=== PATIENT | male | born 1980 | race Caucasian/White ===

== ENCOUNTER 2017-06-22 19:17 | Emergency (ER) | payer MEDICAID, OTHER ==
[~2017-06-22] VITALS: Ht 172.7 cm; Wt 83.0 kg
[~2017-06-22 19:17] MED LIST: DILANTIN PO; DIVA250T25 PO; OLAN15TA2 PO
[2017-06-22] MEDS ORDERED: PHENY100 PO (19:42)
[2017-06-22] MEDS ORDERED: DIVA500T35 PO (19:42)
[2017-06-22] MEDS ORDERED: ACETAMINOPHEN 500 MG TABLET PO ONE (20:00)
[2017-06-22 22:30] VITALS: BP 119/83
== END 2017-06-22 22:35 | disposition home or self-care (01) ==
LOC: EMS 19:18
DX: S00.83XA Contusion of other part of head, initial encounter (principal); F20.9 Schizophrenia, unspecified; F17.210 Nicotine dependence, cigarettes, uncomplicated; Z88.0 Allergy status to penicillin; Z88.8 Allergy status to other drugs, medicaments and biological substances; Z91.012 Allergy to eggs; X58.XXXA Exposure to other specified factors, initial encounter; Y93.89 Activity, other specified; Y92.89 Other specified places as the place of occurrence of the external cause; Y99.8 Other external cause status
CPT/HCPCS: 70450; 99284

== ENCOUNTER 2017-06-25 15:07 | Inpatient (IN) | payer OTHER ==
[~2017-06-25] VITALS: Ht 172.7 cm; Wt 80.4 kg
[~2017-06-25 15:07] MED LIST changes: -DILANTIN PO; -DIVA250T25 PO; +DIVA500T35 PO; +PHENY100 PO
[2017-06-25] MEDS ORDERED: METO5TAB95 PO (16:02)
[2017-06-25] MEDS ORDERED: CHLO50I IM (16:02)
[2017-06-25] MEDS ORDERED: LEVO50 PO (16:02)
[2017-06-25] MEDS ORDERED: DIVA500T35 PO ×2 (16:02)
[2017-06-25] MEDS ORDERED: VIST50 PO (16:02)
[2017-06-25] MEDS ORDERED: PRAZ2 PO (16:02)
[2017-06-25] MEDS ORDERED: OMEP20 PO (16:02)
[2017-06-25] MEDS ORDERED: QUET200T PO ×2 (16:02)
[2017-06-25] MEDS ORDERED: CHLO50 PO (16:02)
[2017-06-25] MEDS ORDERED: RANI150T7 PO (16:02)
[2017-06-25] MEDS ORDERED: PALI156D IM (16:02)
[2017-06-25] MEDS ORDERED: PHENY100 PO ×2 (16:02)
[2017-06-25] MEDS ORDERED: BACI120O TP (16:02)
[2017-06-25] MEDS ORDERED: ONDANSETRON HCL 4 MG/2 ML VIAL IVP ONE ×2 (16:30→19:45)
[2017-06-25] MEDS ORDERED: SODIUM CHLORIDE 0.9% 1,000 ML IV ONE ×2 (16:30→17:15)
[2017-06-25 16:36] LABS: BASOPHILS % (AUTO) 0.1 % (0.0-2.0); EOSINOPHILS # (AUTO) 0.01 K/uL (0.00-0.70); EOSINOPHILS % (AUTO) 0.11 % (1.0-6.0); HEMATOCRIT 48.7 % (41-53); HEMOGLOBIN 16.6 g/dL (13.5-17.5); LYMPHOCYTES # (AUTO) 0.7 K/uL (1.0-4.8); LYMPHOCYTES % (AUTO) 8.1 % (22.0-44.0); MEAN CORPUSCULAR HEMOGLOBIN 31.5 pg (26.0-34.0); MEAN CORPUSCULAR HGB CONC 34.1 G/dL (31.0-37.0); MEAN CORPUSCULAR VOLUME 92 fL (80-100); MONOCYTES # (AUTO) 0.5 K/uL (0.1-1.0); MONOCYTES % (AUTO) 5.3 % (2.0-9.0); NEUTROPHILS # (AUTO) 7.7 K/uL (1.8-7.7); PLATELET COUNT (AUTO) 217 K/uL (150-450); RED BLOOD CELL COUNT(AUTO) 5.27 MIL/uL (4.50-5.90); RED CELL DISTRIBUTION WIDTH 12.7 % (11.5-14.5)
[2017-06-25 16:40] LABS: NEUTROPHILS % (AUTO) 86.5 % (40.0-70.0)
[2017-06-25 16:46] LABS: INR 1.1 (0.9-1.1); PROTHROMBIN TIME 11.4 SEC (9.4-11.6)
[2017-06-25 16:51] LABS: ANION GAP 10 mmol/L (8-16); CARBON DIOXIDE 27 mmol/L (22-29); CHLORIDE 99 mmol/L (98-107); GLOMERULAR FILTR. RATE CALC > 60 mL/min (>60); GLUCOSE,RANDOM 134 mg/dL (70-110); POTASSIUM 4.5 mmol/L (3.5-5.1); SODIUM SERUM 136 mmol/L (136-145); UREA NITROGEN, BLOOD 13 mg/dL (7-18)
[2017-06-25 16:59] LABS: ALANINE AMINOTRANSFERASE 63 U/L (12-78); ALBUMIN 3.9 g/dL (3.4-5.0); ALKALINE PHOSPHATASE 148 U/L (46-116); ASPARTATE AMINOTRANSFERASE 43 U/L (15-37); BILIRUBIN,TOTAL 0.3 mg/dL (0.1-1.0); LIPASE 1488 U/L (73-393); TOTAL PROTEIN, SERUM 7.9 g/dL (6.4-8.2)
[2017-06-25] MEDS ORDERED: KETOROLAC TROMETHAMINE 30 MG/ML VIAL IVP ONE (17:00)
[2017-06-25] MEDS ORDERED: PERTUSS(ACELL),DIPH,TET VAC/PF 0.5 ML VIAL IM ONE (17:00)
[2017-06-25] MEDS ORDERED: ACETAMINOPHEN 325 MG TABLET PO PRN (19:45)
[2017-06-25] MEDS ORDERED: 0.9% SODIUM CHLORIDE 10 ML SYRINGE IVP PRN (19:45)
[2017-06-25] MEDS ORDERED: HYDROmorphone 2 MG/ML SYRINGE IVP ONE (19:45)
[2017-06-25] MEDS ORDERED: ONDANSETRON HCL 4 MG/2 ML VIAL IVP PRN (19:45)
[2017-06-25 20:31] LABS: VALPROIC ACID 48 mcg/mL (50-100)
[2017-06-26] MEDS ORDERED: HYDROmorphone 2 MG/ML SYRINGE IVP ONE
[2017-06-26 08:16] LABS: ALANINE AMINOTRANSFERASE 49 U/L (12-78); ALBUMIN 3.4 g/dL (3.4-5.0); ALKALINE PHOSPHATASE 149 U/L (46-116); ANION GAP 9 mmol/L (8-16); ASPARTATE AMINOTRANSFERASE 29 U/L (15-37); BILIRUBIN,TOTAL 0.4 mg/dL (0.1-1.0); C-REACTIVE PROTEIN QUANT 1.94 mg/dL (0.00-0.30); CALCIUM, TOTAL 8.5 mg/dL (8.8-10.5); CARBON DIOXIDE 25 mmol/L (22-29); CHLORIDE 102 mmol/L (98-107); CREATININE 0.86 mg/dL (0.60-1.30); GLOMERULAR FILTR. RATE CALC > 60 mL/min (>60); GLUCOSE,RANDOM 115 mg/dL (70-110); LIPASE 2075 U/L (73-393); POTASSIUM 3.7 mmol/L (3.5-5.1); SODIUM SERUM 136 mmol/L (136-145); UREA NITROGEN, BLOOD 10 mg/dL (7-18)
[2017-06-26 08:27] VITALS: BP 130/82
[2017-06-26 11:00] VITALS: BP 135/71
[2017-06-26] MEDS ORDERED: ChlorproMAZINE HCL 50 MG TABLET PO PRN (11:30)
[2017-06-26] MEDS ORDERED: HydrOXYzine PAMOATE 50 MG CAPSULE PO PRN (11:30)
[2017-06-26] MEDS ORDERED: PHENYTOIN SODIUM 100 MG ER CAPSULE PO SCH (11:30)
[2017-06-26] MEDS ORDERED: MORPHINE SULFATE 2 MG/ML SYRINGE IVP PRN (11:30)
[2017-06-26] MEDS ORDERED: DIVALPROEX SODIUM 500 MG DR TABLET PO SCH ×2 (11:30→21:00)
[2017-06-26] MEDS ORDERED: METOCLOPRAMIDE HCL 5 MG TABLET PO SCH (11:30)
[2017-06-26] MEDS: SODIUM CHLORIDE 0.9% 1,000 ML IV SCH (12:18)
[2017-06-26 15:24] VITALS: BP 141/75
[2017-06-26] MEDS ORDERED: SODIUM CL IRRIG SOLN BAG 3,000 ML IRRIG ONE (15:45)
[2017-06-26] MEDS ORDERED: RINGERS SOLUTION,LACTATED 1,000 ML IV ONE ×2 (15:45→17:41)
[2017-06-26] MEDS ORDERED: IOHEXOL 240 MG/ML 20 ML VIAL ONE (15:47)
[2017-06-26] MEDS ORDERED: LIDOCAINE HCL 1%/EPI 1:200,000/PF 10 ML VIAL ONE (15:47)
[2017-06-26] MEDS ORDERED: QUEtiapine FUMARATE 200 MG TABLET PO SCH (16:00)
[2017-06-26] MEDS ORDERED: CLINDAMYCIN PHOS 150 MG/ML 4 ML VIAL ONE (16:44)
[2017-06-26] MEDS ORDERED: FentaNYL CITRATE-PF 100 MCG/2 ML VIAL IVP PRN (17:15)
[2017-06-26] MEDS ORDERED: HYDROmorphone 2 MG/ML SYRINGE IVP PRN (17:15)
[2017-06-26] MEDS ORDERED: MEPERIDINE-PF 25 MG/ML SYRINGE IVP PRN (17:15)
[2017-06-26] MEDS ORDERED: HYDROmorphone 2 MG/ML SYRINGE ONE (18:39)
[2017-06-26 19:14] VITALS: BP 137/88
[2017-06-27] VITALS (7 sets, daily range): BP systolic 110–126; BP diastolic 57–82
[2017-06-27] MEDS: SODIUM CHLORIDE 0.9% 1,000 ML IV SCH ×2 (01:00→08:42)
[2017-06-27] MEDS ORDERED: MIDAZOLAM HCL 2 MG/2 ML VIAL IVP ONE (01:29)
[2017-06-27] MEDS ORDERED: LIDOCAINE HCL/PF 2% 5 ML VIAL IM ONE (01:29)
[2017-06-27] MEDS ORDERED: KETOROLAC TROMETHAMINE 60 MG/2 ML VIAL IM ONE (01:29)
[2017-06-27] MEDS ORDERED: ROCURONIUM BROMIDE 10 MG/ML 5 ML VIAL IVP ONE (01:29)
[2017-06-27] MEDS ORDERED: FentaNYL CITRATE-PF 100 MCG/2 ML VIAL IVP ONE (01:29)
[2017-06-27] MEDS ORDERED: ONDANSETRON HCL 4 MG/2 ML VIAL IVP ONE (01:29)
[2017-06-27] MEDS ORDERED: DEXAMETHASONE SOD PHOS 4 MG/ML VIAL IVP ONE (01:29)
[2017-06-27] MEDS ORDERED: NEOSTIGMINE METHYLSULFATE 1 MG/ML 10 ML VIAL IVP ONE (01:29)
[2017-06-27] MEDS ORDERED: ALBUTEROL SULFATE HFA 90 MCG/PUFF 8 GM INHALER IH ONE (01:29)
[2017-06-27] MEDS ORDERED: GLYCOPYRROLATE 0.2 MG/ML VIAL IM ONE (01:29)
[2017-06-27] MEDS ORDERED: PROPOFOL 1% 20 ML VIAL IVP ONE (01:29)
[2017-06-27] MEDS ORDERED: LEVOTHYROXINE SODIUM 50 MCG TABLET PO SCH (06:30)
[2017-06-27 07:59] LABS: BASOPHILS % (AUTO) 0.1 % (0.0-2.0); EOSINOPHILS % (AUTO) 0.8 % (1.0-6.0); HEMATOCRIT 37.7 % (41-53); HEMOGLOBIN 13.6 g/dL (13.5-17.5); LYMPHOCYTES # (AUTO) 1.5 K/uL (1.0-4.8); LYMPHOCYTES % (AUTO) 17.3 % (22.0-44.0); MEAN CORPUSCULAR HEMOGLOBIN 32.2 pg (26.0-34.0); MEAN CORPUSCULAR HGB CONC 35.9 G/dL (31.0-37.0); MEAN CORPUSCULAR VOLUME 90 fL (80-100); MONOCYTES # (AUTO) 1.4 K/uL (0.1-1.0); MONOCYTES % (AUTO) 15.8 % (2.0-9.0); NEUTROPHILS # (AUTO) 5.9 K/uL (1.8-7.7); PLATELET COUNT (AUTO) 181 K/uL (150-450); RED BLOOD CELL COUNT(AUTO) 4.21 MIL/uL (4.50-5.90); RED CELL DISTRIBUTION WIDTH 12.6 % (11.5-14.5)
[2017-06-27] MEDS: OXYGEN THERAPY IH SCH (08:00)
[2017-06-27 08:03] LABS: ANION GAP 8 mmol/L (8-16); CALCIUM, TOTAL 8.1 mg/dL (8.8-10.5); CARBON DIOXIDE 27 mmol/L (22-29); CHLORIDE 102 mmol/L (98-107); CREATININE 0.74 mg/dL (0.60-1.30); GLOMERULAR FILTR. RATE CALC > 60 mL/min (>60); GLUCOSE,RANDOM 136 mg/dL (70-110); POTASSIUM 3.7 mmol/L (3.5-5.1); SODIUM SERUM 137 mmol/L (136-145); UREA NITROGEN, BLOOD 7 mg/dL (7-18)
[2017-06-27] MEDS: LEVOTHYROXINE SODIUM 50 MCG TABLET PO SCH (08:41)
[2017-06-27] MEDS: MORPHINE SULFATE 2 MG/ML SYRINGE IVP PRN ×4 (08:45→23:59)
[2017-06-27] MEDS: QUEtiapine FUMARATE 200 MG TABLET PO SCH ×3 (09:26→20:07)
[2017-06-27] MEDS: DIVALPROEX SODIUM 500 MG DR TABLET PO SCH (09:26)
[2017-06-27] MEDS: ACETAMINOPHEN 325 MG TABLET PO PRN (09:26)
[2017-06-27] MEDS: PHENYTOIN SODIUM 100 MG ER CAPSULE PO SCH (09:30)
[2017-06-27] MEDS ORDERED: MAGNESIUM OXIDE 400 MG TABLET PO PRN (10:15)
[2017-06-27] MEDS ORDERED: MAGNESIUM SULFATE 2 GM in DEXTROSE 5%-WATER 50 ML IV PRN (10:15)
[2017-06-27 10:37] LABS: ALBUMIN 3.1 g/dL (3.4-5.0)
[2017-06-27] MEDS: METOCLOPRAMIDE HCL 5 MG TABLET PO SCH ×2 (11:47→19:00)
[2017-06-27] MEDS ORDERED: INFLUENZA VIRUS VACCINE QVS 2017-18 (3YR+)/PF 60 MCG/0.5 ML SYRINGE IM ONE (12:30)
[2017-06-27] MEDS ORDERED: DIVALPROEX SODIUM 500 MG DR TABLET PO SCH (21:00)
[2017-06-28 05:00] VITALS: BP 110/73
[2017-06-28] MEDS: LEVOTHYROXINE SODIUM 50 MCG TABLET PO SCH (06:44)
[2017-06-28] MEDS: METOCLOPRAMIDE HCL 5 MG TABLET PO SCH ×2 (06:44→13:08)
[2017-06-28] MEDS ORDERED: HYDROmorphone 2 MG/ML SYRINGE IVP PRN (07:15)
[2017-06-28 07:19] LABS: BASOPHILS # (AUTO) 0.03 K/uL (0.00-0.20); BASOPHILS % (AUTO) 0.4 % (0.0-2.0); EOSINOPHILS # (AUTO) 0.22 K/uL (0.00-0.70); EOSINOPHILS % (AUTO) 2.54 % (1.0-6.0); HEMATOCRIT 38.4 % (41-53); HEMOGLOBIN 12.9 g/dL (13.5-17.5); LYMPHOCYTES # (AUTO) 2.1 K/uL (1.0-4.8); LYMPHOCYTES % (AUTO) 24.6 % (22.0-44.0); MEAN CORPUSCULAR HEMOGLOBIN 31.6 pg (26.0-34.0); MEAN CORPUSCULAR HGB CONC 33.6 G/dL (31.0-37.0); MEAN CORPUSCULAR VOLUME 94 fL (80-100); MONOCYTES # (AUTO) 1.4 K/uL (0.1-1.0); MONOCYTES % (AUTO) 16.3 % (2.0-9.0); NEUTROPHILS # (AUTO) 4.8 K/uL (1.8-7.7); NEUTROPHILS % (AUTO) 56.2 % (40.0-70.0); PLATELET COUNT (AUTO) 165 K/uL (150-450); RED BLOOD CELL COUNT(AUTO) 4.09 MIL/uL (4.50-5.90); RED CELL DISTRIBUTION WIDTH 12.5 % (11.5-14.5)
[2017-06-28 07:41] LABS: ANION GAP 8 mmol/L (8-16); CALCIUM, TOTAL 8.5 mg/dL (8.8-10.5); CARBON DIOXIDE 27 mmol/L (22-29); CHLORIDE 104 mmol/L (98-107); GLOMERULAR FILTR. RATE CALC > 60 mL/min (>60); GLUCOSE,RANDOM 93 mg/dL (70-110); POTASSIUM 3.7 mmol/L (3.5-5.1); SODIUM SERUM 139 mmol/L (136-145); UREA NITROGEN, BLOOD 6 mg/dL (7-18)
[2017-06-28 08:07] VITALS: BP 118/76
[2017-06-28] MEDS: DIVALPROEX SODIUM 500 MG DR TABLET PO SCH (08:23)
[2017-06-28] MEDS: PHENYTOIN SODIUM 100 MG ER CAPSULE PO SCH (08:24)
[2017-06-28] MEDS: QUEtiapine FUMARATE 200 MG TABLET PO SCH (08:24)
[2017-06-28] MEDS: ACETAMINOPHEN 325 MG TABLET PO PRN ×2 (08:29)
[2017-06-28] MEDS: OXYGEN THERAPY IH SCH (08:31)
[2017-06-28 12:09] VITALS: BP 93/61
== END 2017-06-28 14:13 | DRG 263 ==
LOC: EMS 15:09 → 6N 06-26 08:32
PROVIDERS: ADMIT Internal Medicine; ATTEND Internal Medicine
PROC: BF101ZZ Fluoroscopy of Bile Ducts using Low Osmolar Contrast (ICD-10-PCS; 2017-06-26)
PROC: 0FT44ZZ Resection of Gallbladder, Percutaneous Endoscopic Approach (ICD-10-PCS; principal; 2017-06-26 16:30)
DX: K85.10 Biliary acute pancreatitis without necrosis or infection (principal); F20.9 Schizophrenia, unspecified; I10 Essential (primary) hypertension; F10.239 Alcohol dependence with withdrawal, unspecified; E03.9 Hypothyroidism, unspecified; E86.0 Dehydration; F17.200 Nicotine dependence, unspecified, uncomplicated; F31.9 Bipolar disorder, unspecified; G40.909 Epilepsy, unspecified, not intractable, without status epilepticus; H53.2 Diplopia; J45.909 Unspecified asthma, uncomplicated; K21.9 Gastro-esophageal reflux disease without esophagitis; Z90.49 Acquired absence of other specified parts of digestive tract; Z88.2 Allergy status to sulfonamides; Z88.8 Allergy status to other drugs, medicaments and biological substances; Z88.0 Allergy status to penicillin; Z91.013 Allergy to seafood
CPT/HCPCS: 74022; 76705; 82308; 83735; 85651; 86140; 87040; 87081; 88304; 90471; 90715; 96361; 96374; 96375; 96376; 99285; J1100; J1170; J1885; J2250; J2270; J2405; J2704; J3010; J3475; J3490; J3535; J7030; J7060; J7120; Q9966; S0077

== ENCOUNTER 2017-07-04 13:12 | Inpatient (IN) | payer MEDICAID, OTHER ==
[~2017-07-04] VITALS: Ht 172.7 cm; Wt 80.7 kg
[~2017-07-04 13:12] MED LIST changes: +BACI120O TP; +CHLO50 PO; +CHLO50I IM; +LEVO50 PO; +METO5TAB95 PO; -OLAN15TA2 PO; +OMEP20 PO; +PALI156D IM; +PRAZ2 PO; +QUET200T PO; +RANI150T7 PO; +VIST50 PO
[2017-07-04 13:55] LABS: BASOPHILS % (AUTO) 0.9 % (0.0-2.0); EOSINOPHILS % (AUTO) 4.1 % (1.0-6.0); HEMATOCRIT 40.4 % (41-53); HEMOGLOBIN 14.2 g/dL (13.5-17.5); LYMPHOCYTES # (AUTO) 1.3 K/uL (1.0-4.8); LYMPHOCYTES % (AUTO) 18.5 % (22.0-44.0); MEAN CORPUSCULAR HEMOGLOBIN 31.9 pg (26.0-34.0); MEAN CORPUSCULAR HGB CONC 35.1 G/dL (31.0-37.0); MEAN CORPUSCULAR VOLUME 91 fL (80-100); MONOCYTES # (AUTO) 0.8 K/uL (0.1-1.0); MONOCYTES % (AUTO) 11.6 % (2.0-9.0); NEUTROPHILS # (AUTO) 4.4 K/uL (1.8-7.7); NEUTROPHILS % (AUTO) 64.9 % (40.0-70.0); PLATELET COUNT (AUTO) 279 K/uL (150-450); RED BLOOD CELL COUNT(AUTO) 4.45 MIL/uL (4.50-5.90); RED CELL DISTRIBUTION WIDTH 12.3 % (11.5-14.5)
[2017-07-04 14:02] LABS: ANION GAP 7 mmol/L (8-16); CARBON DIOXIDE 26 mmol/L (22-29); CHLORIDE 103 mmol/L (98-107); GLOMERULAR FILTR. RATE CALC > 60 mL/min (>60); GLUCOSE,RANDOM 140 mg/dL (70-110); POTASSIUM 3.9 mmol/L (3.5-5.1); SODIUM SERUM 136 mmol/L (136-145); UREA NITROGEN, BLOOD 13 mg/dL (7-18)
[2017-07-04 14:07] LABS: ALANINE AMINOTRANSFERASE 79 U/L (12-78); ALBUMIN 3.3 g/dL (3.4-5.0); ALKALINE PHOSPHATASE 180 U/L (46-116); ASPARTATE AMINOTRANSFERASE 51 U/L (15-37); BILIRUBIN,TOTAL 0.2 mg/dL (0.1-1.0); PHENYTOIN (DILANTIN) 8.4 mcg/mL (10.0-20.0); TOTAL PROTEIN, SERUM 7.5 g/dL (6.4-8.2); VALPROIC ACID 48 mcg/mL (50-100)
[2017-07-04 14:12] LABS: AMPHET/METH SCREEN,URINE NEGATIVE (NEGATIVE); BARBITURATE SCREEN, URINE NEGATIVE (NEGATIVE); BENZODIAZEPINES SCREEN,URINE NEGATIVE (NEGATIVE); CANNABINOID SCREEN,URINE NEGATIVE (NEGATIVE); COCAINE SCREEN,URINE NEGATIVE (NEGATIVE); METHADONE SCREEN, URINE NEGATIVE (NEGATIVE); OPIATE SCREEN,URINE NEGATIVE (NEGATIVE)
[2017-07-04 14:13] LABS: PHENCYCLIDINE SCREEN,URINE NEGATIVE (NEGATIVE)
[2017-07-04] MEDS ORDERED: PERTUSS(ACELL),DIPH,TET VAC/PF 0.5 ML VIAL IM ONE (14:15)
[2017-07-04] MEDS ORDERED: BACITRACIN 0.9 GM PACKET OINTMENT TP ONE (14:30)
[2017-07-04] MEDS ORDERED: POVIDONE-IODINE 10% 15 ML SOLUTION UD TP ONE (14:30)
[2017-07-04] MEDS ORDERED: LIDOCAINE HCL 2%/EPI 1:200,000/PF 20 ML VIAL INJ ONE (14:30)
[2017-07-04] MEDS ORDERED: DIVALPROEX SODIUM 250 MG DR TABLET PO ONE (15:00)
[2017-07-04] MEDS ORDERED: PHENYTOIN SODIUM 100 MG ER CAPSULE PO ONE (15:00)
[2017-07-05 05:59] LABS: CHOL/HDL RATIO 3.1 (4.2-7.3)
[2017-07-05] MEDS: HALOPERIDOL 5 MG TABLET PO PRN ×2 (08:42→14:33)
[2017-07-05] MEDS: LORazepam 2 MG TABLET PO PRN ×2 (08:42→14:33)
[2017-07-05] MEDS ORDERED: PHENY100 PO (16:03)
[2017-07-05] MEDS ORDERED: QUEtiapine FUMARATE 100 MG TABLET PO ONE (16:45)
[2017-07-05] MEDS: ZOLPIDEM TARTRATE 10 MG TABLET PO PRN (20:48)
[2017-07-05] MEDS: PHENYTOIN SODIUM 100 MG ER CAPSULE PO SCH (20:48)
[2017-07-05 21:00] VITALS: BP 117/72
[2017-07-06] MEDS: LEVOTHYROXINE SODIUM 50 MCG TABLET PO SCH (06:14)
[2017-07-06 06:33] VITALS: BP 137/72
[2017-07-06 08:00] VITALS: BP 122/77
[2017-07-06] MEDS: OMEPRAZOLE 20 MG CAPSULE PO SCH (09:05)
[2017-07-06] MEDS: PHENYTOIN SODIUM 100 MG ER CAPSULE PO SCH ×2 (09:05→16:48)
[2017-07-06 10:18] VITALS: BP 122/77
[2017-07-06] MEDS: LORazepam 2 MG TABLET PO PRN ×2 (10:18→16:48)
[2017-07-06] MEDS: QUEtiapine FUMARATE 200 MG TABLET PO SCH ×2 (12:27→16:48)
[2017-07-06 16:30] VITALS: BP 101/61
[2017-07-06] MEDS: HALOPERIDOL 5 MG TABLET PO PRN (16:48)
[2017-07-06] MEDS: PALIPERIDONE 6 MG ER TABLET PO SCH (16:48)
[2017-07-06] MEDS: DIVALPROEX SODIUM 500 MG DR TABLET PO SCH (20:34)
[2017-07-07] MEDS: LEVOTHYROXINE SODIUM 50 MCG TABLET PO SCH (06:19)
[2017-07-07 06:25] VITALS: BP 105/62
[2017-07-07 08:13] VITALS: BP 118/74
[2017-07-07] MEDS: PHENYTOIN SODIUM 100 MG ER CAPSULE PO SCH ×2 (08:32→17:18)
[2017-07-07] MEDS: OMEPRAZOLE 20 MG CAPSULE PO SCH (08:32)
[2017-07-07] MEDS: LORazepam 2 MG TABLET PO PRN ×2 (08:32→17:18)
[2017-07-07] MEDS: QUEtiapine FUMARATE 200 MG TABLET PO SCH ×3 (08:32→17:18)
[2017-07-07] MEDS: PALIPERIDONE 6 MG ER TABLET PO SCH ×2 (08:33→17:18)
[2017-07-07 08:44] LABS: APPEARANCE,URINE CLEAR (CLEAR); BILIRUBIN,URINE NEGATIVE (NEGATIVE); GLUCOSE, URINE (UA) NEGATIVE (NEGATIVE); KETONES,URINE NEGATIVE (NEGATIVE); LEUKOCYTE ESTERASE ,URINE NEGATIVE (NEGATIVE); NITRATE,URINE NEGATIVE (NEGATIVE); OCCULT BLOOD,URINE NEGATIVE (NEGATIVE); PH,URINE 6.5 (5.0-8.0); PROTEIN,URINE NEGATIVE (NEGATIVE); UROBILINOGEN,URINE 0.2 mg/dL (<=1.0)
[2017-07-07 16:30] VITALS: BP 112/73
[2017-07-07] MEDS: HALOPERIDOL 5 MG TABLET PO PRN (17:18)
[2017-07-07] MEDS: DIVALPROEX SODIUM 500 MG DR TABLET PO SCH (20:41)
[2017-07-08 03:11] VITALS: BP 117/64
[2017-07-08] MEDS: LEVOTHYROXINE SODIUM 50 MCG TABLET PO SCH (06:11)
[2017-07-08 08:19] VITALS: BP 114/68
[2017-07-08] MEDS: PALIPERIDONE 6 MG ER TABLET PO SCH ×2 (08:28→16:37)
[2017-07-08] MEDS: OMEPRAZOLE 20 MG CAPSULE PO SCH (08:28)
[2017-07-08] MEDS: PHENYTOIN SODIUM 100 MG ER CAPSULE PO SCH ×2 (08:28→16:37)
[2017-07-08] MEDS: QUEtiapine FUMARATE 200 MG TABLET PO SCH ×3 (08:28→16:37)
[2017-07-08] MEDS: LORazepam 2 MG TABLET PO PRN ×3 (08:28→20:38)
[2017-07-08] MEDS: HALOPERIDOL 5 MG TABLET PO PRN (16:37)
[2017-07-08 18:06] VITALS: BP 103/61
[2017-07-08] MEDS: ZOLPIDEM TARTRATE 10 MG TABLET PO PRN (20:38)
[2017-07-08] MEDS: DIVALPROEX SODIUM 500 MG DR TABLET PO SCH (20:38)
[2017-07-09] MEDS: LEVOTHYROXINE SODIUM 50 MCG TABLET PO SCH (06:28)
[2017-07-09 06:37] VITALS: BP 100/63
[2017-07-09 08:17] VITALS: BP 112/66
[2017-07-09] MEDS: PHENYTOIN SODIUM 100 MG ER CAPSULE PO SCH ×2 (08:48→16:56)
[2017-07-09] MEDS: QUEtiapine FUMARATE 200 MG TABLET PO SCH ×3 (08:48→16:56)
[2017-07-09] MEDS: PALIPERIDONE 6 MG ER TABLET PO SCH ×2 (08:49→16:56)
[2017-07-09] MEDS: OMEPRAZOLE 20 MG CAPSULE PO SCH (08:49)
[2017-07-09] MEDS: LORazepam 2 MG TABLET PO PRN ×3 (10:49→20:57)
[2017-07-09 16:00] VITALS: BP 116/68
[2017-07-09] MEDS: DIVALPROEX SODIUM 500 MG DR TABLET PO SCH (20:57)
[2017-07-09] MEDS: ZOLPIDEM TARTRATE 10 MG TABLET PO PRN (20:57)
[2017-07-10] MEDS: LEVOTHYROXINE SODIUM 50 MCG TABLET PO SCH (06:47)
[2017-07-10 06:56] VITALS: BP 110/65
[2017-07-10 08:00] VITALS: BP 121/73
[2017-07-10] MEDS: PHENYTOIN SODIUM 100 MG ER CAPSULE PO SCH ×2 (10:19→16:50)
[2017-07-10] MEDS: HALOPERIDOL 5 MG TABLET PO PRN (10:19)
[2017-07-10] MEDS: PALIPERIDONE 6 MG ER TABLET PO SCH ×2 (10:19→16:50)
[2017-07-10] MEDS: OMEPRAZOLE 20 MG CAPSULE PO SCH (10:19)
[2017-07-10] MEDS: LORazepam 2 MG TABLET PO PRN ×2 (10:19→16:50)
[2017-07-10] MEDS: QUEtiapine FUMARATE 200 MG TABLET PO SCH ×3 (10:19→16:51)
[2017-07-10 16:22] VITALS: BP 111/67
[2017-07-10] MEDS: ZOLPIDEM TARTRATE 10 MG TABLET PO PRN (20:44)
[2017-07-10] MEDS: DIVALPROEX SODIUM 500 MG DR TABLET PO SCH (20:44)
[2017-07-11 04:20] VITALS: BP 135/79
[2017-07-11] MEDS: LORazepam 2 MG TABLET PO PRN (04:37)
[2017-07-11] MEDS: HALOPERIDOL 5 MG TABLET PO PRN (04:37)
[2017-07-11 05:20] VITALS: BP 137/71
[2017-07-11] MEDS: LEVOTHYROXINE SODIUM 50 MCG TABLET PO SCH (06:23)
[2017-07-11 08:00] VITALS: BP 116/65
[2017-07-11] MEDS: PHENYTOIN SODIUM 100 MG ER CAPSULE PO SCH ×2 (08:52→16:53)
[2017-07-11] MEDS: PALIPERIDONE 6 MG ER TABLET PO SCH ×2 (08:52→16:53)
[2017-07-11] MEDS: QUEtiapine FUMARATE 200 MG TABLET PO SCH ×3 (08:52→16:53)
[2017-07-11] MEDS: OMEPRAZOLE 20 MG CAPSULE PO SCH (08:52)
[2017-07-11 16:48] VITALS: BP 112/68
[2017-07-11] MEDS: DIVALPROEX SODIUM 500 MG DR TABLET PO SCH (19:59)
[2017-07-12 06:08] VITALS: BP 121/73
[2017-07-12] MEDS: LEVOTHYROXINE SODIUM 50 MCG TABLET PO SCH (06:22)
[2017-07-12 08:20] VITALS: BP 123/82
[2017-07-12] MEDS: OMEPRAZOLE 20 MG CAPSULE PO SCH (08:36)
[2017-07-12] MEDS: PALIPERIDONE 6 MG ER TABLET PO SCH ×2 (08:36→17:07)
[2017-07-12] MEDS: QUEtiapine FUMARATE 200 MG TABLET PO SCH ×3 (08:36→17:07)
[2017-07-12] MEDS: PHENYTOIN SODIUM 100 MG ER CAPSULE PO SCH ×2 (08:36→17:06)
[2017-07-12 09:30] VITALS: BP 135/81
[2017-07-12] MEDS: ACETAMINOPHEN 325 MG TABLET PO PRN (09:37)
[2017-07-12] MEDS: LORazepam 2 MG TABLET PO PRN ×2 (09:57→17:07)
[2017-07-12] MEDS: HALOPERIDOL 5 MG TABLET PO PRN (09:57)
[2017-07-12 16:00] VITALS: BP 133/73
[2017-07-12] MEDS: DIVALPROEX SODIUM 500 MG DR TABLET PO SCH (20:32)
[2017-07-13 05:33] VITALS: BP 106/68
[2017-07-13] MEDS: LEVOTHYROXINE SODIUM 50 MCG TABLET PO SCH (06:38)
[2017-07-13 08:00] VITALS: BP 133/66
[2017-07-13] MEDS: PHENYTOIN SODIUM 100 MG ER CAPSULE PO SCH ×2 (09:18→16:34)
[2017-07-13] MEDS: PALIPERIDONE 6 MG ER TABLET PO SCH ×2 (09:18→16:34)
[2017-07-13] MEDS: QUEtiapine FUMARATE 200 MG TABLET PO SCH ×3 (09:18→16:34)
[2017-07-13] MEDS: LORazepam 2 MG TABLET PO PRN ×2 (09:18→16:34)
[2017-07-13] MEDS: OMEPRAZOLE 20 MG CAPSULE PO SCH (09:18)
[2017-07-13] MEDS: IBUPROFEN 600 MG TABLET PO PRN (09:30)
[2017-07-13 16:00] VITALS: BP 120/65
[2017-07-13] MEDS: DIVALPROEX SODIUM 500 MG DR TABLET PO SCH (20:56)
[2017-07-14] MEDS: LEVOTHYROXINE SODIUM 50 MCG TABLET PO SCH (06:30)
[2017-07-14 08:03] VITALS: BP 123/78
[2017-07-14] MEDS: PALIPERIDONE 6 MG ER TABLET PO SCH ×2 (08:53→16:49)
[2017-07-14] MEDS: QUEtiapine FUMARATE 200 MG TABLET PO SCH ×3 (08:54→16:49)
[2017-07-14] MEDS: PHENYTOIN SODIUM 100 MG ER CAPSULE PO SCH ×2 (08:54→16:49)
[2017-07-14] MEDS: OMEPRAZOLE 20 MG CAPSULE PO SCH (08:54)
[2017-07-14] MEDS: LORazepam 2 MG TABLET PO PRN ×2 (08:54→16:49)
[2017-07-14 16:00] VITALS: BP 118/75
[2017-07-14] MEDS: ACETAMINOPHEN 325 MG TABLET PO PRN (17:24)
[2017-07-14] MEDS: ZOLPIDEM TARTRATE 10 MG TABLET PO PRN (20:35)
[2017-07-14] MEDS: DIVALPROEX SODIUM 500 MG DR TABLET PO SCH (20:35)
[2017-07-15 06:29] VITALS: BP 120/78
[2017-07-15] MEDS: LEVOTHYROXINE SODIUM 50 MCG TABLET PO SCH (06:45)
[2017-07-15 08:33] VITALS: BP 118/67
[2017-07-15] MEDS: OMEPRAZOLE 20 MG CAPSULE PO SCH (08:37)
[2017-07-15] MEDS: PALIPERIDONE 6 MG ER TABLET PO SCH ×2 (08:37→17:37)
[2017-07-15] MEDS: PHENYTOIN SODIUM 100 MG ER CAPSULE PO SCH ×2 (08:37→17:37)
[2017-07-15] MEDS: QUEtiapine FUMARATE 200 MG TABLET PO SCH ×3 (08:37→17:37)
[2017-07-15] MEDS: IBUPROFEN 600 MG TABLET PO PRN (08:37)
[2017-07-15 09:33] VITALS: BP 107/61
[2017-07-15 16:12] VITALS: BP 130/62
[2017-07-15] MEDS: LORazepam 2 MG TABLET PO PRN (17:37)
[2017-07-15] MEDS: HALOPERIDOL 5 MG TABLET PO PRN (17:37)
[2017-07-15] MEDS: ZOLPIDEM TARTRATE 10 MG TABLET PO PRN (21:31)
[2017-07-15] MEDS: DIVALPROEX SODIUM 500 MG DR TABLET PO SCH (21:31)
[2017-07-16] MEDS: LEVOTHYROXINE SODIUM 50 MCG TABLET PO SCH (06:02)
[2017-07-16 06:05] VITALS: BP 100/61
[2017-07-16 08:14] VITALS: BP 124/64
[2017-07-16] MEDS: QUEtiapine FUMARATE 200 MG TABLET PO SCH ×3 (09:05→16:56)
[2017-07-16] MEDS: OMEPRAZOLE 20 MG CAPSULE PO SCH (09:05)
[2017-07-16] MEDS: PHENYTOIN SODIUM 100 MG ER CAPSULE PO SCH ×2 (09:05→16:56)
[2017-07-16] MEDS: PALIPERIDONE 6 MG ER TABLET PO SCH ×2 (10:13→16:56)
[2017-07-16 10:53] VITALS: BP 113/66
[2017-07-16] MEDS: IBUPROFEN 600 MG TABLET PO PRN (10:53)
[2017-07-16] MEDS: LORazepam 2 MG TABLET PO PRN (11:04)
[2017-07-16] MEDS ORDERED: FluPHENAZine HCL 2.5 MG/ML INJ IM ONE (11:30)
[2017-07-16] MEDS ORDERED: LORazepam 2 MG/ML VIAL IM ONE (11:30)
[2017-07-16] MEDS ORDERED: DiphenhydrAMINE HCL 50 MG/ML VIAL IM ONE (11:30)
[2017-07-16 16:00] VITALS: BP 112/73
[2017-07-16] MEDS: DIVALPROEX SODIUM 500 MG DR TABLET PO SCH (20:33)
[2017-07-17] MEDS: LEVOTHYROXINE SODIUM 50 MCG TABLET PO SCH (06:12)
[2017-07-17 07:02] VITALS: BP 110/75
[2017-07-17] MEDS: PHENYTOIN SODIUM 100 MG ER CAPSULE PO SCH ×2 (08:42→16:01)
[2017-07-17] MEDS: QUEtiapine FUMARATE 200 MG TABLET PO SCH ×3 (08:42→16:01)
[2017-07-17] MEDS: PALIPERIDONE 6 MG ER TABLET PO SCH ×2 (08:42→16:00)
[2017-07-17] MEDS: OMEPRAZOLE 20 MG CAPSULE PO SCH (08:42)
[2017-07-17] MEDS: LORazepam 2 MG TABLET PO PRN ×3 (08:43→16:45)
[2017-07-17 09:08] VITALS: BP 117/83
[2017-07-17] MEDS: IBUPROFEN 600 MG TABLET PO PRN (09:08)
[2017-07-17 16:00] VITALS: BP 108/70
[2017-07-17] MEDS: DIVALPROEX SODIUM 500 MG DR TABLET PO SCH (21:05)
[2017-07-18] MEDS: LEVOTHYROXINE SODIUM 50 MCG TABLET PO SCH (06:19)
[2017-07-18 06:30] VITALS: BP 103/65
[2017-07-18 08:46] VITALS: BP 108/66
[2017-07-18] MEDS: OMEPRAZOLE 20 MG CAPSULE PO SCH (09:00)
[2017-07-18] MEDS: QUEtiapine FUMARATE 200 MG TABLET PO SCH ×3 (09:00→16:22)
[2017-07-18] MEDS: PALIPERIDONE 6 MG ER TABLET PO SCH ×2 (09:00→16:22)
[2017-07-18] MEDS: PHENYTOIN SODIUM 100 MG ER CAPSULE PO SCH ×2 (09:00→16:22)
[2017-07-18] MEDS: HALOPERIDOL 5 MG TABLET PO PRN (10:25)
[2017-07-18] MEDS: LORazepam 2 MG TABLET PO PRN (10:25)
[2017-07-18 16:33] VITALS: BP 115/66
[2017-07-18] MEDS: DIVALPROEX SODIUM 500 MG DR TABLET PO SCH (20:20)
[2017-07-19] MEDS: LEVOTHYROXINE SODIUM 50 MCG TABLET PO SCH (06:14)
[2017-07-19 06:38] VITALS: BP 110/65
[2017-07-19 08:41] VITALS: BP 108/62
[2017-07-19] MEDS: PALIPERIDONE 6 MG ER TABLET PO SCH ×2 (10:26→16:51)
[2017-07-19] MEDS: HALOPERIDOL 5 MG TABLET PO PRN ×2 (10:27→16:52)
[2017-07-19] MEDS: OMEPRAZOLE 20 MG CAPSULE PO SCH (10:27)
[2017-07-19] MEDS: LORazepam 2 MG TABLET PO PRN ×2 (10:27→16:52)
[2017-07-19] MEDS: QUEtiapine FUMARATE 200 MG TABLET PO SCH ×3 (10:27→16:52)
[2017-07-19] MEDS: PHENYTOIN SODIUM 100 MG ER CAPSULE PO SCH ×2 (10:27→16:51)
[2017-07-19 16:27] VITALS: BP 112/81
[2017-07-19] MEDS: ZOLPIDEM TARTRATE 10 MG TABLET PO PRN (21:12)
[2017-07-19] MEDS: DIVALPROEX SODIUM 500 MG DR TABLET PO SCH (21:12)
[2017-07-20 06:10] VITALS: BP 105/66
[2017-07-20] MEDS: LEVOTHYROXINE SODIUM 50 MCG TABLET PO SCH (06:28)
[2017-07-20 08:30] VITALS: BP 106/64
[2017-07-20] MEDS: PALIPERIDONE 6 MG ER TABLET PO SCH ×2 (09:11→16:44)
[2017-07-20] MEDS: QUEtiapine FUMARATE 200 MG TABLET PO SCH ×3 (09:11→16:44)
[2017-07-20] MEDS: PHENYTOIN SODIUM 100 MG ER CAPSULE PO SCH ×2 (09:11→16:44)
[2017-07-20] MEDS: OMEPRAZOLE 20 MG CAPSULE PO SCH (09:11)
[2017-07-20 13:55] VITALS: BP 123/62
[2017-07-20] MEDS: IBUPROFEN 600 MG TABLET PO PRN (13:59)
[2017-07-20 14:54] VITALS: BP 130/74
[2017-07-20] MEDS ORDERED: SELENIUM SULFIDE 1% 207 ML SHAMPOO TP PRN (15:15)
[2017-07-20 16:09] VITALS: BP 116/72
[2017-07-20] MEDS: ZOLPIDEM TARTRATE 10 MG TABLET PO PRN (20:11)
[2017-07-20] MEDS: DIVALPROEX SODIUM 500 MG DR TABLET PO SCH (20:11)
[2017-07-21] MEDS: LEVOTHYROXINE SODIUM 50 MCG TABLET PO SCH (06:15)
[2017-07-21] MEDS: PHENYTOIN SODIUM 100 MG ER CAPSULE PO SCH ×2 (08:23→17:04)
[2017-07-21] MEDS: BENZOCAINE 10% 7 GM GEL TP PRN (08:23)
[2017-07-21] MEDS: OMEPRAZOLE 20 MG CAPSULE PO SCH (08:23)
[2017-07-21] MEDS: QUEtiapine FUMARATE 200 MG TABLET PO SCH ×3 (08:23→17:04)
[2017-07-21] MEDS: PALIPERIDONE 6 MG ER TABLET PO SCH ×2 (08:23→17:04)
[2017-07-21 09:12] VITALS: BP 110/69
[2017-07-21] MEDS: IBUPROFEN 600 MG TABLET PO PRN (09:27)
[2017-07-21] MEDS: HALOPERIDOL 5 MG TABLET PO PRN ×2 (12:13→17:04)
[2017-07-21] MEDS: LORazepam 2 MG TABLET PO PRN ×2 (12:13→17:04)
[2017-07-21 16:09] VITALS: BP 110/73
[2017-07-21] MEDS: ZOLPIDEM TARTRATE 10 MG TABLET PO PRN (20:45)
[2017-07-21] MEDS: DIVALPROEX SODIUM 500 MG DR TABLET PO SCH (20:45)
[2017-07-22] MEDS: LEVOTHYROXINE SODIUM 50 MCG TABLET PO SCH (06:05)
[2017-07-22 06:17] LABS: HIV 1-2 SCREEN 4TH GEN W/RFLX Non Reactive (Non Reactive)
[2017-07-22 06:33] VITALS: BP 109/69
[2017-07-22 08:15] VITALS: BP 114/64
[2017-07-22] MEDS: QUEtiapine FUMARATE 200 MG TABLET PO SCH ×3 (08:54→16:37)
[2017-07-22] MEDS: PHENYTOIN SODIUM 100 MG ER CAPSULE PO SCH ×2 (08:54→16:37)
[2017-07-22] MEDS: PALIPERIDONE 6 MG ER TABLET PO SCH ×2 (09:00→16:37)
[2017-07-22] MEDS: OMEPRAZOLE 20 MG CAPSULE PO SCH (09:00)
[2017-07-22] MEDS: HALOPERIDOL 5 MG TABLET PO PRN (09:41)
[2017-07-22] MEDS: LORazepam 2 MG TABLET PO PRN ×3 (09:41→20:41)
[2017-07-22 16:00] VITALS: BP 111/72
[2017-07-22] MEDS: ZOLPIDEM TARTRATE 10 MG TABLET PO PRN (20:41)
[2017-07-22] MEDS: DIVALPROEX SODIUM 500 MG DR TABLET PO SCH (20:41)
[2017-07-23] MEDS: LEVOTHYROXINE SODIUM 50 MCG TABLET PO SCH (06:35)
[2017-07-23 07:11] VITALS: BP 105/63
[2017-07-23 08:39] VITALS: BP 98/72
[2017-07-23] MEDS: OMEPRAZOLE 20 MG CAPSULE PO SCH (09:25)
[2017-07-23] MEDS: PHENYTOIN SODIUM 100 MG ER CAPSULE PO SCH ×2 (09:25→16:35)
[2017-07-23] MEDS: QUEtiapine FUMARATE 200 MG TABLET PO SCH ×3 (09:25→16:35)
[2017-07-23] MEDS: PALIPERIDONE 6 MG ER TABLET PO SCH ×2 (09:25→16:35)
[2017-07-23] MEDS: HALOPERIDOL 5 MG TABLET PO PRN (13:56)
[2017-07-23] MEDS: LORazepam 2 MG TABLET PO PRN ×2 (13:56→18:26)
[2017-07-23 16:00] VITALS: BP 120/74
[2017-07-23] MEDS: DIVALPROEX SODIUM 500 MG DR TABLET PO SCH (21:00)
[2017-07-24 05:48] VITALS: BP 118/70
[2017-07-24] MEDS: LEVOTHYROXINE SODIUM 50 MCG TABLET PO SCH (06:25)
[2017-07-24 08:30] VITALS: BP 109/63
[2017-07-24] MEDS: BENZOCAINE 10% 7 GM GEL TP PRN (08:40)
[2017-07-24] MEDS: OMEPRAZOLE 20 MG CAPSULE PO SCH (08:43)
[2017-07-24] MEDS: QUEtiapine FUMARATE 200 MG TABLET PO SCH ×3 (08:43→17:08)
[2017-07-24] MEDS: PALIPERIDONE 6 MG ER TABLET PO SCH ×2 (08:43→17:08)
[2017-07-24] MEDS: PHENYTOIN SODIUM 100 MG ER CAPSULE PO SCH ×2 (08:43→17:08)
[2017-07-24 12:00] VITALS: BP 118/74
[2017-07-24] MEDS: IBUPROFEN 600 MG TABLET PO PRN (12:02)
[2017-07-24] MEDS: NICOTINE 21 MG/24 HOUR PATCH TD SCH (12:06)
[2017-07-24] MEDS: LORazepam 2 MG TABLET PO PRN ×2 (13:53→17:59)
[2017-07-24 16:32] VITALS: BP 125/78
[2017-07-24] MEDS ORDERED: TUBERCULIN, PURIFIED PROTEIN DERIVATIVE 5 TU/0.1 ML SYG ID ONE (16:45)
[2017-07-24] MEDS: ZOLPIDEM TARTRATE 10 MG TABLET PO PRN (21:02)
[2017-07-24] MEDS: DIVALPROEX SODIUM 500 MG DR TABLET PO SCH (21:02)
[2017-07-25 02:33] VITALS: BP 122/79
[2017-07-25] MEDS: LEVOTHYROXINE SODIUM 50 MCG TABLET PO SCH (06:27)
[2017-07-25] MEDS: PALIPERIDONE 6 MG ER TABLET PO SCH ×2 (08:21→16:00)
[2017-07-25] MEDS: NICOTINE 21 MG/24 HOUR PATCH TD SCH (08:21)
[2017-07-25] MEDS: PHENYTOIN SODIUM 100 MG ER CAPSULE PO SCH ×2 (08:22→16:00)
[2017-07-25] MEDS: QUEtiapine FUMARATE 200 MG TABLET PO SCH ×3 (08:22→16:00)
[2017-07-25] MEDS: OMEPRAZOLE 20 MG CAPSULE PO SCH (08:22)
[2017-07-25] MEDS: HALOPERIDOL 5 MG TABLET PO PRN (08:22)
[2017-07-25] MEDS: LORazepam 2 MG TABLET PO PRN (08:22)
[2017-07-25 13:29] VITALS: BP 109/73
[2017-07-25] MEDS: IBUPROFEN 600 MG TABLET PO PRN (16:00)
[2017-07-25 16:18] VITALS: BP 121/81
[2017-07-25] MEDS: DIVALPROEX SODIUM 500 MG DR TABLET PO SCH (20:20)
[2017-07-26 05:44] VITALS: BP 101/78
[2017-07-26] MEDS: LEVOTHYROXINE SODIUM 50 MCG TABLET PO SCH (06:26)
[2017-07-26 08:10] VITALS: BP 122/70
[2017-07-26] MEDS: OMEPRAZOLE 20 MG CAPSULE PO SCH (09:26)
[2017-07-26] MEDS: QUEtiapine FUMARATE 200 MG TABLET PO SCH ×3 (09:26→16:24)
[2017-07-26] MEDS: PALIPERIDONE 6 MG ER TABLET PO SCH ×2 (09:27→16:24)
[2017-07-26] MEDS: PHENYTOIN SODIUM 100 MG ER CAPSULE PO SCH ×2 (09:27→16:24)
[2017-07-26] MEDS: NICOTINE 21 MG/24 HOUR PATCH TD SCH (09:27)
[2017-07-26] MEDS ORDERED: MAGNESIUM CITRATE 300 ML ORAL SOLUTION PO PRN (15:45)
[2017-07-26 16:00] VITALS: BP 135/81
[2017-07-26] MEDS: LORazepam 2 MG TABLET PO PRN ×2 (16:24→20:41)
[2017-07-26] MEDS: DOCUSATE SODIUM 250 MG CAPSULE PO SCH (16:25)
[2017-07-26] MEDS: ZOLPIDEM TARTRATE 10 MG TABLET PO PRN (20:41)
[2017-07-26] MEDS: DIVALPROEX SODIUM 500 MG DR TABLET PO SCH (20:41)
[2017-07-27] MEDS: LEVOTHYROXINE SODIUM 50 MCG TABLET PO SCH (06:11)
[2017-07-27 06:34] VITALS: BP 107/67
[2017-07-27 08:12] VITALS: BP 110/64
[2017-07-27] MEDS: LORazepam 2 MG TABLET PO PRN ×3 (08:42→20:29)
[2017-07-27] MEDS: DOCUSATE SODIUM 250 MG CAPSULE PO SCH ×2 (08:42→16:21)
[2017-07-27] MEDS: OMEPRAZOLE 20 MG CAPSULE PO SCH (08:42)
[2017-07-27] MEDS: PALIPERIDONE 6 MG ER TABLET PO SCH ×2 (08:42→16:21)
[2017-07-27] MEDS: PHENYTOIN SODIUM 100 MG ER CAPSULE PO SCH ×2 (08:43→16:21)
[2017-07-27] MEDS: NICOTINE 21 MG/24 HOUR PATCH TD SCH (08:43)
[2017-07-27] MEDS: QUEtiapine FUMARATE 200 MG TABLET PO SCH ×3 (08:45→16:21)
[2017-07-27 16:00] VITALS: BP 120/69
[2017-07-27] MEDS: IBUPROFEN 600 MG TABLET PO PRN (18:05)
[2017-07-27] MEDS: DIVALPROEX SODIUM 500 MG DR TABLET PO SCH (20:29)
[2017-07-27] MEDS: ZOLPIDEM TARTRATE 10 MG TABLET PO PRN (20:29)
[2017-07-28] MEDS: LEVOTHYROXINE SODIUM 50 MCG TABLET PO SCH (06:28)
[2017-07-28 06:29] VITALS: BP 105/63
[2017-07-28] MEDS: OMEPRAZOLE 20 MG CAPSULE PO SCH (08:40)
[2017-07-28] MEDS: PHENYTOIN SODIUM 100 MG ER CAPSULE PO SCH ×2 (08:40→16:32)
[2017-07-28] MEDS: PALIPERIDONE 6 MG ER TABLET PO SCH ×2 (08:40→16:32)
[2017-07-28] MEDS: NICOTINE 21 MG/24 HOUR PATCH TD SCH (08:40)
[2017-07-28] MEDS: DOCUSATE SODIUM 250 MG CAPSULE PO SCH ×2 (08:40→16:32)
[2017-07-28] MEDS: QUEtiapine FUMARATE 200 MG TABLET PO SCH ×3 (08:40→16:34)
[2017-07-28 09:41] VITALS: BP 110/66
[2017-07-28] MEDS: BENZOCAINE 10% 7 GM GEL TP PRN (11:07)
[2017-07-28 16:00] VITALS: BP 131/76
[2017-07-28 16:29] VITALS: BP 124/73
[2017-07-28] MEDS: IBUPROFEN 600 MG TABLET PO PRN (16:33)
[2017-07-28] MEDS: LORazepam 2 MG TABLET PO PRN (16:33)
[2017-07-28] MEDS: DIVALPROEX SODIUM 500 MG DR TABLET PO SCH (20:20)
[2017-07-28] MEDS: ZOLPIDEM TARTRATE 10 MG TABLET PO PRN (20:20)
[2017-07-29 06:05] VITALS: BP 102/70
[2017-07-29] MEDS: LEVOTHYROXINE SODIUM 50 MCG TABLET PO SCH (06:11)
[2017-07-29 08:00] VITALS: BP 106/61
[2017-07-29] MEDS: DOCUSATE SODIUM 250 MG CAPSULE PO SCH ×2 (08:26→16:06)
[2017-07-29] MEDS: NICOTINE 21 MG/24 HOUR PATCH TD SCH (08:26)
[2017-07-29] MEDS: PALIPERIDONE 6 MG ER TABLET PO SCH ×2 (08:26→16:05)
[2017-07-29] MEDS: OMEPRAZOLE 20 MG CAPSULE PO SCH (08:26)
[2017-07-29] MEDS: QUEtiapine FUMARATE 200 MG TABLET PO SCH ×3 (08:27→16:06)
[2017-07-29] MEDS: PHENYTOIN SODIUM 100 MG ER CAPSULE PO SCH ×2 (08:27→16:06)
[2017-07-29] MEDS: HALOPERIDOL 5 MG TABLET PO PRN (12:53)
[2017-07-29] MEDS: LORazepam 2 MG TABLET PO PRN (12:53)
[2017-07-29 16:00] VITALS: BP 120/79
[2017-07-29] MEDS: IBUPROFEN 600 MG TABLET PO PRN (16:07)
[2017-07-29] MEDS: DIVALPROEX SODIUM 500 MG DR TABLET PO SCH (20:28)
[2017-07-30 00:22] VITALS: BP 105/63
[2017-07-30] MEDS: LEVOTHYROXINE SODIUM 50 MCG TABLET PO SCH (06:39)
[2017-07-30 08:24] VITALS: BP 111/63
[2017-07-30] MEDS: PHENYTOIN SODIUM 100 MG ER CAPSULE PO SCH ×2 (09:14→16:37)
[2017-07-30] MEDS: DOCUSATE SODIUM 250 MG CAPSULE PO SCH ×2 (09:14→16:37)
[2017-07-30] MEDS: OMEPRAZOLE 20 MG CAPSULE PO SCH (09:14)
[2017-07-30] MEDS: PALIPERIDONE 6 MG ER TABLET PO SCH ×2 (09:14→16:37)
[2017-07-30] MEDS: QUEtiapine FUMARATE 200 MG TABLET PO SCH ×3 (09:15→16:37)
[2017-07-30] MEDS: NICOTINE 21 MG/24 HOUR PATCH TD SCH (09:15)
[2017-07-30] MEDS: HALOPERIDOL 5 MG TABLET PO PRN (15:15)
[2017-07-30] MEDS: LORazepam 2 MG TABLET PO PRN (15:15)
[2017-07-30 16:00] VITALS: BP 116/76
[2017-07-30] MEDS: DIVALPROEX SODIUM 500 MG DR TABLET PO SCH (20:42)
[2017-07-30] MEDS: ZOLPIDEM TARTRATE 10 MG TABLET PO PRN (20:42)
[2017-07-31 04:11] VITALS: BP 110/70
[2017-07-31] MEDS: LEVOTHYROXINE SODIUM 50 MCG TABLET PO SCH (06:25)
[2017-07-31 08:17] VITALS: BP 114/68
[2017-07-31] MEDS: OMEPRAZOLE 20 MG CAPSULE PO SCH (09:45)
[2017-07-31] MEDS: DOCUSATE SODIUM 250 MG CAPSULE PO SCH ×2 (09:45→17:40)
[2017-07-31] MEDS: PHENYTOIN SODIUM 100 MG ER CAPSULE PO SCH ×2 (09:45→17:39)
[2017-07-31] MEDS: QUEtiapine FUMARATE 200 MG TABLET PO SCH ×3 (09:45→17:40)
[2017-07-31] MEDS: PALIPERIDONE 6 MG ER TABLET PO SCH ×2 (09:45→17:39)
[2017-07-31] MEDS: NICOTINE 21 MG/24 HOUR PATCH TD SCH (09:47)
[2017-07-31 14:39] VITALS: BP 108/85
[2017-07-31] MEDS: IBUPROFEN 600 MG TABLET PO PRN (14:42)
[2017-07-31] MEDS: LORazepam 2 MG TABLET PO PRN (15:02)
[2017-07-31 16:00] VITALS: BP 117/83
[2017-07-31] MEDS: HALOPERIDOL 5 MG TABLET PO PRN (17:40)
[2017-07-31] MEDS: DIVALPROEX SODIUM 500 MG DR TABLET PO SCH (21:16)
[2017-07-31] MEDS: ZOLPIDEM TARTRATE 10 MG TABLET PO PRN (21:16)
[2017-08-01 02:39] VITALS: BP 118/65
[2017-08-01] MEDS: LEVOTHYROXINE SODIUM 50 MCG TABLET PO SCH (06:18)
[2017-08-01 08:29] VITALS: BP 122/67
[2017-08-01] MEDS: IBUPROFEN 600 MG TABLET PO PRN (08:40)
[2017-08-01] MEDS: PALIPERIDONE 6 MG ER TABLET PO SCH ×2 (08:40→16:20)
[2017-08-01] MEDS: PHENYTOIN SODIUM 100 MG ER CAPSULE PO SCH ×2 (08:40→16:20)
[2017-08-01] MEDS: NICOTINE 21 MG/24 HOUR PATCH TD SCH (08:41)
[2017-08-01] MEDS: QUEtiapine FUMARATE 200 MG TABLET PO SCH ×3 (08:41→16:19)
[2017-08-01] MEDS: DOCUSATE SODIUM 250 MG CAPSULE PO SCH ×2 (08:41→16:19)
[2017-08-01] MEDS: OMEPRAZOLE 20 MG CAPSULE PO SCH (08:41)
[2017-08-01 09:41] VITALS: BP 128/62
[2017-08-01] MEDS: LORazepam 2 MG TABLET PO PRN (11:10)
[2017-08-01] MEDS: HALOPERIDOL 5 MG TABLET PO PRN (11:10)
[2017-08-01 16:25] VITALS: BP 100/54
[2017-08-01] MEDS: DIVALPROEX SODIUM 500 MG DR TABLET PO SCH (20:13)
[2017-08-02] MEDS: LEVOTHYROXINE SODIUM 50 MCG TABLET PO SCH (06:44)
[2017-08-02 07:24] VITALS: BP 101/58
[2017-08-02 08:02] VITALS: BP 108/62
[2017-08-02] MEDS: DOCUSATE SODIUM 250 MG CAPSULE PO SCH ×2 (08:45→17:21)
[2017-08-02] MEDS: QUEtiapine FUMARATE 200 MG TABLET PO SCH ×3 (08:45→17:21)
[2017-08-02] MEDS: PHENYTOIN SODIUM 100 MG ER CAPSULE PO SCH ×2 (08:45→17:21)
[2017-08-02] MEDS: OMEPRAZOLE 20 MG CAPSULE PO SCH (08:45)
[2017-08-02] MEDS: PALIPERIDONE 6 MG ER TABLET PO SCH ×2 (08:45→17:21)
[2017-08-02] MEDS: NICOTINE 21 MG/24 HOUR PATCH TD SCH (08:46)
[2017-08-02 11:36] VITALS: BP 110/60
[2017-08-02] MEDS: IBUPROFEN 600 MG TABLET PO PRN (11:36)
[2017-08-02 16:03] VITALS: BP 119/80
[2017-08-02] MEDS: LORazepam 2 MG TABLET PO PRN (17:21)
[2017-08-02] MEDS: HALOPERIDOL 5 MG TABLET PO PRN (17:21)
[2017-08-02] MEDS: DIVALPROEX SODIUM 500 MG DR TABLET PO SCH (20:39)
[2017-08-02] MEDS: ZOLPIDEM TARTRATE 10 MG TABLET PO PRN (20:39)
[2017-08-03 06:40] VITALS: BP 102/63
[2017-08-03] MEDS: LEVOTHYROXINE SODIUM 50 MCG TABLET PO SCH (06:47)
[2017-08-03 08:05] VITALS: BP 100/60
[2017-08-03] MEDS: PALIPERIDONE 6 MG ER TABLET PO SCH ×2 (09:04→16:54)
[2017-08-03] MEDS: LORazepam 2 MG TABLET PO PRN ×2 (09:04→16:55)
[2017-08-03] MEDS: QUEtiapine FUMARATE 200 MG TABLET PO SCH ×3 (09:05→16:54)
[2017-08-03] MEDS: PHENYTOIN SODIUM 100 MG ER CAPSULE PO SCH ×2 (09:05→16:55)
[2017-08-03] MEDS: OMEPRAZOLE 20 MG CAPSULE PO SCH (09:05)
[2017-08-03] MEDS: NICOTINE 21 MG/24 HOUR PATCH TD SCH (09:05)
[2017-08-03] MEDS: DOCUSATE SODIUM 250 MG CAPSULE PO SCH ×2 (09:05→16:54)
[2017-08-03] MEDS: HALOPERIDOL 5 MG TABLET PO PRN ×2 (09:06→16:55)
[2017-08-03 16:00] VITALS: BP 120/70
[2017-08-03] MEDS ORDERED: PALIPERIDONE PALMITATE 156 MG/ML SYRINGE IM ONE (16:00)
[2017-08-03] MEDS: DIVALPROEX SODIUM 500 MG DR TABLET PO SCH (20:25)
[2017-08-03] MEDS: ZOLPIDEM TARTRATE 10 MG TABLET PO PRN (20:26)
[2017-08-04] MEDS: LEVOTHYROXINE SODIUM 50 MCG TABLET PO SCH (06:26)
[2017-08-04 06:48] VITALS: BP 114/62
[2017-08-04 08:07] VITALS: BP 112/65
[2017-08-04] MEDS: PALIPERIDONE 6 MG ER TABLET PO SCH ×2 (08:57→17:14)
[2017-08-04] MEDS: PHENYTOIN SODIUM 100 MG ER CAPSULE PO SCH ×2 (08:58→17:14)
[2017-08-04] MEDS: OMEPRAZOLE 20 MG CAPSULE PO SCH (08:58)
[2017-08-04] MEDS: QUEtiapine FUMARATE 200 MG TABLET PO SCH ×3 (08:58→17:14)
[2017-08-04] MEDS: NICOTINE 21 MG/24 HOUR PATCH TD SCH (08:58)
[2017-08-04] MEDS: DOCUSATE SODIUM 250 MG CAPSULE PO SCH ×2 (08:58→17:14)
[2017-08-04 16:00] VITALS: BP 121/73
[2017-08-04] MEDS: LORazepam 2 MG TABLET PO PRN (17:14)
[2017-08-04] MEDS: HALOPERIDOL 5 MG TABLET PO PRN (17:14)
[2017-08-04] MEDS: IBUPROFEN 600 MG TABLET PO PRN (17:16)
[2017-08-04] MEDS: DIVALPROEX SODIUM 500 MG DR TABLET PO SCH (20:36)
[2017-08-04] MEDS: ZOLPIDEM TARTRATE 10 MG TABLET PO PRN (20:36)
[2017-08-05 05:47] VITALS: BP 116/60
[2017-08-05] MEDS: LEVOTHYROXINE SODIUM 50 MCG TABLET PO SCH (06:44)
[2017-08-05 08:31] VITALS: BP 114/67
[2017-08-05] MEDS: PHENYTOIN SODIUM 100 MG ER CAPSULE PO SCH ×2 (08:54→17:27)
[2017-08-05] MEDS: OMEPRAZOLE 20 MG CAPSULE PO SCH (08:54)
[2017-08-05] MEDS: DOCUSATE SODIUM 250 MG CAPSULE PO SCH ×2 (08:54→17:27)
[2017-08-05] MEDS: PALIPERIDONE 6 MG ER TABLET PO SCH ×2 (08:54→17:27)
[2017-08-05] MEDS: QUEtiapine FUMARATE 200 MG TABLET PO SCH ×3 (08:54→17:26)
[2017-08-05] MEDS: NICOTINE 21 MG/24 HOUR PATCH TD SCH (08:54)
[2017-08-05] MEDS: LORazepam 2 MG TABLET PO PRN ×2 (11:51→17:27)
[2017-08-05] MEDS ORDERED: LORazepam 2 MG/ML VIAL IM ONE (13:30)
[2017-08-05 16:00] VITALS: BP 110/65
[2017-08-05] MEDS: HALOPERIDOL 5 MG TABLET PO PRN (17:27)
[2017-08-05] MEDS: DIVALPROEX SODIUM 500 MG DR TABLET PO SCH (21:14)
[2017-08-05] MEDS: ZOLPIDEM TARTRATE 10 MG TABLET PO PRN (21:14)
[2017-08-06] VITALS: BP 120/84
[2017-08-06] MEDS: LORazepam 2 MG TABLET PO PRN (04:52)
[2017-08-06] MEDS: LEVOTHYROXINE SODIUM 50 MCG TABLET PO SCH (06:26)
[2017-08-06 08:06] VITALS: BP 123/65
[2017-08-06] MEDS: QUEtiapine FUMARATE 200 MG TABLET PO SCH (08:41)
[2017-08-06] MEDS: OMEPRAZOLE 20 MG CAPSULE PO SCH (08:41)
[2017-08-06] MEDS: PHENYTOIN SODIUM 100 MG ER CAPSULE PO SCH (08:41)
[2017-08-06] MEDS: DOCUSATE SODIUM 250 MG CAPSULE PO SCH (08:42)
[2017-08-06] MEDS: PALIPERIDONE 6 MG ER TABLET PO SCH (08:42)
[2017-08-06] MEDS: NICOTINE 21 MG/24 HOUR PATCH TD SCH (08:42)
[2017-08-06] MEDS ORDERED: PALI6 PO (09:06)
[2017-08-31] MEDS ORDERED: PALIPERIDONE PALMITATE 156 MG/ML SYRINGE IM SCH (09:00)
== END 2017-08-06 09:30 | disposition home or self-care (01) | DRG 750 ==
LOC: EMS 13:15 → B3A 07-05 19:44
PROVIDERS: ADMIT Psychiatry & Neurology Child & Adolescent Psychiatry; ATTEND Psychiatry & Neurology Child & Adolescent Psychiatry
PROC: 3E0234Z Introduction of Serum, Toxoid and Vaccine into Muscle, Percutaneous Approach (ICD-10-PCS; principal; 2017-07-05)
PROC: 0HQ1XZZ Repair Face Skin, External Approach (ICD-10-PCS; 2017-07-05)
DX: F25.0 Schizoaffective disorder, bipolar type (principal); Z78.1 Physical restraint status; S01.112A Laceration without foreign body of left eyelid and periocular area, initial encounter; E03.9 Hypothyroidism, unspecified; S01.81XA Laceration without foreign body of other part of head, initial encounter; F41.9 Anxiety disorder, unspecified; J45.909 Unspecified asthma, uncomplicated; G40.909 Epilepsy, unspecified, not intractable, without status epilepticus; K21.9 Gastro-esophageal reflux disease without esophagitis; S60.511A Abrasion of right hand, initial encounter; Z79.899 Other long term (current) drug therapy; Z87.891 Personal history of nicotine dependence; Z91.013 Allergy to seafood; Z91.040 Latex allergy status; Z88.2 Allergy status to sulfonamides; Z90.49 Acquired absence of other specified parts of digestive tract; Z23 Encounter for immunization; Z88.6 Allergy status to analgesic agent; Z88.0 Allergy status to penicillin; Z88.8 Allergy status to other drugs, medicaments and biological substances; Z91.012 Allergy to eggs; Y04.0XXA Assault by unarmed brawl or fight, initial encounter; Y93.89 Activity, other specified; Y92.89 Other specified places as the place of occurrence of the external cause; Y99.8 Other external cause status
CPT/HCPCS: 12013; 87081; 87389; 90715; 99285; G0480; J1200; J2060; J3230; J3490

== ENCOUNTER 2017-07-16 12:38 | Emergency (ER) | payer MEDICAID, OTHER ==
[~2017-07-16] VITALS: Ht 172.7 cm; Wt 78.2 kg
[~2017-07-16 12:38] MED LIST changes: -BACI120O TP; -CHLO50 PO; -CHLO50I IM; -PRAZ2 PO; -RANI150T7 PO; -VIST50 PO
[2017-07-16 14:35] VITALS: BP 108/68
== END 2017-07-16 15:25 | disposition home or self-care (01) ==
LOC: EMS 12:42
DX: S00.81XA Abrasion of other part of head, initial encounter (principal); J45.909 Unspecified asthma, uncomplicated; K21.9 Gastro-esophageal reflux disease without esophagitis; F20.9 Schizophrenia, unspecified; F31.9 Bipolar disorder, unspecified; F17.210 Nicotine dependence, cigarettes, uncomplicated; Z88.0 Allergy status to penicillin; Z88.2 Allergy status to sulfonamides; Z88.5 Allergy status to narcotic agent; Z79.899 Other long term (current) drug therapy; W22.8XXA Striking against or struck by other objects, initial encounter; Y93.89 Activity, other specified; Y92.89 Other specified places as the place of occurrence of the external cause; Y99.8 Other external cause status
CPT/HCPCS: 99283

== ENCOUNTER 2017-10-13 16:40 | Emergency (ER) | payer OTHER ==
[~2017-10-13] VITALS: Ht 172.7 cm; Wt 63.6 kg
[~2017-10-13 16:40] MED LIST changes: -METO5TAB95 PO; -OMEP20 PO; +PALI6 PO
[2017-10-13] MEDS ORDERED: PHENYTOIN SODIUM 100 MG ER CAPSULE PO ONE (19:00)
[2017-10-13] MEDS ORDERED: ALBUTEROL SULFATE 2.5 MG/0.5 ML NEB SOLUTION NEB ONE (19:00)
[2017-10-13] MEDS ORDERED: IPRATROPIUM BROMIDE 0.5 MG/2.5 ML NEB SOLUTION NEB ONE (19:00)
[2017-10-13 21:03] VITALS: BP 110/72
== END 2017-10-13 21:09 | disposition home or self-care (01) ==
LOC: EMS 16:46
DX: J45.909 Unspecified asthma, uncomplicated (principal); K21.9 Gastro-esophageal reflux disease without esophagitis; E03.9 Hypothyroidism, unspecified; F17.210 Nicotine dependence, cigarettes, uncomplicated; Z76.0 Encounter for issue of repeat prescription; Z88.2 Allergy status to sulfonamides; Z88.8 Allergy status to other drugs, medicaments and biological substances; Z91.012 Allergy to eggs; Z91.040 Latex allergy status; Z88.5 Allergy status to narcotic agent; Z88.0 Allergy status to penicillin; Z91.013 Allergy to seafood
CPT/HCPCS: 94640; 99283; J7613

== ENCOUNTER 2019-03-04 00:51 | Inpatient (IN) | payer OTHER ==
[~2019-03-04] VITALS: Ht 175.3 cm; Wt 89.3 kg
[~2019-03-04 00:51] MED LIST changes: +DIVA-78 PO; -DIVA500T35 PO
[2019-03-04] MEDS ORDERED: KETOROLAC TROMETHAMINE 30 MG/ML VIAL IVP ONE ×2 (02:00→08:00)
[2019-03-04] MEDS ORDERED: ONDANSETRON HCL 4 MG/2 ML VIAL IVP ONE (02:00)
[2019-03-04 03:38] LABS: BASOPHILS % (AUTO) 0.5 % (0.0-2.0); EOSINOPHILS % (AUTO) 2.9 % (1.0-6.0); HEMATOCRIT 45.1 % (41-53); HEMOGLOBIN 15.7 g/dL (13.5-17.5); LYMPHOCYTES # (AUTO) 2.1 K/uL (1.0-4.8); LYMPHOCYTES % (AUTO) 19.9 % (22.0-44.0); MEAN CORPUSCULAR HEMOGLOBIN 32.3 pg (26.0-34.0); MEAN CORPUSCULAR HGB CONC 34.8 G/dL (31.0-37.0); MEAN CORPUSCULAR VOLUME 93 fL (80-100); MONOCYTES # (AUTO) 1.2 K/uL (0.1-1.0); MONOCYTES % (AUTO) 11.4 % (2.0-9.0); NEUTROPHILS # (AUTO) 6.8 K/uL (1.8-7.7); NEUTROPHILS % (AUTO) 65.3 % (40.0-70.0); PLATELET COUNT (AUTO) 173 K/uL (150-450); RED BLOOD CELL COUNT(AUTO) 4.85 MIL/uL (4.50-5.90); RED CELL DISTRIBUTION WIDTH 12.8 % (11.5-14.5)
[2019-03-04 03:43] LABS: ANION GAP 10 mmol/L (8-16); CALCIUM, TOTAL 8.9 mg/dL (8.8-10.5); CARBON DIOXIDE 25 mmol/L (22-29); CHLORIDE 105 mmol/L (98-107); CREATININE 0.89 mg/dL (0.60-1.30); GLOMERULAR FILTR. RATE CALC > 60 mL/min (>60); GLUCOSE,RANDOM 116 mg/dL (70-110); POTASSIUM 3.8 mmol/L (3.5-5.1); SODIUM SERUM 140 mmol/L (136-145); UREA NITROGEN, BLOOD 14 mg/dL (7-18)
[2019-03-04 03:50] LABS: ALANINE AMINOTRANSFERASE 43 U/L (12-78); ALBUMIN 3.5 g/dL (3.4-5.0); ALKALINE PHOSPHATASE 140 U/L (46-116); ASPARTATE AMINOTRANSFERASE 30 U/L (15-37); BILIRUBIN,TOTAL 0.4 mg/dL (0.1-1.0); LIPASE 1953 U/L (73-393); TOTAL PROTEIN, SERUM 7.1 g/dL (6.4-8.2)
[2019-03-04] MEDS ORDERED: HYDROmorphone 2 MG/ML SYRINGE IVP ONE (05:00)
[2019-03-04] MEDS ORDERED: ONDANSETRON HCL 4 MG/2 ML VIAL IVP PRN (05:15)
[2019-03-04] MEDS ORDERED: ACETAMINOPHEN 325 MG TABLET PO PRN (05:15)
[2019-03-04] MEDS ORDERED: SODIUM CHLORIDE 0.9% 1,000 ML IV ONE (05:30)
[2019-03-04 08:40] VITALS: BP 111/71
[2019-03-04 11:33] VITALS: BP 118/74
[2019-03-04] MEDS ORDERED: KETOROLAC TROMETHAMINE 15 MG/ML VIAL IVP PRN (12:30)
[2019-03-04] MEDS: KETOROLAC TROMETHAMINE 30 MG/ML VIAL IVP PRN (12:45)
[2019-03-04] MEDS ORDERED: ZOLPIDEM TARTRATE 5 MG TABLET PO PRN (14:30)
[2019-03-04] MEDS ORDERED: MAGNESIUM HYDROXIDE SUSPENSION 30 ML UDCUP PO PRN (14:30)
[2019-03-04] MEDS ORDERED: IPRATROPIUM BROMIDE 0.5 MG/2.5 ML NEB SOLUTION NEB PRN (14:30)
[2019-03-04] MEDS ORDERED: ALBUTEROL SULFATE 2.5 MG/0.5 ML NEB SOLUTION NEB PRN (14:30)
[2019-03-04] MEDS ORDERED: BISACODYL 10 MG RECTAL RECTAL SUPPOSITORY PR PRN (14:30)
[2019-03-04 15:24] VITALS: BP 119/74
[2019-03-04] MEDS: DEXTROSE 5%-0.45% SODIUM CHL 1,000 ML IV SCH ×2 (15:24→23:45)
[2019-03-04] MEDS: HYDROmorphone 2 MG/ML SYRINGE IVP PRN ×3 (15:46→20:57)
[2019-03-04 19:55] VITALS: BP 118/76
[2019-03-04] MEDS: DOCUSATE SODIUM 100 MG CAPSULE PO SCH (21:00)
[2019-03-04] MEDS: ONDANSETRON HCL 4 MG/2 ML VIAL IVP PRN (23:49)
[2019-03-04 23:53] VITALS: BP 133/78
[2019-03-05] MEDS: HYDROmorphone 2 MG/ML SYRINGE IVP PRN ×6 (00:56→21:07)
[2019-03-05 05:01] VITALS: BP 133/74
[2019-03-05 06:52] LABS: BASOPHILS % (AUTO) 0.6 % (0.0-2.0); EOSINOPHILS % (AUTO) 0.4 % (1.0-6.0); HEMATOCRIT 44.5 % (41-53); HEMOGLOBIN 15.6 g/dL (13.5-17.5); LYMPHOCYTES # (AUTO) 1.9 K/uL (1.0-4.8); LYMPHOCYTES % (AUTO) 13.5 % (22.0-44.0); MEAN CORPUSCULAR HEMOGLOBIN 32.2 pg (26.0-34.0); MEAN CORPUSCULAR HGB CONC 35.1 G/dL (31.0-37.0); MEAN CORPUSCULAR VOLUME 92 fL (80-100); MONOCYTES # (AUTO) 2.5 K/uL (0.1-1.0); NEUTROPHILS # (AUTO) 9.5 K/uL (1.8-7.7); NEUTROPHILS % (AUTO) 67.5 % (40.0-70.0); PLATELET COUNT (AUTO) 196 K/uL (150-450); RED BLOOD CELL COUNT(AUTO) 4.85 MIL/uL (4.50-5.90); RED CELL DISTRIBUTION WIDTH 12.9 % (11.5-14.5)
[2019-03-05 07:09] LABS: ALANINE AMINOTRANSFERASE 108 U/L (12-78); ALBUMIN 3.2 g/dL (3.4-5.0); ALKALINE PHOSPHATASE 184 U/L (46-116); AMYLASE 212 U/L (25-115); ANION GAP 10 mmol/L (8-16); ASPARTATE AMINOTRANSFERASE 138 U/L (15-37); BILIRUBIN,TOTAL 0.8 mg/dL (0.1-1.0); CARBON DIOXIDE 21 mmol/L (22-29); CHLORIDE 103 mmol/L (98-107); CREATININE 0.71 mg/dL (0.60-1.30); GLOMERULAR FILTR. RATE CALC > 60 mL/min (>60); GLUCOSE,RANDOM 140 mg/dL (70-110); LIPASE 762 U/L (73-393); POTASSIUM 3.7 mmol/L (3.5-5.1); SODIUM SERUM 134 mmol/L (136-145)
[2019-03-05 07:18] LABS: UREA NITROGEN, BLOOD 7 mg/dL (7-18)
[2019-03-05 07:59] VITALS: BP 129/81
[2019-03-05] MEDS: DOCUSATE SODIUM 100 MG CAPSULE PO SCH ×2 (08:34→21:09)
[2019-03-05] MEDS: DEXTROSE 5%-0.45% SODIUM CHL 1,000 ML IV SCH ×2 (08:34→16:27)
[2019-03-05 11:31] VITALS: BP 127/77
[2019-03-05 15:31] VITALS: BP 118/74
[2019-03-05] MEDS ORDERED: IOVERSOL 350 MG/ML 150 ML VIAL ONE (15:42)
[2019-03-05] MEDS ORDERED: SODIUM CHLORIDE 0.9% 0 ML ONE (15:42)
[2019-03-05] MEDS ORDERED: BARIUM SULFATE 0.1% SUSPENSION 450 ML BOTTLE ONE (16:11)
[2019-03-05 16:19] LABS: APPEARANCE,URINE CLEAR (CLEAR); BILIRUBIN,URINE PRELIM. POSITIVE (NEGATIVE); GLUCOSE, URINE (UA) NEGATIVE (NEGATIVE); KETONES,URINE TRACE mg/dL (NEGATIVE); LEUKOCYTE ESTERASE ,URINE NEGATIVE (NEGATIVE); NITRATE,URINE NEGATIVE (NEGATIVE); OCCULT BLOOD,URINE NEGATIVE (NEGATIVE); PROTEIN,URINE TRACE (NEGATIVE)
[2019-03-05] MEDS: ACETAMINOPHEN 325 MG TABLET PO PRN (16:27)
[2019-03-05 16:29] LABS: AMPHET/METH SCREEN,URINE NEGATIVE (NEGATIVE); BARBITURATE SCREEN, URINE NEGATIVE (NEGATIVE); BENZODIAZEPINES SCREEN,URINE NEGATIVE (NEGATIVE); CANNABINOID SCREEN,URINE NEGATIVE (NEGATIVE); COCAINE SCREEN,URINE NEGATIVE (NEGATIVE); METHADONE SCREEN, URINE NEGATIVE (NEGATIVE); OPIATE SCREEN,URINE POSITIVE (NEGATIVE)
[2019-03-05 16:30] LABS: BACTERIA,URINE None Seen /HPF (None Seen); PHENCYCLIDINE SCREEN,URINE NEGATIVE (NEGATIVE); RBC,URINE 0-2 /HPF (0-2); SQUAMOUS EPITHELIAL CELL,UR Rare /LPF (None Seen); WBC,URINE 0-2 /HPF (0-5)
[2019-03-05 16:31] LABS: MUCUS,URINE Few LPF (None Seen)
[2019-03-05 19:55] VITALS: BP 135/80
[2019-03-05 23:45] VITALS: BP 108/54
[2019-03-06] MEDS: DEXTROSE 5%-0.45% SODIUM CHL 1,000 ML IV SCH ×3 (02:28→21:26)
[2019-03-06 04:00] VITALS: BP 116/60
[2019-03-06] MEDS: HYDROmorphone 2 MG/ML SYRINGE IVP PRN ×5 (04:44→21:27)
[2019-03-06] MEDS: LEVOFLOXACIN 500 MG/D5% WATER 100 ML IV SCH (04:45)
[2019-03-06] MEDS: MetroNIDAZOLE 500 MG/NACL 100 ML IV SCH ×3 (05:56→21:27)
[2019-03-06 06:18] LABS: BASOPHILS % (AUTO) 0.5 % (0.0-2.0); EOSINOPHILS % (AUTO) 1.9 % (1.0-6.0); HEMATOCRIT 40.3 % (41-53); HEMOGLOBIN 14.3 g/dL (13.5-17.5); LYMPHOCYTES # (AUTO) 1.4 K/uL (1.0-4.8); LYMPHOCYTES % (AUTO) 16.4 % (22.0-44.0); MEAN CORPUSCULAR HEMOGLOBIN 32.6 pg (26.0-34.0); MEAN CORPUSCULAR HGB CONC 35.4 G/dL (31.0-37.0); MEAN CORPUSCULAR VOLUME 92 fL (80-100); MONOCYTES # (AUTO) 1.8 K/uL (0.1-1.0); MONOCYTES % (AUTO) 21.1 % (2.0-9.0); NEUTROPHILS # (AUTO) 5.2 K/uL (1.8-7.7); NEUTROPHILS % (AUTO) 60.1 % (40.0-70.0); PLATELET COUNT (AUTO) 156 K/uL (150-450); RED BLOOD CELL COUNT(AUTO) 4.37 MIL/uL (4.50-5.90); RED CELL DISTRIBUTION WIDTH 12.9 % (11.5-14.5)
[2019-03-06 06:31] LABS: ALANINE AMINOTRANSFERASE 100 U/L (12-78); ALBUMIN 2.9 g/dL (3.4-5.0); ALKALINE PHOSPHATASE 147 U/L (46-116); AMYLASE 78 U/L (25-115); ANION GAP 8 mmol/L (8-16); ASPARTATE AMINOTRANSFERASE 55 U/L (15-37); BILIRUBIN,TOTAL 0.6 mg/dL (0.1-1.0); CALCIUM, TOTAL 8.9 mg/dL (8.8-10.5); CARBON DIOXIDE 27 mmol/L (22-29); CHLORIDE 105 mmol/L (98-107); GLOMERULAR FILTR. RATE CALC > 60 mL/min (>60); GLUCOSE,RANDOM 135 mg/dL (70-110); LIPASE 176 U/L (73-393); POTASSIUM 3.5 mmol/L (3.5-5.1); SODIUM SERUM 140 mmol/L (136-145); TOTAL PROTEIN, SERUM 6.3 g/dL (6.4-8.2); UREA NITROGEN, BLOOD 3 mg/dL (7-18)
[2019-03-06 08:20] VITALS: BP 110/69
[2019-03-06] MEDS: ONDANSETRON HCL 4 MG/2 ML VIAL IVP PRN ×2 (09:01→23:19)
[2019-03-06 11:05] VITALS: BP 121/76
[2019-03-06] MEDS: DOCUSATE SODIUM 100 MG CAPSULE PO SCH ×2 (11:16→21:00)
[2019-03-06] MEDS: KETOROLAC TROMETHAMINE 30 MG/ML VIAL IVP PRN (11:17)
[2019-03-06 17:00] VITALS: BP 116/77
[2019-03-06 19:50] VITALS: BP 124/70
[2019-03-06] MEDS ORDERED: PHENYTOIN SODIUM 1,000 MG in SODIUM CHLORIDE 0.9% 150 ML IV ONE (22:45)
[2019-03-06] MEDS: DIVALPROEX SODIUM 500 MG DR TABLET PO SCH (23:19)
[2019-03-06] MEDS: QUEtiapine FUMARATE 200 MG TABLET PO SCH (23:20)
[2019-03-06 23:50] VITALS: BP 108/68
[2019-03-07] MEDS: LEVOFLOXACIN 500 MG/D5% WATER 100 ML IV SCH (04:33)
[2019-03-07] MEDS: MetroNIDAZOLE 500 MG/NACL 100 ML IV SCH ×3 (06:08→22:54)
[2019-03-07 08:14] VITALS: BP 117/71
[2019-03-07] MEDS: LEVOTHYROXINE SODIUM 50 MCG TABLET PO SCH (08:37)
[2019-03-07] MEDS: QUEtiapine FUMARATE 200 MG TABLET PO SCH ×3 (08:37→20:50)
[2019-03-07] MEDS: PHENYTOIN SODIUM 100 MG ER CAPSULE PO SCH ×2 (08:38→20:50)
[2019-03-07] MEDS: ACETAMINOPHEN 325 MG TABLET PO PRN (08:39)
[2019-03-07] MEDS: HYDROmorphone 2 MG/ML SYRINGE IVP PRN (08:41)
[2019-03-07] MEDS: DOCUSATE SODIUM 100 MG CAPSULE PO SCH ×2 (08:46→20:50)
[2019-03-07 09:22] LABS: BASOPHILS % (AUTO) 0.6 % (0.0-2.0); EOSINOPHILS % (AUTO) 1.9 % (1.0-6.0); HEMATOCRIT 39.9 % (41-53); HEMOGLOBIN 13.9 g/dL (13.5-17.5); LYMPHOCYTES # (AUTO) 1.3 K/uL (1.0-4.8); LYMPHOCYTES % (AUTO) 15.4 % (22.0-44.0); MEAN CORPUSCULAR HEMOGLOBIN 32.4 pg (26.0-34.0); MEAN CORPUSCULAR HGB CONC 34.9 G/dL (31.0-37.0); MEAN CORPUSCULAR VOLUME 93 fL (80-100); MONOCYTES # (AUTO) 1.2 K/uL (0.1-1.0); MONOCYTES % (AUTO) 14.1 % (2.0-9.0); NEUTROPHILS # (AUTO) 5.7 K/uL (1.8-7.7); PLATELET COUNT (AUTO) 180 K/uL (150-450); RED CELL DISTRIBUTION WIDTH 12.7 % (11.5-14.5)
[2019-03-07 09:38] LABS: ALANINE AMINOTRANSFERASE 75 U/L (12-78); ALBUMIN 2.8 g/dL (3.4-5.0); ALKALINE PHOSPHATASE 136 U/L (46-116); AMYLASE 45 U/L (25-115); ANION GAP 4 mmol/L (8-16); ASPARTATE AMINOTRANSFERASE 42 U/L (15-37); BILIRUBIN,TOTAL 0.4 mg/dL (0.1-1.0); CALCIUM, TOTAL 8.7 mg/dL (8.8-10.5); CARBON DIOXIDE 27 mmol/L (22-29); CHLORIDE 102 mmol/L (98-107); CREATININE 0.65 mg/dL (0.60-1.30); GLOMERULAR FILTR. RATE CALC > 60 mL/min (>60); GLUCOSE,RANDOM 137 mg/dL (70-110); LIPASE 155 U/L (73-393); SODIUM SERUM 133 mmol/L (136-145); TOTAL PROTEIN, SERUM 6.7 g/dL (6.4-8.2); UREA NITROGEN, BLOOD 5 mg/dL (7-18)
[2019-03-07] MEDS ORDERED: HYDROmorphone HCL 2 MG TABLET PO PRN (10:45)
[2019-03-07] MEDS: DEXTROSE 5%-0.45% SODIUM CHL 1,000 ML IV SCH ×2 (11:34→20:49)
[2019-03-07 11:49] VITALS: BP 103/67
[2019-03-07] MEDS: KETOROLAC TROMETHAMINE 30 MG/ML VIAL IVP PRN (15:43)
[2019-03-07 16:22] VITALS: BP 120/73
[2019-03-07 20:28] VITALS: BP 110/72
[2019-03-07] MEDS: DIVALPROEX SODIUM 500 MG DR TABLET PO SCH (20:50)
[2019-03-07 22:55] VITALS: BP 96/54
[2019-03-08] MEDS: LEVOFLOXACIN 500 MG/D5% WATER 100 ML IV SCH (05:20)
[2019-03-08 05:32] LABS: BASOPHILS % (AUTO) 0.8 % (0.0-2.0); EOSINOPHILS % (AUTO) 5.9 % (1.0-6.0); HEMATOCRIT 38.7 % (41-53); HEMOGLOBIN 13.5 g/dL (13.5-17.5); LYMPHOCYTES # (AUTO) 1.7 K/uL (1.0-4.8); LYMPHOCYTES % (AUTO) 27.2 % (22.0-44.0); MEAN CORPUSCULAR HEMOGLOBIN 32.4 pg (26.0-34.0); MEAN CORPUSCULAR HGB CONC 34.9 G/dL (31.0-37.0); MEAN CORPUSCULAR VOLUME 93 fL (80-100); MONOCYTES # (AUTO) 0.7 K/uL (0.1-1.0); MONOCYTES % (AUTO) 12.1 % (2.0-9.0); NEUTROPHILS # (AUTO) 3.3 K/uL (1.8-7.7); PLATELET COUNT (AUTO) 194 K/uL (150-450); RED BLOOD CELL COUNT(AUTO) 4.18 MIL/uL (4.50-5.90); RED CELL DISTRIBUTION WIDTH 12.6 % (11.5-14.5)
[2019-03-08 05:46] LABS: ALANINE AMINOTRANSFERASE 61 U/L (12-78); ALBUMIN 2.7 g/dL (3.4-5.0); ALKALINE PHOSPHATASE 126 U/L (46-116); AMYLASE 37 U/L (25-115); ANION GAP 10 mmol/L (8-16); ASPARTATE AMINOTRANSFERASE 29 U/L (15-37); BILIRUBIN,TOTAL 0.4 mg/dL (0.1-1.0); CALCIUM, TOTAL 8.9 mg/dL (8.8-10.5); CARBON DIOXIDE 28 mmol/L (22-29); CHLORIDE 104 mmol/L (98-107); GLOMERULAR FILTR. RATE CALC > 60 mL/min (>60); GLUCOSE,RANDOM 127 mg/dL (70-110); LIPASE 152 U/L (73-393); POTASSIUM 3.6 mmol/L (3.5-5.1); SODIUM SERUM 142 mmol/L (136-145); TOTAL PROTEIN, SERUM 6.2 g/dL (6.4-8.2); UREA NITROGEN, BLOOD 3 mg/dL (7-18)
[2019-03-08 06:08] VITALS: BP 106/66
[2019-03-08] MEDS: MetroNIDAZOLE 500 MG/NACL 100 ML IV SCH (06:09)
[2019-03-08] MEDS: LEVOTHYROXINE SODIUM 50 MCG TABLET PO SCH (06:10)
[2019-03-08] MEDS: DEXTROSE 5%-0.45% SODIUM CHL 1,000 ML IV SCH (06:10)
[2019-03-08] MEDS: DOCUSATE SODIUM 100 MG CAPSULE PO SCH (07:40)
[2019-03-08] MEDS: PHENYTOIN SODIUM 100 MG ER CAPSULE PO SCH (07:40)
[2019-03-08] MEDS: QUEtiapine FUMARATE 200 MG TABLET PO SCH (07:40)
[2019-03-08 07:41] VITALS: BP 126/71
[2019-03-08] MEDS: KETOROLAC TROMETHAMINE 30 MG/ML VIAL IVP PRN (07:48)
[2019-03-08] MEDS ORDERED: CIPR-278 PO (16:32)
[2019-03-08] MEDS ORDERED: METR500 PO (16:32)
== END 2019-03-08 15:35 | disposition home or self-care (01) | DRG 282 ==
LOC: EMS 00:52 → 4E 07:44
PROVIDERS: ADMIT Hospitalist; ATTEND Hospitalist
DX: K85.90 Acute pancreatitis without necrosis or infection, unspecified (principal); R65.11 Systemic inflammatory response syndrome (SIRS) of non-infectious origin with acute organ dysfunction; K56.0 Paralytic ileus; E44.1 Mild protein-calorie malnutrition; F20.9 Schizophrenia, unspecified; D72.829 Elevated white blood cell count, unspecified; E03.9 Hypothyroidism, unspecified; G40.909 Epilepsy, unspecified, not intractable, without status epilepticus; K29.80 Duodenitis without bleeding; F31.9 Bipolar disorder, unspecified; J45.909 Unspecified asthma, uncomplicated; K21.9 Gastro-esophageal reflux disease without esophagitis; Z87.891 Personal history of nicotine dependence; Z90.49 Acquired absence of other specified parts of digestive tract; Z95.1 Presence of aortocoronary bypass graft; Z79.899 Other long term (current) drug therapy; Z88.2 Allergy status to sulfonamides; Z88.8 Allergy status to other drugs, medicaments and biological substances; Z91.012 Allergy to eggs; Z88.5 Allergy status to narcotic agent; Z88.0 Allergy status to penicillin; Z91.013 Allergy to seafood; Z68.29 Body mass index [BMI] 29.0-29.9, adult
CPT/HCPCS: 74018; 74022; 74176; 80307; 87040; 96374; 96375; 97112; 97116; 97162; 97530; G0378; J1165; J1170; J1885; J1956; J2405; J3490; J7030; J7050

== ENCOUNTER 2019-09-05 20:15 | Emergency (ER) | payer OTHER ==
[~2019-09-05] VITALS: Ht 176.5 cm; Wt 85.0 kg
[~2019-09-05 20:15] MED LIST changes: +CIPR-278 PO; +METR500 PO
[2019-09-05 22:44] LABS: BASOPHILS % (AUTO) 0.7 % (0.0-2.0); EOSINOPHILS % (AUTO) 3.8 % (1.0-6.0); HEMATOCRIT 42.2 % (41-53); HEMOGLOBIN 14.6 g/dL (13.5-17.5); LYMPHOCYTES # (AUTO) 2.9 K/uL (1.0-4.8); LYMPHOCYTES % (AUTO) 42.2 % (22.0-44.0); MEAN CORPUSCULAR HEMOGLOBIN 32.4 pg (26.0-34.0); MEAN CORPUSCULAR HGB CONC 34.5 G/dL (31.0-37.0); MEAN CORPUSCULAR VOLUME 94 fL (80-100); MONOCYTES # (AUTO) 0.6 K/uL (0.1-1.0); MONOCYTES % (AUTO) 9.3 % (2.0-9.0); PLATELET COUNT (AUTO) 172 K/uL (150-450); RED BLOOD CELL COUNT(AUTO) 4.49 MIL/uL (4.50-5.90); RED CELL DISTRIBUTION WIDTH 13.4 % (11.5-14.5)
[2019-09-05 22:51] LABS: ANION GAP 8 mmol/L (8-16); CALCIUM, TOTAL 8.4 mg/dL (8.8-10.5); CARBON DIOXIDE 29 mmol/L (22-29); CHLORIDE 108 mmol/L (98-107); CREATININE 0.91 mg/dL (0.60-1.30); GLOMERULAR FILTR. RATE CALC > 60 mL/min (>60); GLUCOSE,RANDOM 88 mg/dL (70-110); POTASSIUM 3.7 mmol/L (3.5-5.1); SODIUM SERUM 145 mmol/L (136-145); UREA NITROGEN, BLOOD 5 mg/dL (7-18)
[2019-09-05 22:55] LABS: ALANINE AMINOTRANSFERASE 31 U/L (12-78); ALBUMIN 3.3 g/dL (3.4-5.0); ALKALINE PHOSPHATASE 111 U/L (46-116); ASPARTATE AMINOTRANSFERASE 22 U/L (15-37); BILIRUBIN,TOTAL 0.3 mg/dL (0.1-1.0); LIPASE 44 U/L (73-393); TOTAL PROTEIN, SERUM 6.8 g/dL (6.4-8.2)
[2019-09-05] MEDS ORDERED: FAMOTIDINE 10 MG/ML 2 ML VIAL IVP ONE (23:00)
[2019-09-05] MEDS ORDERED: PB/HYOSCY/ATR/SCOP/LIDO/MAALOX 55 ML BOTTLE PO ONE (23:00)
[2019-09-05] MEDS ORDERED: IOVERSOL 350 MG/ML 100 ML VIAL ONE (23:18)
[2019-09-05] MEDS ORDERED: SODIUM CHLORIDE 0.9% 100 ML ONE (23:18)
[2019-09-06 01:23] LABS: APPEARANCE,URINE CLEAR (CLEAR); BILIRUBIN,URINE NEGATIVE (NEGATIVE); GLUCOSE, URINE (UA) NEGATIVE (NEGATIVE); KETONES,URINE NEGATIVE (NEGATIVE); LEUKOCYTE ESTERASE ,URINE NEGATIVE (NEGATIVE); NITRATE,URINE NEGATIVE (NEGATIVE); OCCULT BLOOD,URINE NEGATIVE (NEGATIVE); PROTEIN,URINE NEGATIVE (NEGATIVE)
[2019-09-06 03:00] VITALS: BP 126/78
== END 2019-09-06 03:29 | disposition home or self-care (01) ==
LOC: EMS 20:17
DX: K27.9 Peptic ulcer, site unspecified, unspecified as acute or chronic, without hemorrhage or perforation (principal); E03.9 Hypothyroidism, unspecified; J45.909 Unspecified asthma, uncomplicated; K21.9 Gastro-esophageal reflux disease without esophagitis; F31.9 Bipolar disorder, unspecified; F17.210 Nicotine dependence, cigarettes, uncomplicated; F20.9 Schizophrenia, unspecified; Z79.899 Other long term (current) drug therapy; Z88.0 Allergy status to penicillin; Z88.2 Allergy status to sulfonamides; Z98.890 Other specified postprocedural states; Z88.8 Allergy status to other drugs, medicaments and biological substances; Z91.013 Allergy to seafood; Z88.5 Allergy status to narcotic agent; Z91.012 Allergy to eggs
CPT/HCPCS: 36415; 74176; 80053; 81003; 83690; 85025; 96374; 99284; J3490; J7050; Q9967

== ENCOUNTER 2019-11-05 21:52 | Emergency (ER) | payer OTHER ==
[~2019-11-05] VITALS: Ht 175.3 cm; Wt 75.0 kg
[2019-11-05 23:53] LABS: BASOPHILS % (AUTO) 0.7 % (0.0-2.0); EOSINOPHILS % (AUTO) 2.9 % (1.0-6.0); HEMOGLOBIN 13.7 g/dL (13.5-17.5); LYMPHOCYTES % (AUTO) 38.6 % (22.0-44.0); MEAN CORPUSCULAR VOLUME 94 fL (80-100); MONOCYTES # (AUTO) 0.7 K/uL (0.1-1.0); MONOCYTES % (AUTO) 9.2 % (2.0-9.0); NEUTROPHILS # (AUTO) 3.8 K/uL (1.8-7.7); NEUTROPHILS % (AUTO) 48.6 % (40.0-70.0); PLATELET COUNT (AUTO) 199 K/uL (150-450); RED BLOOD CELL COUNT(AUTO) 4.14 MIL/uL (4.50-5.90); RED CELL DISTRIBUTION WIDTH 12.6 % (11.5-14.5)
[2019-11-06 00:20] LABS: ANION GAP 8 mmol/L (8-16); CALCIUM, TOTAL 8.7 mg/dL (8.8-10.5); CARBON DIOXIDE 28 mmol/L (22-29); CHLORIDE 105 mmol/L (98-107); CREATININE 0.88 mg/dL (0.60-1.30); GLOMERULAR FILTR. RATE CALC > 60 mL/min (>60); GLUCOSE,RANDOM 97 mg/dL (70-110); POTASSIUM 3.8 mmol/L (3.5-5.1); SODIUM SERUM 141 mmol/L (136-145); UREA NITROGEN, BLOOD 12 mg/dL (7-18)
[2019-11-06 00:26] LABS: APPEARANCE,URINE CLEAR (CLEAR); BILIRUBIN,URINE NEGATIVE (NEGATIVE); GLUCOSE, URINE (UA) NEGATIVE (NEGATIVE); KETONES,URINE NEGATIVE (NEGATIVE); LEUKOCYTE ESTERASE ,URINE NEGATIVE (NEGATIVE); NITRATE,URINE NEGATIVE (NEGATIVE); OCCULT BLOOD,URINE NEGATIVE (NEGATIVE); PH,URINE 5.5 (5.0-8.0); PROTEIN,URINE NEGATIVE (NEGATIVE); UROBILINOGEN,URINE 0.2 mg/dL (<=1.0)
[2019-11-06 00:27] LABS: ALANINE AMINOTRANSFERASE 15 U/L (12-78); ALBUMIN 3.2 g/dL (3.4-5.0); ALKALINE PHOSPHATASE 104 U/L (46-116); ASPARTATE AMINOTRANSFERASE 12 U/L (15-37); BILIRUBIN,TOTAL 0.2 mg/dL (0.1-1.0); PHENYTOIN (DILANTIN) 3.4 mcg/mL (10.0-20.0); TOTAL PROTEIN, SERUM 6.7 g/dL (6.4-8.2); VALPROIC ACID 98 mcg/mL (50-100)
[2019-11-06 00:31] LABS: AMPHET/METH SCREEN,URINE NEGATIVE (NEGATIVE); BARBITURATE SCREEN, URINE NEGATIVE (NEGATIVE); BENZODIAZEPINES SCREEN,URINE NEGATIVE (NEGATIVE); CANNABINOID SCREEN,URINE NEGATIVE (NEGATIVE); COCAINE SCREEN,URINE NEGATIVE (NEGATIVE); METHADONE SCREEN, URINE NEGATIVE (NEGATIVE); OPIATE SCREEN,URINE NEGATIVE (NEGATIVE)
[2019-11-06 00:32] LABS: PHENCYCLIDINE SCREEN,URINE NEGATIVE (NEGATIVE)
[2019-11-06] MEDS: MAGNESIUM SULFATE 2 GM/WATER 50 ML IV ONE (01:14)
[2019-11-06] MEDS: ACETAMINOPHEN 325 MG TABLET PO ONE (01:50)
[2019-11-06] MEDS: PHENYTOIN SODIUM 100 MG ER CAPSULE PO ONE (01:51)
[2019-11-06 03:14] VITALS: BP 92/56
== END 2019-11-06 04:30 | disposition home or self-care (01) ==
LOC: EMS 21:53
DX: G40.909 Epilepsy, unspecified, not intractable, without status epilepticus (principal); F17.210 Nicotine dependence, cigarettes, uncomplicated; Z88.8 Allergy status to other drugs, medicaments and biological substances; Z91.012 Allergy to eggs; Z91.040 Latex allergy status; Z88.5 Allergy status to narcotic agent; Z91.013 Allergy to seafood
CPT/HCPCS: 36415; 80053; 80164; 80185; 80307; 81003; 83735; 85025; 96365; 99284; J3475

== ENCOUNTER 2019-11-26 20:08 | Emergency (ER) | payer OTHER ==
[~2019-11-26] VITALS: Ht 175.3 cm; Wt 88.6 kg
[~2019-11-26 20:08] MED LIST changes: -CIPR-278 PO; -METR500 PO; -PALI6 PO; +PALI6TAB15 PO
[2019-11-26] MEDS ORDERED: HYDR-4031 PO (20:25)
[2019-11-26] MEDS ORDERED: HYD25 PO (20:25)
[2019-11-26] MEDS ORDERED: OMEP20CA12 PO (20:25)
[2019-11-26] MEDS ORDERED: CLON1TAB13 PO (20:25)
[2019-11-26] MEDS ORDERED: PHENY100 PO (20:25)
[2019-11-26] MEDS ORDERED: CLON0.5T4 PO (20:25)
[2019-11-26 21:04] LABS: BASOPHILS % (AUTO) 0.5 % (0.0-2.0); EOSINOPHILS % (AUTO) 2.9 % (1.0-6.0); HEMATOCRIT 39.8 % (41-53); HEMOGLOBIN 13.9 g/dL (13.5-17.5); LYMPHOCYTES # (AUTO) 2.4 K/uL (1.0-4.8); LYMPHOCYTES % (AUTO) 38.9 % (22.0-44.0); MEAN CORPUSCULAR HEMOGLOBIN 32.6 pg (26.0-34.0); MEAN CORPUSCULAR HGB CONC 34.8 G/dL (31.0-37.0); MEAN CORPUSCULAR VOLUME 94 fL (80-100); MONOCYTES # (AUTO) 0.7 K/uL (0.1-1.0); MONOCYTES % (AUTO) 10.6 % (2.0-9.0); NEUTROPHILS # (AUTO) 2.9 K/uL (1.8-7.7); NEUTROPHILS % (AUTO) 47.1 % (40.0-70.0); PLATELET COUNT (AUTO) 164 K/uL (150-450); RED BLOOD CELL COUNT(AUTO) 4.24 MIL/uL (4.50-5.90); RED CELL DISTRIBUTION WIDTH 12.7 % (11.5-14.5)
[2019-11-26 21:20] LABS: ANION GAP 10 mmol/L (8-16); CALCIUM, TOTAL 8.6 mg/dL (8.8-10.5); CARBON DIOXIDE 25 mmol/L (22-29); CHLORIDE 106 mmol/L (98-107); CREATININE 0.85 mg/dL (0.60-1.30); GLOMERULAR FILTR. RATE CALC > 60 mL/min (>60); GLUCOSE,RANDOM 95 mg/dL (70-110); POTASSIUM 3.9 mmol/L (3.5-5.1); SODIUM SERUM 141 mmol/L (136-145); UREA NITROGEN, BLOOD 4 mg/dL (7-18)
[2019-11-26 21:26] LABS: ALANINE AMINOTRANSFERASE 17 U/L (12-78); ALBUMIN 3.6 g/dL (3.4-5.0); ALKALINE PHOSPHATASE 103 U/L (46-116); ASPARTATE AMINOTRANSFERASE 11 U/L (15-37); BILIRUBIN,TOTAL 0.2 mg/dL (0.1-1.0); TOTAL PROTEIN, SERUM 6.8 g/dL (6.4-8.2); VALPROIC ACID 83 mcg/mL (50-100)
[2019-11-26 21:48] LABS: AMPHET/METH SCREEN,URINE NEGATIVE (NEGATIVE); BARBITURATE SCREEN, URINE NEGATIVE (NEGATIVE); BENZODIAZEPINES SCREEN,URINE NEGATIVE (NEGATIVE); CANNABINOID SCREEN,URINE NEGATIVE (NEGATIVE); COCAINE SCREEN,URINE NEGATIVE (NEGATIVE); METHADONE SCREEN, URINE NEGATIVE (NEGATIVE); OPIATE SCREEN,URINE NEGATIVE (NEGATIVE)
[2019-11-26 21:50] LABS: PHENCYCLIDINE SCREEN,URINE NEGATIVE (NEGATIVE)
[2019-11-26 22:36] VITALS: BP 128/95
[2019-11-26] MEDS ORDERED: ACETAMINOPHEN 500 MG TABLET PO ONE (23:15)
== END 2019-11-26 23:00 | disposition home or self-care (01) ==
LOC: EMS 20:09
DX: G40.909 Epilepsy, unspecified, not intractable, without status epilepticus (principal); J45.909 Unspecified asthma, uncomplicated; Z90.89 Acquired absence of other organs; Z87.891 Personal history of nicotine dependence; Z88.8 Allergy status to other drugs, medicaments and biological substances; Z88.1 Allergy status to other antibiotic agents; Z91.012 Allergy to eggs; Z91.040 Latex allergy status; Z88.5 Allergy status to narcotic agent; Z88.0 Allergy status to penicillin; Z91.013 Allergy to seafood
CPT/HCPCS: 36415; 80053; 80164; 80307; 85025; 99283; G0480

== ENCOUNTER 2020-01-21 21:12 | Inpatient (IN) | payer MEDICAID ==
[~2020-01-21] VITALS: Ht 175.3 cm; Wt 74.8 kg
[~2020-01-21 21:12] MED LIST changes: +CLON0.5T4 PO; +CLON1TAB13 PO; +DIVA-112 PO; -DIVA-78 PO; +HYD25 PO; +HYDR-4031 PO; +OMEP20CA12 PO
[2020-01-22 00:30] VITALS: BP 104/68
[2020-01-22] MEDS ORDERED: ZOLPIDEM TARTRATE 10 MG TABLET PO PRN (06:00)
[2020-01-22] MEDS ORDERED: LORazepam 2 MG TABLET PO PRN (06:00)
[2020-01-22] MEDS ORDERED: NICOTINE 14 MG/24 HOUR PATCH TD PRN (06:15)
[2020-01-22 08:33] VITALS: BP 116/78
[2020-01-22] MEDS: LevETIRAcetam 500 MG TABLET PO SCH ×2 (09:23→16:12)
[2020-01-22 16:00] VITALS: BP 90/59
[2020-01-22] MEDS: QUEtiapine FUMARATE 200 MG TABLET PO SCH (16:12)
[2020-01-22] MEDS: DIVALPROEX SODIUM 250 MG ER TABLET PO SCH (20:22)
[2020-01-22] MEDS: QUEtiapine FUMARATE 300 MG TABLET PO SCH (20:22)
[2020-01-22] MEDS: DIVALPROEX SODIUM 500 MG ER TABLET PO SCH (20:22)
[2020-01-23 09:23] VITALS: BP 88/52
[2020-01-23] MEDS: LevETIRAcetam 500 MG TABLET PO SCH ×2 (10:42→16:05)
[2020-01-23] MEDS: HydrOXYzine PAMOATE 50 MG CAPSULE PO SCH (10:42)
[2020-01-23] MEDS: QUEtiapine FUMARATE 200 MG TABLET PO SCH ×2 (10:42→16:05)
[2020-01-23 16:25] VITALS: BP 108/75
[2020-01-23] MEDS: QUEtiapine FUMARATE 300 MG TABLET PO SCH (20:45)
[2020-01-23] MEDS: DIVALPROEX SODIUM 500 MG ER TABLET PO SCH (20:45)
[2020-01-23] MEDS: DIVALPROEX SODIUM 250 MG ER TABLET PO SCH (20:45)
[2020-01-24 08:00] VITALS: BP 100/63
[2020-01-24] MEDS: LevETIRAcetam 500 MG TABLET PO SCH ×2 (08:13→16:23)
[2020-01-24] MEDS: QUEtiapine FUMARATE 200 MG TABLET PO SCH ×2 (08:13→16:23)
[2020-01-24] MEDS: HydrOXYzine PAMOATE 50 MG CAPSULE PO SCH (08:13)
[2020-01-24] MEDS ORDERED: BENZOCAINE/MENTHOL LOZENGE MM PRN (08:15)
[2020-01-24] MEDS ORDERED: ONDANSETRON HCL 4 MG TABLET PO PRN (08:15)
[2020-01-24] MEDS ORDERED: CloNIDine HCL 0.1 MG TABLET PO PRN (08:15)
[2020-01-24] MEDS ORDERED: MAG HYDROX/AL HYDROX/SIMETH ES 30 ML SUSPENSION UDCUP PO PRN (08:15)
[2020-01-24] MEDS ORDERED: MAGNESIUM HYDROXIDE SUSPENSION 30 ML UDCUP PO PRN (08:15)
[2020-01-24] MEDS ORDERED: IBUPROFEN 600 MG TABLET PO PRN (08:15)
[2020-01-24] MEDS ORDERED: ALBUTEROL SULFATE HFA 90 MCG/PUFF 8 GM INHALER IH PRN (08:15)
[2020-01-24] MEDS ORDERED: PETROLATUM,WHITE 28 GM JELLY TP PRN (08:15)
[2020-01-24] MEDS ORDERED: ACETAMINOPHEN 325 MG TABLET PO PRN (08:15)
[2020-01-24] MEDS ORDERED: BACITRACIN 28.4 GM OINTMENT TP PRN (08:15)
[2020-01-24] MEDS ORDERED: LOPERAMIDE HCL 2 MG CAPSULE PO PRN (08:15)
[2020-01-24] MEDS: PHENYTOIN SODIUM 100 MG ER CAPSULE PO SCH ×3 (09:09→16:23)
[2020-01-24] MEDS: OMEPRAZOLE 20 MG CAPSULE PO SCH (09:09)
[2020-01-24] MEDS: DOCUSATE SODIUM 100 MG CAPSULE PO SCH (09:09)
[2020-01-24 16:00] VITALS: BP 96/66
[2020-01-24] MEDS: DIVALPROEX SODIUM 250 MG ER TABLET PO SCH (20:46)
[2020-01-24] MEDS: QUEtiapine FUMARATE 300 MG TABLET PO SCH (20:46)
[2020-01-24] MEDS: DIVALPROEX SODIUM 500 MG ER TABLET PO SCH (20:47)
[2020-01-25] MEDS: LEVOTHYROXINE SODIUM 50 MCG TABLET PO SCH (06:24)
[2020-01-25 08:00] VITALS: BP 98/64
[2020-01-25] MEDS: QUEtiapine FUMARATE 200 MG TABLET PO SCH ×2 (09:08→16:21)
[2020-01-25] MEDS: PHENYTOIN SODIUM 100 MG ER CAPSULE PO SCH ×3 (09:09→16:21)
[2020-01-25] MEDS: OMEPRAZOLE 20 MG CAPSULE PO SCH (09:09)
[2020-01-25] MEDS: LevETIRAcetam 500 MG TABLET PO SCH ×2 (09:09→16:21)
[2020-01-25] MEDS: DOCUSATE SODIUM 100 MG CAPSULE PO SCH (09:10)
[2020-01-25] MEDS: HydrOXYzine PAMOATE 50 MG CAPSULE PO SCH (09:10)
[2020-01-25 17:11] VITALS: BP 119/68
[2020-01-25] MEDS: DIVALPROEX SODIUM 500 MG ER TABLET PO SCH (20:08)
[2020-01-25] MEDS: DIVALPROEX SODIUM 250 MG ER TABLET PO SCH (20:08)
[2020-01-25] MEDS: QUEtiapine FUMARATE 300 MG TABLET PO SCH (21:51)
[2020-01-26] MEDS: LEVOTHYROXINE SODIUM 50 MCG TABLET PO SCH (06:41)
[2020-01-26 07:00] LABS: BAND NEUTROPHILS % (MANUAL) 0 % (0-5)
[2020-01-26 07:03] LABS: HEMATOCRIT 38.6 % (41-53); HEMOGLOBIN 13.6 g/dL (13.5-17.5); MEAN CORPUSCULAR HEMOGLOBIN 32.3 pg (26.0-34.0); MEAN CORPUSCULAR HGB CONC 35.3 G/dL (31.0-37.0); MEAN CORPUSCULAR VOLUME 92 fL (80-100); PLATELET COUNT (AUTO) 206 K/uL (150-450); RED BLOOD CELL COUNT(AUTO) 4.22 MIL/uL (4.50-5.90); RED CELL DISTRIBUTION WIDTH 12.7 % (11.5-14.5)
[2020-01-26 07:28] LABS: ANION GAP 3 mmol/L (8-16); CALCIUM, TOTAL 9.3 mg/dL (8.8-10.5); CARBON DIOXIDE 30 mmol/L (22-29); CHLORIDE 104 mmol/L (98-107); CHOLESTEROL 121 mg/dL (131-200); CREATININE 0.79 mg/dL (0.60-1.30); GLOMERULAR FILTR. RATE CALC > 60 mL/min (>60); GLUCOSE,RANDOM 83 mg/dL (70-110); HDL CHOLESTEROL 40 mg/dL (40-60); LDL CHOL (CALC.) 57 mg/dL (0-130); PHOSPHORUS 3.1 mg/dL (2.5-4.9); POTASSIUM 4.6 mmol/L (3.5-5.1); SODIUM SERUM 137 mmol/L (136-145); THYROID STIMULATING HORMONE 3.14 uIU/mL (0.36-3.74); TRIGLYCERIDES 119 mg/dL (15-150); UREA NITROGEN, BLOOD 20 mg/dL (7-18)
[2020-01-26 08:00] VITALS: BP 93/55
[2020-01-26 08:18] LABS: EOSINOPHILS % (MANUAL) 3 % (1-6); LYMPHOCYTES % (MANUAL) 32 % (22-44); MONOCYTES % (MANUAL) 4 % (2-9); SEGMENTED NEUTROPHILS % 61 % (40-70)
[2020-01-26] MEDS: LevETIRAcetam 500 MG TABLET PO SCH ×2 (10:12→16:35)
[2020-01-26] MEDS: OMEPRAZOLE 20 MG CAPSULE PO SCH (10:12)
[2020-01-26] MEDS: PHENYTOIN SODIUM 100 MG ER CAPSULE PO SCH ×3 (10:13→16:35)
[2020-01-26] MEDS: QUEtiapine FUMARATE 200 MG TABLET PO SCH ×2 (10:13→16:35)
[2020-01-26] MEDS: HydrOXYzine PAMOATE 50 MG CAPSULE PO SCH (10:13)
[2020-01-26] MEDS: DOCUSATE SODIUM 100 MG CAPSULE PO SCH (10:16)
[2020-01-26 16:00] VITALS: BP 97/59
[2020-01-26] MEDS: DIVALPROEX SODIUM 500 MG ER TABLET PO SCH (20:21)
[2020-01-26] MEDS: QUEtiapine FUMARATE 300 MG TABLET PO SCH (20:23)
[2020-01-26] MEDS: DIVALPROEX SODIUM 250 MG ER TABLET PO SCH (20:24)
[2020-01-27] MEDS: LEVOTHYROXINE SODIUM 50 MCG TABLET PO SCH (06:47)
[2020-01-27 08:35] VITALS: BP 108/72
[2020-01-27] MEDS: LevETIRAcetam 500 MG TABLET PO SCH (09:23)
[2020-01-27] MEDS: PHENYTOIN SODIUM 100 MG ER CAPSULE PO SCH ×2 (09:23→13:16)
[2020-01-27] MEDS: DOCUSATE SODIUM 100 MG CAPSULE PO SCH (09:23)
[2020-01-27] MEDS: OMEPRAZOLE 20 MG CAPSULE PO SCH (09:23)
[2020-01-27] MEDS: QUEtiapine FUMARATE 200 MG TABLET PO SCH (09:24)
[2020-01-27] MEDS: HydrOXYzine PAMOATE 50 MG CAPSULE PO SCH (09:25)
[2020-01-27] MEDS ORDERED: DIVA-80 PO (13:50)
[2020-01-27] MEDS ORDERED: DIVA-85 PO (13:50)
[2020-01-27] MEDS ORDERED: HYDR50CA9 PO (13:51)
[2020-01-27] MEDS ORDERED: QUET300T2 PO (13:53)
[2020-01-27] MEDS ORDERED: DOCU-275 PO (14:01)
[2020-01-27] MEDS ORDERED: LEVE500T53 PO (14:04)
== END 2020-01-27 15:20 | disposition home or self-care (01) | DRG 885 ==
LOC: 3EI 23:30
DX: F20.0 Paranoid schizophrenia (principal); R45.851 Suicidal ideations; Z79.899 Other long term (current) drug therapy; Z91.5 Personal history of self-harm; G40.909 Epilepsy, unspecified, not intractable, without status epilepticus; Z91.013 Allergy to seafood; Z88.2 Allergy status to sulfonamides; Z88.0 Allergy status to penicillin; Z88.8 Allergy status to other drugs, medicaments and biological substances; Z90.49 Acquired absence of other specified parts of digestive tract; F41.9 Anxiety disorder, unspecified; K59.00 Constipation, unspecified; G47.00 Insomnia, unspecified; Z72.89 Other problems related to lifestyle
CPT/HCPCS: 83735; 84100; 84443; 85007; 87081

== ENCOUNTER 2020-10-02 19:48 | Emergency (ER) | payer MEDICAID, OTHER ==
[~2020-10-02] VITALS: Ht 175.3 cm; Wt 68.6 kg
[~2020-10-02 19:48] MED LIST changes: -CLON0.5T4 PO; -CLON1TAB13 PO; -DIVA-112 PO; +DIVA-80 PO; +DIVA-85 PO; -HYD25 PO; -HYDR-4031 PO; +LEVE500T53 PO; -PALI156D IM; -PALI6TAB15 PO; +QUET300T2 PO; +RISPC50 IM
[2020-10-02 20:46] LABS: BASOPHILS % (AUTO) 0.4 % (0.0-2.0); EOSINOPHILS % (AUTO) 3.5 % (1.0-6.0); HEMATOCRIT 39.4 % (41-53); HEMOGLOBIN 13.2 g/dL (13.5-17.5); LYMPHOCYTES # (AUTO) 2.4 K/uL (1.0-4.8); LYMPHOCYTES % (AUTO) 24.8 % (22.0-44.0); MEAN CORPUSCULAR HEMOGLOBIN 28.8 pg (26.0-34.0); MEAN CORPUSCULAR HGB CONC 33.5 G/dL (31.0-37.0); MEAN CORPUSCULAR VOLUME 86 fL (80-100); MONOCYTES # (AUTO) 0.7 K/uL (0.1-1.0); MONOCYTES % (AUTO) 7.7 % (2.0-9.0); NEUTROPHILS # (AUTO) 6.1 K/uL (1.8-7.7); NEUTROPHILS % (AUTO) 63.6 % (40.0-70.0); PLATELET COUNT (AUTO) 209 K/uL (150-450); RED BLOOD CELL COUNT(AUTO) 4.58 MIL/uL (4.50-5.90); RED CELL DISTRIBUTION WIDTH 15.2 % (11.5-14.5)
[2020-10-02 20:56] LABS: ANION GAP 9 mmol/L (8-16); CALCIUM, TOTAL 9.1 mg/dL (8.8-10.5); CARBON DIOXIDE 27 mmol/L (22-29); CHLORIDE 105 mmol/L (98-107); CREATININE 0.73 mg/dL (0.60-1.30); GLOMERULAR FILTR. RATE CALC > 60 mL/min (>60); GLUCOSE,RANDOM 92 mg/dL (70-110); POTASSIUM 3.9 mmol/L (3.5-5.1); SODIUM SERUM 141 mmol/L (136-145); UREA NITROGEN, BLOOD 9 mg/dL (7-18)
[2020-10-02 21:00] VITALS: BP 110/70
[2020-10-02 21:02] LABS: ALANINE AMINOTRANSFERASE 28 U/L (12-78); ALBUMIN 3.6 g/dL (3.4-5.0); ALKALINE PHOSPHATASE 147 U/L (46-116); ASPARTATE AMINOTRANSFERASE 18 U/L (15-37); BILIRUBIN,TOTAL 0.3 mg/dL (0.1-1.0); TOTAL PROTEIN, SERUM 7.3 g/dL (6.4-8.2)
[2020-10-02 22:47] LABS: AMPHET/METH SCREEN,URINE NEGATIVE (NEGATIVE); BARBITURATE SCREEN, URINE NEGATIVE (NEGATIVE); BENZODIAZEPINES SCREEN,URINE NEGATIVE (NEGATIVE); CANNABINOID SCREEN,URINE NEGATIVE (NEGATIVE); COCAINE SCREEN,URINE NEGATIVE (NEGATIVE); METHADONE SCREEN, URINE NEGATIVE (NEGATIVE); OPIATE SCREEN,URINE NEGATIVE (NEGATIVE); PHENCYCLIDINE SCREEN,URINE NEGATIVE (NEGATIVE)
== END 2020-10-02 22:32 | disposition home or self-care (01) ==
LOC: EMS 19:59
DX: M54.5 Low back pain (principal); G89.29 Other chronic pain; M79.10 Myalgia, unspecified site; Z88.8 Allergy status to other drugs, medicaments and biological substances; Z88.1 Allergy status to other antibiotic agents; Z91.012 Allergy to eggs; Z91.040 Latex allergy status; Z88.5 Allergy status to narcotic agent; Z88.0 Allergy status to penicillin; Z91.013 Allergy to seafood
CPT/HCPCS: 36415; 80053; 80307; 85025; 99283; G0480

== ENCOUNTER 2020-10-24 15:31 | Inpatient (IN) | payer MEDICAID, OTHER ==
[~2020-10-24] VITALS: Ht 175.3 cm; Wt 70.8 kg
[2020-10-24 17:17] LABS: BASOPHILS % (AUTO) 0.4 % (0.0-2.0); HEMATOCRIT 38.1 % (41-53); LYMPHOCYTES # (AUTO) 1.8 K/uL (1.0-4.8); LYMPHOCYTES % (AUTO) 21.5 % (22.0-44.0); MEAN CORPUSCULAR HEMOGLOBIN 29.7 pg (26.0-34.0); MEAN CORPUSCULAR HGB CONC 34.2 G/dL (31.0-37.0); MEAN CORPUSCULAR VOLUME 87 fL (80-100); MONOCYTES # (AUTO) 0.6 K/uL (0.1-1.0); MONOCYTES % (AUTO) 7.2 % (2.0-9.0); NEUTROPHILS # (AUTO) 5.8 K/uL (1.8-7.7); NEUTROPHILS % (AUTO) 66.9 % (40.0-70.0); PLATELET COUNT (AUTO) 227 K/uL (150-450); RED BLOOD CELL COUNT(AUTO) 4.39 MIL/uL (4.50-5.90); RED CELL DISTRIBUTION WIDTH 14.7 % (11.5-14.5)
[2020-10-24 17:26] LABS: ANION GAP 10 mmol/L (8-16); CALCIUM, TOTAL 8.9 mg/dL (8.8-10.5); CARBON DIOXIDE 26 mmol/L (22-29); CHLORIDE 104 mmol/L (98-107); CREATININE 0.78 mg/dL (0.60-1.30); GLOMERULAR FILTR. RATE CALC > 60 mL/min (>60); GLUCOSE,RANDOM 108 mg/dL (70-110); POTASSIUM 3.6 mmol/L (3.5-5.1); SODIUM SERUM 140 mmol/L (136-145); UREA NITROGEN, BLOOD 19 mg/dL (7-18)
[2020-10-24 17:34] LABS: ALANINE AMINOTRANSFERASE 27 U/L (12-78); ALBUMIN 3.5 g/dL (3.4-5.0); ALKALINE PHOSPHATASE 137 U/L (46-116); ASPARTATE AMINOTRANSFERASE 19 U/L (15-37); BILIRUBIN,TOTAL 0.2 mg/dL (0.1-1.0); TOTAL PROTEIN, SERUM 6.8 g/dL (6.4-8.2)
[2020-10-24 17:39] LABS: PHENYTOIN (DILANTIN) < 0.5 mcg/mL (10.0-20.0); VALPROIC ACID < 3 mcg/mL (50-100)
[2020-10-24] MEDS ORDERED: ZOLPIDEM TARTRATE 10 MG TABLET PO PRN (20:45)
[2020-10-24 21:29] LABS: COVID AG,FIA SOURCE NASOPHARYNGEAL
[2020-10-25 01:30] VITALS: BP 120/75
[2020-10-25] MEDS: QUEtiapine FUMARATE 100 MG TABLET PO PRN (01:45)
[2020-10-25] MEDS: LORazepam 2 MG TABLET PO PRN (01:45)
[2020-10-25] MEDS ORDERED: PNEUMOCOCCAL VACCINE POLYVALENT 0.5 ML VIAL [PPSV23] IM. ONE (04:15)
[2020-10-25] MEDS ORDERED: GuaiFENesin/D-METHORPHAN [SUGAR-FREE] 200-20MG/10 ML SYRUP UDCUP PO PRN (08:00)
[2020-10-25] MEDS ORDERED: PETROLATUM,WHITE 28 GM JELLY TP PRN (08:00)
[2020-10-25] MEDS ORDERED: DOCUSATE SODIUM 100 MG CAPSULE PO PRN (08:00)
[2020-10-25] MEDS ORDERED: ALBUTEROL SULFATE HFA 90 MCG/PUFF 8 GM INHALER IH PRN (08:00)
[2020-10-25] MEDS ORDERED: CloNIDine HCL 0.1 MG TABLET PO PRN (08:00)
[2020-10-25] MEDS ORDERED: MAG HYDROX/AL HYDROX/SIMETH ES 30 ML SUSPENSION UDCUP PO PRN (08:00)
[2020-10-25] MEDS ORDERED: ONDANSETRON HCL 4 MG TABLET PO PRN (08:00)
[2020-10-25] MEDS ORDERED: LOPERAMIDE HCL 2 MG CAPSULE PO PRN (08:00)
[2020-10-25] MEDS ORDERED: IBUPROFEN 400 MG TABLET PO PRN (08:00)
[2020-10-25 08:12] VITALS: BP 124/72
[2020-10-25] MEDS: OMEPRAZOLE 20 MG CAPSULE PO SCH (09:17)
[2020-10-25] MEDS: PHENYTOIN SODIUM 100 MG ER CAPSULE PO SCH ×3 (09:18→16:56)
[2020-10-25] MEDS: LevETIRAcetam 500 MG TABLET PO SCH ×2 (09:18→16:56)
[2020-10-25 16:08] VITALS: BP 118/77
[2020-10-25] MEDS: QUEtiapine FUMARATE 200 MG TABLET PO SCH (16:55)
[2020-10-25] MEDS: DIVALPROEX SODIUM 250 MG ER TABLET PO SCH (20:39)
[2020-10-25] MEDS: QUEtiapine FUMARATE 300 MG TABLET PO SCH (20:39)
[2020-10-25] MEDS: DIVALPROEX SODIUM 500 MG ER TABLET PO SCH (20:39)
[2020-10-26] MEDS: LEVOTHYROXINE SODIUM 50 MCG TABLET PO SCH (06:10)
[2020-10-26 06:41] VITALS: BP 100/63
[2020-10-26 08:18] VITALS: BP 106/62
[2020-10-26] MEDS: QUEtiapine FUMARATE 200 MG TABLET PO SCH ×2 (08:40→16:55)
[2020-10-26] MEDS: OMEPRAZOLE 20 MG CAPSULE PO SCH (08:40)
[2020-10-26] MEDS: PHENYTOIN SODIUM 100 MG ER CAPSULE PO SCH ×3 (08:40→16:55)
[2020-10-26] MEDS: LevETIRAcetam 500 MG TABLET PO SCH ×2 (08:40→16:55)
[2020-10-26 16:15] VITALS: BP 110/75
[2020-10-26] MEDS: DIVALPROEX SODIUM 500 MG ER TABLET PO SCH (20:55)
[2020-10-26] MEDS: QUEtiapine FUMARATE 300 MG TABLET PO SCH (20:55)
[2020-10-26] MEDS: DIVALPROEX SODIUM 250 MG ER TABLET PO SCH (20:55)
[2020-10-27] VITALS (8 sets, daily range): BP systolic 103–120; BP diastolic 59–72
[2020-10-27] MEDS: LEVOTHYROXINE SODIUM 50 MCG TABLET PO SCH (06:36)
[2020-10-27] MEDS: OMEPRAZOLE 20 MG CAPSULE PO SCH (09:10)
[2020-10-27] MEDS: QUEtiapine FUMARATE 200 MG TABLET PO SCH ×2 (09:10→16:36)
[2020-10-27] MEDS: PHENYTOIN SODIUM 100 MG ER CAPSULE PO SCH ×3 (09:10→16:35)
[2020-10-27] MEDS: LevETIRAcetam 500 MG TABLET PO SCH ×2 (09:10→16:35)
[2020-10-27] MEDS: MAGNESIUM HYDROXIDE SUSPENSION 30 ML UDCUP PO PRN (16:34)
[2020-10-27] MEDS: LORazepam 2 MG TABLET PO PRN (16:34)
[2020-10-27] MEDS: QUEtiapine FUMARATE 300 MG TABLET PO SCH (16:35)
[2020-10-27] MEDS: DIVALPROEX SODIUM 250 MG ER TABLET PO SCH (20:41)
[2020-10-27] MEDS: DIVALPROEX SODIUM 500 MG ER TABLET PO SCH (20:41)
[2020-10-28 04:33] VITALS: BP 106/75
[2020-10-28] MEDS: LEVOTHYROXINE SODIUM 50 MCG TABLET PO SCH (06:47)
[2020-10-28] MEDS ORDERED: ChlorproMAZINE HCL 50 MG/2 ML AMP IM ONE (08:15)
[2020-10-28] MEDS ORDERED: DiphenhydrAMINE HCL 50 MG/ML VIAL IM ONE (08:15)
[2020-10-28] MEDS ORDERED: LORazepam 2 MG/ML VIAL IM ONE (08:15)
[2020-10-28 08:37] VITALS: BP 114/76
[2020-10-28] MEDS: LORazepam 2 MG TABLET PO PRN (09:03)
[2020-10-28] MEDS: OMEPRAZOLE 20 MG CAPSULE PO SCH (09:03)
[2020-10-28] MEDS: QUEtiapine FUMARATE 200 MG TABLET PO SCH ×2 (09:03→16:36)
[2020-10-28] MEDS: PHENYTOIN SODIUM 100 MG ER CAPSULE PO SCH ×3 (09:04→16:36)
[2020-10-28] MEDS: LevETIRAcetam 500 MG TABLET PO SCH ×2 (09:04→16:36)
[2020-10-28] MEDS: ACETAMINOPHEN 325 MG TABLET PO PRN (09:24)
[2020-10-28] MEDS: MULTIVITAMINS, THERAPEUTIC TABLET PO SCH (09:30)
[2020-10-28] MEDS: QUEtiapine FUMARATE 300 MG TABLET PO SCH (20:49)
[2020-10-28] MEDS: DIVALPROEX SODIUM 250 MG ER TABLET PO SCH (20:49)
[2020-10-28] MEDS: DIVALPROEX SODIUM 500 MG ER TABLET PO SCH (20:49)
[2020-10-29 03:10] VITALS: BP 120/70
[2020-10-29] MEDS: LEVOTHYROXINE SODIUM 50 MCG TABLET PO SCH (06:15)
[2020-10-29] MEDS: PHENYTOIN SODIUM 100 MG ER CAPSULE PO SCH ×3 (08:42→16:11)
[2020-10-29] MEDS: LORazepam 2 MG TABLET PO PRN ×2 (08:42→12:44)
[2020-10-29] MEDS: LevETIRAcetam 500 MG TABLET PO SCH ×2 (08:42→16:11)
[2020-10-29] MEDS: OMEPRAZOLE 20 MG CAPSULE PO SCH (08:42)
[2020-10-29] MEDS: MULTIVITAMINS, THERAPEUTIC TABLET PO SCH (08:42)
[2020-10-29] MEDS: QUEtiapine FUMARATE 200 MG TABLET PO SCH ×2 (08:42→16:11)
[2020-10-29] MEDS: NICOTINE 14 MG/24 HOUR PATCH TD PRN (09:19)
[2020-10-29 16:24] VITALS: BP 105/71
[2020-10-29] MEDS: DIVALPROEX SODIUM 250 MG ER TABLET PO SCH (21:01)
[2020-10-29] MEDS: QUEtiapine FUMARATE 300 MG TABLET PO SCH (21:01)
[2020-10-29] MEDS: DIVALPROEX SODIUM 500 MG ER TABLET PO SCH (21:01)
[2020-10-30 02:42] VITALS: BP 118/70
[2020-10-30] MEDS: LEVOTHYROXINE SODIUM 50 MCG TABLET PO SCH (06:33)
[2020-10-30] MEDS: LORazepam 2 MG TABLET PO PRN ×4 (08:36→16:53)
[2020-10-30] MEDS: MULTIVITAMINS, THERAPEUTIC TABLET PO SCH (08:36)
[2020-10-30] MEDS: LevETIRAcetam 500 MG TABLET PO SCH ×2 (08:36→16:53)
[2020-10-30] MEDS: OMEPRAZOLE 20 MG CAPSULE PO SCH (08:36)
[2020-10-30] MEDS: PHENYTOIN SODIUM 100 MG ER CAPSULE PO SCH ×3 (08:36→16:52)
[2020-10-30] MEDS: QUEtiapine FUMARATE 200 MG TABLET PO SCH ×2 (08:36→16:52)
[2020-10-30 08:39] VITALS: BP 107/65
[2020-10-30] MEDS: ACETAMINOPHEN 325 MG TABLET PO PRN (11:53)
[2020-10-30 16:13] VITALS: BP 104/66
[2020-10-30] MEDS: QUEtiapine FUMARATE 100 MG TABLET PO PRN (18:22)
[2020-10-30] MEDS: QUEtiapine FUMARATE 300 MG TABLET PO SCH (20:58)
[2020-10-30] MEDS: DIVALPROEX SODIUM 250 MG ER TABLET PO SCH (20:58)
[2020-10-30] MEDS: DIVALPROEX SODIUM 500 MG ER TABLET PO SCH (20:59)
[2020-10-31 00:16] VITALS: BP 104/64
[2020-10-31] MEDS: LEVOTHYROXINE SODIUM 50 MCG TABLET PO SCH (06:29)
[2020-10-31] MEDS: QUEtiapine FUMARATE 100 MG TABLET PO PRN ×2 (06:50→18:37)
[2020-10-31] MEDS: LORazepam 2 MG TABLET PO PRN ×2 (06:50→18:38)
[2020-10-31] MEDS: OMEPRAZOLE 20 MG CAPSULE PO SCH (08:07)
[2020-10-31] MEDS: PHENYTOIN SODIUM 100 MG ER CAPSULE PO SCH ×3 (08:07→16:28)
[2020-10-31] MEDS: QUEtiapine FUMARATE 200 MG TABLET PO SCH ×2 (08:07→16:28)
[2020-10-31] MEDS: LevETIRAcetam 500 MG TABLET PO SCH ×2 (08:07→16:28)
[2020-10-31] MEDS: MULTIVITAMINS, THERAPEUTIC TABLET PO SCH (08:08)
[2020-10-31 08:15] VITALS: BP 105/69
[2020-10-31] MEDS: NICOTINE 14 MG/24 HOUR PATCH TD PRN (08:58)
[2020-10-31] MEDS ORDERED: ChlorproMAZINE HCL 50 MG/2 ML AMP ONE (11:08)
[2020-10-31] MEDS ORDERED: LORazepam 2 MG/ML VIAL ONE (11:09)
[2020-10-31] MEDS ORDERED: ChlorproMAZINE HCL 50 MG/2 ML AMP IM ONE (11:30)
[2020-10-31] MEDS ORDERED: LORazepam 2 MG/ML VIAL IM ONE (11:30)
[2020-10-31 16:06] VITALS: BP 102/68
[2020-10-31] MEDS: DIVALPROEX SODIUM 500 MG ER TABLET PO SCH (20:41)
[2020-10-31] MEDS: QUEtiapine FUMARATE 300 MG TABLET PO SCH (20:42)
[2020-10-31] MEDS: DIVALPROEX SODIUM 250 MG ER TABLET PO SCH (21:58)
[2020-11-01 02:30] VITALS: BP 110/65
[2020-11-01] MEDS: LEVOTHYROXINE SODIUM 50 MCG TABLET PO SCH (06:20)
[2020-11-01] MEDS: QUEtiapine FUMARATE 200 MG TABLET PO SCH ×2 (08:00→17:00)
[2020-11-01] MEDS: PHENYTOIN SODIUM 100 MG ER CAPSULE PO SCH ×3 (08:00→17:00)
[2020-11-01] MEDS: OMEPRAZOLE 20 MG CAPSULE PO SCH (08:00)
[2020-11-01] MEDS: MULTIVITAMINS, THERAPEUTIC TABLET PO SCH (08:00)
[2020-11-01] MEDS: LORazepam 2 MG TABLET PO PRN ×2 (08:00→12:18)
[2020-11-01] MEDS: LevETIRAcetam 500 MG TABLET PO SCH ×2 (08:00→17:00)
[2020-11-01 08:39] VITALS: BP 125/82
[2020-11-01] MEDS ORDERED: LORazepam 2 MG/ML VIAL IM ONE (15:45)
[2020-11-01] MEDS ORDERED: DiphenhydrAMINE HCL 50 MG/ML VIAL IM ONE (15:45)
[2020-11-01] MEDS ORDERED: ChlorproMAZINE HCL 50 MG/2 ML AMP IM ONE (15:45)
[2020-11-01 16:45] VITALS: BP 102/64
[2020-11-01] MEDS: QUEtiapine FUMARATE 300 MG TABLET PO SCH (21:00)
[2020-11-01] MEDS: DIVALPROEX SODIUM 250 MG ER TABLET PO SCH (21:00)
[2020-11-01] MEDS: DIVALPROEX SODIUM 500 MG ER TABLET PO SCH (21:00)
[2020-11-02 00:15] VITALS: BP 105/70
[2020-11-02] MEDS: LEVOTHYROXINE SODIUM 50 MCG TABLET PO SCH (07:00)
[2020-11-02] MEDS: MAGNESIUM HYDROXIDE SUSPENSION 30 ML UDCUP PO PRN (08:21)
[2020-11-02] MEDS: MULTIVITAMINS, THERAPEUTIC TABLET PO SCH (08:34)
[2020-11-02] MEDS: PHENYTOIN SODIUM 100 MG ER CAPSULE PO SCH ×3 (08:34→16:44)
[2020-11-02] MEDS: LORazepam 2 MG TABLET PO PRN ×2 (08:34→16:44)
[2020-11-02] MEDS: OMEPRAZOLE 20 MG CAPSULE PO SCH (08:34)
[2020-11-02] MEDS: QUEtiapine FUMARATE 200 MG TABLET PO SCH ×2 (08:34→16:44)
[2020-11-02] MEDS: LevETIRAcetam 500 MG TABLET PO SCH ×2 (08:34→16:44)
[2020-11-02 08:57] VITALS: BP 117/80
[2020-11-02 16:26] VITALS: BP 104/62
[2020-11-02] MEDS ORDERED: ONDANSETRON HCL 4 MG/2 ML VIAL IM PRN (20:30)
[2020-11-02] MEDS: DIVALPROEX SODIUM 500 MG ER TABLET PO SCH (20:35)
[2020-11-02] MEDS: DIVALPROEX SODIUM 250 MG ER TABLET PO SCH (20:35)
[2020-11-02] MEDS: QUEtiapine FUMARATE 300 MG TABLET PO SCH (20:35)
[2020-11-03] MEDS: LEVOTHYROXINE SODIUM 50 MCG TABLET PO SCH (06:28)
[2020-11-03] MEDS: LevETIRAcetam 500 MG TABLET PO SCH (08:55)
[2020-11-03] MEDS: PHENYTOIN SODIUM 100 MG ER CAPSULE PO SCH (08:55)
[2020-11-03] MEDS: OMEPRAZOLE 20 MG CAPSULE PO SCH (08:55)
[2020-11-03] MEDS: QUEtiapine FUMARATE 200 MG TABLET PO SCH (08:56)
[2020-11-03] MEDS: MULTIVITAMINS, THERAPEUTIC TABLET PO SCH (08:56)
[2020-11-03] MEDS ORDERED: BUPIVACAINE 0.25%/EPI 1:200,000/PF 10 ML VIAL ONE (11:00)
== END 2020-11-03 10:20 | disposition short-term general hospital (02) | DRG 750 ==
LOC: EMS 15:36 → B3A 22:42
DX: F25.0 Schizoaffective disorder, bipolar type (principal); R45.851 Suicidal ideations; K43.6 Other and unspecified ventral hernia with obstruction, without gangrene; G40.909 Epilepsy, unspecified, not intractable, without status epilepticus; Z91.013 Allergy to seafood; Z88.2 Allergy status to sulfonamides; Z91.040 Latex allergy status; F15.10 Other stimulant abuse, uncomplicated; J45.909 Unspecified asthma, uncomplicated; K21.9 Gastro-esophageal reflux disease without esophagitis; E03.9 Hypothyroidism, unspecified; Z90.49 Acquired absence of other specified parts of digestive tract; I25.10 Atherosclerotic heart disease of native coronary artery without angina pectoris; Z87.820 Personal history of traumatic brain injury; F12.90 Cannabis use, unspecified, uncomplicated; Z87.891 Personal history of nicotine dependence; Z59.0 Homelessness; Z79.899 Other long term (current) drug therapy; Z20.822 Contact with and (suspected) exposure to COVID-19; Z88.0 Allergy status to penicillin
CPT/HCPCS: 80053; 80164; 80185; 85025; 87426; 99281; 99285; G0480; J1200; J2060; J2405; J3230; J3490; Q0162

== ENCOUNTER 2020-11-02 23:09 | Inpatient (IN) | payer MEDICAID, OTHER ==
[~2020-11-02] VITALS: Ht 167.6 cm; Wt 71.6 kg
[2020-11-02] MEDS ORDERED: ONDANSETRON HCL 4 MG/2 ML VIAL IVP ONE (23:45)
[2020-11-02] MEDS ORDERED: SODIUM CHLORIDE 0.9% 1,000 ML IV ONE (23:45)
[2020-11-02 23:51] LABS: BASOPHILS % (AUTO) 0.3 % (0.0-2.0); EOSINOPHILS % (AUTO) 0.6 % (1.0-6.0); HEMATOCRIT 44.8 % (41-53); HEMOGLOBIN 15.2 g/dL (13.5-17.5); LYMPHOCYTES # (AUTO) 1.2 K/uL (1.0-4.8); LYMPHOCYTES % (AUTO) 9.1 % (22.0-44.0); MEAN CORPUSCULAR HEMOGLOBIN 29.5 pg (26.0-34.0); MEAN CORPUSCULAR HGB CONC 33.8 G/dL (31.0-37.0); MEAN CORPUSCULAR VOLUME 87 fL (80-100); MONOCYTES % (AUTO) 7.5 % (2.0-9.0); NEUTROPHILS # (AUTO) 10.9 K/uL (1.8-7.7); NEUTROPHILS % (AUTO) 82.5 % (40.0-70.0); PLATELET COUNT (AUTO) 218 K/uL (150-450); RED BLOOD CELL COUNT(AUTO) 5.14 MIL/uL (4.50-5.90); RED CELL DISTRIBUTION WIDTH 14.6 % (11.5-14.5)
[2020-11-03] LABS: ANION GAP 7 mmol/L (8-16); CALCIUM, TOTAL 9.6 mg/dL (8.8-10.5); CARBON DIOXIDE 30 mmol/L (22-29); CHLORIDE 97 mmol/L (98-107); CREATININE 1.04 mg/dL (0.60-1.30); GLOMERULAR FILTR. RATE CALC > 60 mL/min (>60); GLUCOSE,RANDOM 114 mg/dL (70-110); POTASSIUM 4.3 mmol/L (3.5-5.1); SODIUM SERUM 134 mmol/L (136-145); UREA NITROGEN, BLOOD 17 mg/dL (7-18)
[2020-11-03 00:09] LABS: ALANINE AMINOTRANSFERASE 27 U/L (12-78); ALBUMIN 4.3 g/dL (3.4-5.0); ALKALINE PHOSPHATASE 172 U/L (46-116); ASPARTATE AMINOTRANSFERASE 20 U/L (15-37); BILIRUBIN,TOTAL 0.2 mg/dL (0.1-1.0); LIPASE 72 U/L (73-393); PHENYTOIN (DILANTIN) 3.1 mcg/mL (10.0-20.0); TOTAL PROTEIN, SERUM 8.5 g/dL (6.4-8.2); VALPROIC ACID 5 mcg/mL (50-100)
[2020-11-03 01:17] LABS: APPEARANCE,URINE TURBID (CLEAR); BILIRUBIN,URINE NEGATIVE (NEGATIVE); GLUCOSE, URINE (UA) NEGATIVE (NEGATIVE); KETONES,URINE TRACE mg/dL (NEGATIVE); LEUKOCYTE ESTERASE ,URINE NEGATIVE (NEGATIVE); NITRATE,URINE NEGATIVE (NEGATIVE); OCCULT BLOOD,URINE NEGATIVE (NEGATIVE); PH,URINE 7.5 (5.0-8.0); PROTEIN,URINE NEGATIVE (NEGATIVE); UROBILINOGEN,URINE 0.2 mg/dL (<=1.0)
[2020-11-03 01:27] LABS: AMORPHOUS SEDIMENT,UR Many /LPF (None Seen); BACTERIA,URINE Few /HPF (None Seen); RBC,URINE 0-2 /HPF (0-2); WBC,URINE 0-2 /HPF (0-5)
[2020-11-03] MEDS ORDERED: BARIUM SULFATE 0.1% SUSPENSION 450 ML BOTTLE PO ONE (01:30)
[2020-11-03] MEDS ORDERED: CIPROFLOXACIN 400 MG/D5% WATER 200 ML IV ONE (02:45)
[2020-11-03] MEDS ORDERED: MetroNIDAZOLE 500 MG/NACL 100 ML IV ONE (03:15)
[2020-11-03] MEDS ORDERED: LORazepam 2 MG/ML VIAL IVP ONE (03:45)
[2020-11-03] MEDS ORDERED: DiphenhydrAMINE HCL 50 MG/ML VIAL IVP ONE (03:45)
[2020-11-03] MEDS: PHENYTOIN SODIUM 100 MG in SODIUM CHLORIDE 0.9% 100 ML IV SCH ×2 (04:38→21:13)
[2020-11-03] MEDS: SODIUM CHLORIDE 0.9% 1,000 ML IV SCH ×2 (05:40→16:15)
[2020-11-03] MEDS: FAMOTIDINE 10 MG/ML 2 ML VIAL IVP SCH ×2 (10:34→22:24)
[2020-11-03] MEDS: LevETIRAcetam 500 MG in DEXTROSE 5%-WATER 100 ML IV SCH ×2 (10:34→22:24)
[2020-11-03] MEDS: LEVOTHYROXINE SODIUM 100 MCG VIAL IVP SCH (10:40)
[2020-11-03 10:41] LABS: COVID AG,FIA SOURCE NASOPHARYNGEAL
[2020-11-03] MEDS ORDERED: RINGERS SOLUTION,LACTATED 1,000 ML IV ONE (10:45)
[2020-11-03] MEDS ORDERED: BUPIVACAINE 0.25%/EPI 1:200,000/PF 10 ML VIAL PERC ONE (11:00)
[2020-11-03] MEDS ORDERED: SUGAMMADEX SODIUM 200 MG/2 ML VIAL IVP ONE (11:45)
[2020-11-03] MEDS ORDERED: BACITRACIN 50,000 UNITS/VIAL ONE (11:51)
[2020-11-03] MEDS ORDERED: FentaNYL CITRATE PF 100 MCG/2 ML VIAL IVP ONE (12:00)
[2020-11-03] MEDS ORDERED: MIDAZOLAM HCL 2 MG/2 ML VIAL IVP ONE (12:00)
[2020-11-03] MEDS ORDERED: SUCCINYLCHOLINE CHLORIDE 20 MG/ML 10 ML VIAL IVP ONE (12:00)
[2020-11-03] MEDS ORDERED: PROPOFOL 1% 20 ML VIAL IVP ONE (12:00)
[2020-11-03] MEDS ORDERED: DEXAMETHASONE SOD PHOS 4 MG/ML VIAL IVP ONE (12:00)
[2020-11-03] MEDS ORDERED: ROCURONIUM BROMIDE 10 MG/ML 5 ML VIAL IVP ONE (12:00)
[2020-11-03] MEDS ORDERED: ONDANSETRON HCL 4 MG/2 ML VIAL IVP ONE (12:00)
[2020-11-03 16:28] VITALS: BP 127/85
[2020-11-03] MEDS: CIPROFLOXACIN 400 MG/D5% WATER 200 ML IV SCH (18:33)
[2020-11-03] MEDS: MetroNIDAZOLE 250 MG/NACL 50 ML IV SCH (20:11)
[2020-11-03 20:18] VITALS: BP 112/65
[2020-11-03 23:15] VITALS: BP 118/74
[2020-11-03 23:30] VITALS: BP 122/76
[2020-11-04] MEDS: CIPROFLOXACIN 400 MG/D5% WATER 200 ML IV SCH ×2 (03:25→16:36)
[2020-11-04] MEDS: KETOROLAC TROMETHAMINE 15 MG/ML VIAL IVP PRN ×2 (03:53→19:54)
[2020-11-04 04:07] VITALS: BP 120/78
[2020-11-04] MEDS: MetroNIDAZOLE 250 MG/NACL 50 ML IV SCH ×2 (04:57→17:38)
[2020-11-04] MEDS: PHENYTOIN SODIUM 100 MG in SODIUM CHLORIDE 0.9% 100 ML IV SCH ×3 (06:26→20:00)
[2020-11-04 07:18] VITALS: BP 122/74
[2020-11-04] MEDS: LevETIRAcetam 500 MG in DEXTROSE 5%-WATER 100 ML IV SCH ×2 (09:24→21:59)
[2020-11-04] MEDS: FAMOTIDINE 10 MG/ML 2 ML VIAL IVP SCH ×2 (09:24→20:00)
[2020-11-04] MEDS: LEVOTHYROXINE SODIUM 100 MCG VIAL IVP SCH (09:26)
[2020-11-04] MEDS: SODIUM CHLORIDE 0.9% 1,000 ML IV SCH (12:22)
[2020-11-04 15:30] VITALS: BP 118/76
[2020-11-04 19:30] VITALS: BP 124/70
[2020-11-04] MEDS: ONDANSETRON HCL 4 MG/2 ML VIAL IVP PRN (19:53)
[2020-11-04 23:45] VITALS: BP 115/59
[2020-11-05] MEDS: CIPROFLOXACIN 400 MG/D5% WATER 200 ML IV SCH ×2 (02:04→15:14)
[2020-11-05] MEDS: ONDANSETRON HCL 4 MG/2 ML VIAL IVP PRN ×4 (02:04→17:45)
[2020-11-05] MEDS: KETOROLAC TROMETHAMINE 15 MG/ML VIAL IVP PRN (02:04)
[2020-11-05] MEDS: PHENYTOIN SODIUM 100 MG in SODIUM CHLORIDE 0.9% 100 ML IV SCH ×3 (03:34→20:25)
[2020-11-05] MEDS: MetroNIDAZOLE 250 MG/NACL 50 ML IV SCH ×2 (04:19→17:13)
[2020-11-05] MEDS: SODIUM CHLORIDE 0.9% 1,000 ML IV SCH (04:20)
[2020-11-05 04:25] VITALS: BP 108/67
[2020-11-05 06:33] LABS: BASOPHILS % (AUTO) 0.4 % (0.0-2.0); EOSINOPHILS % (AUTO) 0.5 % (1.0-6.0); HEMATOCRIT 36.5 % (41-53); HEMOGLOBIN 12.7 g/dL (13.5-17.5); LYMPHOCYTES # (AUTO) 1.6 K/uL (1.0-4.8); LYMPHOCYTES % (AUTO) 15.6 % (22.0-44.0); MEAN CORPUSCULAR HEMOGLOBIN 30.4 pg (26.0-34.0); MEAN CORPUSCULAR HGB CONC 34.9 G/dL (31.0-37.0); MEAN CORPUSCULAR VOLUME 87 fL (80-100); MONOCYTES # (AUTO) 1.3 K/uL (0.1-1.0); NEUTROPHILS # (AUTO) 7.5 K/uL (1.8-7.7); NEUTROPHILS % (AUTO) 71.5 % (40.0-70.0); PLATELET COUNT (AUTO) 186 K/uL (150-450); RED BLOOD CELL COUNT(AUTO) 4.19 MIL/uL (4.50-5.90); RED CELL DISTRIBUTION WIDTH 14.4 % (11.5-14.5)
[2020-11-05 06:59] LABS: ALANINE AMINOTRANSFERASE 31 U/L (12-78); ALKALINE PHOSPHATASE 129 U/L (46-116); ANION GAP 11 mmol/L (8-16); ASPARTATE AMINOTRANSFERASE 20 U/L (15-37); BILIRUBIN,TOTAL 0.4 mg/dL (0.1-1.0); CALCIUM, TOTAL 8.6 mg/dL (8.8-10.5); CARBON DIOXIDE 23 mmol/L (22-29); CHLORIDE 106 mmol/L (98-107); CREATININE 0.92 mg/dL (0.60-1.30); GLOMERULAR FILTR. RATE CALC > 60 mL/min (>60); GLUCOSE,RANDOM 99 mg/dL (70-110); POTASSIUM 3.9 mmol/L (3.5-5.1); SODIUM SERUM 140 mmol/L (136-145); TOTAL PROTEIN, SERUM 6.6 g/dL (6.4-8.2); UREA NITROGEN, BLOOD 11 mg/dL (7-18)
[2020-11-05] MEDS: LEVOTHYROXINE SODIUM 100 MCG VIAL IVP SCH (08:01)
[2020-11-05] MEDS: FAMOTIDINE 10 MG/ML 2 ML VIAL IVP SCH ×2 (08:01→21:14)
[2020-11-05 08:05] VITALS: BP 105/66
[2020-11-05] MEDS ORDERED: METOCLOPRAMIDE HCL 5 MG/ML 2 ML VIAL IVP PRN (08:30)
[2020-11-05] MEDS: LevETIRAcetam 500 MG in DEXTROSE 5%-WATER 100 ML IV SCH ×2 (09:57→21:48)
[2020-11-05 15:24] VITALS: BP 113/68
[2020-11-05 20:00] VITALS: BP 114/69
[2020-11-05 23:00] VITALS: BP 112/64
[2020-11-06] MEDS ORDERED: KETOROLAC TROMETHAMINE 30 MG/ML VIAL IVP ONE (00:30)
[2020-11-06] MEDS: SODIUM CHLORIDE 0.9% 1,000 ML IV SCH ×4 (00:36→14:24)
[2020-11-06] MEDS: CIPROFLOXACIN 400 MG/D5% WATER 200 ML IV SCH ×2 (02:20→15:22)
[2020-11-06] MEDS: PHENYTOIN SODIUM 100 MG in SODIUM CHLORIDE 0.9% 100 ML IV SCH ×3 (03:54→20:11)
[2020-11-06 04:00] VITALS: BP 99/63
[2020-11-06] MEDS: MetroNIDAZOLE 250 MG/NACL 50 ML IV SCH ×2 (04:45→16:51)
[2020-11-06 08:09] VITALS: BP 102/56
[2020-11-06] MEDS: FAMOTIDINE 10 MG/ML 2 ML VIAL IVP SCH ×2 (09:30→20:11)
[2020-11-06] MEDS: LEVOTHYROXINE SODIUM 100 MCG VIAL IVP SCH (09:31)
[2020-11-06] MEDS: LevETIRAcetam 500 MG in DEXTROSE 5%-WATER 100 ML IV SCH ×2 (09:31→21:53)
[2020-11-06 11:08] LABS: BASOPHILS % (AUTO) 0.4 % (0.0-2.0); EOSINOPHILS % (AUTO) 3.2 % (1.0-6.0); HEMATOCRIT 36.1 % (41-53); HEMOGLOBIN 12.4 g/dL (13.5-17.5); LYMPHOCYTES # (AUTO) 1.6 K/uL (1.0-4.8); LYMPHOCYTES % (AUTO) 18.8 % (22.0-44.0); MEAN CORPUSCULAR HEMOGLOBIN 29.8 pg (26.0-34.0); MEAN CORPUSCULAR HGB CONC 34.2 G/dL (31.0-37.0); MEAN CORPUSCULAR VOLUME 87 fL (80-100); MONOCYTES % (AUTO) 11.8 % (2.0-9.0); NEUTROPHILS # (AUTO) 5.4 K/uL (1.8-7.7); NEUTROPHILS % (AUTO) 65.8 % (40.0-70.0); PLATELET COUNT (AUTO) 184 K/uL (150-450); RED BLOOD CELL COUNT(AUTO) 4.16 MIL/uL (4.50-5.90); RED CELL DISTRIBUTION WIDTH 14.1 % (11.5-14.5)
[2020-11-06 11:47] LABS: ALANINE AMINOTRANSFERASE 32 U/L (12-78); ALBUMIN 2.8 g/dL (3.4-5.0); ALKALINE PHOSPHATASE 119 U/L (46-116); ANION GAP 10 mmol/L (8-16); ASPARTATE AMINOTRANSFERASE 23 U/L (15-37); BILIRUBIN,TOTAL 0.3 mg/dL (0.1-1.0); CALCIUM, TOTAL 8.1 mg/dL (8.8-10.5); CARBON DIOXIDE 23 mmol/L (22-29); CHLORIDE 107 mmol/L (98-107); CREATININE 0.74 mg/dL (0.60-1.30); GLOMERULAR FILTR. RATE CALC > 60 mL/min (>60); GLUCOSE,RANDOM 109 mg/dL (70-110); SODIUM SERUM 140 mmol/L (136-145); TOTAL PROTEIN, SERUM 6.2 g/dL (6.4-8.2); UREA NITROGEN, BLOOD 12 mg/dL (7-18)
[2020-11-06 12:40] VITALS: BP 101/61
[2020-11-06 16:24] VITALS: BP 109/69
[2020-11-06 19:15] VITALS: BP 115/75
[2020-11-07 00:05] VITALS: BP 118/70
[2020-11-07] MEDS: CIPROFLOXACIN 400 MG/D5% WATER 200 ML IV SCH (02:37)
[2020-11-07] MEDS: PHENYTOIN SODIUM 100 MG in SODIUM CHLORIDE 0.9% 100 ML IV SCH (03:55)
[2020-11-07 04:30] VITALS: BP 106/73
[2020-11-07] MEDS: MetroNIDAZOLE 250 MG/NACL 50 ML IV SCH ×2 (04:37→04:53)
[2020-11-07 07:02] LABS: BASOPHILS % (AUTO) 0.7 % (0.0-2.0); EOSINOPHILS % (AUTO) 4.6 % (1.0-6.0); HEMATOCRIT 38.3 % (41-53); HEMOGLOBIN 13.2 g/dL (13.5-17.5); LYMPHOCYTES # (AUTO) 1.6 K/uL (1.0-4.8); LYMPHOCYTES % (AUTO) 22.9 % (22.0-44.0); MEAN CORPUSCULAR HEMOGLOBIN 30.1 pg (26.0-34.0); MEAN CORPUSCULAR HGB CONC 34.4 G/dL (31.0-37.0); MEAN CORPUSCULAR VOLUME 88 fL (80-100); MONOCYTES # (AUTO) 0.8 K/uL (0.1-1.0); MONOCYTES % (AUTO) 10.8 % (2.0-9.0); NEUTROPHILS # (AUTO) 4.4 K/uL (1.8-7.7); PLATELET COUNT (AUTO) 227 K/uL (150-450); RED BLOOD CELL COUNT(AUTO) 4.38 MIL/uL (4.50-5.90); RED CELL DISTRIBUTION WIDTH 14.1 % (11.5-14.5)
[2020-11-07 07:28] LABS: ALANINE AMINOTRANSFERASE 30 U/L (12-78); ALBUMIN 3.1 g/dL (3.4-5.0); ALKALINE PHOSPHATASE 131 U/L (46-116); ANION GAP 7 mmol/L (8-16); ASPARTATE AMINOTRANSFERASE 19 U/L (15-37); BILIRUBIN,TOTAL 0.3 mg/dL (0.1-1.0); CALCIUM, TOTAL 8.7 mg/dL (8.8-10.5); CARBON DIOXIDE 27 mmol/L (22-29); CHLORIDE 105 mmol/L (98-107); CREATININE 0.96 mg/dL (0.60-1.30); GLOMERULAR FILTR. RATE CALC > 60 mL/min (>60); GLUCOSE,RANDOM 114 mg/dL (70-110); POTASSIUM 3.4 mmol/L (3.5-5.1); SODIUM SERUM 139 mmol/L (136-145); TOTAL PROTEIN, SERUM 6.8 g/dL (6.4-8.2); UREA NITROGEN, BLOOD 9 mg/dL (7-18)
[2020-11-07] MEDS: LevETIRAcetam 500 MG in DEXTROSE 5%-WATER 100 ML IV SCH (08:33)
[2020-11-07] MEDS: FAMOTIDINE 10 MG/ML 2 ML VIAL IVP SCH (08:34)
[2020-11-07] MEDS: LEVOTHYROXINE SODIUM 100 MCG VIAL IVP SCH (08:34)
[2020-11-07 08:41] VITALS: BP 115/72
[2020-11-07] MEDS ORDERED: ONDANSETRON HCL 4 MG TABLET PO PRN (12:00)
[2020-11-07 12:58] VITALS: BP 110/63
[2020-11-07] MEDS ORDERED: ChlorproMAZINE HCL 50 MG/2 ML AMP IM ONE (14:45)
[2020-11-07] MEDS ORDERED: DiphenhydrAMINE HCL 50 MG/ML VIAL IM ONE (14:45)
[2020-11-07] MEDS ORDERED: LORazepam 2 MG/ML VIAL IM ONE (14:45)
[2020-11-07 15:44] LABS: COVID AG,FIA SOURCE NASOPHARYNGEAL
[2020-11-07] MEDS ORDERED: CIPR-278 PO (15:49)
[2020-11-07] MEDS ORDERED: METR500 PO (15:50)
[2020-11-07] MEDS ORDERED: ONDA-104 PO (15:52)
[2020-11-07] MEDS ORDERED: PHENY100 PO (15:52)
[2020-11-07] MEDS ORDERED: PHENYTOIN SODIUM 100 MG ER CAPSULE PO SCH (16:00)
[2020-11-07] MEDS ORDERED: MetroNIDAZOLE 500 MG TABLET PO SCH (16:00)
[2020-11-07 16:25] VITALS: BP 91/61
[2020-11-07] MEDS ORDERED: CIPROFLOXACIN HCL 500 MG TABLET PO SCH (21:00)
[2020-11-07] MEDS ORDERED: LevETIRAcetam 500 MG TABLET PO SCH (21:00)
[2020-11-08] MEDS ORDERED: LEVOTHYROXINE SODIUM 100 MCG VIAL IVP SCH (06:30)
[2020-11-08] MEDS ORDERED: LEVOTHYROXINE SODIUM 50 MCG TABLET PO SCH (06:30)
== END 2020-11-07 19:52 | DRG 227 ==
LOC: EMS 23:10 → 5N 11-03 10:24 → 6N 11-03 10:48
PROVIDERS: ADMIT Internal Medicine; ATTEND Internal Medicine
PROC: 0WUF4JZ Supplement Abdominal Wall with Synthetic Substitute, Percutaneous Endoscopic Approach (ICD-10-PCS; principal; 2020-11-03 10:30)
DX: K43.6 Other and unspecified ventral hernia with obstruction, without gangrene (principal); R65.10 Systemic inflammatory response syndrome (SIRS) of non-infectious origin without acute organ dysfunction; F25.1 Schizoaffective disorder, depressive type; R45.851 Suicidal ideations; F41.9 Anxiety disorder, unspecified; E03.9 Hypothyroidism, unspecified; G40.909 Epilepsy, unspecified, not intractable, without status epilepticus; I25.10 Atherosclerotic heart disease of native coronary artery without angina pectoris; J45.909 Unspecified asthma, uncomplicated; N62 Hypertrophy of breast; F15.10 Other stimulant abuse, uncomplicated; Z20.822 Contact with and (suspected) exposure to COVID-19; Z91.013 Allergy to seafood; Z88.0 Allergy status to penicillin; Z87.891 Personal history of nicotine dependence; Z90.49 Acquired absence of other specified parts of digestive tract; Z79.899 Other long term (current) drug therapy; Z88.2 Allergy status to sulfonamides; Z88.8 Allergy status to other drugs, medicaments and biological substances; Z91.19 Patient's noncompliance with other medical treatment and regimen
CPT/HCPCS: 74176; 80053; 80164; 80185; 81001; 83690; 85025; 87426; 88302; 93005; 99291; A9575; J0330; J0690; J0712; J0744; J1100; J1165; J1200; J1885; J2060; J2250; J2405; J2704; J3010; J3490; J7030; J7050; J7060; J7120

== ENCOUNTER 2020-11-07 15:14 | Inpatient (IN) | payer MEDICAID ==
[~2020-11-07] VITALS: Ht 175.3 cm; Wt 86.7 kg
[~2020-11-07 15:14] MED LIST changes: +LEVE500T20 PO; -LEVE500T53 PO
[2020-11-07] MEDS ORDERED: CIPR-278 PO (15:49)
[2020-11-07] MEDS ORDERED: METR500 PO (15:50)
[2020-11-07] MEDS ORDERED: PHENY100 PO (15:52)
[2020-11-07] MEDS ORDERED: ONDA-104 PO (15:52)
[2020-11-07] MEDS ORDERED: PNEUMOCOCCAL VACCINE POLYVALENT 0.5 ML VIAL [PPSV23] IM. ONE (20:30)
[2020-11-07] MEDS ORDERED: QUEtiapine FUMARATE 100 MG TABLET PO PRN (20:45)
[2020-11-08] MEDS: LORazepam 2 MG TABLET PO PRN ×2 (08:14→17:06)
[2020-11-08] MEDS ORDERED: DiphenhydrAMINE HCL 50 MG/ML VIAL ONE (08:16)
[2020-11-08] MEDS ORDERED: ChlorproMAZINE HCL 50 MG/2 ML AMP ONE (08:16)
[2020-11-08 08:23] VITALS: BP 95/59
[2020-11-08] MEDS ORDERED: ChlorproMAZINE HCL 50 MG/2 ML AMP IM ONE (09:00)
[2020-11-08] MEDS ORDERED: DiphenhydrAMINE HCL 50 MG/ML VIAL IM ONE (09:00)
[2020-11-08] MEDS: QUEtiapine FUMARATE 300 MG TABLET PO SCH ×3 (09:05→21:01)
[2020-11-08] MEDS: DIVALPROEX SODIUM 500 MG DR TABLET PO SCH ×2 (09:05→21:01)
[2020-11-08] MEDS: ACETAMINOPHEN 325 MG TABLET PO PRN (09:51)
[2020-11-08 16:09] VITALS: BP 81/54
[2020-11-08] MEDS: OxyCODONE HCL/ACETAMINOPHEN 5-325 MG TABLET PO PRN (21:07)
[2020-11-08 21:08] VITALS: BP 110/70
[2020-11-09] MEDS: PHENYTOIN SODIUM 100 MG ER CAPSULE PO SCH ×4 (00:05→23:51)
[2020-11-09 06:02] VITALS: BP 92/54
[2020-11-09] MEDS: LEVOTHYROXINE SODIUM 50 MCG TABLET PO SCH (06:39)
[2020-11-09] MEDS ORDERED: LORazepam 2 MG/ML VIAL IM ONE ×2 (08:30→17:00)
[2020-11-09] MEDS ORDERED: ChlorproMAZINE HCL 50 MG/2 ML AMP IM ONE ×2 (08:30→17:00)
[2020-11-09] MEDS ORDERED: DiphenhydrAMINE HCL 50 MG/ML VIAL IM ONE ×2 (08:30→17:00)
[2020-11-09 08:56] VITALS: BP 100/60
[2020-11-09] MEDS: QUEtiapine FUMARATE 300 MG TABLET PO SCH ×3 (09:00→21:03)
[2020-11-09] MEDS: DIVALPROEX SODIUM 500 MG DR TABLET PO SCH ×2 (09:00→21:03)
[2020-11-09] MEDS: MetroNIDAZOLE 500 MG TABLET PO SCH ×2 (09:00→21:03)
[2020-11-09] MEDS: LevETIRAcetam 500 MG TABLET PO SCH ×2 (09:00→16:27)
[2020-11-09] MEDS: CIPROFLOXACIN HCL 500 MG TABLET PO SCH ×2 (09:01→21:03)
[2020-11-09] MEDS: LORazepam 2 MG TABLET PO PRN (09:01)
[2020-11-09] MEDS: OMEPRAZOLE 20 MG CAPSULE PO SCH (09:01)
[2020-11-09 15:30] VITALS: BP 116/73
[2020-11-09 16:12] VITALS: BP 88/55
[2020-11-09 21:03] VITALS: BP 100/67
[2020-11-09] MEDS: OxyCODONE HCL/ACETAMINOPHEN 5-325 MG TABLET PO PRN (21:03)
[2020-11-10 05:38] VITALS: BP 101/61
[2020-11-10] MEDS: OxyCODONE HCL/ACETAMINOPHEN 5-325 MG TABLET PO PRN ×2 (06:15→19:42)
[2020-11-10] MEDS: LEVOTHYROXINE SODIUM 50 MCG TABLET PO SCH (06:15)
[2020-11-10] MEDS: MetroNIDAZOLE 500 MG TABLET PO SCH ×2 (08:28→19:43)
[2020-11-10] MEDS: PHENYTOIN SODIUM 100 MG ER CAPSULE PO SCH ×2 (08:28→16:29)
[2020-11-10] MEDS: CIPROFLOXACIN HCL 500 MG TABLET PO SCH ×2 (08:28→20:48)
[2020-11-10] MEDS: LevETIRAcetam 500 MG TABLET PO SCH ×2 (08:28→16:29)
[2020-11-10] MEDS: DIVALPROEX SODIUM 500 MG DR TABLET PO SCH ×2 (08:28→19:43)
[2020-11-10] MEDS: OMEPRAZOLE 20 MG CAPSULE PO SCH (08:29)
[2020-11-10] MEDS: LORazepam 2 MG TABLET PO PRN ×2 (08:29→16:29)
[2020-11-10] MEDS: QUEtiapine FUMARATE 300 MG TABLET PO SCH ×3 (08:29→19:43)
[2020-11-10 08:44] VITALS: BP 108/72
[2020-11-10] MEDS ORDERED: ChlorproMAZINE HCL 50 MG/2 ML AMP ONE (10:21)
[2020-11-10] MEDS ORDERED: LORazepam 2 MG/ML VIAL ONE (10:21)
[2020-11-10] MEDS ORDERED: DiphenhydrAMINE HCL 50 MG/ML VIAL ONE (10:21)
[2020-11-10] MEDS ORDERED: LORazepam 2 MG/ML VIAL IM ONE (10:45)
[2020-11-10] MEDS ORDERED: ChlorproMAZINE HCL 50 MG/2 ML AMP IM ONE (10:45)
[2020-11-10] MEDS ORDERED: DiphenhydrAMINE HCL 50 MG/ML VIAL IM ONE (10:45)
[2020-11-10 16:18] VITALS: BP 106/64
[2020-11-10 19:40] VITALS: BP 110/70
[2020-11-11] MEDS: LEVOTHYROXINE SODIUM 50 MCG TABLET PO SCH (06:12)
[2020-11-11] MEDS: CIPROFLOXACIN HCL 500 MG TABLET PO SCH ×2 (08:42→21:14)
[2020-11-11] MEDS: OMEPRAZOLE 20 MG CAPSULE PO SCH (08:42)
[2020-11-11] MEDS: LORazepam 2 MG TABLET PO PRN ×3 (08:42→21:14)
[2020-11-11] MEDS: LevETIRAcetam 500 MG TABLET PO SCH ×2 (08:42→17:13)
[2020-11-11] MEDS: PHENYTOIN SODIUM 100 MG ER CAPSULE PO SCH ×3 (08:42→17:12)
[2020-11-11] MEDS: MetroNIDAZOLE 500 MG TABLET PO SCH ×2 (08:42→21:00)
[2020-11-11] MEDS: DIVALPROEX SODIUM 500 MG DR TABLET PO SCH ×2 (08:42→21:00)
[2020-11-11] MEDS: QUEtiapine FUMARATE 300 MG TABLET PO SCH ×3 (08:42→21:00)
[2020-11-11 08:57] VITALS: BP 100/60
[2020-11-11 16:07] VITALS: BP 100/60
[2020-11-11] MEDS: OxyCODONE HCL/ACETAMINOPHEN 5-325 MG TABLET PO PRN (17:13)
[2020-11-12] MEDS: PHENYTOIN SODIUM 100 MG ER CAPSULE PO SCH ×3 (00:55→16:56)
[2020-11-12 06:26] VITALS: BP 102/59
[2020-11-12] MEDS: LEVOTHYROXINE SODIUM 50 MCG TABLET PO SCH (06:35)
[2020-11-12] MEDS: OLANZapine 5 MG RAPDIS TABLET PO PRN ×2 (09:08→17:29)
[2020-11-12] MEDS: DIVALPROEX SODIUM 500 MG DR TABLET PO SCH ×2 (09:08→21:09)
[2020-11-12] MEDS: OMEPRAZOLE 20 MG CAPSULE PO SCH (09:08)
[2020-11-12] MEDS: QUEtiapine FUMARATE 300 MG TABLET PO SCH ×3 (09:08→21:09)
[2020-11-12] MEDS: CIPROFLOXACIN HCL 500 MG TABLET PO SCH ×2 (09:08→21:09)
[2020-11-12] MEDS: LevETIRAcetam 500 MG TABLET PO SCH ×2 (09:08→16:56)
[2020-11-12] MEDS: MetroNIDAZOLE 500 MG TABLET PO SCH ×2 (09:08→21:09)
[2020-11-12] MEDS: LORazepam 2 MG TABLET PO PRN ×3 (09:08→21:09)
[2020-11-12] MEDS: OxyCODONE HCL/ACETAMINOPHEN 5-325 MG TABLET PO PRN ×2 (10:13→21:09)
[2020-11-12] MEDS: MAGNESIUM HYDROXIDE SUSPENSION 30 ML UDCUP PO PRN (12:15)
[2020-11-12 21:07] VITALS: BP 108/70
[2020-11-13] MEDS: PHENYTOIN SODIUM 100 MG ER CAPSULE PO SCH ×3 (00:51→16:18)
[2020-11-13 05:54] VITALS: BP 95/75
[2020-11-13] MEDS: LEVOTHYROXINE SODIUM 50 MCG TABLET PO SCH (06:21)
[2020-11-13 08:38] VITALS: BP 106/44
[2020-11-13] MEDS: QUEtiapine FUMARATE 300 MG TABLET PO SCH ×3 (09:22→20:26)
[2020-11-13] MEDS: DIVALPROEX SODIUM 500 MG DR TABLET PO SCH ×2 (09:22→20:26)
[2020-11-13] MEDS: MetroNIDAZOLE 500 MG TABLET PO SCH ×2 (09:22→20:26)
[2020-11-13] MEDS: CIPROFLOXACIN HCL 500 MG TABLET PO SCH ×2 (09:22→20:26)
[2020-11-13] MEDS: LevETIRAcetam 500 MG TABLET PO SCH ×2 (09:22→16:18)
[2020-11-13] MEDS: OMEPRAZOLE 20 MG CAPSULE PO SCH (09:22)
[2020-11-13] MEDS: PALIPERIDONE PALMITATE 234 MG/1.5 ML SYRINGE IM SCH (09:42)
[2020-11-13] MEDS: LORazepam 2 MG TABLET PO PRN ×2 (16:18→20:26)
[2020-11-13 16:19] VITALS: BP 100/60
[2020-11-13] MEDS: OxyCODONE HCL/ACETAMINOPHEN 5-325 MG TABLET PO PRN (16:29)
[2020-11-14 00:20] VITALS: BP 105/64
[2020-11-14] MEDS: PHENYTOIN SODIUM 100 MG ER CAPSULE PO SCH ×3 (00:23→17:05)
[2020-11-14] MEDS: LEVOTHYROXINE SODIUM 50 MCG TABLET PO SCH (06:30)
[2020-11-14] MEDS: CIPROFLOXACIN HCL 500 MG TABLET PO SCH ×2 (08:45→20:45)
[2020-11-14] MEDS: QUEtiapine FUMARATE 300 MG TABLET PO SCH ×3 (08:45→20:45)
[2020-11-14] MEDS: DIVALPROEX SODIUM 500 MG DR TABLET PO SCH ×2 (08:45→20:45)
[2020-11-14] MEDS: LORazepam 2 MG TABLET PO PRN (08:45)
[2020-11-14] MEDS: LevETIRAcetam 500 MG TABLET PO SCH ×2 (08:45→17:05)
[2020-11-14] MEDS: OMEPRAZOLE 20 MG CAPSULE PO SCH (08:45)
[2020-11-14] MEDS: MetroNIDAZOLE 500 MG TABLET PO SCH ×2 (08:45→20:45)
[2020-11-14 17:06] VITALS: BP 94/50
[2020-11-15] MEDS: PHENYTOIN SODIUM 100 MG ER CAPSULE PO SCH ×3 (00:01→16:32)
[2020-11-15 05:20] VITALS: BP 91/59
[2020-11-15] MEDS: LEVOTHYROXINE SODIUM 50 MCG TABLET PO SCH (06:34)
[2020-11-15] MEDS: DIVALPROEX SODIUM 500 MG DR TABLET PO SCH ×2 (08:41→20:30)
[2020-11-15] MEDS: CIPROFLOXACIN HCL 500 MG TABLET PO SCH ×2 (08:41→20:30)
[2020-11-15] MEDS: MetroNIDAZOLE 500 MG TABLET PO SCH ×2 (08:42→20:30)
[2020-11-15] MEDS: QUEtiapine FUMARATE 300 MG TABLET PO SCH ×3 (08:42→20:30)
[2020-11-15] MEDS: OMEPRAZOLE 20 MG CAPSULE PO SCH (08:42)
[2020-11-15] MEDS: LORazepam 2 MG TABLET PO PRN ×3 (08:42→17:25)
[2020-11-15] MEDS: LevETIRAcetam 500 MG TABLET PO SCH ×2 (08:42→16:32)
[2020-11-15 09:19] VITALS: BP 102/64
[2020-11-15] MEDS: OLANZapine 5 MG RAPDIS TABLET PO PRN ×2 (13:17→17:25)
[2020-11-15 16:24] VITALS: BP 120/71
[2020-11-15] MEDS: OxyCODONE HCL/ACETAMINOPHEN 5-325 MG TABLET PO PRN (16:32)
[2020-11-16] MEDS: PHENYTOIN SODIUM 100 MG ER CAPSULE PO SCH ×3 (00:33→16:14)
[2020-11-16] MEDS: LEVOTHYROXINE SODIUM 50 MCG TABLET PO SCH (06:26)
[2020-11-16] MEDS: QUEtiapine FUMARATE 300 MG TABLET PO SCH ×3 (09:04→20:36)
[2020-11-16] MEDS: LevETIRAcetam 500 MG TABLET PO SCH ×2 (09:05→16:14)
[2020-11-16] MEDS: DIVALPROEX SODIUM 500 MG DR TABLET PO SCH ×2 (09:05→20:36)
[2020-11-16] MEDS: OMEPRAZOLE 20 MG CAPSULE PO SCH (09:05)
[2020-11-16] MEDS: MetroNIDAZOLE 500 MG TABLET PO SCH ×2 (09:05→20:37)
[2020-11-16] MEDS: CIPROFLOXACIN HCL 500 MG TABLET PO SCH ×2 (09:05→20:37)
[2020-11-16] MEDS: LORazepam 2 MG TABLET PO PRN ×2 (09:06→16:14)
[2020-11-16] MEDS ORDERED: ChlorproMAZINE HCL 50 MG/2 ML AMP IM ONE ×2 (11:15→17:45)
[2020-11-16] MEDS ORDERED: DiphenhydrAMINE HCL 50 MG/ML VIAL IM ONE ×2 (11:15→17:45)
[2020-11-16] MEDS ORDERED: LORazepam 2 MG/ML VIAL IM ONE ×2 (11:15→17:45)
[2020-11-16 16:15] VITALS: BP 91/69
[2020-11-16] MEDS: OxyCODONE HCL/ACETAMINOPHEN 5-325 MG TABLET PO PRN (19:48)
[2020-11-17 00:22] VITALS: BP 110/75
[2020-11-17] MEDS: PHENYTOIN SODIUM 100 MG ER CAPSULE PO SCH ×3 (00:49→16:17)
[2020-11-17] MEDS: LEVOTHYROXINE SODIUM 50 MCG TABLET PO SCH (06:28)
[2020-11-17] MEDS: LORazepam 2 MG TABLET PO PRN ×2 (06:53→16:17)
[2020-11-17] MEDS: OLANZapine 5 MG RAPDIS TABLET PO PRN ×2 (08:25→16:17)
[2020-11-17] MEDS: LevETIRAcetam 500 MG TABLET PO SCH ×2 (08:25→16:17)
[2020-11-17] MEDS: DIVALPROEX SODIUM 500 MG DR TABLET PO SCH ×2 (08:25→20:42)
[2020-11-17] MEDS: OMEPRAZOLE 20 MG CAPSULE PO SCH (08:25)
[2020-11-17] MEDS: QUEtiapine FUMARATE 300 MG TABLET PO SCH ×3 (08:25→20:42)
[2020-11-17] MEDS: MetroNIDAZOLE 500 MG TABLET PO SCH ×2 (08:25→20:42)
[2020-11-17] MEDS: CIPROFLOXACIN HCL 500 MG TABLET PO SCH ×2 (08:25→20:42)
[2020-11-17 08:43] VITALS: BP 108/66
[2020-11-17] MEDS: OxyCODONE HCL/ACETAMINOPHEN 5-325 MG TABLET PO PRN (12:49)
[2020-11-17 16:24] VITALS: BP 117/73
[2020-11-18] MEDS: PHENYTOIN SODIUM 100 MG ER CAPSULE PO SCH ×4 (00:16→23:59)
[2020-11-18 06:03] VITALS: BP 112/72
[2020-11-18] MEDS: LEVOTHYROXINE SODIUM 50 MCG TABLET PO SCH (06:29)
[2020-11-18] MEDS: LevETIRAcetam 500 MG TABLET PO SCH ×2 (07:41→16:20)
[2020-11-18] MEDS: QUEtiapine FUMARATE 300 MG TABLET PO SCH ×3 (07:41→20:26)
[2020-11-18] MEDS: OMEPRAZOLE 20 MG CAPSULE PO SCH (07:41)
[2020-11-18] MEDS: CIPROFLOXACIN HCL 500 MG TABLET PO SCH ×2 (07:41→20:26)
[2020-11-18] MEDS: DIVALPROEX SODIUM 500 MG DR TABLET PO SCH (07:42)
[2020-11-18] MEDS: MetroNIDAZOLE 500 MG TABLET PO SCH ×2 (07:42→20:27)
[2020-11-18] MEDS: LORazepam 2 MG TABLET PO PRN ×3 (07:43→16:20)
[2020-11-18 08:43] VITALS: BP 103/57
[2020-11-18] MEDS: OxyCODONE HCL/ACETAMINOPHEN 5-325 MG TABLET PO PRN (10:06)
[2020-11-18] MEDS: NICOTINE 14 MG/24 HOUR PATCH TD SCH (10:06)
[2020-11-18 11:45] VITALS: BP 107/70
[2020-11-18 14:53] VITALS: BP_SYST 104; BP_SYST 107; BP_DIAS 70; BP_DIAS 76
[2020-11-18 16:10] VITALS: BP 105/72
[2020-11-18] MEDS: OLANZapine 5 MG RAPDIS TABLET PO PRN (16:21)
[2020-11-18] MEDS: DIVALPROEX SODIUM 250 MG DR TABLET PO SCH (20:28)
[2020-11-19 00:17] VITALS: BP 115/71
[2020-11-19] MEDS: LEVOTHYROXINE SODIUM 50 MCG TABLET PO SCH (06:44)
[2020-11-19 08:47] VITALS: BP 87/59
[2020-11-19] MEDS: PHENYTOIN SODIUM 100 MG ER CAPSULE PO SCH ×2 (08:51→16:41)
[2020-11-19] MEDS: NICOTINE 14 MG/24 HOUR PATCH TD SCH (08:51)
[2020-11-19] MEDS: QUEtiapine FUMARATE 300 MG TABLET PO SCH ×3 (08:51→20:27)
[2020-11-19] MEDS: OMEPRAZOLE 20 MG CAPSULE PO SCH (08:51)
[2020-11-19] MEDS: MetroNIDAZOLE 500 MG TABLET PO SCH ×2 (08:51→20:27)
[2020-11-19] MEDS: LevETIRAcetam 500 MG TABLET PO SCH ×2 (08:51→16:42)
[2020-11-19] MEDS: DIVALPROEX SODIUM 250 MG DR TABLET PO SCH ×2 (08:51→20:28)
[2020-11-19] MEDS: OxyCODONE HCL/ACETAMINOPHEN 5-325 MG TABLET PO PRN ×2 (08:52→17:12)
[2020-11-19 16:24] VITALS: BP 112/75
[2020-11-19] MEDS: OLANZapine 5 MG RAPDIS TABLET PO PRN (16:41)
[2020-11-19] MEDS: LORazepam 2 MG TABLET PO PRN (16:41)
[2020-11-19 21:03] VITALS: BP 112/75
[2020-11-20] MEDS: PHENYTOIN SODIUM 100 MG ER CAPSULE PO SCH ×3 (00:03→16:31)
[2020-11-20 05:23] VITALS: BP 91/59
[2020-11-20] MEDS: LEVOTHYROXINE SODIUM 50 MCG TABLET PO SCH (06:17)
[2020-11-20 08:00] VITALS: BP 94/55
[2020-11-20] MEDS: DIVALPROEX SODIUM 250 MG DR TABLET PO SCH ×2 (08:11→20:41)
[2020-11-20] MEDS: QUEtiapine FUMARATE 300 MG TABLET PO SCH ×3 (08:13→20:41)
[2020-11-20] MEDS: OxyCODONE HCL/ACETAMINOPHEN 5-325 MG TABLET PO PRN ×2 (08:13→20:41)
[2020-11-20] MEDS: MetroNIDAZOLE 500 MG TABLET PO SCH ×2 (08:13→20:41)
[2020-11-20] MEDS: LevETIRAcetam 500 MG TABLET PO SCH ×2 (08:13→16:31)
[2020-11-20] MEDS: NICOTINE 14 MG/24 HOUR PATCH TD SCH (08:13)
[2020-11-20] MEDS: LORazepam 2 MG TABLET PO PRN (08:13)
[2020-11-20] MEDS: OMEPRAZOLE 20 MG CAPSULE PO SCH (08:13)
[2020-11-20] MEDS ORDERED: LORazepam 2 MG/ML VIAL ONE (15:37)
[2020-11-20] MEDS ORDERED: DiphenhydrAMINE HCL 50 MG/ML VIAL ONE (15:38)
[2020-11-20] MEDS ORDERED: HALOPERIDOL LACTATE 5 MG/ML VIAL ONE (15:38)
[2020-11-20] MEDS ORDERED: HALOPERIDOL LACTATE 5 MG/ML VIAL IM ONE (15:45)
[2020-11-20] MEDS ORDERED: DiphenhydrAMINE HCL 50 MG/ML VIAL IM ONE (15:45)
[2020-11-20] MEDS ORDERED: LORazepam 2 MG/ML VIAL IM ONE (15:45)
[2020-11-20 16:12] VITALS: BP 99/64
[2020-11-20 16:32] VITALS: BP 118/75
[2020-11-20 20:43] VITALS: BP 110/69
[2020-11-21] MEDS: PHENYTOIN SODIUM 100 MG ER CAPSULE PO SCH ×3 (00:53→16:35)
[2020-11-21 04:30] VITALS: BP 123/67
[2020-11-21] MEDS: LEVOTHYROXINE SODIUM 50 MCG TABLET PO SCH (06:31)
[2020-11-21] MEDS: MetroNIDAZOLE 500 MG TABLET PO SCH ×2 (08:00→20:35)
[2020-11-21] MEDS: OxyCODONE HCL/ACETAMINOPHEN 5-325 MG TABLET PO PRN ×2 (08:00→20:35)
[2020-11-21] MEDS: QUEtiapine FUMARATE 300 MG TABLET PO SCH ×3 (08:00→20:35)
[2020-11-21] MEDS: LevETIRAcetam 500 MG TABLET PO SCH ×2 (08:00→16:35)
[2020-11-21] MEDS: LORazepam 2 MG TABLET PO PRN ×3 (08:00→16:35)
[2020-11-21] MEDS: OMEPRAZOLE 20 MG CAPSULE PO SCH (08:00)
[2020-11-21] MEDS: NICOTINE 14 MG/24 HOUR PATCH TD SCH (08:00)
[2020-11-21] MEDS: DIVALPROEX SODIUM 250 MG DR TABLET PO SCH ×2 (08:00→20:35)
[2020-11-21 09:05] VITALS: BP 102/63
[2020-11-21] MEDS ORDERED: DiphenhydrAMINE HCL 50 MG/ML VIAL ONE (12:55)
[2020-11-21] MEDS ORDERED: ChlorproMAZINE HCL 50 MG/2 ML AMP ONE (12:55)
[2020-11-21] MEDS ORDERED: ChlorproMAZINE HCL 50 MG/2 ML AMP IM ONE (13:10)
[2020-11-21] MEDS ORDERED: DiphenhydrAMINE HCL 50 MG/ML VIAL IM ONE (13:10)
[2020-11-21] MEDS ORDERED: TUBERCULIN, PURIFIED PROTEIN DERIVATIVE 5 TU/0.1 ML SYRINGE ID ONE (14:15)
[2020-11-21 16:00] VITALS: BP 97/63
[2020-11-21] MEDS: OLANZapine 5 MG RAPDIS TABLET PO PRN (16:35)
[2020-11-22] MEDS: PHENYTOIN SODIUM 100 MG ER CAPSULE PO SCH ×4 (00:30→23:50)
[2020-11-22 06:02] VITALS: BP 81/116
[2020-11-22] MEDS: LEVOTHYROXINE SODIUM 50 MCG TABLET PO SCH (07:05)
[2020-11-22] MEDS: DIVALPROEX SODIUM 250 MG DR TABLET PO SCH ×2 (08:09→20:30)
[2020-11-22] MEDS: QUEtiapine FUMARATE 300 MG TABLET PO SCH ×3 (08:10→20:30)
[2020-11-22] MEDS: LevETIRAcetam 500 MG TABLET PO SCH ×2 (08:10→16:18)
[2020-11-22] MEDS: MetroNIDAZOLE 500 MG TABLET PO SCH ×2 (08:10→20:30)
[2020-11-22] MEDS: OMEPRAZOLE 20 MG CAPSULE PO SCH (08:10)
[2020-11-22] MEDS: NICOTINE 14 MG/24 HOUR PATCH TD SCH (08:12)
[2020-11-22] MEDS: OxyCODONE HCL/ACETAMINOPHEN 5-325 MG TABLET PO PRN ×2 (08:12→20:31)
[2020-11-22] MEDS: LORazepam 2 MG TABLET PO PRN ×2 (08:12→16:18)
[2020-11-22 16:14] VITALS: BP 98/60
[2020-11-23] MEDS: LEVOTHYROXINE SODIUM 50 MCG TABLET PO SCH (06:31)
[2020-11-23 08:29] VITALS: BP 118/71
[2020-11-23] MEDS: PHENYTOIN SODIUM 100 MG ER CAPSULE PO SCH ×2 (09:00→16:54)
[2020-11-23] MEDS: MetroNIDAZOLE 500 MG TABLET PO SCH ×2 (09:00→21:28)
[2020-11-23] MEDS: LevETIRAcetam 500 MG TABLET PO SCH ×2 (09:00→16:54)
[2020-11-23] MEDS: DIVALPROEX SODIUM 250 MG DR TABLET PO SCH ×2 (09:00→21:28)
[2020-11-23] MEDS: NICOTINE 14 MG/24 HOUR PATCH TD SCH (09:01)
[2020-11-23] MEDS: OLANZapine 5 MG RAPDIS TABLET PO PRN ×2 (09:01→13:27)
[2020-11-23] MEDS: LORazepam 2 MG TABLET PO PRN ×2 (09:01→13:27)
[2020-11-23] MEDS: QUEtiapine FUMARATE 300 MG TABLET PO SCH ×3 (09:01→21:28)
[2020-11-23] MEDS: OMEPRAZOLE 20 MG CAPSULE PO SCH (09:01)
[2020-11-23] MEDS: OxyCODONE HCL/ACETAMINOPHEN 5-325 MG TABLET PO PRN ×2 (10:27→21:29)
[2020-11-23] MEDS ORDERED: LORazepam 2 MG/ML VIAL ONE (15:50)
[2020-11-23] MEDS ORDERED: ChlorproMAZINE HCL 50 MG/2 ML AMP ONE (15:51)
[2020-11-23] MEDS ORDERED: DiphenhydrAMINE HCL 50 MG/ML VIAL ONE (15:51)
[2020-11-23] MEDS ORDERED: ChlorproMAZINE HCL 50 MG/2 ML AMP IM ONE (16:00)
[2020-11-23] MEDS ORDERED: LORazepam 2 MG/ML VIAL IM ONE (16:00)
[2020-11-23] MEDS ORDERED: DiphenhydrAMINE HCL 50 MG/ML VIAL IM ONE (16:00)
[2020-11-23 16:40] VITALS: BP 102/61
[2020-11-24] MEDS: PHENYTOIN SODIUM 100 MG ER CAPSULE PO SCH ×3 (00:57→17:03)
[2020-11-24] MEDS: LEVOTHYROXINE SODIUM 50 MCG TABLET PO SCH (06:32)
[2020-11-24] MEDS: QUEtiapine FUMARATE 300 MG TABLET PO SCH ×2 (08:13→09:00)
[2020-11-24] MEDS: DIVALPROEX SODIUM 250 MG DR TABLET PO SCH ×2 (08:14→10:48)
[2020-11-24] MEDS: LORazepam 2 MG TABLET PO PRN ×2 (08:14→17:03)
[2020-11-24] MEDS: LevETIRAcetam 500 MG TABLET PO SCH ×2 (08:14→17:04)
[2020-11-24] MEDS: OMEPRAZOLE 20 MG CAPSULE PO SCH (08:14)
[2020-11-24] MEDS ORDERED: DiphenhydrAMINE HCL 50 MG/ML VIAL IM ONE ×2 (08:15→09:15)
[2020-11-24] MEDS ORDERED: LORazepam 2 MG/ML VIAL IM ONE ×2 (08:15→09:15)
[2020-11-24] MEDS ORDERED: ChlorproMAZINE HCL 50 MG/2 ML AMP IM ONE ×2 (08:15→09:15)
[2020-11-24] MEDS: NICOTINE 14 MG/24 HOUR PATCH TD SCH ×2 (09:00→14:00)
[2020-11-24] MEDS: MetroNIDAZOLE 500 MG TABLET PO SCH ×2 (09:00→20:38)
[2020-11-24 16:19] VITALS: BP 108/60
[2020-11-24 21:32] LABS: GLUCOMETER DEV NAME(LOC) BV3N.; GLUCOSE,POINT OF CARE 87 MG/DL (70-110)
[2020-11-25] MEDS: PHENYTOIN SODIUM 100 MG ER CAPSULE PO SCH ×3 (06:30→16:20)
[2020-11-25] MEDS: LEVOTHYROXINE SODIUM 50 MCG TABLET PO SCH (06:30)
[2020-11-25] MEDS: OMEPRAZOLE 20 MG CAPSULE PO SCH (08:32)
[2020-11-25] MEDS: DIVALPROEX SODIUM 250 MG DR TABLET PO SCH ×2 (08:32→20:34)
[2020-11-25] MEDS: LevETIRAcetam 500 MG TABLET PO SCH ×2 (08:32→16:20)
[2020-11-25] MEDS: MetroNIDAZOLE 500 MG TABLET PO SCH ×2 (08:32→20:34)
[2020-11-25] MEDS: QUEtiapine FUMARATE 300 MG TABLET PO SCH ×3 (08:32→20:34)
[2020-11-25] MEDS: LORazepam 2 MG TABLET PO PRN ×2 (09:01→16:20)
[2020-11-25] MEDS: OxyCODONE HCL/ACETAMINOPHEN 5-325 MG TABLET PO PRN ×2 (09:01→18:20)
[2020-11-25] MEDS: OLANZapine 5 MG RAPDIS TABLET PO PRN (09:21)
[2020-11-25 16:27] VITALS: BP 90/67
[2020-11-26] MEDS: PHENYTOIN SODIUM 100 MG ER CAPSULE PO SCH ×3 (00:23→16:28)
[2020-11-26] MEDS: LEVOTHYROXINE SODIUM 50 MCG TABLET PO SCH (06:16)
[2020-11-26 06:28] VITALS: BP 100/62
[2020-11-26] MEDS: LevETIRAcetam 500 MG TABLET PO SCH ×2 (09:00→16:29)
[2020-11-26] MEDS: QUEtiapine FUMARATE 300 MG TABLET PO SCH ×3 (09:00→20:41)
[2020-11-26] MEDS: DIVALPROEX SODIUM 250 MG DR TABLET PO SCH ×2 (09:00→20:41)
[2020-11-26] MEDS: MetroNIDAZOLE 500 MG TABLET PO SCH ×2 (09:00→20:41)
[2020-11-26] MEDS: OMEPRAZOLE 20 MG CAPSULE PO SCH (09:00)
[2020-11-26] MEDS: NICOTINE 14 MG/24 HOUR PATCH TD SCH (09:00)
[2020-11-26 09:24] VITALS: BP 115/64
[2020-11-26] MEDS: OxyCODONE HCL/ACETAMINOPHEN 5-325 MG TABLET PO PRN ×2 (11:35→20:42)
[2020-11-26] MEDS: LORazepam 2 MG TABLET PO PRN ×2 (11:35→16:29)
[2020-11-26 16:32] VITALS: BP 110/65
[2020-11-27] MEDS: PHENYTOIN SODIUM 100 MG ER CAPSULE PO SCH ×3 (00:42→16:04)
[2020-11-27 00:45] VITALS: BP 102/68
[2020-11-27] MEDS: LEVOTHYROXINE SODIUM 50 MCG TABLET PO SCH (06:19)
[2020-11-27] MEDS: LORazepam 2 MG TABLET PO PRN ×4 (08:00→20:40)
[2020-11-27] MEDS: OMEPRAZOLE 20 MG CAPSULE PO SCH (08:26)
[2020-11-27] MEDS: QUEtiapine FUMARATE 300 MG TABLET PO SCH ×3 (08:26→20:40)
[2020-11-27] MEDS: DIVALPROEX SODIUM 250 MG DR TABLET PO SCH ×2 (08:26→20:40)
[2020-11-27] MEDS: NICOTINE 14 MG/24 HOUR PATCH TD SCH (08:26)
[2020-11-27] MEDS: LevETIRAcetam 500 MG TABLET PO SCH ×2 (08:26→16:04)
[2020-11-27] MEDS: MetroNIDAZOLE 500 MG TABLET PO SCH ×2 (08:26→20:40)
[2020-11-27 08:48] VITALS: BP 104/66
[2020-11-27] MEDS: OLANZapine 5 MG RAPDIS TABLET PO PRN (12:00)
[2020-11-27] MEDS: OxyCODONE HCL/ACETAMINOPHEN 5-325 MG TABLET PO PRN (15:59)
[2020-11-27 16:13] VITALS: BP 108/72
[2020-11-28] MEDS: LORazepam 2 MG TABLET PO PRN ×2 (06:04→11:09)
[2020-11-28] MEDS: LEVOTHYROXINE SODIUM 50 MCG TABLET PO SCH (06:30)
[2020-11-28] MEDS ORDERED: LORazepam 2 MG/ML VIAL ONE (06:47)
[2020-11-28] MEDS ORDERED: DiphenhydrAMINE HCL 50 MG/ML VIAL ONE (06:48)
[2020-11-28] MEDS ORDERED: HALOPERIDOL LACTATE 5 MG/ML VIAL ONE (06:48)
[2020-11-28] MEDS ORDERED: ChlorproMAZINE HCL 50 MG/2 ML AMP ONE (06:54)
[2020-11-28] MEDS ORDERED: LORazepam 2 MG/ML VIAL IM ONE (07:00)
[2020-11-28] MEDS ORDERED: FluPHENAZine HCL 2.5 MG/ML INJ IM ONE (07:00)
[2020-11-28] MEDS ORDERED: DiphenhydrAMINE HCL 50 MG/ML VIAL IM ONE (07:00)
[2020-11-28] MEDS: NICOTINE 14 MG/24 HOUR PATCH TD SCH (09:30)
[2020-11-28] MEDS: PHENYTOIN SODIUM 100 MG ER CAPSULE PO SCH ×3 (09:30→16:05)
[2020-11-28] MEDS: LevETIRAcetam 500 MG TABLET PO SCH ×2 (09:30→16:05)
[2020-11-28] MEDS: OMEPRAZOLE 20 MG CAPSULE PO SCH (09:31)
[2020-11-28] MEDS: DIVALPROEX SODIUM 250 MG DR TABLET PO SCH ×2 (09:31→19:48)
[2020-11-28] MEDS: MetroNIDAZOLE 500 MG TABLET PO SCH ×2 (09:31→19:48)
[2020-11-28] MEDS: QUEtiapine FUMARATE 300 MG TABLET PO SCH ×3 (09:31→19:48)
[2020-11-28] MEDS: OLANZapine 5 MG RAPDIS TABLET PO PRN (09:33)
[2020-11-28 16:25] VITALS: BP 107/60
[2020-11-29] MEDS: PHENYTOIN SODIUM 100 MG ER CAPSULE PO SCH ×3 (00:01→17:21)
[2020-11-29] MEDS: LEVOTHYROXINE SODIUM 50 MCG TABLET PO SCH (06:16)
[2020-11-29] MEDS: OxyCODONE HCL/ACETAMINOPHEN 5-325 MG TABLET PO PRN ×2 (06:49→14:49)
[2020-11-29] MEDS: OLANZapine 5 MG RAPDIS TABLET PO PRN (08:00)
[2020-11-29] MEDS: LORazepam 2 MG TABLET PO PRN ×2 (08:00→17:21)
[2020-11-29] MEDS: NICOTINE 14 MG/24 HOUR PATCH TD SCH (08:21)
[2020-11-29] MEDS: LevETIRAcetam 500 MG TABLET PO SCH ×2 (08:21→17:21)
[2020-11-29] MEDS: DIVALPROEX SODIUM 250 MG DR TABLET PO SCH ×2 (08:21→20:26)
[2020-11-29] MEDS: OMEPRAZOLE 20 MG CAPSULE PO SCH (08:21)
[2020-11-29] MEDS: MetroNIDAZOLE 500 MG TABLET PO SCH ×2 (08:21→20:26)
[2020-11-29] MEDS: QUEtiapine FUMARATE 300 MG TABLET PO SCH ×3 (08:21→20:26)
[2020-11-29 08:25] VITALS: BP 100/65
[2020-11-29 16:18] VITALS: BP 107/86
[2020-11-29] MEDS: ZOLPIDEM TARTRATE 10 MG TABLET PO PRN (20:26)
[2020-11-30] MEDS: PHENYTOIN SODIUM 100 MG ER CAPSULE PO SCH ×3 (00:12→16:19)
[2020-11-30] MEDS: LEVOTHYROXINE SODIUM 50 MCG TABLET PO SCH (05:54)
[2020-11-30 06:59] VITALS: BP 126/77
[2020-11-30] MEDS: OxyCODONE HCL/ACETAMINOPHEN 5-325 MG TABLET PO PRN ×2 (07:08→17:07)
[2020-11-30 08:18] VITALS: BP 103/60
[2020-11-30] MEDS: OMEPRAZOLE 20 MG CAPSULE PO SCH (08:43)
[2020-11-30] MEDS: MetroNIDAZOLE 500 MG TABLET PO SCH ×2 (08:43→20:25)
[2020-11-30] MEDS: LevETIRAcetam 500 MG TABLET PO SCH ×2 (08:43→16:19)
[2020-11-30] MEDS: DIVALPROEX SODIUM 250 MG DR TABLET PO SCH ×2 (08:43→20:24)
[2020-11-30] MEDS: QUEtiapine FUMARATE 300 MG TABLET PO SCH ×3 (08:43→20:24)
[2020-11-30] MEDS: LORazepam 2 MG TABLET PO PRN ×2 (08:43→16:19)
[2020-11-30] MEDS: NICOTINE 14 MG/24 HOUR PATCH TD SCH (08:43)
[2020-11-30] MEDS: OLANZapine 5 MG RAPDIS TABLET PO PRN (08:44)
[2020-11-30 16:41] VITALS: BP 105/72
[2020-12-01] MEDS: PHENYTOIN SODIUM 100 MG ER CAPSULE PO SCH ×4 (00:10→23:56)
[2020-12-01] MEDS: LEVOTHYROXINE SODIUM 50 MCG TABLET PO SCH (06:25)
[2020-12-01] MEDS: DIVALPROEX SODIUM 250 MG DR TABLET PO SCH ×2 (08:29→20:52)
[2020-12-01] MEDS: OMEPRAZOLE 20 MG CAPSULE PO SCH (08:29)
[2020-12-01] MEDS: MetroNIDAZOLE 500 MG TABLET PO SCH ×2 (08:29→20:52)
[2020-12-01] MEDS: LevETIRAcetam 500 MG TABLET PO SCH ×2 (08:29→16:31)
[2020-12-01] MEDS: QUEtiapine FUMARATE 300 MG TABLET PO SCH ×3 (08:30→20:52)
[2020-12-01] MEDS: NICOTINE 14 MG/24 HOUR PATCH TD SCH (08:30)
[2020-12-01 09:00] VITALS: BP 102/60
[2020-12-01 16:39] VITALS: BP 107/64
[2020-12-02 06:19] VITALS: BP 105/66
[2020-12-02] MEDS: LEVOTHYROXINE SODIUM 50 MCG TABLET PO SCH (06:19)
[2020-12-02 08:46] VITALS: BP 98/61
[2020-12-02] MEDS: QUEtiapine FUMARATE 300 MG TABLET PO SCH ×3 (08:50→20:53)
[2020-12-02] MEDS: OMEPRAZOLE 20 MG CAPSULE PO SCH (08:50)
[2020-12-02] MEDS: MetroNIDAZOLE 500 MG TABLET PO SCH ×2 (08:50→20:53)
[2020-12-02] MEDS: LevETIRAcetam 500 MG TABLET PO SCH ×2 (08:50→17:10)
[2020-12-02] MEDS: PHENYTOIN SODIUM 100 MG ER CAPSULE PO SCH ×2 (08:50→17:10)
[2020-12-02] MEDS: DIVALPROEX SODIUM 250 MG DR TABLET PO SCH ×2 (08:50→20:54)
[2020-12-02] MEDS: OLANZapine 5 MG RAPDIS TABLET PO PRN (08:51)
[2020-12-02] MEDS: LORazepam 2 MG TABLET PO PRN ×2 (08:51→12:54)
[2020-12-02] MEDS: NICOTINE 14 MG/24 HOUR PATCH TD SCH (08:57)
[2020-12-03] MEDS: PHENYTOIN SODIUM 100 MG ER CAPSULE PO SCH ×4 (00:50→16:46)
[2020-12-03 06:02] VITALS: BP 99/61
[2020-12-03] MEDS: LEVOTHYROXINE SODIUM 50 MCG TABLET PO SCH (06:20)
[2020-12-03] MEDS: LevETIRAcetam 500 MG TABLET PO SCH ×3 (07:50→17:00)
[2020-12-03] MEDS: MetroNIDAZOLE 500 MG TABLET PO SCH ×2 (07:50→21:00)
[2020-12-03] MEDS: OMEPRAZOLE 20 MG CAPSULE PO SCH (07:50)
[2020-12-03] MEDS: QUEtiapine FUMARATE 300 MG TABLET PO SCH ×4 (07:50→21:00)
[2020-12-03] MEDS: DIVALPROEX SODIUM 250 MG DR TABLET PO SCH ×2 (07:50→21:00)
[2020-12-03] MEDS: LORazepam 2 MG TABLET PO PRN (07:53)
[2020-12-03 08:07] VITALS: BP 98/66
[2020-12-03] MEDS: NICOTINE 14 MG/24 HOUR PATCH TD SCH (08:48)
[2020-12-03 16:18] VITALS: BP 131/78
[2020-12-04] MEDS: PHENYTOIN SODIUM 100 MG ER CAPSULE PO SCH ×3 (00:34→16:00)
[2020-12-04 05:19] VITALS: BP 108/72
[2020-12-04] MEDS: LEVOTHYROXINE SODIUM 50 MCG TABLET PO SCH (06:26)
[2020-12-04] MEDS: QUEtiapine FUMARATE 300 MG TABLET PO SCH ×3 (10:10→21:00)
[2020-12-04] MEDS: LevETIRAcetam 500 MG TABLET PO SCH ×2 (10:10→16:53)
[2020-12-04] MEDS: NICOTINE 14 MG/24 HOUR PATCH TD SCH (10:10)
[2020-12-04] MEDS: DIVALPROEX SODIUM 250 MG DR TABLET PO SCH ×2 (10:10→21:00)
[2020-12-04] MEDS: OMEPRAZOLE 20 MG CAPSULE PO SCH (10:10)
[2020-12-04] MEDS: MetroNIDAZOLE 500 MG TABLET PO SCH ×2 (10:10→21:00)
[2020-12-04 13:51] VITALS: BP 115/71
[2020-12-05 05:26] VITALS: BP 106/70
[2020-12-05] MEDS: LEVOTHYROXINE SODIUM 50 MCG TABLET PO SCH ×2 (06:22→06:30)
[2020-12-05] MEDS: OLANZapine 5 MG RAPDIS TABLET PO PRN (08:15)
[2020-12-05] MEDS: LORazepam 2 MG TABLET PO PRN ×2 (08:15→17:38)
[2020-12-05 08:46] VITALS: BP 113/76
[2020-12-05] MEDS: MetroNIDAZOLE 500 MG TABLET PO SCH ×2 (09:19→21:04)
[2020-12-05] MEDS: PHENYTOIN SODIUM 100 MG ER CAPSULE PO SCH ×3 (09:19→17:38)
[2020-12-05] MEDS: OMEPRAZOLE 20 MG CAPSULE PO SCH (09:19)
[2020-12-05] MEDS: DIVALPROEX SODIUM 250 MG DR TABLET PO SCH ×2 (09:19→21:04)
[2020-12-05] MEDS: LevETIRAcetam 500 MG TABLET PO SCH ×2 (09:19→17:38)
[2020-12-05] MEDS: QUEtiapine FUMARATE 300 MG TABLET PO SCH ×3 (09:19→21:04)
[2020-12-05] MEDS: NICOTINE 14 MG/24 HOUR PATCH TD SCH (09:19)
[2020-12-05 16:19] VITALS: BP 105/65
[2020-12-05] MEDS: ZOLPIDEM TARTRATE 10 MG TABLET PO PRN (21:05)
[2020-12-06 06:22] VITALS: BP 118/71
[2020-12-06] MEDS: LEVOTHYROXINE SODIUM 50 MCG TABLET PO SCH (06:35)
[2020-12-06] MEDS: LORazepam 2 MG TABLET PO PRN (08:15)
[2020-12-06 08:51] VITALS: BP 100/67
[2020-12-06] MEDS: PHENYTOIN SODIUM 100 MG ER CAPSULE PO SCH ×3 (09:00→17:00)
[2020-12-06] MEDS: NICOTINE 14 MG/24 HOUR PATCH TD SCH (09:00)
[2020-12-06] MEDS: QUEtiapine FUMARATE 300 MG TABLET PO SCH ×3 (09:01→19:21)
[2020-12-06] MEDS: DIVALPROEX SODIUM 250 MG DR TABLET PO SCH ×2 (09:01→19:20)
[2020-12-06] MEDS: LevETIRAcetam 500 MG TABLET PO SCH ×2 (09:01→17:00)
[2020-12-06] MEDS: MetroNIDAZOLE 500 MG TABLET PO SCH ×2 (09:01→19:20)
[2020-12-06] MEDS: OMEPRAZOLE 20 MG CAPSULE PO SCH (09:01)
[2020-12-06] MEDS ORDERED: DiphenhydrAMINE HCL 50 MG/ML VIAL ONE (11:18)
[2020-12-06] MEDS ORDERED: LORazepam 2 MG/ML VIAL ONE (11:18)
[2020-12-06] MEDS ORDERED: ChlorproMAZINE HCL 50 MG/2 ML AMP ONE (11:18)
[2020-12-06] MEDS ORDERED: LORazepam 2 MG/ML VIAL IM ONE (14:00)
[2020-12-06] MEDS ORDERED: ChlorproMAZINE HCL 50 MG/2 ML AMP IM ONE (14:00)
[2020-12-06] MEDS ORDERED: DiphenhydrAMINE HCL 50 MG/ML VIAL IM ONE (14:00)
[2020-12-07] MEDS: PHENYTOIN SODIUM 100 MG ER CAPSULE PO SCH ×3 (00:24→16:41)
[2020-12-07 06:09] VITALS: BP 108/72
[2020-12-07] MEDS: LEVOTHYROXINE SODIUM 50 MCG TABLET PO SCH (06:46)
[2020-12-07 08:00] VITALS: BP 107/61
[2020-12-07] MEDS: QUEtiapine FUMARATE 300 MG TABLET PO SCH ×3 (09:48→20:47)
[2020-12-07] MEDS: OMEPRAZOLE 20 MG CAPSULE PO SCH (09:48)
[2020-12-07] MEDS: MetroNIDAZOLE 500 MG TABLET PO SCH ×2 (09:48→20:47)
[2020-12-07] MEDS: LevETIRAcetam 500 MG TABLET PO SCH ×2 (09:48→16:41)
[2020-12-07] MEDS: NICOTINE 14 MG/24 HOUR PATCH TD SCH (09:48)
[2020-12-07] MEDS: DIVALPROEX SODIUM 250 MG DR TABLET PO SCH ×2 (09:48→20:46)
[2020-12-07] MEDS ORDERED: ChlorproMAZINE HCL 50 MG/2 ML AMP ONE (13:55)
[2020-12-07] MEDS ORDERED: DiphenhydrAMINE HCL 50 MG/ML VIAL ONE (13:55)
[2020-12-07] MEDS ORDERED: LORazepam 2 MG/ML VIAL ONE (13:55)
[2020-12-07] MEDS ORDERED: DiphenhydrAMINE HCL 50 MG/ML VIAL IM ONE (14:00)
[2020-12-07] MEDS ORDERED: LORazepam 2 MG/ML VIAL IM ONE (14:00)
[2020-12-07] MEDS ORDERED: ChlorproMAZINE HCL 50 MG/2 ML AMP IM ONE (14:00)
[2020-12-07] MEDS: LORazepam 2 MG TABLET PO PRN ×2 (16:41→20:47)
[2020-12-07] MEDS: ZOLPIDEM TARTRATE 10 MG TABLET PO PRN (20:47)
[2020-12-08] MEDS: PHENYTOIN SODIUM 100 MG ER CAPSULE PO SCH ×3 (00:45→16:47)
[2020-12-08] MEDS: LEVOTHYROXINE SODIUM 50 MCG TABLET PO SCH (06:25)
[2020-12-08] MEDS: LORazepam 2 MG TABLET PO PRN ×2 (08:30→16:47)
[2020-12-08] MEDS: OLANZapine 5 MG RAPDIS TABLET PO PRN (08:30)
[2020-12-08] MEDS: NICOTINE 14 MG/24 HOUR PATCH TD SCH (09:28)
[2020-12-08] MEDS: QUEtiapine FUMARATE 300 MG TABLET PO SCH ×3 (09:28→19:08)
[2020-12-08] MEDS: LevETIRAcetam 500 MG TABLET PO SCH ×2 (09:28→16:47)
[2020-12-08] MEDS: OMEPRAZOLE 20 MG CAPSULE PO SCH (09:28)
[2020-12-08] MEDS: MetroNIDAZOLE 500 MG TABLET PO SCH ×2 (09:28→19:08)
[2020-12-08] MEDS: DIVALPROEX SODIUM 250 MG DR TABLET PO SCH ×2 (09:28→19:08)
[2020-12-08] MEDS ORDERED: DiphenhydrAMINE HCL 50 MG/ML VIAL IM ONE (17:45)
[2020-12-08] MEDS ORDERED: LORazepam 2 MG/ML VIAL IM ONE (17:45)
[2020-12-08] MEDS ORDERED: ChlorproMAZINE HCL 50 MG/2 ML AMP IM ONE (17:45)
[2020-12-09] MEDS: LEVOTHYROXINE SODIUM 50 MCG TABLET PO SCH (06:30)
[2020-12-09] MEDS: PHENYTOIN SODIUM 100 MG ER CAPSULE PO SCH ×3 (08:00→16:52)
[2020-12-09] MEDS: DIVALPROEX SODIUM 250 MG DR TABLET PO SCH ×2 (09:00→19:48)
[2020-12-09] MEDS: OMEPRAZOLE 20 MG CAPSULE PO SCH (09:00)
[2020-12-09] MEDS: NICOTINE 14 MG/24 HOUR PATCH TD SCH (09:00)
[2020-12-09] MEDS: LevETIRAcetam 500 MG TABLET PO SCH ×2 (09:00→16:52)
[2020-12-09] MEDS: MetroNIDAZOLE 500 MG TABLET PO SCH ×2 (09:00→19:48)
[2020-12-09] MEDS: QUEtiapine FUMARATE 300 MG TABLET PO SCH ×3 (09:00→19:49)
[2020-12-09] MEDS ORDERED: LORazepam 2 MG/ML VIAL ONE (09:29)
[2020-12-09] MEDS ORDERED: DiphenhydrAMINE HCL 50 MG/ML VIAL ONE (09:29)
[2020-12-09] MEDS ORDERED: LORazepam 2 MG/ML VIAL IM ONE (09:30)
[2020-12-09] MEDS ORDERED: ChlorproMAZINE HCL 50 MG/2 ML AMP IM ONE (09:30)
[2020-12-09] MEDS ORDERED: DiphenhydrAMINE HCL 50 MG/ML VIAL IM ONE (09:30)
[2020-12-09] MEDS ORDERED: ChlorproMAZINE HCL 50 MG/2 ML AMP ONE (09:30)
[2020-12-09 10:36] VITALS: BP 123/68
[2020-12-09] MEDS: OLANZapine 5 MG RAPDIS TABLET PO PRN (12:45)
[2020-12-09] MEDS: LORazepam 2 MG TABLET PO PRN (12:45)
[2020-12-09 16:24] VITALS: BP 119/70
[2020-12-09] MEDS: ACETAMINOPHEN 325 MG TABLET PO PRN (17:09)
[2020-12-10] MEDS: PHENYTOIN SODIUM 100 MG ER CAPSULE PO SCH ×3 (00:07→17:02)
[2020-12-10 04:59] VITALS: BP 136/86
[2020-12-10] MEDS: LEVOTHYROXINE SODIUM 50 MCG TABLET PO SCH (06:30)
[2020-12-10] MEDS ORDERED: LORazepam 1 MG TABLET ONE ×2 (07:57→07:58)
[2020-12-10] MEDS ORDERED: LORazepam 2 MG/ML VIAL ONE (08:56)
[2020-12-10] MEDS ORDERED: DiphenhydrAMINE HCL 50 MG/ML VIAL ONE (08:56)
[2020-12-10] MEDS ORDERED: ChlorproMAZINE HCL 50 MG/2 ML AMP ONE (08:56)
[2020-12-10] MEDS: DIVALPROEX SODIUM 250 MG DR TABLET PO SCH ×2 (09:00→20:43)
[2020-12-10] MEDS: QUEtiapine FUMARATE 300 MG TABLET PO SCH ×3 (09:00→20:43)
[2020-12-10] MEDS ORDERED: FluPHENAZine HCL 2.5 MG/ML INJ IM ONE ×2 (09:00→13:30)
[2020-12-10] MEDS ORDERED: ChlorproMAZINE HCL 50 MG/2 ML AMP IM ONE (09:00)
[2020-12-10] MEDS: NICOTINE 14 MG/24 HOUR PATCH TD SCH (09:00)
[2020-12-10] MEDS: LevETIRAcetam 500 MG TABLET PO SCH ×2 (09:00→17:02)
[2020-12-10] MEDS: OMEPRAZOLE 20 MG CAPSULE PO SCH (09:00)
[2020-12-10] MEDS: MetroNIDAZOLE 500 MG TABLET PO SCH ×2 (09:00→20:44)
[2020-12-10] MEDS ORDERED: DiphenhydrAMINE HCL 50 MG/ML VIAL IM ONE (09:00)
[2020-12-10] MEDS ORDERED: LORazepam 2 MG/ML VIAL IM ONE (09:00)
[2020-12-10] MEDS: LORazepam 2 MG TABLET PO PRN ×2 (13:00→17:02)
[2020-12-10] MEDS: OLANZapine 5 MG RAPDIS TABLET PO PRN (13:00)
[2020-12-10 16:05] VITALS: BP 120/70
[2020-12-11] MEDS: PHENYTOIN SODIUM 100 MG ER CAPSULE PO SCH ×3 (00:04→16:25)
[2020-12-11] MEDS: LEVOTHYROXINE SODIUM 50 MCG TABLET PO SCH (06:26)
[2020-12-11] MEDS ORDERED: LORazepam 1 MG TABLET ONE ×2 (08:08→15:09)
[2020-12-11 08:21] VITALS: BP 100/66
[2020-12-11] MEDS: LORazepam 2 MG TABLET PO PRN ×2 (08:30→16:25)
[2020-12-11] MEDS: OLANZapine 5 MG RAPDIS TABLET PO PRN (08:30)
[2020-12-11] MEDS: NICOTINE 14 MG/24 HOUR PATCH TD SCH (09:00)
[2020-12-11] MEDS: QUEtiapine FUMARATE 300 MG TABLET PO SCH ×3 (09:09→20:40)
[2020-12-11] MEDS: MetroNIDAZOLE 500 MG TABLET PO SCH ×2 (09:09→20:40)
[2020-12-11] MEDS: LevETIRAcetam 500 MG TABLET PO SCH ×2 (09:09→16:25)
[2020-12-11] MEDS: OMEPRAZOLE 20 MG CAPSULE PO SCH (09:09)
[2020-12-11] MEDS: DIVALPROEX SODIUM 250 MG DR TABLET PO SCH ×2 (09:09→20:40)
[2020-12-11] MEDS: PALIPERIDONE PALMITATE 234 MG/1.5 ML SYRINGE IM SCH (09:32)
[2020-12-11 16:14] VITALS: BP 116/83
[2020-12-12] MEDS: PHENYTOIN SODIUM 100 MG ER CAPSULE PO SCH ×4 (00:46→23:52)
[2020-12-12] MEDS: LEVOTHYROXINE SODIUM 50 MCG TABLET PO SCH (06:30)
[2020-12-12] MEDS: LevETIRAcetam 500 MG TABLET PO SCH ×2 (08:25→16:02)
[2020-12-12] MEDS: DIVALPROEX SODIUM 250 MG DR TABLET PO SCH ×2 (08:25→20:01)
[2020-12-12] MEDS: QUEtiapine FUMARATE 300 MG TABLET PO SCH ×3 (08:25→20:02)
[2020-12-12] MEDS: MetroNIDAZOLE 500 MG TABLET PO SCH ×2 (08:26→20:01)
[2020-12-12] MEDS: NICOTINE 14 MG/24 HOUR PATCH TD SCH (08:26)
[2020-12-12] MEDS: OMEPRAZOLE 20 MG CAPSULE PO SCH (08:26)
[2020-12-12 08:32] VITALS: BP 97/62
[2020-12-12] MEDS: LORazepam 2 MG TABLET PO PRN (16:03)
[2020-12-13 03:37] VITALS: BP 97/57
[2020-12-13] MEDS: LORazepam 2 MG TABLET PO PRN ×3 (04:05→16:11)
[2020-12-13] MEDS: LEVOTHYROXINE SODIUM 50 MCG TABLET PO SCH (06:34)
[2020-12-13] MEDS: OLANZapine 5 MG RAPDIS TABLET PO PRN (06:40)
[2020-12-13 08:40] VITALS: BP 109/71
[2020-12-13] MEDS: MetroNIDAZOLE 500 MG TABLET PO SCH ×2 (08:41→20:45)
[2020-12-13] MEDS: PHENYTOIN SODIUM 100 MG ER CAPSULE PO SCH ×3 (08:41→23:56)
[2020-12-13] MEDS: QUEtiapine FUMARATE 300 MG TABLET PO SCH ×3 (08:41→20:45)
[2020-12-13] MEDS: LevETIRAcetam 500 MG TABLET PO SCH ×2 (08:42→16:11)
[2020-12-13] MEDS: DIVALPROEX SODIUM 250 MG DR TABLET PO SCH ×2 (08:42→20:45)
[2020-12-13] MEDS: OMEPRAZOLE 20 MG CAPSULE PO SCH (08:42)
[2020-12-13] MEDS: NICOTINE 14 MG/24 HOUR PATCH TD SCH (08:43)
[2020-12-13 16:12] VITALS: BP 111/70
[2020-12-14 01:30] VITALS: BP 108/70
[2020-12-14] MEDS: LEVOTHYROXINE SODIUM 50 MCG TABLET PO SCH (06:17)
[2020-12-14] MEDS: OLANZapine 5 MG RAPDIS TABLET PO PRN (08:45)
[2020-12-14] MEDS: NICOTINE 14 MG/24 HOUR PATCH TD SCH (09:00)
[2020-12-14] MEDS: PHENYTOIN SODIUM 100 MG ER CAPSULE PO SCH ×2 (09:12→16:40)
[2020-12-14] MEDS: DIVALPROEX SODIUM 250 MG DR TABLET PO SCH ×2 (09:12→20:55)
[2020-12-14] MEDS: MetroNIDAZOLE 500 MG TABLET PO SCH ×2 (09:13→20:55)
[2020-12-14] MEDS: LevETIRAcetam 500 MG TABLET PO SCH ×2 (09:13→16:40)
[2020-12-14] MEDS: OMEPRAZOLE 20 MG CAPSULE PO SCH (09:13)
[2020-12-14] MEDS: QUEtiapine FUMARATE 300 MG TABLET PO SCH ×3 (09:13→20:55)
[2020-12-14 09:31] VITALS: BP 105/58
[2020-12-14] MEDS ORDERED: ChlorproMAZINE HCL 50 MG/2 ML AMP IM ONE (11:30)
[2020-12-14] MEDS ORDERED: DiphenhydrAMINE HCL 50 MG/ML VIAL IM ONE (11:30)
[2020-12-14] MEDS ORDERED: LORazepam 2 MG/ML VIAL IM ONE (11:30)
[2020-12-14] MEDS: LORazepam 2 MG TABLET PO PRN ×2 (14:00→18:00)
[2020-12-14 16:18] VITALS: BP 114/76
[2020-12-15] MEDS: PHENYTOIN SODIUM 100 MG ER CAPSULE PO SCH ×3 (00:50→16:04)
[2020-12-15] MEDS: LEVOTHYROXINE SODIUM 50 MCG TABLET PO SCH (06:30)
[2020-12-15] MEDS: OLANZapine 5 MG RAPDIS TABLET PO PRN (08:30)
[2020-12-15] MEDS: LORazepam 2 MG TABLET PO PRN ×2 (08:30→16:04)
[2020-12-15 08:31] VITALS: BP 102/66
[2020-12-15] MEDS: LevETIRAcetam 500 MG TABLET PO SCH ×2 (08:57→16:04)
[2020-12-15] MEDS: MetroNIDAZOLE 500 MG TABLET PO SCH (08:57)
[2020-12-15] MEDS: DIVALPROEX SODIUM 250 MG DR TABLET PO SCH ×2 (08:57→21:21)
[2020-12-15] MEDS: NICOTINE 14 MG/24 HOUR PATCH TD SCH (08:57)
[2020-12-15] MEDS: QUEtiapine FUMARATE 300 MG TABLET PO SCH ×3 (08:57→21:21)
[2020-12-15] MEDS: OMEPRAZOLE 20 MG CAPSULE PO SCH (08:57)
[2020-12-15 16:19] VITALS: BP 100/69
[2020-12-16] MEDS: PHENYTOIN SODIUM 100 MG ER CAPSULE PO SCH ×3 (00:45→16:25)
[2020-12-16] MEDS: LEVOTHYROXINE SODIUM 50 MCG TABLET PO SCH (06:45)
[2020-12-16] MEDS: LORazepam 2 MG TABLET PO PRN ×2 (08:00→16:25)
[2020-12-16] MEDS: OLANZapine 5 MG RAPDIS TABLET PO PRN ×2 (08:00→16:25)
[2020-12-16] MEDS: LevETIRAcetam 500 MG TABLET PO SCH ×2 (08:30→16:25)
[2020-12-16] MEDS: OMEPRAZOLE 20 MG CAPSULE PO SCH (08:30)
[2020-12-16] MEDS: DIVALPROEX SODIUM 250 MG DR TABLET PO SCH ×2 (08:30→20:53)
[2020-12-16] MEDS: QUEtiapine FUMARATE 300 MG TABLET PO SCH ×3 (08:30→20:53)
[2020-12-16] MEDS: NICOTINE 14 MG/24 HOUR PATCH TD SCH (08:30)
[2020-12-16 08:53] VITALS: BP 104/66
[2020-12-16 16:14] VITALS: BP 110/76
[2020-12-16] MEDS: ACETAMINOPHEN 325 MG TABLET PO PRN (17:59)
[2020-12-17] MEDS: PHENYTOIN SODIUM 100 MG ER CAPSULE PO SCH ×3 (00:56→16:09)
[2020-12-17] MEDS: LEVOTHYROXINE SODIUM 50 MCG TABLET PO SCH (06:01)
[2020-12-17 06:21] VITALS: BP 113/80
[2020-12-17] MEDS: LORazepam 2 MG TABLET PO PRN ×2 (08:00→16:56)
[2020-12-17] MEDS: OLANZapine 5 MG RAPDIS TABLET PO PRN ×2 (08:00→16:56)
[2020-12-17] MEDS: DIVALPROEX SODIUM 250 MG DR TABLET PO SCH ×2 (08:54→20:48)
[2020-12-17] MEDS: QUEtiapine FUMARATE 300 MG TABLET PO SCH ×3 (08:54→20:48)
[2020-12-17] MEDS: LevETIRAcetam 500 MG TABLET PO SCH ×2 (08:54→16:09)
[2020-12-17] MEDS: OMEPRAZOLE 20 MG CAPSULE PO SCH (08:54)
[2020-12-17] MEDS: NICOTINE 14 MG/24 HOUR PATCH TD SCH (08:54)
[2020-12-17 09:18] VITALS: BP 109/67
[2020-12-17 16:41] VITALS: BP 109/64
[2020-12-17] MEDS: ZOLPIDEM TARTRATE 10 MG TABLET PO PRN (20:48)
[2020-12-18] MEDS: PHENYTOIN SODIUM 100 MG ER CAPSULE PO SCH ×3 (00:49→16:00)
[2020-12-18 05:23] VITALS: BP 106/65
[2020-12-18] MEDS: LEVOTHYROXINE SODIUM 50 MCG TABLET PO SCH (06:26)
[2020-12-18] MEDS: LORazepam 2 MG TABLET PO PRN ×2 (08:15→20:46)
[2020-12-18] MEDS: OLANZapine 5 MG RAPDIS TABLET PO PRN (08:15)
[2020-12-18] MEDS: QUEtiapine FUMARATE 300 MG TABLET PO SCH ×3 (08:55→20:45)
[2020-12-18] MEDS: NICOTINE 14 MG/24 HOUR PATCH TD SCH (08:55)
[2020-12-18] MEDS: OMEPRAZOLE 20 MG CAPSULE PO SCH (08:55)
[2020-12-18] MEDS: LevETIRAcetam 500 MG TABLET PO SCH ×2 (08:55→16:10)
[2020-12-18] MEDS: DIVALPROEX SODIUM 250 MG DR TABLET PO SCH ×2 (08:55→20:45)
[2020-12-18 09:06] VITALS: BP 112/70
[2020-12-18] MEDS ORDERED: LORazepam 2 MG/ML VIAL ONE (16:00)
[2020-12-18] MEDS ORDERED: LORazepam 2 MG/ML VIAL IM ONE (16:00)
[2020-12-18] MEDS ORDERED: ChlorproMAZINE HCL 50 MG/2 ML AMP ONE (16:00)
[2020-12-18] MEDS ORDERED: DiphenhydrAMINE HCL 50 MG/ML VIAL ONE (16:00)
[2020-12-18] MEDS ORDERED: DiphenhydrAMINE HCL 50 MG/ML VIAL IM ONE (16:00)
[2020-12-18] MEDS ORDERED: ChlorproMAZINE HCL 50 MG/2 ML AMP IM ONE (16:00)
[2020-12-18 16:41] VITALS: BP 115/75
[2020-12-19] MEDS: PHENYTOIN SODIUM 100 MG ER CAPSULE PO SCH ×4 (00:55→23:47)
[2020-12-19 02:34] VITALS: BP 110/70
[2020-12-19] MEDS: LEVOTHYROXINE SODIUM 50 MCG TABLET PO SCH (06:38)
[2020-12-19] MEDS ORDERED: LORazepam 2 MG/ML VIAL ONE (08:13)
[2020-12-19] MEDS ORDERED: DiphenhydrAMINE HCL 50 MG/ML VIAL ONE (08:13)
[2020-12-19] MEDS ORDERED: ChlorproMAZINE HCL 50 MG/2 ML AMP ONE (08:14)
[2020-12-19] MEDS ORDERED: LORazepam 2 MG/ML VIAL IM ONE (08:15)
[2020-12-19] MEDS ORDERED: ChlorproMAZINE HCL 50 MG/2 ML AMP IM ONE (08:15)
[2020-12-19] MEDS ORDERED: DiphenhydrAMINE HCL 50 MG/ML VIAL IM ONE (08:15)
[2020-12-19] MEDS: LevETIRAcetam 500 MG TABLET PO SCH ×2 (08:30→16:04)
[2020-12-19] MEDS: NICOTINE 14 MG/24 HOUR PATCH TD SCH (08:30)
[2020-12-19] MEDS: OMEPRAZOLE 20 MG CAPSULE PO SCH (08:30)
[2020-12-19] MEDS: QUEtiapine FUMARATE 300 MG TABLET PO SCH ×3 (08:30→20:40)
[2020-12-19] MEDS: DIVALPROEX SODIUM 250 MG DR TABLET PO SCH ×2 (08:30→20:40)
[2020-12-19 08:40] VITALS: BP 107/76
[2020-12-19] MEDS: ACETAMINOPHEN 325 MG TABLET PO PRN (11:12)
[2020-12-19] MEDS ORDERED: ChlorproMAZINE HCL 50 MG/2 ML AMP IM PRN (14:45)
[2020-12-19] MEDS: LORazepam 2 MG TABLET PO PRN (14:53)
[2020-12-19 16:22] VITALS: BP 120/78
[2020-12-19] MEDS: ZOLPIDEM TARTRATE 10 MG TABLET PO PRN (20:40)
[2020-12-20 00:06] VITALS: BP 106/69
[2020-12-20 00:07] VITALS: BP 106/69
[2020-12-20] MEDS: ACETAMINOPHEN 325 MG TABLET PO PRN (00:11)
[2020-12-20] MEDS: LORazepam 2 MG TABLET PO PRN ×4 (00:11→20:34)
[2020-12-20] MEDS: LEVOTHYROXINE SODIUM 50 MCG TABLET PO SCH (06:25)
[2020-12-20 08:30] VITALS: BP 115/74
[2020-12-20] MEDS: QUEtiapine FUMARATE 300 MG TABLET PO SCH ×3 (08:35→20:17)
[2020-12-20] MEDS: OMEPRAZOLE 20 MG CAPSULE PO SCH (08:36)
[2020-12-20] MEDS: LevETIRAcetam 500 MG TABLET PO SCH ×2 (08:36→16:30)
[2020-12-20] MEDS: DIVALPROEX SODIUM 250 MG DR TABLET PO SCH (08:36)
[2020-12-20] MEDS: PHENYTOIN SODIUM 100 MG ER CAPSULE PO SCH ×3 (08:39→23:40)
[2020-12-20] MEDS: NICOTINE 14 MG/24 HOUR PATCH TD SCH (09:43)
[2020-12-20 16:30] VITALS: BP 104/62
[2020-12-20] MEDS: VALPROIC ACID 250 MG CAPSULE PO SCH (20:16)
[2020-12-20] MEDS: ZOLPIDEM TARTRATE 10 MG TABLET PO PRN (20:17)
[2020-12-21 06:11] VITALS: BP 98/59
[2020-12-21] MEDS: LEVOTHYROXINE SODIUM 50 MCG TABLET PO SCH (06:22)
[2020-12-21 08:26] VITALS: BP 115/68
[2020-12-21] MEDS: LORazepam 2 MG TABLET PO PRN ×3 (08:59→20:51)
[2020-12-21] MEDS: QUEtiapine FUMARATE 300 MG TABLET PO SCH ×3 (08:59→20:51)
[2020-12-21] MEDS: VALPROIC ACID 250 MG CAPSULE PO SCH ×2 (08:59→20:51)
[2020-12-21] MEDS: PHENYTOIN SODIUM 100 MG ER CAPSULE PO SCH ×2 (08:59→16:27)
[2020-12-21] MEDS: LevETIRAcetam 500 MG TABLET PO SCH ×2 (08:59→16:27)
[2020-12-21] MEDS: OMEPRAZOLE 20 MG CAPSULE PO SCH (08:59)
[2020-12-21] MEDS: NICOTINE 14 MG/24 HOUR PATCH TD SCH (09:29)
[2020-12-21 16:23] VITALS: BP 110/75
[2020-12-21] MEDS: OLANZapine 5 MG RAPDIS TABLET PO PRN (16:27)
[2020-12-21] MEDS: ZOLPIDEM TARTRATE 10 MG TABLET PO PRN (20:51)
[2020-12-22] MEDS: PHENYTOIN SODIUM 100 MG ER CAPSULE PO SCH ×3 (01:02→16:26)
[2020-12-22 06:04] VITALS: BP 110/66
[2020-12-22] MEDS: LEVOTHYROXINE SODIUM 50 MCG TABLET PO SCH (06:08)
[2020-12-22] MEDS ORDERED: LORazepam 2 MG/ML VIAL ONE (06:49)
[2020-12-22] MEDS ORDERED: DiphenhydrAMINE HCL 50 MG/ML VIAL ONE (06:50)
[2020-12-22] MEDS ORDERED: DiphenhydrAMINE HCL 50 MG/ML VIAL IM ONE (07:15)
[2020-12-22] MEDS ORDERED: LORazepam 2 MG/ML VIAL IM ONE (07:15)
[2020-12-22] MEDS ORDERED: ChlorproMAZINE HCL 50 MG/2 ML AMP IM ONE (07:15)
[2020-12-22 08:22] VITALS: BP 104/69
[2020-12-22] MEDS: VALPROIC ACID 250 MG CAPSULE PO SCH ×2 (08:57→20:16)
[2020-12-22] MEDS: LevETIRAcetam 500 MG TABLET PO SCH ×2 (08:57→16:26)
[2020-12-22] MEDS: QUEtiapine FUMARATE 300 MG TABLET PO SCH ×3 (08:57→20:16)
[2020-12-22] MEDS: OMEPRAZOLE 20 MG CAPSULE PO SCH (08:57)
[2020-12-22] MEDS: LORazepam 2 MG TABLET PO PRN ×2 (08:57→16:28)
[2020-12-22] MEDS: OLANZapine 5 MG RAPDIS TABLET PO PRN (08:57)
[2020-12-22] MEDS: NICOTINE 14 MG/24 HOUR PATCH TD SCH (08:58)
[2020-12-22 16:19] VITALS: BP 100/61
[2020-12-22] MEDS: ZOLPIDEM TARTRATE 10 MG TABLET PO PRN (21:28)
[2020-12-23] MEDS: LEVOTHYROXINE SODIUM 50 MCG TABLET PO SCH (06:39)
[2020-12-23] MEDS: OMEPRAZOLE 20 MG CAPSULE PO SCH (08:16)
[2020-12-23] MEDS: NICOTINE 14 MG/24 HOUR PATCH TD SCH (08:16)
[2020-12-23] MEDS: LevETIRAcetam 500 MG TABLET PO SCH ×2 (08:16→16:23)
[2020-12-23] MEDS: PHENYTOIN SODIUM 100 MG ER CAPSULE PO SCH ×3 (08:16→16:23)
[2020-12-23] MEDS: QUEtiapine FUMARATE 300 MG TABLET PO SCH ×3 (08:17→20:36)
[2020-12-23] MEDS: VALPROIC ACID 250 MG CAPSULE PO SCH ×2 (08:17→20:36)
[2020-12-23] MEDS: LORazepam 2 MG TABLET PO PRN ×3 (08:17→16:58)
[2020-12-23 08:41] VITALS: BP 107/60
[2020-12-23] MEDS: OLANZapine 5 MG RAPDIS TABLET PO PRN (12:40)
[2020-12-23 16:35] VITALS: BP 109/67
[2020-12-23] MEDS: ZOLPIDEM TARTRATE 10 MG TABLET PO PRN (20:36)
[2020-12-24] MEDS: PHENYTOIN SODIUM 100 MG ER CAPSULE PO SCH ×3 (00:57→16:07)
[2020-12-24 03:05] VITALS: BP 108/66
[2020-12-24] MEDS: LEVOTHYROXINE SODIUM 50 MCG TABLET PO SCH (06:15)
[2020-12-24 08:34] VITALS: BP 118/76
[2020-12-24] MEDS: QUEtiapine FUMARATE 300 MG TABLET PO SCH ×3 (08:34→20:52)
[2020-12-24] MEDS: OMEPRAZOLE 20 MG CAPSULE PO SCH (08:34)
[2020-12-24] MEDS: LORazepam 2 MG TABLET PO PRN ×2 (08:34→14:27)
[2020-12-24] MEDS: LevETIRAcetam 500 MG TABLET PO SCH ×2 (08:34→16:07)
[2020-12-24] MEDS: NICOTINE 14 MG/24 HOUR PATCH TD SCH (08:35)
[2020-12-24] MEDS: VALPROIC ACID 250 MG CAPSULE PO SCH ×2 (08:38→20:52)
[2020-12-24] MEDS: OLANZapine 5 MG RAPDIS TABLET PO PRN ×2 (08:51→14:27)
[2020-12-24 16:17] VITALS: BP 109/65
[2020-12-24] MEDS: ZOLPIDEM TARTRATE 10 MG TABLET PO PRN (20:53)
[2020-12-25] MEDS: PHENYTOIN SODIUM 100 MG ER CAPSULE PO SCH ×3 (00:44→16:22)
[2020-12-25 02:24] VITALS: BP 114/70
[2020-12-25] MEDS: LEVOTHYROXINE SODIUM 50 MCG TABLET PO SCH (06:27)
[2020-12-25 08:35] VITALS: BP 110/73
[2020-12-25] MEDS: VALPROIC ACID 250 MG CAPSULE PO SCH ×2 (08:47→20:30)
[2020-12-25] MEDS: LevETIRAcetam 500 MG TABLET PO SCH ×2 (08:47→16:22)
[2020-12-25] MEDS: QUEtiapine FUMARATE 300 MG TABLET PO SCH ×3 (08:48→20:30)
[2020-12-25] MEDS: LORazepam 2 MG TABLET PO PRN ×2 (08:48→16:22)
[2020-12-25] MEDS: OMEPRAZOLE 20 MG CAPSULE PO SCH (08:48)
[2020-12-25] MEDS: NICOTINE 14 MG/24 HOUR PATCH TD SCH (08:52)
[2020-12-25 13:44] VITALS: BP 114/71
[2020-12-25] MEDS: TraMADol HCL 50 MG TABLET PO PRN (13:44)
[2020-12-25 17:37] VITALS: BP 108/70
[2020-12-26] MEDS: PHENYTOIN SODIUM 100 MG ER CAPSULE PO SCH ×4 (00:33→23:44)
[2020-12-26] MEDS: LORazepam 2 MG TABLET PO PRN ×3 (05:23→16:08)
[2020-12-26] MEDS: LEVOTHYROXINE SODIUM 50 MCG TABLET PO SCH (06:04)
[2020-12-26] MEDS: VALPROIC ACID 250 MG CAPSULE PO SCH ×2 (08:36→20:10)
[2020-12-26] MEDS: OMEPRAZOLE 20 MG CAPSULE PO SCH (08:36)
[2020-12-26] MEDS: LevETIRAcetam 500 MG TABLET PO SCH ×2 (08:36→16:07)
[2020-12-26] MEDS: QUEtiapine FUMARATE 300 MG TABLET PO SCH ×3 (08:36→20:09)
[2020-12-26 08:37] VITALS: BP 106/74
[2020-12-26] MEDS: TraMADol HCL 50 MG TABLET PO PRN (08:37)
[2020-12-26] MEDS: NICOTINE 14 MG/24 HOUR PATCH TD SCH (08:37)
[2020-12-26 10:07] VITALS: BP 106/74
[2020-12-26] MEDS: OLANZapine 5 MG RAPDIS TABLET PO PRN (13:35)
[2020-12-26 16:34] VITALS: BP 116/72
[2020-12-27 00:16] VITALS: BP 104/71
[2020-12-27] MEDS: LEVOTHYROXINE SODIUM 50 MCG TABLET PO SCH (06:34)
[2020-12-27] MEDS: TraMADol HCL 50 MG TABLET PO PRN ×2 (08:12→16:06)
[2020-12-27] MEDS: OMEPRAZOLE 20 MG CAPSULE PO SCH (08:12)
[2020-12-27] MEDS: PHENYTOIN SODIUM 100 MG ER CAPSULE PO SCH ×2 (08:12→16:05)
[2020-12-27] MEDS: LORazepam 2 MG TABLET PO PRN ×2 (08:12→12:30)
[2020-12-27] MEDS: VALPROIC ACID 250 MG CAPSULE PO SCH ×2 (08:12→20:38)
[2020-12-27] MEDS: QUEtiapine FUMARATE 300 MG TABLET PO SCH ×3 (08:12→20:39)
[2020-12-27] MEDS: NICOTINE 14 MG/24 HOUR PATCH TD SCH (08:13)
[2020-12-27] MEDS: LevETIRAcetam 500 MG TABLET PO SCH ×2 (08:17→16:05)
[2020-12-27 08:25] VITALS: BP 107/73
[2020-12-27] MEDS: OLANZapine 5 MG RAPDIS TABLET PO PRN (12:30)
[2020-12-27 16:09] VITALS: BP 103/71
[2020-12-27] MEDS: ZOLPIDEM TARTRATE 10 MG TABLET PO PRN (20:39)
[2020-12-28] MEDS: PHENYTOIN SODIUM 100 MG ER CAPSULE PO SCH ×3 (00:34→16:00)
[2020-12-28 05:08] VITALS: BP 108/72
[2020-12-28] MEDS: LEVOTHYROXINE SODIUM 50 MCG TABLET PO SCH (06:29)
[2020-12-28] MEDS: NICOTINE 14 MG/24 HOUR PATCH TD SCH (08:06)
[2020-12-28] MEDS: OMEPRAZOLE 20 MG CAPSULE PO SCH (08:06)
[2020-12-28] MEDS: VALPROIC ACID 250 MG CAPSULE PO SCH ×2 (08:06→21:10)
[2020-12-28] MEDS: QUEtiapine FUMARATE 300 MG TABLET PO SCH ×3 (08:06→21:10)
[2020-12-28] MEDS: LevETIRAcetam 500 MG TABLET PO SCH ×2 (08:06→16:00)
[2020-12-28] MEDS: OLANZapine 5 MG RAPDIS TABLET PO PRN ×2 (08:07→12:55)
[2020-12-28] MEDS: LORazepam 2 MG TABLET PO PRN ×2 (08:07→12:55)
[2020-12-28 09:32] VITALS: BP 113/67
[2020-12-28] MEDS: MAGNESIUM HYDROXIDE SUSPENSION 30 ML UDCUP PO PRN (13:00)
[2020-12-28 16:14] VITALS: BP 118/66
[2020-12-28] MEDS: ZOLPIDEM TARTRATE 10 MG TABLET PO PRN (21:10)
[2020-12-29] MEDS: PHENYTOIN SODIUM 100 MG ER CAPSULE PO SCH ×3 (00:46→16:07)
[2020-12-29 04:57] VITALS: BP 117/62
[2020-12-29] MEDS: LEVOTHYROXINE SODIUM 50 MCG TABLET PO SCH (06:24)
[2020-12-29 08:39] VITALS: BP 105/66
[2020-12-29] MEDS: OMEPRAZOLE 20 MG CAPSULE PO SCH (08:48)
[2020-12-29] MEDS: VALPROIC ACID 250 MG CAPSULE PO SCH (08:48)
[2020-12-29] MEDS: LevETIRAcetam 500 MG TABLET PO SCH ×2 (08:48→16:07)
[2020-12-29] MEDS: NICOTINE 14 MG/24 HOUR PATCH TD SCH (08:48)
[2020-12-29] MEDS: QUEtiapine FUMARATE 300 MG TABLET PO SCH ×3 (08:48→20:41)
[2020-12-29] MEDS: LORazepam 2 MG TABLET PO PRN ×2 (09:38→16:07)
[2020-12-29] MEDS: OLANZapine 5 MG RAPDIS TABLET PO PRN (09:38)
[2020-12-29 16:26] VITALS: BP 109/70
[2020-12-29] MEDS: VALPROIC ACID 250 MG/5 ML SOLUTION UDCUP PO SCH (20:41)
[2020-12-29] MEDS: ZOLPIDEM TARTRATE 10 MG TABLET PO PRN (20:41)
[2020-12-30] MEDS: PHENYTOIN SODIUM 100 MG ER CAPSULE PO SCH ×3 (01:16→16:55)
[2020-12-30 06:19] VITALS: BP 107/60
[2020-12-30] MEDS: LEVOTHYROXINE SODIUM 50 MCG TABLET PO SCH (06:20)
[2020-12-30] MEDS: OLANZapine 5 MG RAPDIS TABLET PO PRN ×2 (08:32→13:42)
[2020-12-30] MEDS: LevETIRAcetam 500 MG TABLET PO SCH ×2 (08:32→17:24)
[2020-12-30] MEDS: VALPROIC ACID 250 MG/5 ML SOLUTION UDCUP PO SCH ×2 (08:32→20:54)
[2020-12-30] MEDS: QUEtiapine FUMARATE 300 MG TABLET PO SCH ×3 (08:33→20:52)
[2020-12-30] MEDS: LORazepam 2 MG TABLET PO PRN ×2 (08:33→13:41)
[2020-12-30] MEDS: NICOTINE 14 MG/24 HOUR PATCH TD SCH (08:33)
[2020-12-30] MEDS: OMEPRAZOLE 20 MG CAPSULE PO SCH (08:33)
[2020-12-30 08:39] VITALS: BP 112/65
[2020-12-30] MEDS: TraMADol HCL 50 MG TABLET PO PRN (09:10)
[2020-12-30 16:57] VITALS: BP 94/65
[2020-12-31] MEDS: PHENYTOIN SODIUM 100 MG ER CAPSULE PO SCH ×3 (00:47→17:01)
[2020-12-31 05:40] VITALS: BP 110/60
[2020-12-31] MEDS: LEVOTHYROXINE SODIUM 50 MCG TABLET PO SCH (06:25)
[2020-12-31] MEDS: VALPROIC ACID 250 MG/5 ML SOLUTION UDCUP PO SCH ×2 (08:37→21:33)
[2020-12-31] MEDS: NICOTINE 14 MG/24 HOUR PATCH TD SCH (08:38)
[2020-12-31] MEDS: LORazepam 2 MG TABLET PO PRN ×2 (08:38→16:15)
[2020-12-31] MEDS: QUEtiapine FUMARATE 300 MG TABLET PO SCH ×3 (08:38→21:33)
[2020-12-31] MEDS: LevETIRAcetam 500 MG TABLET PO SCH ×2 (08:38→17:01)
[2020-12-31] MEDS: OMEPRAZOLE 20 MG CAPSULE PO SCH (08:38)
[2020-12-31 09:03] VITALS: BP 111/70
[2020-12-31] MEDS: TraMADol HCL 50 MG TABLET PO PRN (11:24)
[2020-12-31] MEDS ORDERED: DiphenhydrAMINE HCL 50 MG/ML VIAL ONE (16:12)
[2020-12-31] MEDS ORDERED: DiphenhydrAMINE HCL 50 MG/ML VIAL IM ONE (16:15)
[2020-12-31] MEDS ORDERED: ChlorproMAZINE HCL 50 MG/2 ML AMP IM ONE (16:15)
[2020-12-31 16:50] VITALS: BP 113/62
[2021-01-01] MEDS: PHENYTOIN SODIUM 100 MG ER CAPSULE PO SCH ×3 (00:51→16:14)
[2021-01-01 05:58] VITALS: BP 100/59
[2021-01-01] MEDS: LEVOTHYROXINE SODIUM 50 MCG TABLET PO SCH (06:27)
[2021-01-01] MEDS: LORazepam 2 MG TABLET PO PRN ×2 (08:00→18:27)
[2021-01-01] MEDS: OLANZapine 5 MG RAPDIS TABLET PO PRN ×2 (08:00→18:27)
[2021-01-01] MEDS: LevETIRAcetam 500 MG TABLET PO SCH ×2 (08:51→16:14)
[2021-01-01] MEDS: VALPROIC ACID 250 MG/5 ML SOLUTION UDCUP PO SCH ×2 (08:51→20:44)
[2021-01-01] MEDS: OMEPRAZOLE 20 MG CAPSULE PO SCH (08:51)
[2021-01-01] MEDS: QUEtiapine FUMARATE 300 MG TABLET PO SCH ×3 (08:51→20:44)
[2021-01-01] MEDS: NICOTINE 14 MG/24 HOUR PATCH TD SCH (08:52)
[2021-01-01 09:32] VITALS: BP 120/70
[2021-01-01] MEDS: TraMADol HCL 50 MG TABLET PO PRN (14:50)
[2021-01-01 16:25] VITALS: BP 103/64
[2021-01-01] MEDS: MAGNESIUM HYDROXIDE SUSPENSION 30 ML UDCUP PO PRN (16:32)
[2021-01-01] MEDS: ZOLPIDEM TARTRATE 10 MG TABLET PO PRN (20:53)
[2021-01-02] MEDS: PHENYTOIN SODIUM 100 MG ER CAPSULE PO SCH ×3 (01:03→16:14)
[2021-01-02 04:20] VITALS: BP 111/64
[2021-01-02] MEDS: LEVOTHYROXINE SODIUM 50 MCG TABLET PO SCH (06:19)
[2021-01-02] MEDS: OLANZapine 5 MG RAPDIS TABLET PO PRN (08:30)
[2021-01-02] MEDS: LORazepam 2 MG TABLET PO PRN ×2 (08:30→16:14)
[2021-01-02 08:48] VITALS: BP 100/59
[2021-01-02] MEDS: OMEPRAZOLE 20 MG CAPSULE PO SCH (08:48)
[2021-01-02] MEDS: NICOTINE 14 MG/24 HOUR PATCH TD SCH (08:49)
[2021-01-02] MEDS: LevETIRAcetam 500 MG TABLET PO SCH ×2 (08:49→16:14)
[2021-01-02] MEDS: QUEtiapine FUMARATE 300 MG TABLET PO SCH ×3 (08:49→20:04)
[2021-01-02] MEDS: VALPROIC ACID 250 MG/5 ML SOLUTION UDCUP PO SCH ×2 (08:49→20:04)
[2021-01-02] MEDS: TraMADol HCL 50 MG TABLET PO PRN (09:00)
[2021-01-02 16:24] VITALS: BP 136/80
[2021-01-02] MEDS: ZOLPIDEM TARTRATE 10 MG TABLET PO PRN (20:04)
[2021-01-03] MEDS: PHENYTOIN SODIUM 100 MG ER CAPSULE PO SCH ×3 (00:23→16:01)
[2021-01-03] MEDS: LEVOTHYROXINE SODIUM 50 MCG TABLET PO SCH (06:45)
[2021-01-03] MEDS: OMEPRAZOLE 20 MG CAPSULE PO SCH (08:24)
[2021-01-03] MEDS: NICOTINE 14 MG/24 HOUR PATCH TD SCH (08:24)
[2021-01-03] MEDS: QUEtiapine FUMARATE 300 MG TABLET PO SCH ×3 (08:24→20:54)
[2021-01-03] MEDS: LevETIRAcetam 500 MG TABLET PO SCH ×2 (08:24→16:01)
[2021-01-03] MEDS: VALPROIC ACID 250 MG/5 ML SOLUTION UDCUP PO SCH ×2 (08:24→20:54)
[2021-01-03] MEDS: LORazepam 2 MG TABLET PO PRN ×3 (08:25→16:50)
[2021-01-03 08:59] VITALS: BP 116/68
[2021-01-03] MEDS: TraMADol HCL 50 MG TABLET PO PRN (09:47)
[2021-01-03] MEDS: MAGNESIUM HYDROXIDE SUSPENSION 30 ML UDCUP PO PRN (12:04)
[2021-01-03] MEDS: OLANZapine 5 MG RAPDIS TABLET PO PRN (12:32)
[2021-01-03 16:56] VITALS: BP 108/62
[2021-01-03] MEDS: ZOLPIDEM TARTRATE 10 MG TABLET PO PRN (20:54)
[2021-01-04] MEDS: PHENYTOIN SODIUM 100 MG ER CAPSULE PO SCH ×4 (00:41→23:46)
[2021-01-04 04:03] VITALS: BP 117/71
[2021-01-04] MEDS: LEVOTHYROXINE SODIUM 50 MCG TABLET PO SCH (06:03)
[2021-01-04] MEDS: OMEPRAZOLE 20 MG CAPSULE PO SCH (08:28)
[2021-01-04] MEDS: VALPROIC ACID 250 MG/5 ML SOLUTION UDCUP PO SCH ×2 (08:28→20:23)
[2021-01-04] MEDS: NICOTINE 14 MG/24 HOUR PATCH TD SCH (08:28)
[2021-01-04] MEDS: LevETIRAcetam 500 MG TABLET PO SCH ×2 (08:29→16:40)
[2021-01-04] MEDS: QUEtiapine FUMARATE 300 MG TABLET PO SCH ×3 (08:29→20:21)
[2021-01-04] MEDS: LORazepam 2 MG TABLET PO PRN (08:29)
[2021-01-04 08:44] VITALS: BP 123/75
[2021-01-04] MEDS: TraMADol HCL 50 MG TABLET PO PRN (09:30)
[2021-01-04 16:31] VITALS: BP 106/69
[2021-01-04] MEDS: ZOLPIDEM TARTRATE 10 MG TABLET PO PRN (20:21)
[2021-01-05 00:37] VITALS: BP 125/69
[2021-01-05] MEDS: LEVOTHYROXINE SODIUM 50 MCG TABLET PO SCH (07:04)
[2021-01-05] MEDS: LORazepam 2 MG TABLET PO PRN (08:05)
[2021-01-05] MEDS: OLANZapine 5 MG RAPDIS TABLET PO PRN (08:05)
[2021-01-05] MEDS: NICOTINE 14 MG/24 HOUR PATCH TD SCH (08:58)
[2021-01-05] MEDS: LevETIRAcetam 500 MG TABLET PO SCH ×2 (08:58→16:36)
[2021-01-05] MEDS: VALPROIC ACID 250 MG/5 ML SOLUTION UDCUP PO SCH ×2 (08:58→20:56)
[2021-01-05] MEDS: QUEtiapine FUMARATE 300 MG TABLET PO SCH ×3 (08:58→20:55)
[2021-01-05] MEDS: OMEPRAZOLE 20 MG CAPSULE PO SCH (08:58)
[2021-01-05] MEDS: PHENYTOIN SODIUM 100 MG ER CAPSULE PO SCH ×2 (08:58→16:31)
[2021-01-05 09:08] VITALS: BP 112/69
[2021-01-05] MEDS: MAGNESIUM HYDROXIDE SUSPENSION 30 ML UDCUP PO PRN (09:40)
[2021-01-05] MEDS: TraMADol HCL 50 MG TABLET PO PRN (09:40)
[2021-01-05 16:35] VITALS: BP 108/63
[2021-01-05] MEDS: ZOLPIDEM TARTRATE 10 MG TABLET PO PRN (20:55)
[2021-01-06] MEDS: PHENYTOIN SODIUM 100 MG ER CAPSULE PO SCH ×3 (00:28→16:34)
[2021-01-06] MEDS: LEVOTHYROXINE SODIUM 50 MCG TABLET PO SCH (07:01)
[2021-01-06 07:10] VITALS: BP 118/70
[2021-01-06 08:17] VITALS: BP 108/69
[2021-01-06] MEDS: OLANZapine 5 MG RAPDIS TABLET PO PRN ×2 (08:19→17:20)
[2021-01-06] MEDS: LevETIRAcetam 500 MG TABLET PO SCH ×2 (08:19→16:34)
[2021-01-06] MEDS: QUEtiapine FUMARATE 300 MG TABLET PO SCH ×3 (08:19→20:28)
[2021-01-06] MEDS: OMEPRAZOLE 20 MG CAPSULE PO SCH (08:20)
[2021-01-06] MEDS: LORazepam 2 MG TABLET PO PRN ×2 (08:20→16:34)
[2021-01-06] MEDS: VALPROIC ACID 250 MG/5 ML SOLUTION UDCUP PO SCH ×2 (08:21→20:28)
[2021-01-06] MEDS: NICOTINE 14 MG/24 HOUR PATCH TD SCH (09:00)
[2021-01-06] MEDS: TraMADol HCL 50 MG TABLET PO PRN ×2 (12:31→16:41)
[2021-01-06 16:27] VITALS: BP 110/72
[2021-01-06] MEDS: ZOLPIDEM TARTRATE 10 MG TABLET PO PRN (20:28)
[2021-01-07] MEDS: PHENYTOIN SODIUM 100 MG ER CAPSULE PO SCH ×4 (01:25→23:58)
[2021-01-07] MEDS: LEVOTHYROXINE SODIUM 50 MCG TABLET PO SCH (07:05)
[2021-01-07] MEDS: OMEPRAZOLE 20 MG CAPSULE PO SCH (08:34)
[2021-01-07] MEDS: VALPROIC ACID 250 MG/5 ML SOLUTION UDCUP PO SCH ×2 (08:35→20:53)
[2021-01-07] MEDS: LevETIRAcetam 500 MG TABLET PO SCH ×2 (08:35→16:06)
[2021-01-07] MEDS: QUEtiapine FUMARATE 300 MG TABLET PO SCH ×3 (08:35→20:53)
[2021-01-07] MEDS: LORazepam 2 MG TABLET PO PRN ×2 (08:35→16:06)
[2021-01-07] MEDS: NICOTINE 14 MG/24 HOUR PATCH TD SCH (09:04)
[2021-01-07 09:16] VITALS: BP 112/71
[2021-01-07] MEDS: TraMADol HCL 50 MG TABLET PO PRN (13:48)
[2021-01-07] MEDS: OLANZapine 5 MG RAPDIS TABLET PO PRN (15:37)
[2021-01-07 16:26] VITALS: BP 103/68
[2021-01-07] MEDS: ZOLPIDEM TARTRATE 10 MG TABLET PO PRN (20:53)
[2021-01-08] MEDS: LEVOTHYROXINE SODIUM 50 MCG TABLET PO SCH (07:07)
[2021-01-08] MEDS: PHENYTOIN SODIUM 100 MG ER CAPSULE PO SCH ×2 (08:13→16:25)
[2021-01-08] MEDS: VALPROIC ACID 250 MG/5 ML SOLUTION UDCUP PO SCH ×2 (08:13→21:10)
[2021-01-08] MEDS: QUEtiapine FUMARATE 300 MG TABLET PO SCH ×3 (08:13→21:10)
[2021-01-08] MEDS: LevETIRAcetam 500 MG TABLET PO SCH ×2 (08:13→16:25)
[2021-01-08] MEDS: NICOTINE 14 MG/24 HOUR PATCH TD SCH (08:13)
[2021-01-08] MEDS: OMEPRAZOLE 20 MG CAPSULE PO SCH (08:13)
[2021-01-08] MEDS: LORazepam 2 MG TABLET PO PRN ×2 (08:14→16:25)
[2021-01-08 08:48] VITALS: BP 119/75
[2021-01-08] MEDS: PALIPERIDONE PALMITATE 234 MG/1.5 ML SYRINGE IM SCH (12:29)
[2021-01-08] MEDS: OLANZapine 5 MG RAPDIS TABLET PO PRN (16:25)
[2021-01-08] MEDS: TRETINOIN 0.1% TP SCH (17:00)
[2021-01-08 17:43] VITALS: BP 119/73
[2021-01-08] MEDS: ZOLPIDEM TARTRATE 10 MG TABLET PO PRN (21:12)
[2021-01-09] MEDS: PHENYTOIN SODIUM 100 MG ER CAPSULE PO SCH ×3 (00:04→16:13)
[2021-01-09 06:29] VITALS: BP 99/60
[2021-01-09] MEDS: LEVOTHYROXINE SODIUM 50 MCG TABLET PO SCH (06:49)
[2021-01-09] MEDS: VALPROIC ACID 250 MG/5 ML SOLUTION UDCUP PO SCH ×2 (08:04→20:24)
[2021-01-09] MEDS: OMEPRAZOLE 20 MG CAPSULE PO SCH (08:04)
[2021-01-09] MEDS: QUEtiapine FUMARATE 300 MG TABLET PO SCH ×3 (08:04→20:23)
[2021-01-09] MEDS: NICOTINE 14 MG/24 HOUR PATCH TD SCH (08:04)
[2021-01-09] MEDS: LevETIRAcetam 500 MG TABLET PO SCH ×2 (08:04→16:13)
[2021-01-09] MEDS: LORazepam 2 MG TABLET PO PRN ×3 (08:05→17:43)
[2021-01-09] MEDS: TRETINOIN 0.1% TP SCH ×2 (08:11→16:13)
[2021-01-09 09:24] VITALS: BP 110/72
[2021-01-09] MEDS: TraMADol HCL 50 MG TABLET PO PRN (09:48)
[2021-01-09 17:48] VITALS: BP 107/67
[2021-01-09] MEDS: ZOLPIDEM TARTRATE 10 MG TABLET PO PRN (20:32)
[2021-01-10] MEDS: PHENYTOIN SODIUM 100 MG ER CAPSULE PO SCH ×5 (00:10→23:49)
[2021-01-10 05:34] VITALS: BP 112/73
[2021-01-10] MEDS: LEVOTHYROXINE SODIUM 50 MCG TABLET PO SCH (06:05)
[2021-01-10] MEDS: OMEPRAZOLE 20 MG CAPSULE PO SCH (08:08)
[2021-01-10] MEDS: VALPROIC ACID 250 MG/5 ML SOLUTION UDCUP PO SCH ×2 (08:08→20:31)
[2021-01-10] MEDS: QUEtiapine FUMARATE 300 MG TABLET PO SCH ×3 (08:08→20:31)
[2021-01-10] MEDS: LevETIRAcetam 500 MG TABLET PO SCH ×2 (08:08→16:19)
[2021-01-10] MEDS: NICOTINE 14 MG/24 HOUR PATCH TD SCH (08:09)
[2021-01-10] MEDS: TRETINOIN 0.1% TP SCH ×2 (08:14→16:20)
[2021-01-10] MEDS: LORazepam 2 MG TABLET PO PRN ×2 (09:35→16:19)
[2021-01-10] MEDS: OLANZapine 5 MG RAPDIS TABLET PO PRN (12:37)
[2021-01-10] MEDS: TraMADol HCL 50 MG TABLET PO PRN (13:28)
[2021-01-10 16:34] VITALS: BP 115/75
[2021-01-10] MEDS: ZOLPIDEM TARTRATE 10 MG TABLET PO PRN (20:31)
[2021-01-11 06:13] VITALS: BP 118/72
[2021-01-11] MEDS: LEVOTHYROXINE SODIUM 50 MCG TABLET PO SCH (06:14)
[2021-01-11] MEDS: OMEPRAZOLE 20 MG CAPSULE PO SCH (08:34)
[2021-01-11] MEDS: LevETIRAcetam 500 MG TABLET PO SCH ×2 (08:35→16:10)
[2021-01-11] MEDS: PHENYTOIN SODIUM 100 MG ER CAPSULE PO SCH ×2 (08:35→16:10)
[2021-01-11] MEDS: VALPROIC ACID 250 MG/5 ML SOLUTION UDCUP PO SCH ×2 (08:35→20:38)
[2021-01-11] MEDS: QUEtiapine FUMARATE 300 MG TABLET PO SCH ×3 (08:35→20:37)
[2021-01-11] MEDS: NICOTINE 14 MG/24 HOUR PATCH TD SCH (08:36)
[2021-01-11] MEDS: TRETINOIN 0.1% TP SCH ×2 (09:00→16:10)
[2021-01-11 09:08] VITALS: BP 105/67
[2021-01-11] MEDS: LORazepam 2 MG TABLET PO PRN ×2 (12:16→16:34)
[2021-01-11 16:30] VITALS: BP 110/74
[2021-01-11] MEDS: ZOLPIDEM TARTRATE 10 MG TABLET PO PRN (20:38)
[2021-01-12 01:16] VITALS: BP 118/85
[2021-01-12] MEDS: PHENYTOIN SODIUM 100 MG ER CAPSULE PO SCH ×3 (03:17→16:26)
[2021-01-12] MEDS: LEVOTHYROXINE SODIUM 50 MCG TABLET PO SCH (06:41)
[2021-01-12] MEDS: OMEPRAZOLE 20 MG CAPSULE PO SCH (07:58)
[2021-01-12] MEDS: NICOTINE 14 MG/24 HOUR PATCH TD SCH (07:58)
[2021-01-12] MEDS: QUEtiapine FUMARATE 300 MG TABLET PO SCH ×3 (07:58→20:12)
[2021-01-12] MEDS: VALPROIC ACID 250 MG/5 ML SOLUTION UDCUP PO SCH ×2 (07:58→20:13)
[2021-01-12] MEDS: LevETIRAcetam 500 MG TABLET PO SCH ×2 (07:58→16:27)
[2021-01-12] MEDS: LORazepam 2 MG TABLET PO PRN ×2 (07:58→13:29)
[2021-01-12] MEDS: TRETINOIN 0.1% TP SCH ×2 (08:53→16:27)
[2021-01-12 08:56] VITALS: BP 147/87
[2021-01-12] MEDS: TraMADol HCL 50 MG TABLET PO PRN (12:28)
[2021-01-12 16:35] VITALS: BP 115/77
[2021-01-12] MEDS: ZOLPIDEM TARTRATE 10 MG TABLET PO PRN (20:13)
[2021-01-13] MEDS: PHENYTOIN SODIUM 100 MG ER CAPSULE PO SCH ×3 (00:35→16:03)
[2021-01-13 06:36] VITALS: BP 109/67
[2021-01-13] MEDS: LEVOTHYROXINE SODIUM 50 MCG TABLET PO SCH (06:39)
[2021-01-13 08:30] VITALS: BP 121/72
[2021-01-13] MEDS: LevETIRAcetam 500 MG TABLET PO SCH ×2 (08:57→16:03)
[2021-01-13] MEDS: QUEtiapine FUMARATE 300 MG TABLET PO SCH ×3 (08:58→20:01)
[2021-01-13] MEDS: TRETINOIN 0.1% TP SCH ×2 (08:58→17:01)
[2021-01-13] MEDS: OMEPRAZOLE 20 MG CAPSULE PO SCH (08:58)
[2021-01-13] MEDS: NICOTINE 14 MG/24 HOUR PATCH TD SCH (09:22)
[2021-01-13] MEDS: VALPROIC ACID 250 MG/5 ML SOLUTION UDCUP PO SCH ×2 (09:23→20:01)
[2021-01-13] MEDS: LORazepam 2 MG TABLET PO PRN ×2 (09:26→17:26)
[2021-01-13 16:40] VITALS: BP 108/72
[2021-01-13] MEDS: TraMADol HCL 50 MG TABLET PO PRN (17:26)
[2021-01-13] MEDS: OLANZapine 5 MG RAPDIS TABLET PO PRN (17:26)
[2021-01-14] MEDS: PHENYTOIN SODIUM 100 MG ER CAPSULE PO SCH ×3 (00:34→16:34)
[2021-01-14 06:20] VITALS: BP 101/60
[2021-01-14] MEDS: LEVOTHYROXINE SODIUM 50 MCG TABLET PO SCH (06:34)
[2021-01-14 08:22] VITALS: BP 106/67
[2021-01-14] MEDS: QUEtiapine FUMARATE 300 MG TABLET PO SCH ×3 (08:47→20:16)
[2021-01-14] MEDS: OMEPRAZOLE 20 MG CAPSULE PO SCH (08:47)
[2021-01-14] MEDS: VALPROIC ACID 250 MG/5 ML SOLUTION UDCUP PO SCH ×2 (08:47→20:16)
[2021-01-14] MEDS: LevETIRAcetam 500 MG TABLET PO SCH ×2 (08:47→16:34)
[2021-01-14] MEDS: NICOTINE 14 MG/24 HOUR PATCH TD SCH (08:47)
[2021-01-14] MEDS: LORazepam 2 MG TABLET PO PRN ×2 (08:48→15:43)
[2021-01-14] MEDS: TRETINOIN 0.1% TP SCH ×2 (08:56→16:35)
[2021-01-14] MEDS: OLANZapine 5 MG RAPDIS TABLET PO PRN (15:43)
[2021-01-14] MEDS: TraMADol HCL 50 MG TABLET PO PRN (15:45)
[2021-01-14 17:42] VITALS: BP 109/72
[2021-01-15] MEDS: PHENYTOIN SODIUM 100 MG ER CAPSULE PO SCH ×3 (00:25→16:14)
[2021-01-15 05:26] VITALS: BP 110/72
[2021-01-15] MEDS: LEVOTHYROXINE SODIUM 50 MCG TABLET PO SCH (06:31)
[2021-01-15] MEDS: TRETINOIN 0.1% TP SCH ×2 (08:02→17:00)
[2021-01-15] MEDS: LevETIRAcetam 500 MG TABLET PO SCH ×2 (08:02→16:14)
[2021-01-15] MEDS: QUEtiapine FUMARATE 300 MG TABLET PO SCH ×3 (08:02→20:55)
[2021-01-15] MEDS: VALPROIC ACID 250 MG/5 ML SOLUTION UDCUP PO SCH ×2 (08:02→20:55)
[2021-01-15] MEDS: OMEPRAZOLE 20 MG CAPSULE PO SCH (08:02)
[2021-01-15] MEDS: NICOTINE 14 MG/24 HOUR PATCH TD SCH (08:02)
[2021-01-15] MEDS: LORazepam 2 MG TABLET PO PRN ×3 (08:03→20:55)
[2021-01-15 08:25] VITALS: BP 152/97
[2021-01-15] MEDS: TraMADol HCL 50 MG TABLET PO PRN (14:22)
[2021-01-15 16:58] VITALS: BP 112/73
[2021-01-16] MEDS: PHENYTOIN SODIUM 100 MG ER CAPSULE PO SCH ×3 (00:20→16:01)
[2021-01-16 04:53] VITALS: BP 116/81
[2021-01-16] MEDS: LEVOTHYROXINE SODIUM 50 MCG TABLET PO SCH (06:29)
[2021-01-16] MEDS: NICOTINE 14 MG/24 HOUR PATCH TD SCH (08:29)
[2021-01-16] MEDS: OMEPRAZOLE 20 MG CAPSULE PO SCH (08:30)
[2021-01-16] MEDS: VALPROIC ACID 250 MG/5 ML SOLUTION UDCUP PO SCH ×2 (08:30→20:29)
[2021-01-16] MEDS: LevETIRAcetam 500 MG TABLET PO SCH ×2 (08:30→16:02)
[2021-01-16] MEDS: QUEtiapine FUMARATE 300 MG TABLET PO SCH ×3 (08:31→20:29)
[2021-01-16] MEDS: LORazepam 2 MG TABLET PO PRN ×2 (08:33→16:01)
[2021-01-16 08:43] VITALS: BP 101/68
[2021-01-16] MEDS: TRETINOIN 0.1% TP SCH ×2 (09:00→16:09)
[2021-01-16] MEDS: TraMADol HCL 50 MG TABLET PO PRN (16:01)
[2021-01-16 16:20] VITALS: BP 107/66
[2021-01-16] MEDS: ZOLPIDEM TARTRATE 10 MG TABLET PO PRN (20:29)
[2021-01-17] MEDS: PHENYTOIN SODIUM 100 MG ER CAPSULE PO SCH ×3 (00:02→16:06)
[2021-01-17 06:07] VITALS: BP 108/66
[2021-01-17] MEDS: LEVOTHYROXINE SODIUM 50 MCG TABLET PO SCH (06:31)
[2021-01-17] MEDS: NICOTINE 14 MG/24 HOUR PATCH TD SCH (08:13)
[2021-01-17] MEDS: LevETIRAcetam 500 MG TABLET PO SCH ×2 (08:14→16:07)
[2021-01-17] MEDS: VALPROIC ACID 250 MG/5 ML SOLUTION UDCUP PO SCH ×2 (08:14→20:40)
[2021-01-17] MEDS: OMEPRAZOLE 20 MG CAPSULE PO SCH (08:14)
[2021-01-17] MEDS: QUEtiapine FUMARATE 300 MG TABLET PO SCH ×3 (08:14→20:40)
[2021-01-17] MEDS: TRETINOIN 0.1% TP SCH ×2 (08:15→16:07)
[2021-01-17 09:02] VITALS: BP 127/85
[2021-01-17] MEDS: LORazepam 2 MG TABLET PO PRN ×2 (10:07→16:07)
[2021-01-17] MEDS: TraMADol HCL 50 MG TABLET PO PRN ×2 (10:22→18:10)
[2021-01-17 16:32] VITALS: BP 102/64
[2021-01-17] MEDS: ZOLPIDEM TARTRATE 10 MG TABLET PO PRN (20:40)
[2021-01-18] MEDS: LEVOTHYROXINE SODIUM 50 MCG TABLET PO SCH (06:38)
[2021-01-18 06:41] VITALS: BP 120/75
[2021-01-18] MEDS: LevETIRAcetam 500 MG TABLET PO SCH ×2 (08:06→16:00)
[2021-01-18] MEDS: OMEPRAZOLE 20 MG CAPSULE PO SCH (08:06)
[2021-01-18] MEDS: PHENYTOIN SODIUM 100 MG ER CAPSULE PO SCH ×3 (08:06→16:00)
[2021-01-18] MEDS: VALPROIC ACID 250 MG/5 ML SOLUTION UDCUP PO SCH ×2 (08:06→20:33)
[2021-01-18] MEDS: QUEtiapine FUMARATE 300 MG TABLET PO SCH ×3 (08:07→20:33)
[2021-01-18] MEDS: LORazepam 2 MG TABLET PO PRN ×3 (08:07→20:33)
[2021-01-18] MEDS: NICOTINE 14 MG/24 HOUR PATCH TD SCH (08:07)
[2021-01-18] MEDS: TRETINOIN 0.1% TP SCH ×2 (08:11→16:02)
[2021-01-18 08:44] VITALS: BP 108/70
[2021-01-18] MEDS: TraMADol HCL 50 MG TABLET PO PRN (14:16)
[2021-01-18 16:20] VITALS: BP 115/80
[2021-01-18] MEDS: ZOLPIDEM TARTRATE 10 MG TABLET PO PRN (20:33)
[2021-01-19] MEDS: PHENYTOIN SODIUM 100 MG ER CAPSULE PO SCH ×3 (00:44→16:05)
[2021-01-19] MEDS: LEVOTHYROXINE SODIUM 50 MCG TABLET PO SCH (06:28)
[2021-01-19] MEDS: OMEPRAZOLE 20 MG CAPSULE PO SCH (09:03)
[2021-01-19] MEDS: LevETIRAcetam 500 MG TABLET PO SCH ×2 (09:03→16:05)
[2021-01-19] MEDS: QUEtiapine FUMARATE 300 MG TABLET PO SCH ×3 (09:03→20:41)
[2021-01-19] MEDS: VALPROIC ACID 250 MG/5 ML SOLUTION UDCUP PO SCH ×2 (09:03→20:43)
[2021-01-19] MEDS: NICOTINE 14 MG/24 HOUR PATCH TD SCH (09:04)
[2021-01-19] MEDS: TRETINOIN 0.1% TP SCH ×2 (09:05→16:05)
[2021-01-19 09:18] VITALS: BP 112/76
[2021-01-19] MEDS: LORazepam 2 MG TABLET PO PRN ×2 (09:41→17:19)
[2021-01-19 16:03] VITALS: BP 107/67
[2021-01-19] MEDS: TraMADol HCL 50 MG TABLET PO PRN (16:03)
[2021-01-19 17:14] VITALS: BP 107/67
[2021-01-19] MEDS: MAGNESIUM HYDROXIDE SUSPENSION 30 ML UDCUP PO PRN (20:45)
[2021-01-19] MEDS: ZOLPIDEM TARTRATE 10 MG TABLET PO PRN (20:50)
[2021-01-20] MEDS: PHENYTOIN SODIUM 100 MG ER CAPSULE PO SCH ×3 (00:25→16:01)
[2021-01-20] MEDS: LEVOTHYROXINE SODIUM 50 MCG TABLET PO SCH (06:17)
[2021-01-20 06:29] VITALS: BP 110/76
[2021-01-20 08:20] VITALS: BP 114/63
[2021-01-20] MEDS: QUEtiapine FUMARATE 300 MG TABLET PO SCH ×3 (08:31→20:46)
[2021-01-20] MEDS: VALPROIC ACID 250 MG/5 ML SOLUTION UDCUP PO SCH ×2 (08:31→20:46)
[2021-01-20] MEDS: NICOTINE 14 MG/24 HOUR PATCH TD SCH (08:32)
[2021-01-20] MEDS: OMEPRAZOLE 20 MG CAPSULE PO SCH (08:32)
[2021-01-20] MEDS: LevETIRAcetam 500 MG TABLET PO SCH ×2 (08:32→16:01)
[2021-01-20] MEDS: TRETINOIN 0.1% TP SCH ×2 (08:45→16:32)
[2021-01-20] MEDS: LORazepam 2 MG TABLET PO PRN ×2 (10:08→16:01)
[2021-01-20] MEDS: TraMADol HCL 50 MG TABLET PO PRN (11:42)
[2021-01-20] MEDS: OLANZapine 5 MG RAPDIS TABLET PO PRN (13:28)
[2021-01-20 16:16] VITALS: BP 110/67
[2021-01-20] MEDS: ZOLPIDEM TARTRATE 10 MG TABLET PO PRN (20:46)
[2021-01-21] MEDS: PHENYTOIN SODIUM 100 MG ER CAPSULE PO SCH ×3 (00:45→16:04)
[2021-01-21 06:24] VITALS: BP 112/68
[2021-01-21] MEDS: LEVOTHYROXINE SODIUM 50 MCG TABLET PO SCH (06:35)
[2021-01-21] MEDS: QUEtiapine FUMARATE 300 MG TABLET PO SCH ×3 (08:18→20:28)
[2021-01-21] MEDS: VALPROIC ACID 250 MG/5 ML SOLUTION UDCUP PO SCH ×2 (08:18→20:28)
[2021-01-21] MEDS: LORazepam 2 MG TABLET PO PRN ×2 (08:18→15:06)
[2021-01-21] MEDS: LevETIRAcetam 500 MG TABLET PO SCH ×2 (08:18→16:04)
[2021-01-21] MEDS: NICOTINE 14 MG/24 HOUR PATCH TD SCH (08:18)
[2021-01-21] MEDS: OMEPRAZOLE 20 MG CAPSULE PO SCH (08:18)
[2021-01-21] MEDS: TRETINOIN 0.1% TP SCH ×2 (08:19→16:05)
[2021-01-21 09:22] VITALS: BP 133/88
[2021-01-21 16:50] VITALS: BP 111/73
[2021-01-21] MEDS: TraMADol HCL 50 MG TABLET PO PRN (16:50)
[2021-01-21] MEDS: ZOLPIDEM TARTRATE 10 MG TABLET PO PRN (20:28)
[2021-01-22] MEDS: PHENYTOIN SODIUM 100 MG ER CAPSULE PO SCH ×3 (00:19→15:41)
[2021-01-22 05:06] VITALS: BP 126/72
[2021-01-22] MEDS: LEVOTHYROXINE SODIUM 50 MCG TABLET PO SCH (07:15)
[2021-01-22] MEDS: NICOTINE 14 MG/24 HOUR PATCH TD SCH (08:21)
[2021-01-22] MEDS: VALPROIC ACID 250 MG/5 ML SOLUTION UDCUP PO SCH ×2 (08:21→20:50)
[2021-01-22] MEDS: QUEtiapine FUMARATE 300 MG TABLET PO SCH ×3 (08:22→20:49)
[2021-01-22] MEDS: OMEPRAZOLE 20 MG CAPSULE PO SCH (08:22)
[2021-01-22] MEDS: OLANZapine 5 MG RAPDIS TABLET PO PRN ×3 (08:22→16:37)
[2021-01-22] MEDS: LevETIRAcetam 500 MG TABLET PO SCH ×2 (08:22→16:37)
[2021-01-22] MEDS: TRETINOIN 0.1% TP SCH ×2 (08:28→16:38)
[2021-01-22 08:29] VITALS: BP 128/78
[2021-01-22] MEDS: LORazepam 2 MG TABLET PO PRN ×2 (09:52→15:41)
[2021-01-22] MEDS: TraMADol HCL 50 MG TABLET PO PRN (09:52)
[2021-01-22 16:19] VITALS: BP 112/72
[2021-01-22] MEDS: ZOLPIDEM TARTRATE 10 MG TABLET PO PRN (20:49)
[2021-01-23 06:36] VITALS: BP 110/68
[2021-01-23] MEDS: LEVOTHYROXINE SODIUM 50 MCG TABLET PO SCH (06:37)
[2021-01-23] MEDS: LORazepam 2 MG TABLET PO PRN ×3 (08:00→16:41)
[2021-01-23] MEDS: OLANZapine 5 MG RAPDIS TABLET PO PRN ×3 (08:00→16:41)
[2021-01-23] MEDS: TraMADol HCL 50 MG TABLET PO PRN (08:00)
[2021-01-23 08:40] VITALS: BP 116/72
[2021-01-23] MEDS: PHENYTOIN SODIUM 100 MG ER CAPSULE PO SCH ×3 (08:57→16:41)
[2021-01-23] MEDS: VALPROIC ACID 250 MG/5 ML SOLUTION UDCUP PO SCH ×3 (08:57→21:23)
[2021-01-23] MEDS: LevETIRAcetam 500 MG TABLET PO SCH ×2 (08:57→16:41)
[2021-01-23] MEDS: NICOTINE 14 MG/24 HOUR PATCH TD SCH (08:58)
[2021-01-23] MEDS: QUEtiapine FUMARATE 300 MG TABLET PO SCH ×4 (08:58→21:23)
[2021-01-23] MEDS: TRETINOIN 0.1% TP SCH ×2 (08:58→16:43)
[2021-01-23] MEDS: OMEPRAZOLE 20 MG CAPSULE PO SCH (08:58)
[2021-01-23 15:37] LABS: GLUCOMETER DEV NAME(LOC) POC.BV
[2021-01-23 16:10] VITALS: BP 107/74
[2021-01-24 06:18] VITALS: BP 101/65
[2021-01-24] MEDS: LEVOTHYROXINE SODIUM 50 MCG TABLET PO SCH (06:48)
[2021-01-24] MEDS: TraMADol HCL 50 MG TABLET PO PRN (08:00)
[2021-01-24] MEDS: OLANZapine 5 MG RAPDIS TABLET PO PRN ×2 (08:00→12:00)
[2021-01-24] MEDS: LORazepam 2 MG TABLET PO PRN ×3 (08:00→16:17)
[2021-01-24 08:28] VITALS: BP 131/86
[2021-01-24] MEDS: VALPROIC ACID 250 MG/5 ML SOLUTION UDCUP PO SCH ×2 (09:00→20:47)
[2021-01-24] MEDS: PHENYTOIN SODIUM 100 MG ER CAPSULE PO SCH ×3 (09:00→16:17)
[2021-01-24] MEDS: TRETINOIN 0.1% TP SCH ×2 (09:01→17:00)
[2021-01-24] MEDS: OMEPRAZOLE 20 MG CAPSULE PO SCH (09:01)
[2021-01-24] MEDS: NICOTINE 14 MG/24 HOUR PATCH TD SCH (09:01)
[2021-01-24] MEDS: QUEtiapine FUMARATE 300 MG TABLET PO SCH ×3 (09:01→20:47)
[2021-01-24] MEDS: LevETIRAcetam 500 MG TABLET PO SCH ×2 (09:01→16:17)
[2021-01-24 16:20] VITALS: BP 130/86
[2021-01-24] MEDS: ZOLPIDEM TARTRATE 10 MG TABLET PO PRN (20:47)
[2021-01-25] MEDS: PHENYTOIN SODIUM 100 MG ER CAPSULE PO SCH ×3 (00:12→17:34)
[2021-01-25 06:31] VITALS: BP 106/59
[2021-01-25] MEDS: LEVOTHYROXINE SODIUM 50 MCG TABLET PO SCH (06:38)
[2021-01-25] MEDS: LevETIRAcetam 500 MG TABLET PO SCH ×2 (08:09→17:34)
[2021-01-25] MEDS: NICOTINE 14 MG/24 HOUR PATCH TD SCH (08:09)
[2021-01-25] MEDS: QUEtiapine FUMARATE 300 MG TABLET PO SCH ×3 (08:09→20:17)
[2021-01-25] MEDS: VALPROIC ACID 250 MG/5 ML SOLUTION UDCUP PO SCH ×2 (08:09→20:17)
[2021-01-25] MEDS: LORazepam 2 MG TABLET PO PRN (08:09)
[2021-01-25] MEDS: OMEPRAZOLE 20 MG CAPSULE PO SCH (08:09)
[2021-01-25] MEDS: TRETINOIN 0.1% TP SCH ×2 (08:10→17:00)
[2021-01-25 09:07] VITALS: BP 110/71
[2021-01-25 11:36] LABS: GLUCOMETER DEV NAME(LOC) BV3N.; GLUCOSE,POINT OF CARE 93 MG/DL (70-110)
[2021-01-25] MEDS: TraMADol HCL 50 MG TABLET PO PRN (17:35)
[2021-01-25 18:03] VITALS: BP 119/79
[2021-01-25] MEDS: ZOLPIDEM TARTRATE 10 MG TABLET PO PRN (20:17)
[2021-01-26] MEDS: PHENYTOIN SODIUM 100 MG ER CAPSULE PO SCH ×3 (00:03→17:10)
[2021-01-26 06:34] VITALS: BP 152/95
[2021-01-26] MEDS: LEVOTHYROXINE SODIUM 50 MCG TABLET PO SCH (07:13)
[2021-01-26] MEDS: LORazepam 2 MG TABLET PO PRN ×2 (08:30→17:10)
[2021-01-26] MEDS: OLANZapine 5 MG RAPDIS TABLET PO PRN ×2 (08:30→12:35)
[2021-01-26] MEDS: TraMADol HCL 50 MG TABLET PO PRN (08:30)
[2021-01-26] MEDS: VALPROIC ACID 250 MG/5 ML SOLUTION UDCUP PO SCH ×2 (08:43→20:46)
[2021-01-26] MEDS: NICOTINE 14 MG/24 HOUR PATCH TD SCH (08:44)
[2021-01-26] MEDS: OMEPRAZOLE 20 MG CAPSULE PO SCH (08:44)
[2021-01-26] MEDS: QUEtiapine FUMARATE 300 MG TABLET PO SCH ×3 (08:44→20:46)
[2021-01-26] MEDS: TRETINOIN 0.1% TP SCH ×2 (08:44→17:00)
[2021-01-26] MEDS: LevETIRAcetam 500 MG TABLET PO SCH ×2 (08:44→17:10)
[2021-01-26] MEDS ORDERED: COVID-19 VACCINE,AD26(JANSSEN)(J&J)/PF 0.5 ML VIAL IM. ONE (09:10)
[2021-01-26 16:00] VITALS: BP 118/78
[2021-01-26] MEDS: ZOLPIDEM TARTRATE 10 MG TABLET PO PRN (20:46)
[2021-01-27] MEDS: PHENYTOIN SODIUM 100 MG ER CAPSULE PO SCH ×3 (00:44→16:10)
[2021-01-27 05:05] VITALS: BP 110/55
[2021-01-27] MEDS: LEVOTHYROXINE SODIUM 50 MCG TABLET PO SCH (06:00)
[2021-01-27] MEDS: TraMADol HCL 50 MG TABLET PO PRN (08:00)
[2021-01-27] MEDS: OLANZapine 5 MG RAPDIS TABLET PO PRN ×2 (08:00→15:06)
[2021-01-27] MEDS: LORazepam 2 MG TABLET PO PRN ×2 (08:00→15:06)
[2021-01-27] MEDS: OMEPRAZOLE 20 MG CAPSULE PO SCH (08:36)
[2021-01-27] MEDS: QUEtiapine FUMARATE 300 MG TABLET PO SCH ×3 (08:36→21:27)
[2021-01-27] MEDS: VALPROIC ACID 250 MG/5 ML SOLUTION UDCUP PO SCH ×2 (08:36→21:27)
[2021-01-27] MEDS: LevETIRAcetam 500 MG TABLET PO SCH ×2 (08:36→16:10)
[2021-01-27] MEDS: TRETINOIN 0.1% TP SCH ×2 (08:37→16:10)
[2021-01-27] MEDS: NICOTINE 14 MG/24 HOUR PATCH TD SCH (08:37)
[2021-01-27] MEDS: MAGNESIUM HYDROXIDE SUSPENSION 30 ML UDCUP PO PRN (09:02)
[2021-01-27 09:42] VITALS: BP 135/74
[2021-01-27 18:32] VITALS: BP 115/68
[2021-01-28] MEDS: PHENYTOIN SODIUM 100 MG ER CAPSULE PO SCH ×3 (00:51→16:10)
[2021-01-28] MEDS: LEVOTHYROXINE SODIUM 50 MCG TABLET PO SCH (06:20)
[2021-01-28 06:21] VITALS: BP 109/60
[2021-01-28] MEDS: LORazepam 2 MG TABLET PO PRN ×3 (08:10→18:05)
[2021-01-28] MEDS: TraMADol HCL 50 MG TABLET PO PRN (08:10)
[2021-01-28] MEDS: OLANZapine 5 MG RAPDIS TABLET PO PRN ×3 (08:10→18:05)
[2021-01-28] MEDS: TRETINOIN 0.1% TP SCH ×2 (08:49→16:16)
[2021-01-28] MEDS: VALPROIC ACID 250 MG/5 ML SOLUTION UDCUP PO SCH ×2 (08:49→20:34)
[2021-01-28] MEDS: NICOTINE 14 MG/24 HOUR PATCH TD SCH (08:49)
[2021-01-28] MEDS: OMEPRAZOLE 20 MG CAPSULE PO SCH (08:49)
[2021-01-28] MEDS: QUEtiapine FUMARATE 300 MG TABLET PO SCH ×3 (08:49→20:34)
[2021-01-28] MEDS: LevETIRAcetam 500 MG TABLET PO SCH ×2 (08:49→16:10)
[2021-01-28 10:21] VITALS: BP 115/82
[2021-01-28 19:34] VITALS: BP 106/69
[2021-01-29] MEDS: PHENYTOIN SODIUM 100 MG ER CAPSULE PO SCH ×3 (01:05→16:02)
[2021-01-29] MEDS: LEVOTHYROXINE SODIUM 50 MCG TABLET PO SCH (06:28)
[2021-01-29 06:30] VITALS: BP 123/78
[2021-01-29] MEDS: LORazepam 2 MG TABLET PO PRN ×2 (08:57→16:03)
[2021-01-29] MEDS: QUEtiapine FUMARATE 300 MG TABLET PO SCH ×3 (08:57→20:34)
[2021-01-29] MEDS: VALPROIC ACID 250 MG/5 ML SOLUTION UDCUP PO SCH ×2 (08:57→20:34)
[2021-01-29] MEDS: LevETIRAcetam 500 MG TABLET PO SCH ×2 (08:57→16:03)
[2021-01-29] MEDS: OMEPRAZOLE 20 MG CAPSULE PO SCH (08:57)
[2021-01-29] MEDS: NICOTINE 14 MG/24 HOUR PATCH TD SCH (08:58)
[2021-01-29] MEDS: TRETINOIN 0.1% TP SCH ×2 (08:58→16:11)
[2021-01-29 16:38] VITALS: BP 117/74
[2021-01-29] MEDS: TraMADol HCL 50 MG TABLET PO PRN (16:38)
[2021-01-29 17:55] VITALS: BP 117/74
[2021-01-29] MEDS: ZOLPIDEM TARTRATE 10 MG TABLET PO PRN (20:34)
[2021-01-30] MEDS: PHENYTOIN SODIUM 100 MG ER CAPSULE PO SCH ×3 (00:12→16:02)
[2021-01-30 04:30] VITALS: BP 123/78
[2021-01-30] MEDS: LEVOTHYROXINE SODIUM 50 MCG TABLET PO SCH (06:20)
[2021-01-30] MEDS: OLANZapine 5 MG RAPDIS TABLET PO PRN (08:00)
[2021-01-30] MEDS: LORazepam 2 MG TABLET PO PRN ×3 (08:00→20:25)
[2021-01-30 08:55] VITALS: BP 109/74
[2021-01-30] MEDS: OMEPRAZOLE 20 MG CAPSULE PO SCH (09:34)
[2021-01-30] MEDS: NICOTINE 14 MG/24 HOUR PATCH TD SCH (09:34)
[2021-01-30] MEDS: VALPROIC ACID 250 MG/5 ML SOLUTION UDCUP PO SCH ×2 (09:34→20:25)
[2021-01-30] MEDS: LevETIRAcetam 500 MG TABLET PO SCH ×2 (09:34→16:02)
[2021-01-30] MEDS: QUEtiapine FUMARATE 300 MG TABLET PO SCH ×3 (09:34→20:25)
[2021-01-30] MEDS: TRETINOIN 0.1% TP SCH ×2 (09:34→16:04)
[2021-01-30 16:38] VITALS: BP 132/70
[2021-01-30] MEDS: TraMADol HCL 50 MG TABLET PO PRN (17:43)
[2021-01-31] MEDS: LEVOTHYROXINE SODIUM 50 MCG TABLET PO SCH (06:37)
[2021-01-31] MEDS: LORazepam 2 MG TABLET PO PRN ×2 (08:30→16:02)
[2021-01-31] MEDS: OLANZapine 5 MG RAPDIS TABLET PO PRN (08:30)
[2021-01-31 08:39] VITALS: BP 104/66
[2021-01-31] MEDS: LevETIRAcetam 500 MG TABLET PO SCH ×2 (08:44→16:02)
[2021-01-31] MEDS: NICOTINE 14 MG/24 HOUR PATCH TD SCH (08:44)
[2021-01-31] MEDS: PHENYTOIN SODIUM 100 MG ER CAPSULE PO SCH ×4 (08:44→23:50)
[2021-01-31] MEDS: VALPROIC ACID 250 MG/5 ML SOLUTION UDCUP PO SCH ×2 (08:44→20:35)
[2021-01-31] MEDS: QUEtiapine FUMARATE 300 MG TABLET PO SCH ×3 (08:44→20:35)
[2021-01-31] MEDS: TRETINOIN 0.1% TP SCH ×2 (08:44→16:02)
[2021-01-31] MEDS: OMEPRAZOLE 20 MG CAPSULE PO SCH (08:44)
[2021-01-31] MEDS: TraMADol HCL 50 MG TABLET PO PRN (14:44)
[2021-01-31 16:31] VITALS: BP 110/74
[2021-01-31] MEDS: ZOLPIDEM TARTRATE 10 MG TABLET PO PRN (20:36)
[2021-02-01 04:48] VITALS: BP 103/68
[2021-02-01] MEDS: LEVOTHYROXINE SODIUM 50 MCG TABLET PO SCH (06:27)
[2021-02-01] MEDS: LORazepam 2 MG TABLET PO PRN ×2 (08:30→15:07)
[2021-02-01] MEDS: OLANZapine 5 MG RAPDIS TABLET PO PRN ×2 (08:30→15:07)
[2021-02-01 08:38] VITALS: BP 143/90
[2021-02-01] MEDS: OMEPRAZOLE 20 MG CAPSULE PO SCH (08:58)
[2021-02-01] MEDS: LevETIRAcetam 500 MG TABLET PO SCH ×2 (08:58→16:04)
[2021-02-01] MEDS: PHENYTOIN SODIUM 100 MG ER CAPSULE PO SCH ×2 (08:58→16:04)
[2021-02-01] MEDS: VALPROIC ACID 250 MG/5 ML SOLUTION UDCUP PO SCH ×2 (08:58→20:28)
[2021-02-01] MEDS: NICOTINE 14 MG/24 HOUR PATCH TD SCH (08:59)
[2021-02-01] MEDS: QUEtiapine FUMARATE 300 MG TABLET PO SCH ×3 (08:59→20:28)
[2021-02-01] MEDS: TRETINOIN 0.1% TP SCH ×2 (08:59→16:04)
[2021-02-01] MEDS: TraMADol HCL 50 MG TABLET PO PRN (11:45)
[2021-02-01 16:36] VITALS: BP 107/68
[2021-02-01] MEDS: ZOLPIDEM TARTRATE 10 MG TABLET PO PRN (20:28)
[2021-02-02] MEDS: PHENYTOIN SODIUM 100 MG ER CAPSULE PO SCH ×3 (00:37→16:06)
[2021-02-02 06:16] VITALS: BP 118/72
[2021-02-02] MEDS: LEVOTHYROXINE SODIUM 50 MCG TABLET PO SCH (06:24)
[2021-02-02 08:38] VITALS: BP 105/51
[2021-02-02] MEDS: NICOTINE 14 MG/24 HOUR PATCH TD SCH (09:00)
[2021-02-02] MEDS: LevETIRAcetam 500 MG TABLET PO SCH ×2 (09:01→16:06)
[2021-02-02] MEDS: VALPROIC ACID 250 MG/5 ML SOLUTION UDCUP PO SCH ×2 (09:01→20:10)
[2021-02-02] MEDS: OMEPRAZOLE 20 MG CAPSULE PO SCH (09:01)
[2021-02-02] MEDS: QUEtiapine FUMARATE 300 MG TABLET PO SCH ×3 (09:01→20:12)
[2021-02-02] MEDS: TRETINOIN 0.1% TP SCH ×2 (09:02→16:06)
[2021-02-02] MEDS: TraMADol HCL 50 MG TABLET PO PRN (12:43)
[2021-02-02 16:21] VITALS: BP 116/81
[2021-02-02] MEDS: LORazepam 2 MG TABLET PO PRN (19:15)
[2021-02-03] MEDS: PHENYTOIN SODIUM 100 MG ER CAPSULE PO SCH ×3 (00:31→16:20)
[2021-02-03 06:07] VITALS: BP 113/69
[2021-02-03] MEDS: LEVOTHYROXINE SODIUM 50 MCG TABLET PO SCH (06:15)
[2021-02-03 08:18] VITALS: BP 117/68
[2021-02-03] MEDS: QUEtiapine FUMARATE 300 MG TABLET PO SCH ×3 (08:38→20:23)
[2021-02-03] MEDS: OMEPRAZOLE 20 MG CAPSULE PO SCH (08:38)
[2021-02-03] MEDS: LevETIRAcetam 500 MG TABLET PO SCH ×2 (08:38→16:20)
[2021-02-03] MEDS: VALPROIC ACID 250 MG/5 ML SOLUTION UDCUP PO SCH ×2 (08:38→20:23)
[2021-02-03] MEDS: NICOTINE 14 MG/24 HOUR PATCH TD SCH (08:39)
[2021-02-03] MEDS: LORazepam 2 MG TABLET PO PRN ×2 (08:39→16:25)
[2021-02-03] MEDS: TRETINOIN 0.1% TP SCH ×2 (08:39→16:20)
[2021-02-03 16:18] VITALS: BP 110/85
[2021-02-03] MEDS: ZOLPIDEM TARTRATE 10 MG TABLET PO PRN (20:23)
[2021-02-04] MEDS: PHENYTOIN SODIUM 100 MG ER CAPSULE PO SCH ×3 (00:48→16:08)
[2021-02-04 01:10] VITALS: BP 123/67
[2021-02-04] MEDS: LEVOTHYROXINE SODIUM 50 MCG TABLET PO SCH (06:33)
[2021-02-04] MEDS: OMEPRAZOLE 20 MG CAPSULE PO SCH (08:05)
[2021-02-04] MEDS: QUEtiapine FUMARATE 300 MG TABLET PO SCH ×3 (08:06→20:21)
[2021-02-04] MEDS: LORazepam 2 MG TABLET PO PRN ×2 (08:07→16:09)
[2021-02-04] MEDS: LevETIRAcetam 500 MG TABLET PO SCH ×2 (08:07→16:08)
[2021-02-04] MEDS: VALPROIC ACID 250 MG/5 ML SOLUTION UDCUP PO SCH ×2 (08:07→20:21)
[2021-02-04] MEDS: NICOTINE 14 MG/24 HOUR PATCH TD SCH (08:08)
[2021-02-04 08:48] VITALS: BP 125/77
[2021-02-04] MEDS: OLANZapine 5 MG RAPDIS TABLET PO PRN (09:03)
[2021-02-04] MEDS: TRETINOIN 0.1% TP SCH ×2 (09:07→16:34)
[2021-02-04] MEDS ORDERED: CARBAMIDE PEROXIDE 6.5% 15 ML OTIC SOLUTION AU ONE (11:15)
[2021-02-04 16:10] VITALS: BP 110/76
[2021-02-04] MEDS: TraMADol HCL 50 MG TABLET PO PRN (16:10)
[2021-02-04] MEDS: ZOLPIDEM TARTRATE 10 MG TABLET PO PRN (20:21)
[2021-02-05] MEDS: PHENYTOIN SODIUM 100 MG ER CAPSULE PO SCH ×3 (00:04→16:41)
[2021-02-05 00:48] VITALS: BP 110/76
[2021-02-05] MEDS: LEVOTHYROXINE SODIUM 50 MCG TABLET PO SCH (06:00)
[2021-02-05] MEDS: LORazepam 2 MG TABLET PO PRN ×2 (08:00→12:03)
[2021-02-05] MEDS: OLANZapine 5 MG RAPDIS TABLET PO PRN ×2 (08:00→12:03)
[2021-02-05] MEDS: PALIPERIDONE PALMITATE 234 MG/1.5 ML SYRINGE IM SCH (08:47)
[2021-02-05] MEDS: VALPROIC ACID 250 MG/5 ML SOLUTION UDCUP PO SCH ×2 (08:47→20:57)
[2021-02-05] MEDS: OMEPRAZOLE 20 MG CAPSULE PO SCH (08:48)
[2021-02-05] MEDS: TRETINOIN 0.1% TP SCH ×2 (08:48→16:42)
[2021-02-05] MEDS: NICOTINE 14 MG/24 HOUR PATCH TD SCH (08:48)
[2021-02-05] MEDS: LevETIRAcetam 500 MG TABLET PO SCH ×2 (08:48→16:41)
[2021-02-05] MEDS: QUEtiapine FUMARATE 300 MG TABLET PO SCH ×3 (08:48→20:56)
[2021-02-05 10:06] VITALS: BP 110/68
[2021-02-05] MEDS: TraMADol HCL 50 MG TABLET PO PRN (15:06)
[2021-02-05 17:04] VITALS: BP 110/63
[2021-02-05] MEDS: ZOLPIDEM TARTRATE 10 MG TABLET PO PRN (20:56)
[2021-02-06] MEDS: PHENYTOIN SODIUM 100 MG ER CAPSULE PO SCH ×3 (01:01→16:03)
[2021-02-06 06:26] VITALS: BP 107/61
[2021-02-06] MEDS: LEVOTHYROXINE SODIUM 50 MCG TABLET PO SCH (06:27)
[2021-02-06] MEDS: LORazepam 2 MG TABLET PO PRN ×2 (08:25→16:03)
[2021-02-06] MEDS: OLANZapine 5 MG RAPDIS TABLET PO PRN ×2 (08:25→16:03)
[2021-02-06] MEDS: OMEPRAZOLE 20 MG CAPSULE PO SCH (08:47)
[2021-02-06] MEDS: LevETIRAcetam 500 MG TABLET PO SCH ×2 (08:47→16:03)
[2021-02-06] MEDS: QUEtiapine FUMARATE 300 MG TABLET PO SCH ×3 (08:47→20:12)
[2021-02-06] MEDS: VALPROIC ACID 250 MG/5 ML SOLUTION UDCUP PO SCH ×2 (08:47→20:12)
[2021-02-06] MEDS: TRETINOIN 0.1% TP SCH ×2 (08:48→16:03)
[2021-02-06] MEDS: NICOTINE 14 MG/24 HOUR PATCH TD SCH (08:48)
[2021-02-06] MEDS: TraMADol HCL 50 MG TABLET PO PRN (11:05)
[2021-02-06 11:47] VITALS: BP 109/75
[2021-02-06 16:18] VITALS: BP 114/76
[2021-02-06] MEDS: ZOLPIDEM TARTRATE 10 MG TABLET PO PRN (20:18)
[2021-02-07] MEDS: PHENYTOIN SODIUM 100 MG ER CAPSULE PO SCH ×3 (00:12→16:20)
[2021-02-07] MEDS: LEVOTHYROXINE SODIUM 50 MCG TABLET PO SCH (06:46)
[2021-02-07 08:25] VITALS: BP 110/60
[2021-02-07] MEDS: NICOTINE 14 MG/24 HOUR PATCH TD SCH (09:14)
[2021-02-07] MEDS: LevETIRAcetam 500 MG TABLET PO SCH ×2 (09:14→16:20)
[2021-02-07] MEDS: QUEtiapine FUMARATE 300 MG TABLET PO SCH ×3 (09:14→20:56)
[2021-02-07] MEDS: OMEPRAZOLE 20 MG CAPSULE PO SCH (09:14)
[2021-02-07] MEDS: VALPROIC ACID 250 MG/5 ML SOLUTION UDCUP PO SCH ×2 (09:14→20:57)
[2021-02-07] MEDS: TRETINOIN 0.1% TP SCH ×2 (09:16→16:20)
[2021-02-07] MEDS: OLANZapine 5 MG RAPDIS TABLET PO PRN (13:53)
[2021-02-07] MEDS: LORazepam 2 MG TABLET PO PRN ×2 (13:53→18:47)
[2021-02-07 16:32] VITALS: BP 121/75
[2021-02-07] MEDS: ZOLPIDEM TARTRATE 10 MG TABLET PO PRN (20:57)
[2021-02-08] MEDS: PHENYTOIN SODIUM 100 MG ER CAPSULE PO SCH ×3 (00:12→16:09)
[2021-02-08 02:51] VITALS: BP 118/72
[2021-02-08] MEDS: LEVOTHYROXINE SODIUM 50 MCG TABLET PO SCH (06:47)
[2021-02-08] MEDS: MAGNESIUM HYDROXIDE SUSPENSION 30 ML UDCUP PO PRN (08:00)
[2021-02-08] MEDS: LORazepam 2 MG TABLET PO PRN ×3 (08:00→16:09)
[2021-02-08] MEDS: OLANZapine 5 MG RAPDIS TABLET PO PRN ×2 (08:00→12:06)
[2021-02-08] MEDS: TraMADol HCL 50 MG TABLET PO PRN (08:05)
[2021-02-08] MEDS: LevETIRAcetam 500 MG TABLET PO SCH ×2 (08:34→16:09)
[2021-02-08] MEDS: OMEPRAZOLE 20 MG CAPSULE PO SCH (08:34)
[2021-02-08] MEDS: VALPROIC ACID 250 MG/5 ML SOLUTION UDCUP PO SCH ×2 (08:34→20:46)
[2021-02-08] MEDS: QUEtiapine FUMARATE 300 MG TABLET PO SCH ×3 (08:34→20:46)
[2021-02-08] MEDS: NICOTINE 14 MG/24 HOUR PATCH TD SCH (08:35)
[2021-02-08] MEDS: TRETINOIN 0.1% TP SCH ×2 (08:35→17:00)
[2021-02-08 08:42] VITALS: BP 133/85
[2021-02-08 16:38] VITALS: BP 121/81
[2021-02-08] MEDS: ZOLPIDEM TARTRATE 10 MG TABLET PO PRN (20:46)
[2021-02-09] MEDS: PHENYTOIN SODIUM 100 MG ER CAPSULE PO SCH ×3 (00:27→16:14)
[2021-02-09] MEDS: LEVOTHYROXINE SODIUM 50 MCG TABLET PO SCH (06:30)
[2021-02-09 06:40] VITALS: BP 132/93
[2021-02-09 08:34] VITALS: BP 105/63
[2021-02-09] MEDS: OLANZapine 5 MG RAPDIS TABLET PO PRN ×2 (08:45→13:10)
[2021-02-09] MEDS: LORazepam 2 MG TABLET PO PRN ×3 (08:45→17:10)
[2021-02-09] MEDS: VALPROIC ACID 250 MG/5 ML SOLUTION UDCUP PO SCH ×2 (09:13→20:50)
[2021-02-09] MEDS: LevETIRAcetam 500 MG TABLET PO SCH ×2 (09:13→16:14)
[2021-02-09] MEDS: OMEPRAZOLE 20 MG CAPSULE PO SCH (09:13)
[2021-02-09] MEDS: NICOTINE 14 MG/24 HOUR PATCH TD SCH (09:14)
[2021-02-09] MEDS: TRETINOIN 0.1% TP SCH ×2 (09:14→16:15)
[2021-02-09] MEDS: QUEtiapine FUMARATE 300 MG TABLET PO SCH ×3 (09:14→20:50)
[2021-02-09] MEDS: TraMADol HCL 50 MG TABLET PO PRN (11:42)
[2021-02-09 16:27] VITALS: BP 101/68
[2021-02-09] MEDS: ZOLPIDEM TARTRATE 10 MG TABLET PO PRN (20:50)
[2021-02-10] MEDS: PHENYTOIN SODIUM 100 MG ER CAPSULE PO SCH ×3 (00:21→16:17)
[2021-02-10 02:12] VITALS: BP 108/62
[2021-02-10] MEDS: LEVOTHYROXINE SODIUM 50 MCG TABLET PO SCH (06:17)
[2021-02-10] MEDS: LevETIRAcetam 500 MG TABLET PO SCH ×2 (09:49→16:16)
[2021-02-10] MEDS: OMEPRAZOLE 20 MG CAPSULE PO SCH (09:49)
[2021-02-10] MEDS: QUEtiapine FUMARATE 300 MG TABLET PO SCH ×3 (09:49→20:58)
[2021-02-10] MEDS: VALPROIC ACID 250 MG/5 ML SOLUTION UDCUP PO SCH ×2 (09:50→20:58)
[2021-02-10] MEDS: NICOTINE 14 MG/24 HOUR PATCH TD SCH (09:50)
[2021-02-10] MEDS: TRETINOIN 0.1% TP SCH ×2 (09:51→16:17)
[2021-02-10 10:44] VITALS: BP 114/78
[2021-02-10] MEDS: OLANZapine 5 MG RAPDIS TABLET PO PRN (16:17)
[2021-02-10] MEDS: LORazepam 2 MG TABLET PO PRN (16:17)
[2021-02-10 16:26] VITALS: BP 125/86
[2021-02-10] MEDS: TraMADol HCL 50 MG TABLET PO PRN (17:31)
[2021-02-11 00:29] VITALS: BP 106/77
[2021-02-11] MEDS: PHENYTOIN SODIUM 100 MG ER CAPSULE PO SCH ×3 (00:43→16:53)
[2021-02-11] MEDS: LEVOTHYROXINE SODIUM 50 MCG TABLET PO SCH (06:32)
[2021-02-11 07:15] LABS: COVID AG,FIA SOURCE NASAL SWAB
[2021-02-11] MEDS: LORazepam 2 MG TABLET PO PRN (08:00)
[2021-02-11] MEDS: TraMADol HCL 50 MG TABLET PO PRN ×2 (08:00→17:36)
[2021-02-11] MEDS: OLANZapine 5 MG RAPDIS TABLET PO PRN (08:00)
[2021-02-11] MEDS: VALPROIC ACID 250 MG/5 ML SOLUTION UDCUP PO SCH ×2 (08:43→20:37)
[2021-02-11] MEDS: TRETINOIN 0.1% TP SCH ×2 (08:43→16:53)
[2021-02-11] MEDS: LevETIRAcetam 500 MG TABLET PO SCH ×2 (08:43→16:53)
[2021-02-11] MEDS: QUEtiapine FUMARATE 300 MG TABLET PO SCH ×3 (08:43→20:37)
[2021-02-11] MEDS: NICOTINE 14 MG/24 HOUR PATCH TD SCH (08:43)
[2021-02-11] MEDS: OMEPRAZOLE 20 MG CAPSULE PO SCH (08:43)
[2021-02-11 09:00] VITALS: BP 137/85
[2021-02-11 17:03] VITALS: BP 109/67
[2021-02-11 17:36] VITALS: BP 115/65
[2021-02-11] MEDS: ZOLPIDEM TARTRATE 10 MG TABLET PO PRN (20:37)
[2021-02-12] MEDS: PHENYTOIN SODIUM 100 MG ER CAPSULE PO SCH ×3 (00:39→16:01)
[2021-02-12 05:18] VITALS: BP 110/68
[2021-02-12] MEDS: LEVOTHYROXINE SODIUM 50 MCG TABLET PO SCH (06:17)
[2021-02-12] MEDS: OLANZapine 5 MG RAPDIS TABLET PO PRN ×2 (08:00→14:22)
[2021-02-12] MEDS: TraMADol HCL 50 MG TABLET PO PRN (08:00)
[2021-02-12] MEDS: LORazepam 2 MG TABLET PO PRN ×2 (08:00→14:22)
[2021-02-12] MEDS: OMEPRAZOLE 20 MG CAPSULE PO SCH (08:37)
[2021-02-12] MEDS: TRETINOIN 0.1% TP SCH ×2 (08:37→16:01)
[2021-02-12] MEDS: QUEtiapine FUMARATE 300 MG TABLET PO SCH ×3 (08:37→20:19)
[2021-02-12] MEDS: NICOTINE 14 MG/24 HOUR PATCH TD SCH (08:37)
[2021-02-12] MEDS: LevETIRAcetam 500 MG TABLET PO SCH ×2 (08:37→16:01)
[2021-02-12] MEDS: VALPROIC ACID 250 MG/5 ML SOLUTION UDCUP PO SCH ×2 (08:37→20:19)
[2021-02-12 10:03] VITALS: BP 113/75
[2021-02-12 16:09] VITALS: BP 108/72
[2021-02-12] MEDS: ACETAMINOPHEN 325 MG TABLET PO PRN (16:42)
[2021-02-12] MEDS: ZOLPIDEM TARTRATE 10 MG TABLET PO PRN (20:29)
[2021-02-13] MEDS: PHENYTOIN SODIUM 100 MG ER CAPSULE PO SCH ×3 (00:51→16:05)
[2021-02-13 02:32] VITALS: BP 114/73
[2021-02-13] MEDS: LEVOTHYROXINE SODIUM 50 MCG TABLET PO SCH (06:21)
[2021-02-13] MEDS: LORazepam 2 MG TABLET PO PRN ×2 (08:45→16:05)
[2021-02-13] MEDS: OMEPRAZOLE 20 MG CAPSULE PO SCH (08:46)
[2021-02-13] MEDS: LevETIRAcetam 500 MG TABLET PO SCH ×2 (08:46→16:05)
[2021-02-13] MEDS: QUEtiapine FUMARATE 300 MG TABLET PO SCH ×3 (08:46→21:20)
[2021-02-13] MEDS: VALPROIC ACID 250 MG/5 ML SOLUTION UDCUP PO SCH ×2 (08:47→21:20)
[2021-02-13] MEDS: NICOTINE 14 MG/24 HOUR PATCH TD SCH (09:15)
[2021-02-13] MEDS: TRETINOIN 0.1% TP SCH ×2 (09:15→17:00)
[2021-02-13 09:42] VITALS: BP 98/62
[2021-02-13] MEDS: TraMADol HCL 50 MG TABLET PO PRN (14:22)
[2021-02-13 16:32] VITALS: BP 118/73
[2021-02-13] MEDS: ZOLPIDEM TARTRATE 10 MG TABLET PO PRN (21:20)
[2021-02-14] MEDS: PHENYTOIN SODIUM 100 MG ER CAPSULE PO SCH ×4 (00:03→23:45)
[2021-02-14] MEDS: LEVOTHYROXINE SODIUM 50 MCG TABLET PO SCH (06:48)
[2021-02-14 07:00] VITALS: BP 110/71
[2021-02-14] MEDS: OMEPRAZOLE 20 MG CAPSULE PO SCH (08:05)
[2021-02-14] MEDS: LORazepam 2 MG TABLET PO PRN ×2 (08:05→16:11)
[2021-02-14] MEDS: LevETIRAcetam 500 MG TABLET PO SCH ×2 (08:05→16:11)
[2021-02-14] MEDS: QUEtiapine FUMARATE 300 MG TABLET PO SCH ×3 (08:05→20:49)
[2021-02-14] MEDS: NICOTINE 14 MG/24 HOUR PATCH TD SCH (08:22)
[2021-02-14 09:07] VITALS: BP 125/82
[2021-02-14] MEDS: TRETINOIN 0.1% TP SCH ×2 (09:54→17:00)
[2021-02-14] MEDS: VALPROIC ACID 250 MG/5 ML SOLUTION UDCUP PO SCH ×2 (09:54→20:49)
[2021-02-14 16:31] VITALS: BP 108/61
[2021-02-14] MEDS: TraMADol HCL 50 MG TABLET PO PRN (17:13)
[2021-02-14] MEDS: OLANZapine 5 MG RAPDIS TABLET PO PRN (18:31)
[2021-02-14] MEDS: ZOLPIDEM TARTRATE 10 MG TABLET PO PRN (20:49)
[2021-02-15 04:37] VITALS: BP 120/75
[2021-02-15] MEDS: LEVOTHYROXINE SODIUM 50 MCG TABLET PO SCH (06:47)
[2021-02-15] MEDS: PHENYTOIN SODIUM 100 MG ER CAPSULE PO SCH ×2 (09:00→16:24)
[2021-02-15] MEDS: QUEtiapine FUMARATE 300 MG TABLET PO SCH ×3 (10:02→20:13)
[2021-02-15] MEDS: TRETINOIN 0.1% TP SCH ×2 (10:02→16:24)
[2021-02-15] MEDS: OMEPRAZOLE 20 MG CAPSULE PO SCH (10:02)
[2021-02-15] MEDS: LevETIRAcetam 500 MG TABLET PO SCH ×2 (10:02→16:24)
[2021-02-15] MEDS: NICOTINE 14 MG/24 HOUR PATCH TD SCH (10:02)
[2021-02-15] MEDS: VALPROIC ACID 250 MG/5 ML SOLUTION UDCUP PO SCH ×2 (10:02→20:13)
[2021-02-15 10:48] VITALS: BP 108/69
[2021-02-15] MEDS: LORazepam 2 MG TABLET PO PRN (16:24)
[2021-02-15 16:31] VITALS: BP 117/72
[2021-02-15] MEDS: TraMADol HCL 50 MG TABLET PO PRN (16:33)
[2021-02-15] MEDS: ZOLPIDEM TARTRATE 10 MG TABLET PO PRN (20:13)
[2021-02-16] MEDS: PHENYTOIN SODIUM 100 MG ER CAPSULE PO SCH ×3 (00:08→16:12)
[2021-02-16 06:03] VITALS: BP 99/58
[2021-02-16] MEDS: LEVOTHYROXINE SODIUM 50 MCG TABLET PO SCH (06:21)
[2021-02-16] MEDS: VALPROIC ACID 250 MG/5 ML SOLUTION UDCUP PO SCH ×2 (08:54→20:21)
[2021-02-16] MEDS: LevETIRAcetam 500 MG TABLET PO SCH ×2 (08:55→16:12)
[2021-02-16] MEDS: OMEPRAZOLE 20 MG CAPSULE PO SCH (08:55)
[2021-02-16] MEDS: QUEtiapine FUMARATE 300 MG TABLET PO SCH ×3 (08:55→20:21)
[2021-02-16] MEDS: NICOTINE 14 MG/24 HOUR PATCH TD SCH (08:55)
[2021-02-16] MEDS: TRETINOIN 0.1% TP SCH ×2 (08:55→16:13)
[2021-02-16 09:30] VITALS: BP 110/75
[2021-02-16] MEDS: TraMADol HCL 50 MG TABLET PO PRN ×2 (10:33→16:24)
[2021-02-16] MEDS: LORazepam 2 MG TABLET PO PRN ×2 (11:04→17:39)
[2021-02-16] MEDS: OLANZapine 5 MG RAPDIS TABLET PO PRN (14:42)
[2021-02-16 16:16] VITALS: BP 116/68
[2021-02-17] MEDS: PHENYTOIN SODIUM 100 MG ER CAPSULE PO SCH ×3 (01:03→16:05)
[2021-02-17] MEDS: LEVOTHYROXINE SODIUM 50 MCG TABLET PO SCH (06:22)
[2021-02-17] MEDS: LORazepam 2 MG TABLET PO PRN ×2 (08:20→16:06)
[2021-02-17] MEDS: OLANZapine 5 MG RAPDIS TABLET PO PRN (08:20)
[2021-02-17] MEDS: TraMADol HCL 50 MG TABLET PO PRN ×2 (08:20→16:59)
[2021-02-17] MEDS: QUEtiapine FUMARATE 300 MG TABLET PO SCH ×3 (08:49→20:34)
[2021-02-17] MEDS: LevETIRAcetam 500 MG TABLET PO SCH ×2 (08:49→16:05)
[2021-02-17] MEDS: NICOTINE 14 MG/24 HOUR PATCH TD SCH (08:49)
[2021-02-17] MEDS: OMEPRAZOLE 20 MG CAPSULE PO SCH (08:49)
[2021-02-17] MEDS: VALPROIC ACID 250 MG/5 ML SOLUTION UDCUP PO SCH ×2 (08:49→20:34)
[2021-02-17] MEDS: TRETINOIN 0.1% TP SCH ×2 (08:49→16:42)
[2021-02-17 08:54] VITALS: BP 112/66
[2021-02-17 16:22] VITALS: BP 101/64
[2021-02-17] MEDS: ZOLPIDEM TARTRATE 10 MG TABLET PO PRN (20:34)
[2021-02-18] MEDS: LEVOTHYROXINE SODIUM 50 MCG TABLET PO SCH (07:00)
[2021-02-18 07:08] VITALS: BP 110/70
[2021-02-18] MEDS: OMEPRAZOLE 20 MG CAPSULE PO SCH (08:14)
[2021-02-18] MEDS: VALPROIC ACID 250 MG/5 ML SOLUTION UDCUP PO SCH ×2 (08:14→20:41)
[2021-02-18] MEDS: LORazepam 2 MG TABLET PO PRN ×2 (08:14→16:03)
[2021-02-18] MEDS: LevETIRAcetam 500 MG TABLET PO SCH ×2 (08:14→16:03)
[2021-02-18] MEDS: QUEtiapine FUMARATE 300 MG TABLET PO SCH ×3 (08:14→20:41)
[2021-02-18] MEDS: PHENYTOIN SODIUM 100 MG ER CAPSULE PO SCH ×3 (08:14→16:03)
[2021-02-18] MEDS: NICOTINE 14 MG/24 HOUR PATCH TD SCH (08:15)
[2021-02-18] MEDS: TRETINOIN 0.1% TP SCH ×2 (08:15→16:18)
[2021-02-18 09:31] VITALS: BP 115/72
[2021-02-18] MEDS: TraMADol HCL 50 MG TABLET PO PRN (14:25)
[2021-02-18 16:20] VITALS: BP 106/60
[2021-02-18] MEDS: ZOLPIDEM TARTRATE 10 MG TABLET PO PRN (20:41)
[2021-02-19] MEDS: PHENYTOIN SODIUM 100 MG ER CAPSULE PO SCH ×3 (00:39→16:05)
[2021-02-19] MEDS: LEVOTHYROXINE SODIUM 50 MCG TABLET PO SCH (06:22)
[2021-02-19 06:25] VITALS: BP 110/68
[2021-02-19] MEDS: LORazepam 2 MG TABLET PO PRN ×2 (08:30→16:06)
[2021-02-19] MEDS: TraMADol HCL 50 MG TABLET PO PRN (08:30)
[2021-02-19] MEDS: OLANZapine 5 MG RAPDIS TABLET PO PRN (08:30)
[2021-02-19] MEDS: LevETIRAcetam 500 MG TABLET PO SCH ×2 (08:56→16:06)
[2021-02-19] MEDS: OMEPRAZOLE 20 MG CAPSULE PO SCH (08:56)
[2021-02-19] MEDS: VALPROIC ACID 250 MG/5 ML SOLUTION UDCUP PO SCH ×2 (08:56→20:27)
[2021-02-19] MEDS: QUEtiapine FUMARATE 300 MG TABLET PO SCH ×3 (08:56→20:27)
[2021-02-19] MEDS: TRETINOIN 0.1% TP SCH ×2 (08:57→16:06)
[2021-02-19] MEDS: NICOTINE 14 MG/24 HOUR PATCH TD SCH (08:57)
[2021-02-19 16:38] VITALS: BP 109/67
[2021-02-19] MEDS: ZOLPIDEM TARTRATE 10 MG TABLET PO PRN (20:27)
[2021-02-20] MEDS: PHENYTOIN SODIUM 100 MG ER CAPSULE PO SCH ×4 (00:55→23:51)
[2021-02-20] MEDS: LEVOTHYROXINE SODIUM 50 MCG TABLET PO SCH (06:50)
[2021-02-20] MEDS: LevETIRAcetam 500 MG TABLET PO SCH ×2 (08:38→16:07)
[2021-02-20] MEDS: OMEPRAZOLE 20 MG CAPSULE PO SCH (08:38)
[2021-02-20] MEDS: NICOTINE 14 MG/24 HOUR PATCH TD SCH (08:38)
[2021-02-20] MEDS: VALPROIC ACID 250 MG/5 ML SOLUTION UDCUP PO SCH ×2 (08:38→20:14)
[2021-02-20] MEDS: QUEtiapine FUMARATE 300 MG TABLET PO SCH ×3 (08:38→20:13)
[2021-02-20] MEDS: LORazepam 2 MG TABLET PO PRN ×2 (08:39→16:07)
[2021-02-20] MEDS: TRETINOIN 0.1% TP SCH ×2 (08:39→17:08)
[2021-02-20 09:58] VITALS: BP 107/66
[2021-02-20 16:29] VITALS: BP 109/63
[2021-02-20] MEDS: ZOLPIDEM TARTRATE 10 MG TABLET PO PRN (20:13)
[2021-02-21 05:36] VITALS: BP 112/68
[2021-02-21] MEDS: LEVOTHYROXINE SODIUM 50 MCG TABLET PO SCH (06:01)
[2021-02-21] MEDS: PHENYTOIN SODIUM 100 MG ER CAPSULE PO SCH ×2 (08:50→16:02)
[2021-02-21] MEDS: QUEtiapine FUMARATE 300 MG TABLET PO SCH ×3 (08:50→20:04)
[2021-02-21] MEDS: LevETIRAcetam 500 MG TABLET PO SCH ×2 (08:50→16:02)
[2021-02-21] MEDS: OMEPRAZOLE 20 MG CAPSULE PO SCH (08:50)
[2021-02-21] MEDS: VALPROIC ACID 250 MG/5 ML SOLUTION UDCUP PO SCH ×2 (08:50→20:04)
[2021-02-21] MEDS: TRETINOIN 0.1% TP SCH ×2 (08:51→16:03)
[2021-02-21] MEDS: LORazepam 2 MG TABLET PO PRN ×2 (08:51→16:03)
[2021-02-21] MEDS: NICOTINE 14 MG/24 HOUR PATCH TD SCH (08:51)
[2021-02-21] MEDS: TraMADol HCL 50 MG TABLET PO PRN (14:53)
[2021-02-21 14:55] VITALS: BP 114/80
[2021-02-21 16:29] VITALS: BP 112/75
[2021-02-21] MEDS: ZOLPIDEM TARTRATE 10 MG TABLET PO PRN (20:04)
[2021-02-22] MEDS: PHENYTOIN SODIUM 100 MG ER CAPSULE PO SCH ×3 (00:28→16:00)
[2021-02-22 05:44] VITALS: BP 117/72
[2021-02-22] MEDS: LEVOTHYROXINE SODIUM 50 MCG TABLET PO SCH (06:39)
[2021-02-22] MEDS: OLANZapine 5 MG RAPDIS TABLET PO PRN ×2 (08:00→17:14)
[2021-02-22] MEDS: LORazepam 2 MG TABLET PO PRN ×2 (08:00→16:00)
[2021-02-22] MEDS: TraMADol HCL 50 MG TABLET PO PRN ×2 (08:00→17:14)
[2021-02-22 08:33] VITALS: BP 126/82
[2021-02-22] MEDS: NICOTINE 14 MG/24 HOUR PATCH TD SCH (08:59)
[2021-02-22] MEDS: LevETIRAcetam 500 MG TABLET PO SCH ×2 (08:59→16:00)
[2021-02-22] MEDS: QUEtiapine FUMARATE 300 MG TABLET PO SCH ×3 (08:59→20:24)
[2021-02-22] MEDS: VALPROIC ACID 250 MG/5 ML SOLUTION UDCUP PO SCH ×2 (08:59→20:24)
[2021-02-22] MEDS: OMEPRAZOLE 20 MG CAPSULE PO SCH (08:59)
[2021-02-22] MEDS: TRETINOIN 0.1% TP SCH ×2 (09:00→16:04)
[2021-02-22 16:22] VITALS: BP 106/66
[2021-02-22] MEDS: ZOLPIDEM TARTRATE 10 MG TABLET PO PRN (20:24)
[2021-02-23] MEDS: PHENYTOIN SODIUM 100 MG ER CAPSULE PO SCH ×3 (00:52→16:03)
[2021-02-23] MEDS: LEVOTHYROXINE SODIUM 50 MCG TABLET PO SCH (06:30)
[2021-02-23] MEDS: TRETINOIN 0.1% TP SCH ×2 (08:55→17:00)
[2021-02-23] MEDS: QUEtiapine FUMARATE 300 MG TABLET PO SCH ×3 (08:56→20:32)
[2021-02-23] MEDS: NICOTINE 14 MG/24 HOUR PATCH TD SCH (08:56)
[2021-02-23] MEDS: OMEPRAZOLE 20 MG CAPSULE PO SCH (08:56)
[2021-02-23] MEDS: LevETIRAcetam 500 MG TABLET PO SCH ×2 (08:56→16:03)
[2021-02-23] MEDS: VALPROIC ACID 250 MG/5 ML SOLUTION UDCUP PO SCH ×2 (08:57→20:32)
[2021-02-23] MEDS: LORazepam 2 MG TABLET PO PRN ×3 (09:14→20:41)
[2021-02-23 09:27] VITALS: BP 104/65
[2021-02-23] MEDS: TraMADol HCL 50 MG TABLET PO PRN ×2 (11:45→18:51)
[2021-02-23 16:28] VITALS: BP 113/76
[2021-02-23] MEDS: OLANZapine 5 MG RAPDIS TABLET PO PRN (18:50)
[2021-02-23] MEDS: ZOLPIDEM TARTRATE 10 MG TABLET PO PRN (20:32)
[2021-02-24] MEDS: PHENYTOIN SODIUM 100 MG ER CAPSULE PO SCH ×3 (00:51→16:09)
[2021-02-24] MEDS: LEVOTHYROXINE SODIUM 50 MCG TABLET PO SCH (06:30)
[2021-02-24] MEDS: OMEPRAZOLE 20 MG CAPSULE PO SCH (08:35)
[2021-02-24] MEDS: QUEtiapine FUMARATE 300 MG TABLET PO SCH ×3 (08:35→20:21)
[2021-02-24] MEDS: LevETIRAcetam 500 MG TABLET PO SCH ×2 (08:35→16:09)
[2021-02-24] MEDS: VALPROIC ACID 250 MG/5 ML SOLUTION UDCUP PO SCH ×2 (08:35→20:21)
[2021-02-24] MEDS: NICOTINE 14 MG/24 HOUR PATCH TD SCH (08:36)
[2021-02-24] MEDS: TRETINOIN 0.1% TP SCH ×2 (08:38→16:09)
[2021-02-24 10:00] VITALS: BP 124/80
[2021-02-24] MEDS: LORazepam 2 MG TABLET PO PRN ×2 (10:16→16:09)
[2021-02-24 16:12] VITALS: BP 111/72
[2021-02-24] MEDS: OLANZapine 5 MG RAPDIS TABLET PO PRN (16:14)
[2021-02-25] MEDS: PHENYTOIN SODIUM 100 MG ER CAPSULE PO SCH ×3 (00:21→15:46)
[2021-02-25 02:23] VITALS: BP 108/76
[2021-02-25] MEDS: LEVOTHYROXINE SODIUM 50 MCG TABLET PO SCH (06:34)
[2021-02-25 08:30] VITALS: BP 112/64
[2021-02-25] MEDS: TRETINOIN 0.1% TP SCH ×2 (08:45→16:52)
[2021-02-25] MEDS: OMEPRAZOLE 20 MG CAPSULE PO SCH (08:46)
[2021-02-25] MEDS: VALPROIC ACID 250 MG/5 ML SOLUTION UDCUP PO SCH ×2 (08:46→20:44)
[2021-02-25] MEDS: LORazepam 2 MG TABLET PO PRN ×2 (08:46→15:45)
[2021-02-25] MEDS: NICOTINE 14 MG/24 HOUR PATCH TD SCH (08:46)
[2021-02-25] MEDS: QUEtiapine FUMARATE 300 MG TABLET PO SCH ×3 (08:46→20:43)
[2021-02-25] MEDS: LevETIRAcetam 500 MG TABLET PO SCH ×2 (08:46→16:48)
[2021-02-25] MEDS: OLANZapine 5 MG RAPDIS TABLET PO PRN ×2 (10:48→15:45)
[2021-02-25 16:34] VITALS: BP 115/76
[2021-02-25] MEDS: MAGNESIUM HYDROXIDE SUSPENSION 30 ML UDCUP PO PRN (16:47)
[2021-02-25] MEDS: TraMADol HCL 50 MG TABLET PO PRN (16:48)
[2021-02-26] MEDS: PHENYTOIN SODIUM 100 MG ER CAPSULE PO SCH ×3 (00:45→16:45)
[2021-02-26 05:55] VITALS: BP 120/74
[2021-02-26] MEDS: LEVOTHYROXINE SODIUM 50 MCG TABLET PO SCH (06:02)
[2021-02-26 08:21] VITALS: BP 108/68
[2021-02-26] MEDS: LevETIRAcetam 500 MG TABLET PO SCH ×2 (08:59→16:45)
[2021-02-26] MEDS: QUEtiapine FUMARATE 300 MG TABLET PO SCH ×3 (08:59→20:46)
[2021-02-26] MEDS: OMEPRAZOLE 20 MG CAPSULE PO SCH (08:59)
[2021-02-26] MEDS: VALPROIC ACID 250 MG/5 ML SOLUTION UDCUP PO SCH ×2 (08:59→20:46)
[2021-02-26] MEDS: NICOTINE 14 MG/24 HOUR PATCH TD SCH (08:59)
[2021-02-26] MEDS: TRETINOIN 0.1% TP SCH ×2 (09:04→16:50)
[2021-02-26] MEDS: OLANZapine 5 MG RAPDIS TABLET PO PRN ×2 (11:02→17:08)
[2021-02-26] MEDS: LORazepam 2 MG TABLET PO PRN ×3 (11:02→21:39)
[2021-02-26 16:28] VITALS: BP 110/78
[2021-02-26] MEDS: TraMADol HCL 50 MG TABLET PO PRN (17:54)
[2021-02-26] MEDS: ZOLPIDEM TARTRATE 10 MG TABLET PO PRN (20:46)
[2021-02-27] MEDS: PHENYTOIN SODIUM 100 MG ER CAPSULE PO SCH ×3 (00:23→16:14)
[2021-02-27] MEDS: LEVOTHYROXINE SODIUM 50 MCG TABLET PO SCH (06:28)
[2021-02-27] MEDS: OLANZapine 5 MG RAPDIS TABLET PO PRN ×2 (08:30→12:30)
[2021-02-27] MEDS: LORazepam 2 MG TABLET PO PRN ×2 (08:30→12:30)
[2021-02-27] MEDS: TraMADol HCL 50 MG TABLET PO PRN ×2 (08:30→21:01)
[2021-02-27] MEDS: LevETIRAcetam 500 MG TABLET PO SCH ×2 (08:44→17:11)
[2021-02-27] MEDS: OMEPRAZOLE 20 MG CAPSULE PO SCH (08:44)
[2021-02-27] MEDS: QUEtiapine FUMARATE 300 MG TABLET PO SCH ×3 (08:44→21:02)
[2021-02-27] MEDS: NICOTINE 14 MG/24 HOUR PATCH TD SCH (08:44)
[2021-02-27] MEDS: VALPROIC ACID 250 MG/5 ML SOLUTION UDCUP PO SCH ×2 (08:44→21:03)
[2021-02-27] MEDS: TRETINOIN 0.1% TP SCH ×2 (08:45→17:22)
[2021-02-27 09:28] VITALS: BP 108/65
[2021-02-27 16:32] VITALS: BP 110/75
[2021-02-27] MEDS: ZOLPIDEM TARTRATE 10 MG TABLET PO PRN (21:01)
[2021-02-28] MEDS: PHENYTOIN SODIUM 100 MG ER CAPSULE PO SCH ×3 (00:04→16:05)
[2021-02-28] MEDS: LEVOTHYROXINE SODIUM 50 MCG TABLET PO SCH (06:44)
[2021-02-28 08:38] VITALS: BP 116/77
[2021-02-28] MEDS: VALPROIC ACID 250 MG/5 ML SOLUTION UDCUP PO SCH ×2 (08:38→20:13)
[2021-02-28] MEDS: OMEPRAZOLE 20 MG CAPSULE PO SCH (08:38)
[2021-02-28] MEDS: LevETIRAcetam 500 MG TABLET PO SCH ×2 (08:38→16:06)
[2021-02-28] MEDS: QUEtiapine FUMARATE 300 MG TABLET PO SCH ×3 (08:38→20:12)
[2021-02-28] MEDS: TRETINOIN 0.1% TP SCH ×2 (08:39→16:06)
[2021-02-28] MEDS: LORazepam 2 MG TABLET PO PRN ×2 (08:39→16:06)
[2021-02-28] MEDS: NICOTINE 14 MG/24 HOUR PATCH TD SCH (08:39)
[2021-02-28] MEDS: TraMADol HCL 50 MG TABLET PO PRN ×2 (09:39→17:04)
[2021-02-28] MEDS: OLANZapine 5 MG RAPDIS TABLET PO PRN (11:00)
[2021-02-28 17:05] VITALS: BP 113/78
[2021-02-28] MEDS: ZOLPIDEM TARTRATE 10 MG TABLET PO PRN (20:20)
[2021-03-01] MEDS: PHENYTOIN SODIUM 100 MG ER CAPSULE PO SCH ×3 (00:31→16:13)
[2021-03-01] MEDS: LEVOTHYROXINE SODIUM 50 MCG TABLET PO SCH (06:03)
[2021-03-01] MEDS: OLANZapine 5 MG RAPDIS TABLET PO PRN ×2 (08:25→14:00)
[2021-03-01] MEDS: TraMADol HCL 50 MG TABLET PO PRN (08:25)
[2021-03-01] MEDS: LORazepam 2 MG TABLET PO PRN ×2 (08:25→14:00)
[2021-03-01] MEDS: QUEtiapine FUMARATE 300 MG TABLET PO SCH ×3 (08:41→21:36)
[2021-03-01] MEDS: OMEPRAZOLE 20 MG CAPSULE PO SCH (08:41)
[2021-03-01] MEDS: VALPROIC ACID 250 MG/5 ML SOLUTION UDCUP PO SCH ×2 (08:41→21:37)
[2021-03-01] MEDS: LevETIRAcetam 500 MG TABLET PO SCH ×2 (08:41→16:13)
[2021-03-01] MEDS: TRETINOIN 0.1% TP SCH ×2 (08:42→16:13)
[2021-03-01] MEDS: NICOTINE 14 MG/24 HOUR PATCH TD SCH (08:42)
[2021-03-01 08:43] VITALS: BP 111/73
[2021-03-01 16:35] VITALS: BP 114/72
[2021-03-02] MEDS: PHENYTOIN SODIUM 100 MG ER CAPSULE PO SCH ×3 (01:05→16:01)
[2021-03-02 05:17] VITALS: BP 120/80
[2021-03-02] MEDS: LEVOTHYROXINE SODIUM 50 MCG TABLET PO SCH (06:15)
[2021-03-02] MEDS: OLANZapine 5 MG RAPDIS TABLET PO PRN (08:00)
[2021-03-02] MEDS: LORazepam 2 MG TABLET PO PRN ×2 (08:00→16:01)
[2021-03-02] MEDS: TraMADol HCL 50 MG TABLET PO PRN (08:00)
[2021-03-02 08:37] VITALS: BP 126/80
[2021-03-02] MEDS: VALPROIC ACID 250 MG/5 ML SOLUTION UDCUP PO SCH ×2 (08:51→20:16)
[2021-03-02] MEDS: OMEPRAZOLE 20 MG CAPSULE PO SCH (08:51)
[2021-03-02] MEDS: LevETIRAcetam 500 MG TABLET PO SCH ×2 (08:51→16:01)
[2021-03-02] MEDS: QUEtiapine FUMARATE 300 MG TABLET PO SCH ×3 (08:51→20:16)
[2021-03-02] MEDS: TRETINOIN 0.1% TP SCH ×2 (08:52→16:01)
[2021-03-02] MEDS: NICOTINE 14 MG/24 HOUR PATCH TD SCH (08:52)
[2021-03-02 16:14] VITALS: BP 107/68
[2021-03-02] MEDS: ZOLPIDEM TARTRATE 10 MG TABLET PO PRN (20:23)
[2021-03-03] MEDS: PHENYTOIN SODIUM 100 MG ER CAPSULE PO SCH ×3 (00:51→16:27)
[2021-03-03] MEDS: LEVOTHYROXINE SODIUM 50 MCG TABLET PO SCH (06:08)
[2021-03-03] MEDS: VALPROIC ACID 250 MG/5 ML SOLUTION UDCUP PO SCH ×2 (08:30→20:03)
[2021-03-03] MEDS: OMEPRAZOLE 20 MG CAPSULE PO SCH (08:30)
[2021-03-03] MEDS: QUEtiapine FUMARATE 300 MG TABLET PO SCH ×3 (08:30→20:02)
[2021-03-03] MEDS: LevETIRAcetam 500 MG TABLET PO SCH ×2 (08:30→16:27)
[2021-03-03] MEDS: TRETINOIN 0.1% TP SCH ×2 (08:31→16:28)
[2021-03-03] MEDS: NICOTINE 14 MG/24 HOUR PATCH TD SCH (08:31)
[2021-03-03 08:37] VITALS: BP 106/68
[2021-03-03] MEDS: LORazepam 2 MG TABLET PO PRN (08:55)
[2021-03-03] MEDS: OLANZapine 5 MG RAPDIS TABLET PO PRN (08:55)
[2021-03-03] MEDS: TraMADol HCL 50 MG TABLET PO PRN (08:55)
[2021-03-03 16:21] VITALS: BP 132/64
[2021-03-03] MEDS: ZOLPIDEM TARTRATE 10 MG TABLET PO PRN (20:02)
[2021-03-04] MEDS: PHENYTOIN SODIUM 100 MG ER CAPSULE PO SCH ×3 (00:18→15:50)
[2021-03-04 00:50] VITALS: BP 123/78
[2021-03-04] MEDS: LEVOTHYROXINE SODIUM 50 MCG TABLET PO SCH (06:33)
[2021-03-04] MEDS: TraMADol HCL 50 MG TABLET PO PRN (07:45)
[2021-03-04] MEDS: OLANZapine 5 MG RAPDIS TABLET PO PRN (07:45)
[2021-03-04] MEDS: LORazepam 2 MG TABLET PO PRN ×2 (07:45→16:57)
[2021-03-04] MEDS: VALPROIC ACID 250 MG/5 ML SOLUTION UDCUP PO SCH ×2 (08:34→20:15)
[2021-03-04] MEDS: LevETIRAcetam 500 MG TABLET PO SCH ×2 (08:34→16:03)
[2021-03-04] MEDS: OMEPRAZOLE 20 MG CAPSULE PO SCH (08:34)
[2021-03-04] MEDS: NICOTINE 14 MG/24 HOUR PATCH TD SCH (08:34)
[2021-03-04] MEDS: QUEtiapine FUMARATE 300 MG TABLET PO SCH ×3 (08:34→20:15)
[2021-03-04] MEDS: TRETINOIN 0.1% TP SCH ×2 (08:34→16:49)
[2021-03-04 08:56] VITALS: BP 106/64
[2021-03-04 16:13] VITALS: BP 106/61
[2021-03-05] MEDS: PHENYTOIN SODIUM 100 MG ER CAPSULE PO SCH ×3 (00:39→16:13)
[2021-03-05 05:38] VITALS: BP 101/60
[2021-03-05] MEDS: LEVOTHYROXINE SODIUM 50 MCG TABLET PO SCH (06:15)
[2021-03-05 08:22] VITALS: BP 108/70
[2021-03-05] MEDS: OMEPRAZOLE 20 MG CAPSULE PO SCH (08:46)
[2021-03-05] MEDS: LevETIRAcetam 500 MG TABLET PO SCH ×2 (08:46→16:13)
[2021-03-05] MEDS: QUEtiapine FUMARATE 300 MG TABLET PO SCH ×3 (08:46→20:33)
[2021-03-05] MEDS: VALPROIC ACID 250 MG/5 ML SOLUTION UDCUP PO SCH ×2 (08:47→20:33)
[2021-03-05] MEDS: NICOTINE 14 MG/24 HOUR PATCH TD SCH (08:50)
[2021-03-05] MEDS: LORazepam 2 MG TABLET PO PRN (09:20)
[2021-03-05] MEDS: TRETINOIN 0.1% TP SCH ×2 (09:21→16:15)
[2021-03-05] MEDS: PALIPERIDONE PALMITATE 234 MG/1.5 ML SYRINGE IM SCH (09:21)
[2021-03-05] MEDS: ACETAMINOPHEN 325 MG TABLET PO PRN ×2 (11:27→11:28)
[2021-03-05 16:14] VITALS: BP 112/69
[2021-03-05 17:51] VITALS: BP 124/83
[2021-03-05] MEDS: TraMADol HCL 50 MG TABLET PO PRN (18:28)
[2021-03-05] MEDS: ZOLPIDEM TARTRATE 10 MG TABLET PO PRN (20:32)
[2021-03-06] MEDS: PHENYTOIN SODIUM 100 MG ER CAPSULE PO SCH ×3 (00:50→16:11)
[2021-03-06 06:34] VITALS: BP 114/79
[2021-03-06] MEDS: LEVOTHYROXINE SODIUM 50 MCG TABLET PO SCH (06:36)
[2021-03-06] MEDS: VALPROIC ACID 250 MG/5 ML SOLUTION UDCUP PO SCH ×2 (08:06→21:06)
[2021-03-06] MEDS: OMEPRAZOLE 20 MG CAPSULE PO SCH (08:07)
[2021-03-06] MEDS: QUEtiapine FUMARATE 300 MG TABLET PO SCH ×3 (08:07→21:06)
[2021-03-06] MEDS: LevETIRAcetam 500 MG TABLET PO SCH ×2 (08:07→16:11)
[2021-03-06] MEDS: NICOTINE 14 MG/24 HOUR PATCH TD SCH (08:12)
[2021-03-06] MEDS: LORazepam 2 MG TABLET PO PRN (08:12)
[2021-03-06] MEDS: TRETINOIN 0.1% TP SCH ×2 (08:13→16:11)
[2021-03-06 08:18] VITALS: BP 126/71
[2021-03-06 16:09] VITALS: BP 122/71
[2021-03-07] MEDS: PHENYTOIN SODIUM 100 MG ER CAPSULE PO SCH ×3 (00:07→16:34)
[2021-03-07 06:00] VITALS: BP 118/76
[2021-03-07] MEDS: LEVOTHYROXINE SODIUM 50 MCG TABLET PO SCH (06:42)
[2021-03-07] MEDS: TRETINOIN 0.1% TP SCH ×2 (08:08→16:34)
[2021-03-07] MEDS: OMEPRAZOLE 20 MG CAPSULE PO SCH (08:09)
[2021-03-07] MEDS: QUEtiapine FUMARATE 300 MG TABLET PO SCH ×3 (08:09→20:25)
[2021-03-07] MEDS: LORazepam 2 MG TABLET PO PRN (08:09)
[2021-03-07] MEDS: LevETIRAcetam 500 MG TABLET PO SCH ×2 (08:09→16:34)
[2021-03-07] MEDS: NICOTINE 14 MG/24 HOUR PATCH TD SCH (08:10)
[2021-03-07 08:17] VITALS: BP 133/80
[2021-03-07] MEDS: VALPROIC ACID 250 MG/5 ML SOLUTION UDCUP PO SCH ×2 (08:20→20:26)
[2021-03-07 16:17] VITALS: BP 100/62
[2021-03-07] MEDS: MAG HYDROX/AL HYDROX/SIMETH 30 ML SUSP UDCUP PO PRN (17:54)
[2021-03-08] MEDS: LEVOTHYROXINE SODIUM 50 MCG TABLET PO SCH (06:37)
[2021-03-08] MEDS: LORazepam 2 MG TABLET PO PRN ×2 (08:05→16:17)
[2021-03-08] MEDS: OLANZapine 5 MG RAPDIS TABLET PO PRN ×2 (08:05→16:18)
[2021-03-08] MEDS: TraMADol HCL 50 MG TABLET PO PRN (08:05)
[2021-03-08] MEDS: QUEtiapine FUMARATE 300 MG TABLET PO SCH ×3 (08:49→21:17)
[2021-03-08] MEDS: LevETIRAcetam 500 MG TABLET PO SCH ×2 (08:49→16:16)
[2021-03-08] MEDS: TRETINOIN 0.1% TP SCH ×2 (08:49→16:18)
[2021-03-08] MEDS: OMEPRAZOLE 20 MG CAPSULE PO SCH (08:49)
[2021-03-08] MEDS: VALPROIC ACID 250 MG/5 ML SOLUTION UDCUP PO SCH ×2 (08:49→21:17)
[2021-03-08] MEDS: NICOTINE 14 MG/24 HOUR PATCH TD SCH (08:49)
[2021-03-08] MEDS: PHENYTOIN SODIUM 100 MG ER CAPSULE PO SCH ×3 (08:49→16:17)
[2021-03-08 08:51] VITALS: BP 97/57
[2021-03-08 16:12] VITALS: BP 118/79
[2021-03-09] MEDS: PHENYTOIN SODIUM 100 MG ER CAPSULE PO SCH ×3 (00:44→16:10)
[2021-03-09] MEDS: LEVOTHYROXINE SODIUM 50 MCG TABLET PO SCH (06:09)
[2021-03-09] MEDS: OLANZapine 5 MG RAPDIS TABLET PO PRN ×2 (08:10→14:40)
[2021-03-09] MEDS: LORazepam 2 MG TABLET PO PRN ×2 (08:10→14:40)
[2021-03-09] MEDS: TraMADol HCL 50 MG TABLET PO PRN (08:10)
[2021-03-09] MEDS: TRETINOIN 0.1% TP SCH ×2 (08:47→16:24)
[2021-03-09] MEDS: OMEPRAZOLE 20 MG CAPSULE PO SCH (08:47)
[2021-03-09] MEDS: VALPROIC ACID 250 MG/5 ML SOLUTION UDCUP PO SCH ×2 (08:47→20:29)
[2021-03-09] MEDS: NICOTINE 14 MG/24 HOUR PATCH TD SCH (08:47)
[2021-03-09] MEDS: QUEtiapine FUMARATE 300 MG TABLET PO SCH ×3 (08:47→20:30)
[2021-03-09] MEDS: LevETIRAcetam 500 MG TABLET PO SCH ×2 (08:47→16:10)
[2021-03-09 09:59] VITALS: BP 106/64
[2021-03-09 16:10] VITALS: BP 106/68
[2021-03-10] MEDS: PHENYTOIN SODIUM 100 MG ER CAPSULE PO SCH ×3 (00:55→16:00)
[2021-03-10 05:06] VITALS: BP 112/70
[2021-03-10] MEDS: LEVOTHYROXINE SODIUM 50 MCG TABLET PO SCH (06:17)
[2021-03-10 08:00] VITALS: BP 118/74
[2021-03-10] MEDS: QUEtiapine FUMARATE 300 MG TABLET PO SCH ×3 (09:02→20:13)
[2021-03-10] MEDS: TRETINOIN 0.1% TP SCH ×2 (09:02→16:00)
[2021-03-10] MEDS: OMEPRAZOLE 20 MG CAPSULE PO SCH (09:03)
[2021-03-10] MEDS: VALPROIC ACID 250 MG/5 ML SOLUTION UDCUP PO SCH ×2 (09:03→20:10)
[2021-03-10] MEDS: NICOTINE 14 MG/24 HOUR PATCH TD SCH (09:03)
[2021-03-10] MEDS: LevETIRAcetam 500 MG TABLET PO SCH ×2 (09:03→16:00)
[2021-03-10] MEDS: LORazepam 2 MG TABLET PO PRN ×2 (09:09→16:00)
[2021-03-10 16:37] VITALS: BP 116/77
[2021-03-10] MEDS: ZOLPIDEM TARTRATE 10 MG TABLET PO PRN (20:55)
[2021-03-11] MEDS: PHENYTOIN SODIUM 100 MG ER CAPSULE PO SCH ×3 (00:37→16:40)
[2021-03-11 01:34] VITALS: BP 133/82
[2021-03-11] MEDS: OLANZapine 5 MG RAPDIS TABLET PO PRN ×2 (01:42→18:03)
[2021-03-11] MEDS: LORazepam 2 MG TABLET PO PRN ×3 (01:42→18:03)
[2021-03-11] MEDS: LEVOTHYROXINE SODIUM 50 MCG TABLET PO SCH (06:18)
[2021-03-11 08:26] VITALS: BP 102/62
[2021-03-11] MEDS: LevETIRAcetam 500 MG TABLET PO SCH ×2 (08:43→16:41)
[2021-03-11] MEDS: OMEPRAZOLE 20 MG CAPSULE PO SCH (08:43)
[2021-03-11] MEDS: QUEtiapine FUMARATE 300 MG TABLET PO SCH ×3 (08:43→20:23)
[2021-03-11] MEDS: VALPROIC ACID 250 MG/5 ML SOLUTION UDCUP PO SCH ×2 (08:43→20:25)
[2021-03-11] MEDS: NICOTINE 14 MG/24 HOUR PATCH TD SCH (08:43)
[2021-03-11] MEDS: TRETINOIN 0.1% TP SCH ×2 (08:44→17:00)
[2021-03-11 16:23] VITALS: BP 128/89
[2021-03-11] MEDS: MAG HYDROX/AL HYDROX/SIMETH 30 ML SUSP UDCUP PO PRN (19:45)
[2021-03-11] MEDS ORDERED: DiphenhydrAMINE HCL 50 MG/ML VIAL ONE (21:20)
[2021-03-11] MEDS ORDERED: HALOPERIDOL LACTATE 5 MG/ML VIAL ONE (21:21)
[2021-03-11] MEDS ORDERED: ChlorproMAZINE HCL 50 MG/2 ML AMP IM ONE (21:30)
[2021-03-11] MEDS ORDERED: HALOPERIDOL LACTATE 5 MG/ML VIAL IM ONE (21:30)
[2021-03-11] MEDS ORDERED: LORazepam 2 MG/ML VIAL IM ONE (21:30)
[2021-03-11] MEDS ORDERED: DiphenhydrAMINE HCL 50 MG/ML VIAL IM ONE (21:30)
[2021-03-11 22:15] VITALS: BP 125/80
[2021-03-11] MEDS: TraMADol HCL 50 MG TABLET PO PRN (23:07)
[2021-03-12] MEDS: PHENYTOIN SODIUM 100 MG ER CAPSULE PO SCH ×3 (00:04→16:21)
[2021-03-12 01:54] VITALS: BP 118/83
[2021-03-12] MEDS: LEVOTHYROXINE SODIUM 50 MCG TABLET PO SCH (06:31)
[2021-03-12 08:05] VITALS: BP 110/81
[2021-03-12] MEDS: LORazepam 2 MG TABLET PO PRN (09:00)
[2021-03-12] MEDS: QUEtiapine FUMARATE 300 MG TABLET PO SCH ×3 (09:01→21:19)
[2021-03-12] MEDS: VALPROIC ACID 250 MG/5 ML SOLUTION UDCUP PO SCH ×2 (09:01→21:19)
[2021-03-12] MEDS: OMEPRAZOLE 20 MG CAPSULE PO SCH (09:01)
[2021-03-12] MEDS: LevETIRAcetam 500 MG TABLET PO SCH ×2 (09:01→16:21)
[2021-03-12] MEDS: TRETINOIN 0.1% TP SCH ×2 (09:05→16:21)
[2021-03-12] MEDS: NICOTINE 14 MG/24 HOUR PATCH TD SCH (09:05)
[2021-03-12] MEDS: TraMADol HCL 50 MG TABLET PO PRN (09:21)
[2021-03-12 16:13] VITALS: BP 129/83
[2021-03-12] MEDS ORDERED: LORazepam 2 MG/ML VIAL ONE (16:39)
[2021-03-12] MEDS ORDERED: LORazepam 2 MG/ML VIAL IM ONE ×2 (16:45)
[2021-03-12] MEDS ORDERED: DiphenhydrAMINE HCL 50 MG/ML VIAL IM ONE ×2 (16:45)
[2021-03-12] MEDS ORDERED: ChlorproMAZINE HCL 50 MG/2 ML AMP IM ONE ×2 (16:45)
[2021-03-13] MEDS: PHENYTOIN SODIUM 100 MG ER CAPSULE PO SCH ×3 (00:11→16:06)
[2021-03-13] MEDS: LEVOTHYROXINE SODIUM 50 MCG TABLET PO SCH (06:33)
[2021-03-13] MEDS: LORazepam 2 MG TABLET PO PRN ×2 (08:55→16:06)
[2021-03-13] MEDS: OMEPRAZOLE 20 MG CAPSULE PO SCH (08:55)
[2021-03-13] MEDS: QUEtiapine FUMARATE 300 MG TABLET PO SCH ×3 (08:55→20:40)
[2021-03-13] MEDS: LevETIRAcetam 500 MG TABLET PO SCH ×2 (08:55→16:06)
[2021-03-13] MEDS: NICOTINE 14 MG/24 HOUR PATCH TD SCH (08:56)
[2021-03-13] MEDS: TRETINOIN 0.1% TP SCH ×2 (08:56→16:18)
[2021-03-13] MEDS: VALPROIC ACID 250 MG/5 ML SOLUTION UDCUP PO SCH ×2 (08:56→20:40)
[2021-03-13 08:59] VITALS: BP 127/85
[2021-03-13] MEDS: TraMADol HCL 50 MG TABLET PO PRN (09:10)
[2021-03-13] MEDS: ACETAMINOPHEN 325 MG TABLET PO PRN (14:09)
[2021-03-13 16:07] VITALS: BP 118/68
[2021-03-13] MEDS: ZOLPIDEM TARTRATE 10 MG TABLET PO PRN (20:40)
[2021-03-14] MEDS: PHENYTOIN SODIUM 100 MG ER CAPSULE PO SCH ×3 (00:27→16:08)
[2021-03-14 00:30] VITALS: BP 123/78
[2021-03-14] MEDS: LEVOTHYROXINE SODIUM 50 MCG TABLET PO SCH (06:39)
[2021-03-14] MEDS: TraMADol HCL 50 MG TABLET PO PRN (07:09)
[2021-03-14] MEDS: VALPROIC ACID 250 MG/5 ML SOLUTION UDCUP PO SCH ×2 (09:24→20:25)
[2021-03-14] MEDS: QUEtiapine FUMARATE 300 MG TABLET PO SCH ×3 (09:25→20:25)
[2021-03-14] MEDS: OMEPRAZOLE 20 MG CAPSULE PO SCH (09:25)
[2021-03-14] MEDS: NICOTINE 14 MG/24 HOUR PATCH TD SCH (09:26)
[2021-03-14] MEDS: TRETINOIN 0.1% TP SCH ×2 (09:27→16:09)
[2021-03-14] MEDS: LevETIRAcetam 500 MG TABLET PO SCH ×2 (09:27→16:08)
[2021-03-14 09:50] VITALS: BP 109/71
[2021-03-14] MEDS: LORazepam 2 MG TABLET PO PRN (11:26)
[2021-03-14] MEDS: OLANZapine 5 MG RAPDIS TABLET PO PRN (11:26)
[2021-03-14] MEDS ORDERED: LORazepam 2 MG/ML VIAL ONE (12:10)
[2021-03-14] MEDS ORDERED: DiphenhydrAMINE HCL 50 MG/ML VIAL ONE (12:11)
[2021-03-14] MEDS ORDERED: DiphenhydrAMINE HCL 50 MG/ML VIAL IM ONE (12:15)
[2021-03-14] MEDS ORDERED: LORazepam 2 MG/ML VIAL IM ONE (12:15)
[2021-03-14] MEDS ORDERED: ChlorproMAZINE HCL 50 MG/2 ML AMP IM ONE (12:15)
[2021-03-14 16:15] VITALS: BP 115/70
[2021-03-15] MEDS: PHENYTOIN SODIUM 100 MG ER CAPSULE PO SCH ×3 (00:10→16:27)
[2021-03-15 05:06] VITALS: BP 120/72
[2021-03-15] MEDS: LEVOTHYROXINE SODIUM 50 MCG TABLET PO SCH (06:55)
[2021-03-15] MEDS: OMEPRAZOLE 20 MG CAPSULE PO SCH (09:10)
[2021-03-15] MEDS: QUEtiapine FUMARATE 300 MG TABLET PO SCH ×3 (09:10→21:15)
[2021-03-15] MEDS: LevETIRAcetam 500 MG TABLET PO SCH ×2 (09:10→16:27)
[2021-03-15] MEDS: NICOTINE 14 MG/24 HOUR PATCH TD SCH (09:10)
[2021-03-15] MEDS: VALPROIC ACID 250 MG/5 ML SOLUTION UDCUP PO SCH ×2 (09:11→21:15)
[2021-03-15] MEDS: TRETINOIN 0.1% TP SCH ×2 (09:12→16:28)
[2021-03-15] MEDS: LORazepam 2 MG TABLET PO PRN ×2 (11:40→12:46)
[2021-03-15] MEDS: ACETAMINOPHEN 325 MG TABLET PO PRN (12:48)
[2021-03-15 16:08] VITALS: BP 128/70
[2021-03-15 18:00] VITALS: BP 132/74
[2021-03-15] MEDS: TraMADol HCL 50 MG TABLET PO PRN (18:03)
[2021-03-15] MEDS: ZOLPIDEM TARTRATE 10 MG TABLET PO PRN (21:15)
[2021-03-16] MEDS: PHENYTOIN SODIUM 100 MG ER CAPSULE PO SCH ×3 (00:51→16:16)
[2021-03-16 06:27] VITALS: BP 124/72
[2021-03-16] MEDS: LEVOTHYROXINE SODIUM 50 MCG TABLET PO SCH (06:44)
[2021-03-16 09:00] VITALS: BP 119/70
[2021-03-16] MEDS: OMEPRAZOLE 20 MG CAPSULE PO SCH (09:32)
[2021-03-16] MEDS: NICOTINE 14 MG/24 HOUR PATCH TD SCH (09:32)
[2021-03-16] MEDS: LevETIRAcetam 500 MG TABLET PO SCH ×2 (09:32→16:16)
[2021-03-16] MEDS: QUEtiapine FUMARATE 300 MG TABLET PO SCH ×3 (09:32→21:10)
[2021-03-16] MEDS: VALPROIC ACID 250 MG/5 ML SOLUTION UDCUP PO SCH ×2 (09:33→21:12)
[2021-03-16] MEDS: TRETINOIN 0.1% TP SCH ×2 (09:34→16:17)
[2021-03-16 16:06] VITALS: BP 127/89
[2021-03-16] MEDS: OLANZapine 5 MG RAPDIS TABLET PO PRN (16:33)
[2021-03-16] MEDS: LORazepam 2 MG TABLET PO PRN (16:33)
[2021-03-17 00:14] VITALS: BP 125/78
[2021-03-17] MEDS: PHENYTOIN SODIUM 100 MG ER CAPSULE PO SCH ×3 (01:00→16:19)
[2021-03-17] MEDS: LEVOTHYROXINE SODIUM 50 MCG TABLET PO SCH (06:27)
[2021-03-17 08:16] VITALS: BP 128/61
[2021-03-17] MEDS: OMEPRAZOLE 20 MG CAPSULE PO SCH (08:56)
[2021-03-17] MEDS: QUEtiapine FUMARATE 300 MG TABLET PO SCH ×3 (08:56→20:13)
[2021-03-17] MEDS: VALPROIC ACID 250 MG/5 ML SOLUTION UDCUP PO SCH ×2 (08:56→20:14)
[2021-03-17] MEDS: LevETIRAcetam 500 MG TABLET PO SCH ×2 (08:56→16:18)
[2021-03-17] MEDS: TRETINOIN 0.1% TP SCH ×2 (08:57→16:19)
[2021-03-17] MEDS: NICOTINE 14 MG/24 HOUR PATCH TD SCH (08:57)
[2021-03-17] MEDS: LORazepam 2 MG TABLET PO PRN ×2 (08:58→16:19)
[2021-03-17] MEDS: TraMADol HCL 50 MG TABLET PO PRN (12:48)
[2021-03-17 16:03] VITALS: BP 138/76
[2021-03-17] MEDS: OLANZapine 5 MG RAPDIS TABLET PO PRN (16:19)
[2021-03-18] MEDS: PHENYTOIN SODIUM 100 MG ER CAPSULE PO SCH ×3 (00:22→16:04)
[2021-03-18] MEDS: LEVOTHYROXINE SODIUM 50 MCG TABLET PO SCH (06:32)
[2021-03-18 08:06] VITALS: BP 128/83
[2021-03-18] MEDS: QUEtiapine FUMARATE 300 MG TABLET PO SCH ×3 (09:06→21:10)
[2021-03-18] MEDS: OMEPRAZOLE 20 MG CAPSULE PO SCH (09:06)
[2021-03-18] MEDS: NICOTINE 14 MG/24 HOUR PATCH TD SCH (09:06)
[2021-03-18] MEDS: LevETIRAcetam 500 MG TABLET PO SCH ×2 (09:06→16:04)
[2021-03-18] MEDS: VALPROIC ACID 250 MG/5 ML SOLUTION UDCUP PO SCH ×2 (09:08→21:11)
[2021-03-18] MEDS: TRETINOIN 0.1% TP SCH ×2 (09:16→16:04)
[2021-03-18] MEDS: LORazepam 2 MG TABLET PO PRN (16:04)
[2021-03-18] MEDS: OLANZapine 5 MG RAPDIS TABLET PO PRN (16:04)
[2021-03-18 16:11] VITALS: BP 109/76
[2021-03-18] MEDS: TraMADol HCL 50 MG TABLET PO PRN (17:42)
[2021-03-19] MEDS: PHENYTOIN SODIUM 100 MG ER CAPSULE PO SCH ×3 (00:24→16:18)
[2021-03-19] MEDS: LEVOTHYROXINE SODIUM 50 MCG TABLET PO SCH (06:21)
[2021-03-19 06:48] VITALS: BP 118/75
[2021-03-19] MEDS: TRETINOIN 0.1% TP SCH ×2 (09:00→17:25)
[2021-03-19] MEDS: VALPROIC ACID 250 MG/5 ML SOLUTION UDCUP PO SCH ×2 (09:32→20:38)
[2021-03-19] MEDS: NICOTINE 14 MG/24 HOUR PATCH TD SCH (09:32)
[2021-03-19] MEDS: OMEPRAZOLE 20 MG CAPSULE PO SCH (09:32)
[2021-03-19] MEDS: LevETIRAcetam 500 MG TABLET PO SCH ×2 (09:32→16:18)
[2021-03-19] MEDS: QUEtiapine FUMARATE 300 MG TABLET PO SCH ×3 (09:32→20:38)
[2021-03-19 10:44] VITALS: BP 120/72
[2021-03-19] MEDS: TraMADol HCL 50 MG TABLET PO PRN (13:18)
[2021-03-19 16:18] VITALS: BP 115/75
[2021-03-19] MEDS: OLANZapine 5 MG RAPDIS TABLET PO PRN (16:18)
[2021-03-19] MEDS: LORazepam 2 MG TABLET PO PRN (16:18)
[2021-03-20] MEDS: PHENYTOIN SODIUM 100 MG ER CAPSULE PO SCH ×3 (00:42→16:10)
[2021-03-20 05:45] VITALS: BP 121/75
[2021-03-20] MEDS: LEVOTHYROXINE SODIUM 50 MCG TABLET PO SCH (06:13)
[2021-03-20] MEDS: QUEtiapine FUMARATE 300 MG TABLET PO SCH ×3 (08:56→20:12)
[2021-03-20] MEDS: OMEPRAZOLE 20 MG CAPSULE PO SCH (08:56)
[2021-03-20] MEDS: VALPROIC ACID 250 MG/5 ML SOLUTION UDCUP PO SCH ×2 (08:57→20:12)
[2021-03-20] MEDS: LevETIRAcetam 500 MG TABLET PO SCH ×2 (08:57→16:10)
[2021-03-20] MEDS: NICOTINE 14 MG/24 HOUR PATCH TD SCH (08:57)
[2021-03-20] MEDS: LORazepam 2 MG TABLET PO PRN (09:02)
[2021-03-20] MEDS: TRETINOIN 0.1% TP SCH ×2 (09:53→16:10)
[2021-03-20 16:07] VITALS: BP 136/85
[2021-03-20] MEDS: ZOLPIDEM TARTRATE 10 MG TABLET PO PRN (21:55)
[2021-03-21] MEDS: PHENYTOIN SODIUM 100 MG ER CAPSULE PO SCH ×3 (01:32→16:32)
[2021-03-21 06:08] VITALS: BP 122/78
[2021-03-21] MEDS: LEVOTHYROXINE SODIUM 50 MCG TABLET PO SCH (06:14)
[2021-03-21 08:23] VITALS: BP 135/86
[2021-03-21] MEDS: QUEtiapine FUMARATE 300 MG TABLET PO SCH ×3 (08:31→21:18)
[2021-03-21] MEDS: LevETIRAcetam 500 MG TABLET PO SCH ×2 (08:31→16:31)
[2021-03-21] MEDS: NICOTINE 14 MG/24 HOUR PATCH TD SCH (08:32)
[2021-03-21] MEDS: VALPROIC ACID 250 MG/5 ML SOLUTION UDCUP PO SCH ×2 (08:33→21:00)
[2021-03-21] MEDS: OMEPRAZOLE 20 MG CAPSULE PO SCH (10:31)
[2021-03-21] MEDS: TRETINOIN 0.1% TP SCH ×2 (10:32→16:32)
[2021-03-21] MEDS: LORazepam 2 MG TABLET PO PRN (13:51)
[2021-03-21 20:14] VITALS: BP 129/85
[2021-03-22] MEDS: PHENYTOIN SODIUM 100 MG ER CAPSULE PO SCH ×3 (00:04→16:21)
[2021-03-22 00:19] VITALS: BP 135/81
[2021-03-22] MEDS: LEVOTHYROXINE SODIUM 50 MCG TABLET PO SCH (06:55)
[2021-03-22] MEDS: LevETIRAcetam 500 MG TABLET PO SCH ×2 (08:03→16:21)
[2021-03-22] MEDS: NICOTINE 14 MG/24 HOUR PATCH TD SCH (08:03)
[2021-03-22] MEDS: OMEPRAZOLE 20 MG CAPSULE PO SCH (08:03)
[2021-03-22] MEDS: QUEtiapine FUMARATE 300 MG TABLET PO SCH ×3 (08:03→21:40)
[2021-03-22] MEDS: VALPROIC ACID 250 MG/5 ML SOLUTION UDCUP PO SCH ×2 (08:03→21:40)
[2021-03-22] MEDS: LORazepam 2 MG TABLET PO PRN (08:04)
[2021-03-22] MEDS: TRETINOIN 0.1% TP SCH ×2 (08:09→16:22)
[2021-03-22 08:18] VITALS: BP 114/71
[2021-03-22 16:07] VITALS: BP 103/71
[2021-03-23] MEDS: PHENYTOIN SODIUM 100 MG ER CAPSULE PO SCH ×3 (01:04→16:05)
[2021-03-23 05:11] VITALS: BP 130/90
[2021-03-23] MEDS: LEVOTHYROXINE SODIUM 50 MCG TABLET PO SCH (06:22)
[2021-03-23 08:20] VITALS: BP 122/78
[2021-03-23] MEDS: OMEPRAZOLE 20 MG CAPSULE PO SCH (08:53)
[2021-03-23] MEDS: LevETIRAcetam 500 MG TABLET PO SCH ×2 (08:53→16:05)
[2021-03-23] MEDS: VALPROIC ACID 250 MG/5 ML SOLUTION UDCUP PO SCH ×2 (08:53→20:35)
[2021-03-23] MEDS: QUEtiapine FUMARATE 300 MG TABLET PO SCH ×3 (08:53→20:35)
[2021-03-23] MEDS: NICOTINE 14 MG/24 HOUR PATCH TD SCH (08:56)
[2021-03-23] MEDS: TRETINOIN 0.1% TP SCH ×2 (08:56→16:05)
[2021-03-23] MEDS: LORazepam 2 MG TABLET PO PRN (09:09)
[2021-03-23] MEDS: TraMADol HCL 50 MG TABLET PO PRN (09:15)
[2021-03-23 16:09] VITALS: BP 120/79
[2021-03-23] MEDS: ZOLPIDEM TARTRATE 10 MG TABLET PO PRN (20:58)
[2021-03-24] MEDS: PHENYTOIN SODIUM 100 MG ER CAPSULE PO SCH ×3 (00:07→16:01)
[2021-03-24 05:46] VITALS: BP 124/76
[2021-03-24] MEDS: LEVOTHYROXINE SODIUM 50 MCG TABLET PO SCH (06:56)
[2021-03-24 08:20] VITALS: BP 115/71
[2021-03-24] MEDS: VALPROIC ACID 250 MG/5 ML SOLUTION UDCUP PO SCH ×2 (08:48→20:11)
[2021-03-24] MEDS: OMEPRAZOLE 20 MG CAPSULE PO SCH (08:50)
[2021-03-24] MEDS: QUEtiapine FUMARATE 300 MG TABLET PO SCH ×3 (08:50→20:10)
[2021-03-24] MEDS: LevETIRAcetam 500 MG TABLET PO SCH ×2 (08:50→16:01)
[2021-03-24] MEDS: NICOTINE 14 MG/24 HOUR PATCH TD SCH (08:52)
[2021-03-24] MEDS: TRETINOIN 0.1% TP SCH ×2 (10:48→17:00)
[2021-03-24] MEDS: LORazepam 2 MG TABLET PO PRN (11:20)
[2021-03-24 16:12] VITALS: BP 114/76
[2021-03-24] MEDS: TraMADol HCL 50 MG TABLET PO PRN (16:52)
[2021-03-24] MEDS: ZOLPIDEM TARTRATE 10 MG TABLET PO PRN (20:53)
[2021-03-24] MEDS: ACETAMINOPHEN 325 MG TABLET PO PRN (20:53)
[2021-03-25] MEDS: PHENYTOIN SODIUM 100 MG ER CAPSULE PO SCH ×3 (00:42→16:18)
[2021-03-25 03:20] VITALS: BP 110/68
[2021-03-25] MEDS: LEVOTHYROXINE SODIUM 50 MCG TABLET PO SCH (06:26)
[2021-03-25] MEDS: VALPROIC ACID 250 MG/5 ML SOLUTION UDCUP PO SCH ×2 (08:10→21:14)
[2021-03-25] MEDS: OMEPRAZOLE 20 MG CAPSULE PO SCH (08:11)
[2021-03-25] MEDS: QUEtiapine FUMARATE 300 MG TABLET PO SCH ×3 (08:11→21:14)
[2021-03-25] MEDS: LevETIRAcetam 500 MG TABLET PO SCH ×2 (08:11→16:18)
[2021-03-25] MEDS: NICOTINE 14 MG/24 HOUR PATCH TD SCH (08:11)
[2021-03-25] MEDS: TRETINOIN 0.1% TP SCH ×2 (08:12→16:19)
[2021-03-25] MEDS: LORazepam 2 MG TABLET PO PRN (08:13)
[2021-03-25 08:27] VITALS: BP 117/72
[2021-03-25 16:16] VITALS: BP 102/60
[2021-03-25] MEDS: TraMADol HCL 50 MG TABLET PO PRN (18:08)
[2021-03-25] MEDS: ZOLPIDEM TARTRATE 10 MG TABLET PO PRN (21:20)
[2021-03-26] MEDS: PHENYTOIN SODIUM 100 MG ER CAPSULE PO SCH ×3 (00:19→16:02)
[2021-03-26 04:57] VITALS: BP 112/74
[2021-03-26] MEDS: LEVOTHYROXINE SODIUM 50 MCG TABLET PO SCH (06:16)
[2021-03-26 08:28] VITALS: BP 116/72
[2021-03-26] MEDS: LevETIRAcetam 500 MG TABLET PO SCH ×2 (08:35→16:43)
[2021-03-26] MEDS: OMEPRAZOLE 20 MG CAPSULE PO SCH (08:35)
[2021-03-26] MEDS: QUEtiapine FUMARATE 300 MG TABLET PO SCH ×3 (08:35→20:53)
[2021-03-26] MEDS: VALPROIC ACID 250 MG/5 ML SOLUTION UDCUP PO SCH ×2 (08:36→20:53)
[2021-03-26] MEDS: NICOTINE 14 MG/24 HOUR PATCH TD SCH (08:44)
[2021-03-26] MEDS: TRETINOIN 0.1% TP SCH ×2 (08:59→16:43)
[2021-03-26] MEDS: TraMADol HCL 50 MG TABLET PO PRN (10:09)
[2021-03-26] MEDS: LORazepam 2 MG TABLET PO PRN (13:13)
[2021-03-26 16:17] VITALS: BP 111/78
[2021-03-27] MEDS: PHENYTOIN SODIUM 100 MG ER CAPSULE PO SCH ×3 (00:22→16:10)
[2021-03-27 01:09] VITALS: BP 123/78
[2021-03-27] MEDS: LEVOTHYROXINE SODIUM 50 MCG TABLET PO SCH (06:13)
[2021-03-27 08:21] VITALS: BP 121/69
[2021-03-27] MEDS: OMEPRAZOLE 20 MG CAPSULE PO SCH (08:32)
[2021-03-27] MEDS: LevETIRAcetam 500 MG TABLET PO SCH ×2 (08:32→16:11)
[2021-03-27] MEDS: QUEtiapine FUMARATE 300 MG TABLET PO SCH ×3 (08:32→20:38)
[2021-03-27] MEDS: VALPROIC ACID 250 MG/5 ML SOLUTION UDCUP PO SCH ×2 (08:32→20:38)
[2021-03-27] MEDS: NICOTINE 14 MG/24 HOUR PATCH TD SCH (08:33)
[2021-03-27] MEDS: LORazepam 2 MG TABLET PO PRN ×3 (08:33→20:10)
[2021-03-27] MEDS: TRETINOIN 0.1% TP SCH ×2 (09:58→16:11)
[2021-03-27] MEDS: OLANZapine 5 MG RAPDIS TABLET PO PRN (16:05)
[2021-03-27 16:14] VITALS: BP 110/64
[2021-03-27] MEDS: TraMADol HCL 50 MG TABLET PO PRN (16:15)
[2021-03-27] MEDS: ZOLPIDEM TARTRATE 10 MG TABLET PO PRN (20:10)
[2021-03-28] MEDS: PHENYTOIN SODIUM 100 MG ER CAPSULE PO SCH ×3 (00:04→16:01)
[2021-03-28 06:27] VITALS: BP 118/74
[2021-03-28] MEDS: LEVOTHYROXINE SODIUM 50 MCG TABLET PO SCH (06:32)
[2021-03-28 08:48] VITALS: BP 119/71
[2021-03-28] MEDS: NICOTINE 14 MG/24 HOUR PATCH TD SCH (09:01)
[2021-03-28] MEDS: OMEPRAZOLE 20 MG CAPSULE PO SCH (09:01)
[2021-03-28] MEDS: VALPROIC ACID 250 MG/5 ML SOLUTION UDCUP PO SCH ×2 (09:02→20:16)
[2021-03-28] MEDS: QUEtiapine FUMARATE 300 MG TABLET PO SCH ×3 (09:02→20:16)
[2021-03-28] MEDS: LevETIRAcetam 500 MG TABLET PO SCH ×2 (09:04→16:01)
[2021-03-28] MEDS: TRETINOIN 0.1% TP SCH ×2 (09:04→16:02)
[2021-03-28] MEDS: LORazepam 2 MG TABLET PO PRN ×2 (09:14→16:01)
[2021-03-28 16:25] VITALS: BP 138/86
[2021-03-28] MEDS: ZOLPIDEM TARTRATE 10 MG TABLET PO PRN (20:16)
[2021-03-28] MEDS: TraMADol HCL 50 MG TABLET PO PRN (20:17)
[2021-03-29] MEDS: PHENYTOIN SODIUM 100 MG ER CAPSULE PO SCH ×3 (00:12→16:08)
[2021-03-29 06:13] VITALS: BP 104/62
[2021-03-29] MEDS: LEVOTHYROXINE SODIUM 50 MCG TABLET PO SCH (06:49)
[2021-03-29 08:42] VITALS: BP 125/69
[2021-03-29] MEDS: QUEtiapine FUMARATE 300 MG TABLET PO SCH ×3 (08:55→20:17)
[2021-03-29] MEDS: LevETIRAcetam 500 MG TABLET PO SCH ×2 (08:55→16:08)
[2021-03-29] MEDS: OMEPRAZOLE 20 MG CAPSULE PO SCH (08:55)
[2021-03-29] MEDS: NICOTINE 14 MG/24 HOUR PATCH TD SCH (08:55)
[2021-03-29] MEDS: TRETINOIN 0.1% TP SCH ×2 (08:56→16:08)
[2021-03-29] MEDS: VALPROIC ACID 250 MG/5 ML SOLUTION UDCUP PO SCH ×2 (08:56→20:18)
[2021-03-29] MEDS: LORazepam 2 MG TABLET PO PRN ×2 (11:53→16:08)
[2021-03-29 11:54] VITALS: BP 121/62
[2021-03-29] MEDS: TraMADol HCL 50 MG TABLET PO PRN (11:54)
[2021-03-29 16:11] VITALS: BP 120/75
[2021-03-29] MEDS: ZOLPIDEM TARTRATE 10 MG TABLET PO PRN (20:17)
[2021-03-30] MEDS: PHENYTOIN SODIUM 100 MG ER CAPSULE PO SCH ×3 (00:35→15:57)
[2021-03-30] MEDS: LEVOTHYROXINE SODIUM 50 MCG TABLET PO SCH (06:11)
[2021-03-30 06:28] VITALS: BP 118/72
[2021-03-30 08:44] VITALS: BP 122/64
[2021-03-30] MEDS: LORazepam 2 MG TABLET PO PRN (08:57)
[2021-03-30] MEDS: VALPROIC ACID 250 MG/5 ML SOLUTION UDCUP PO SCH ×2 (08:58→20:23)
[2021-03-30] MEDS: OMEPRAZOLE 20 MG CAPSULE PO SCH (09:00)
[2021-03-30] MEDS: QUEtiapine FUMARATE 300 MG TABLET PO SCH ×3 (09:00→20:23)
[2021-03-30] MEDS: LevETIRAcetam 500 MG TABLET PO SCH ×2 (09:00→15:57)
[2021-03-30] MEDS: NICOTINE 14 MG/24 HOUR PATCH TD SCH (09:00)
[2021-03-30] MEDS: TraMADol HCL 50 MG TABLET PO PRN ×2 (10:09→18:01)
[2021-03-30] MEDS: TRETINOIN 0.1% TP SCH ×2 (10:44→17:00)
[2021-03-30 16:25] VITALS: BP 114/71
[2021-03-30] MEDS: ZOLPIDEM TARTRATE 10 MG TABLET PO PRN (20:23)
[2021-03-31] MEDS: PHENYTOIN SODIUM 100 MG ER CAPSULE PO SCH ×3 (00:02→16:15)
[2021-03-31 00:20] VITALS: BP 125/78
[2021-03-31] MEDS: LEVOTHYROXINE SODIUM 50 MCG TABLET PO SCH (06:18)
[2021-03-31] MEDS: OMEPRAZOLE 20 MG CAPSULE PO SCH (08:36)
[2021-03-31] MEDS: VALPROIC ACID 250 MG/5 ML SOLUTION UDCUP PO SCH ×2 (08:36→20:57)
[2021-03-31] MEDS: LevETIRAcetam 500 MG TABLET PO SCH ×2 (08:37→16:16)
[2021-03-31] MEDS: TRETINOIN 0.1% TP SCH ×2 (08:37→16:25)
[2021-03-31] MEDS: QUEtiapine FUMARATE 300 MG TABLET PO SCH ×3 (08:37→20:56)
[2021-03-31 08:52] VITALS: BP 120/72
[2021-03-31] MEDS: NICOTINE 14 MG/24 HOUR PATCH TD SCH (09:15)
[2021-03-31] MEDS: ACETAMINOPHEN 325 MG TABLET PO PRN (12:05)
[2021-03-31 16:19] VITALS: BP 128/86
[2021-03-31] MEDS: LORazepam 2 MG TABLET PO PRN ×2 (16:26→20:57)
[2021-03-31] MEDS: TraMADol HCL 50 MG TABLET PO PRN (18:02)
[2021-03-31] MEDS: ZOLPIDEM TARTRATE 10 MG TABLET PO PRN (20:57)
[2021-04-01] MEDS: PHENYTOIN SODIUM 100 MG ER CAPSULE PO SCH ×3 (00:20→16:06)
[2021-04-01] MEDS: LEVOTHYROXINE SODIUM 50 MCG TABLET PO SCH (06:28)
[2021-04-01 07:13] VITALS: BP 123/67
[2021-04-01] MEDS: TRETINOIN 0.1% TP SCH ×2 (08:36→16:07)
[2021-04-01] MEDS: NICOTINE 14 MG/24 HOUR PATCH TD SCH (08:37)
[2021-04-01] MEDS: QUEtiapine FUMARATE 300 MG TABLET PO SCH ×3 (08:37→20:35)
[2021-04-01] MEDS: OMEPRAZOLE 20 MG CAPSULE PO SCH (08:37)
[2021-04-01] MEDS: LevETIRAcetam 500 MG TABLET PO SCH ×2 (08:37→16:06)
[2021-04-01] MEDS: VALPROIC ACID 250 MG/5 ML SOLUTION UDCUP PO SCH ×2 (08:38→20:35)
[2021-04-01] MEDS: LORazepam 2 MG TABLET PO PRN ×2 (08:51→16:06)
[2021-04-01 09:44] VITALS: BP 119/71
[2021-04-01 17:00] VITALS: BP 125/78
[2021-04-01] MEDS: ZOLPIDEM TARTRATE 10 MG TABLET PO PRN (20:35)
[2021-04-02] MEDS: PHENYTOIN SODIUM 100 MG ER CAPSULE PO SCH ×3 (00:43→16:11)
[2021-04-02 00:46] VITALS: BP 111/66
[2021-04-02] MEDS: LEVOTHYROXINE SODIUM 50 MCG TABLET PO SCH (06:07)
[2021-04-02 07:38] LABS: COVID AG,FIA SOURCE NASOPHARYNGEAL
[2021-04-02] MEDS: NICOTINE 14 MG/24 HOUR PATCH TD SCH (08:58)
[2021-04-02] MEDS: OMEPRAZOLE 20 MG CAPSULE PO SCH (08:59)
[2021-04-02] MEDS: VALPROIC ACID 250 MG/5 ML SOLUTION UDCUP PO SCH ×2 (08:59→20:21)
[2021-04-02] MEDS: QUEtiapine FUMARATE 300 MG TABLET PO SCH ×3 (08:59→20:20)
[2021-04-02] MEDS: LevETIRAcetam 500 MG TABLET PO SCH ×2 (08:59→16:11)
[2021-04-02] MEDS: TRETINOIN 0.1% TP SCH ×2 (09:00→16:11)
[2021-04-02] MEDS: LORazepam 2 MG TABLET PO PRN ×2 (09:08→16:11)
[2021-04-02] MEDS: PALIPERIDONE PALMITATE 234 MG/1.5 ML SYRINGE IM SCH (09:35)
[2021-04-02 11:07] VITALS: BP 120/72
[2021-04-02] MEDS: ACETAMINOPHEN 325 MG TABLET PO PRN (12:48)
[2021-04-02 16:16] VITALS: BP 110/80
[2021-04-02] MEDS: TraMADol HCL 50 MG TABLET PO PRN (17:37)
[2021-04-02] MEDS: ZOLPIDEM TARTRATE 10 MG TABLET PO PRN (20:21)
[2021-04-03] MEDS: PHENYTOIN SODIUM 100 MG ER CAPSULE PO SCH ×4 (00:34→23:23)
[2021-04-03 05:47] VITALS: BP 116/74
[2021-04-03] MEDS: LEVOTHYROXINE SODIUM 50 MCG TABLET PO SCH (06:18)
[2021-04-03] MEDS: OMEPRAZOLE 20 MG CAPSULE PO SCH (08:32)
[2021-04-03] MEDS: VALPROIC ACID 250 MG/5 ML SOLUTION UDCUP PO SCH ×2 (08:32→21:24)
[2021-04-03] MEDS: QUEtiapine FUMARATE 300 MG TABLET PO SCH ×3 (08:32→21:24)
[2021-04-03] MEDS: LevETIRAcetam 500 MG TABLET PO SCH ×2 (08:32→16:17)
[2021-04-03 08:33] VITALS: BP 138/72
[2021-04-03] MEDS: NICOTINE 14 MG/24 HOUR PATCH TD SCH (08:33)
[2021-04-03] MEDS: TRETINOIN 0.1% TP SCH ×2 (08:33→16:18)
[2021-04-03] MEDS ORDERED: LEVO50 PO (13:22)
[2021-04-03] MEDS ORDERED: VALP250C48 PO (13:30)
[2021-04-03] MEDS ORDERED: QUET300T2 PO (13:30)
[2021-04-03] MEDS ORDERED: LEVE500T20 PO (13:30)
[2021-04-03] MEDS ORDERED: OMEP20 PO (13:31)
[2021-04-03] MEDS ORDERED: PHENY100 PO (13:32)
[2021-04-03 16:19] VITALS: BP 129/85
[2021-04-03] MEDS: LORazepam 2 MG TABLET PO PRN (18:29)
[2021-04-03] MEDS: ZOLPIDEM TARTRATE 10 MG TABLET PO PRN (23:20)
[2021-04-04 04:55] VITALS: BP 121/74
[2021-04-04] MEDS: LEVOTHYROXINE SODIUM 50 MCG TABLET PO SCH (06:40)
[2021-04-04 08:33] VITALS: BP 136/84
[2021-04-04] MEDS: VALPROIC ACID 250 MG/5 ML SOLUTION UDCUP PO SCH (08:57)
[2021-04-04] MEDS: OMEPRAZOLE 20 MG CAPSULE PO SCH (08:58)
[2021-04-04] MEDS: LevETIRAcetam 500 MG TABLET PO SCH (08:58)
[2021-04-04] MEDS: PHENYTOIN SODIUM 100 MG ER CAPSULE PO SCH (08:58)
[2021-04-04] MEDS: QUEtiapine FUMARATE 300 MG TABLET PO SCH (08:58)
[2021-04-04] MEDS: NICOTINE 14 MG/24 HOUR PATCH TD SCH (10:56)
[2021-04-04] MEDS: TRETINOIN 0.1% TP SCH (10:57)
== END 2021-04-04 15:50 | DRG 750 ==
LOC: B3A 20:39
DX: F25.0 Schizoaffective disorder, bipolar type (principal); G40.909 Epilepsy, unspecified, not intractable, without status epilepticus; D64.9 Anemia, unspecified; E03.9 Hypothyroidism, unspecified; J45.909 Unspecified asthma, uncomplicated; F15.10 Other stimulant abuse, uncomplicated; F43.10 Post-traumatic stress disorder, unspecified; Z59.00 Homelessness unspecified; Z79.899 Other long term (current) drug therapy; Z88.2 Allergy status to sulfonamides; Z88.8 Allergy status to other drugs, medicaments and biological substances; Z91.012 Allergy to eggs; Z91.040 Latex allergy status; Z88.0 Allergy status to penicillin; Z91.013 Allergy to seafood
CPT/HCPCS: 0031A; 70450; 80074; 80164; 82962; 84146; 87081; 91303; J1200; J1630; J2060; J3230

== ENCOUNTER 2021-01-25 13:03 | Emergency (ER) | payer MEDICAID, OTHER ==
[~2021-01-25] VITALS: Ht 175.3 cm; Wt 79.5 kg
[~2021-01-25 13:03] MED LIST changes: +CIPR-278 PO; -DIVA-80 PO; -DIVA-85 PO; -LEVE500T20 PO; +LEVE500T53 PO; +METR500 PO; +ONDA-104 PO; -QUET200T PO; -QUET300T2 PO; -RISPC50 IM
[2021-01-25] MEDS ORDERED: SODIUM CHLORIDE 0.9% 250 ML IRRIG SOLUTION BOTTLE IRRIG ONE (14:15)
[2021-01-25] MEDS ORDERED: PERTUSS(ACELL),DIPH,TET VAC/PF 0.5 ML SYRINGE IM. ONE (14:15)
[2021-01-25] MEDS ORDERED: ACETAMINOPHEN 500 MG TABLET PO ONE (14:15)
[2021-01-25 16:36] VITALS: BP 118/72
== END 2021-01-25 17:04 | disposition home or self-care (01) ==
LOC: EMS 13:07
DX: S00.03XA Contusion of scalp, initial encounter (principal); F25.9 Schizoaffective disorder, unspecified; F32.9 Major depressive disorder, single episode, unspecified; J45.909 Unspecified asthma, uncomplicated; I25.10 Atherosclerotic heart disease of native coronary artery without angina pectoris; F12.90 Cannabis use, unspecified, uncomplicated; F19.90 Other psychoactive substance use, unspecified, uncomplicated; Z90.89 Acquired absence of other organs; Z87.891 Personal history of nicotine dependence; Z88.5 Allergy status to narcotic agent; Z88.0 Allergy status to penicillin; Z88.8 Allergy status to other drugs, medicaments and biological substances; Z88.1 Allergy status to other antibiotic agents; Z91.012 Allergy to eggs; Z91.040 Latex allergy status; W22.01XA Walked into wall, initial encounter; Y93.89 Activity, other specified; Y92.89 Other specified places as the place of occurrence of the external cause; Y99.8 Other external cause status
CPT/HCPCS: 12002; 70450; 90471; 90715; 99284; 99285

== ENCOUNTER 2024-07-22 16:04 | Emergency (ER) | payer OTHER ==
[~2024-07-22] VITALS: Ht 175.3 cm; Wt 80.0 kg
[~2024-07-22 16:04] MED LIST changes: -CIPR-278 PO; +LEVE-71 PO; -LEVE500T53 PO; -METR500 PO; +OMEP20 PO; -OMEP20CA12 PO; -ONDA-104 PO; +PHEN100C74 PO; -PHENY100 PO; +QUET300T2 PO; +VALP250C48 PO
[2024-07-22 16:12] VITALS: TEMP 98.6
[2024-07-22] MEDS: KETOROLAC TROMETHAMINE 30 MG/ML VIAL IM ONE (17:47)
[2024-07-22] MEDS: LIDOCAINE 5% TRANSDERMAL PATCH TD ONE (17:47)
[2024-07-22] MEDS: CYCLOBENZAPRINE HCL 10 MG TABLET PO ONE (19:52)
[2024-07-22 20:18] VITALS: BP 119/77; PULSE 80; RESP 18; O2SAT 95
[2024-07-23] MEDS ORDERED: OLAN10TA74 PO (06:59)
[2024-07-23] MEDS ORDERED: LEVO100 PO (06:59)
[2024-07-23] MEDS ORDERED: LACT10SO9 PO (06:59)
[2024-07-23] MEDS ORDERED: FINA5TAB41 PO (06:59)
[2024-07-23] MEDS ORDERED: LIDO700A30 TD (06:59)
[2024-07-23] MEDS ORDERED: DIVA-153 PO (06:59)
[2024-07-23] MEDS ORDERED: CLON0.5T4 PO (06:59)
[2024-07-23] MEDS ORDERED: PALI9TAB15 PO (06:59)
[2024-07-23] MEDS ORDERED: BACL10TA PO (06:59)
[2024-07-23] MEDS ORDERED: TAMS0.4C94 PO (06:59)
[2024-07-23] MEDS ORDERED: ATOR40TA71 PO (06:59)
[2024-07-23] MEDS ORDERED: MULT-1336 PO (14:29)
[2024-07-23] MEDS ORDERED: PALI156D IM (14:29)
[2024-07-23] MEDS ORDERED: ALBU18HF12 IH (14:29)
== END 2024-07-23 00:49 | disposition home or self-care (01) ==
LOC: EMS 16:04
DX: S09.90XA Unspecified injury of head, initial encounter (principal); G47.00 Insomnia, unspecified; J45.909 Unspecified asthma, uncomplicated; F12.90 Cannabis use, unspecified, uncomplicated; F15.90 Other stimulant use, unspecified, uncomplicated; I25.10 Atherosclerotic heart disease of native coronary artery without angina pectoris; F20.9 Schizophrenia, unspecified; E03.9 Hypothyroidism, unspecified; Z87.891 Personal history of nicotine dependence; Z88.0 Allergy status to penicillin; Z88.2 Allergy status to sulfonamides; Z88.5 Allergy status to narcotic agent; Z90.49 Acquired absence of other specified parts of digestive tract; Z91.040 Latex allergy status; W19.XXXA Unspecified fall, initial encounter; Y93.89 Activity, other specified; Y92.89 Other specified places as the place of occurrence of the external cause; Y99.8 Other external cause status
CPT/HCPCS: 99285; 70450; 73503; 96372; J1885

== ENCOUNTER 2024-07-23 00:28 | Emergency (ER) | payer OTHER ==
[~2024-07-23] VITALS: Ht 167.6 cm; Wt 81.0 kg
[2024-07-23 00:56] VITALS: BP 110/74; PULSE 88; RESP 18; TEMP 97.9; O2SAT 100
[2024-07-23] MEDS ORDERED: OLAN10TA74 PO (06:59)
[2024-07-23] MEDS ORDERED: LIDO700A30 TD (06:59)
[2024-07-23] MEDS ORDERED: LACT10SO9 PO (06:59)
[2024-07-23] MEDS ORDERED: BACL10TA PO (06:59)
[2024-07-23] MEDS ORDERED: LEVO100 PO (06:59)
[2024-07-23] MEDS ORDERED: PALI9TAB15 PO (06:59)
[2024-07-23] MEDS ORDERED: TAMS0.4C94 PO (06:59)
[2024-07-23] MEDS ORDERED: CLON0.5T4 PO (06:59)
[2024-07-23] MEDS ORDERED: ATOR40TA71 PO (06:59)
[2024-07-23] MEDS ORDERED: FINA5TAB41 PO (06:59)
[2024-07-23] MEDS ORDERED: DIVA-153 PO (06:59)
[2024-07-23] MEDS ORDERED: PALI156D IM (14:29)
[2024-07-23] MEDS ORDERED: MULT-1336 PO (14:29)
[2024-07-23] MEDS ORDERED: ALBU18HF12 IH (14:29)
== END 2024-07-23 03:17 | disposition left against medical advice (07) ==
LOC: EMS 00:32
DX: Z53.21 Procedure and treatment not carried out due to patient leaving prior to being seen by health care provider (principal)

== ENCOUNTER 2024-07-23 04:06 | Inpatient (IN) | payer MEDICAID, OTHER ==
[~2024-07-23] VITALS: Ht 175.3 cm; Wt 93.1 kg
[~2024-07-23 04:06] MED LIST changes: +OMEP-148 PO; -OMEP20 PO
[2024-07-23] MEDS: ClonazePAM 0.5 MG TABLET PO ONE (05:46)
[2024-07-23] MEDS: OLANZapine 10 MG TABLET PO ONE (05:46)
[2024-07-23] MEDS: LevETIRAcetam 500 MG TABLET PO ONE (05:47)
[2024-07-23] MEDS ORDERED: PALI9TAB15 PO (06:59)
[2024-07-23] MEDS ORDERED: LACT10SO9 PO (06:59)
[2024-07-23] MEDS ORDERED: CLON0.5T4 PO (06:59)
[2024-07-23] MEDS ORDERED: TAMS0.4C94 PO (06:59)
[2024-07-23] MEDS ORDERED: OLAN10TA74 PO (06:59)
[2024-07-23] MEDS ORDERED: BACL10TA PO (06:59)
[2024-07-23] MEDS ORDERED: DIVA-153 PO (06:59)
[2024-07-23] MEDS ORDERED: ATOR40TA71 PO (06:59)
[2024-07-23] MEDS ORDERED: FINA5TAB41 PO (06:59)
[2024-07-23] MEDS ORDERED: LEVO100 PO (06:59)
[2024-07-23] MEDS ORDERED: LIDO700A30 TD (06:59)
[2024-07-23 07:06] LABS: BASOPHILS % (AUTO) 0.7 % (0.0-2.0); EOSINOPHILS % (AUTO) 1.4 % (1.0-6.0); HEMATOCRIT 43.8 % (41-53); LYMPHOCYTES # (AUTO) 1.7 K/uL (1.0-4.8); LYMPHOCYTES % (AUTO) 19.1 % (22.0-44.0); MEAN CORPUSCULAR HEMOGLOBIN 31.5 pg (26.0-34.0); MEAN CORPUSCULAR HGB CONC 34.2 G/dL (31.0-37.0); MEAN CORPUSCULAR VOLUME 92 fL (80-100); MONOCYTES # (AUTO) 0.7 K/uL (0.1-1.0); NEUTROPHILS # (AUTO) 6.3 K/uL (1.8-7.7); NEUTROPHILS % (AUTO) 70.8 % (40.0-70.0); PLATELET COUNT (AUTO) 268 K/uL (150-450); RED BLOOD CELL COUNT(AUTO) 4.76 MIL/uL (4.50-5.90); RED CELL DISTRIBUTION WIDTH 14.1 % (11.5-14.5); WHITE BLOOD COUNT (AUTO) 8.9 K/uL (4.5-11.0)
[2024-07-23 07:06] LABS: COVID AG,FIA SOURCE NPH
[2024-07-23 07:11] LABS: ANION GAP 11 mmol/L (8-16); CALCIUM, TOTAL 9.1 mg/dL (8.8-10.5); CARBON DIOXIDE 24 mmol/L (22-29); CHLORIDE 108 mmol/L (98-107); CREATININE 0.94 mg/dL (0.60-1.30); GLOMERULAR FILTR. RATE CALC > 60 mL/min (>60); GLUCOSE,RANDOM 158 mg/dL (70-110); SODIUM SERUM 143 mmol/L (136-145); UREA NITROGEN, BLOOD 8 mg/dL (7-18)
[2024-07-23 07:14] LABS: ALCOHOL, BLOOD (SERUM) < 3 mg/dL (0-10)
[2024-07-23 07:23] LABS: ALANINE AMINOTRANSFERASE 29 U/L (12-78); ALBUMIN 3.3 g/dL (3.4-5.0); ALKALINE PHOSPHATASE 116 U/L (46-116); ASPARTATE AMINOTRANSFERASE 27 U/L (15-37); BILIRUBIN,TOTAL 0.3 mg/dL (0.1-1.0); THYROID STIMULATING HORMONE 2.73 uIU/mL (0.36-3.74); TOTAL PROTEIN, SERUM 7.5 g/dL (6.4-8.2); VALPROIC ACID 29 mcg/mL (50-100)
[2024-07-23 07:31] LABS: SARS-COV2 (COVID) ANTIGEN,FIA Negative (Negative)
[2024-07-23 07:35] LABS: APPEARANCE,URINE CLEAR (CLEAR); BILIRUBIN,URINE NEGATIVE (NEGATIVE); COLOR,URINE LIGHT YELLOW (YELLOW); GLUCOSE, URINE (UA) NEGATIVE (NEGATIVE); KETONES,URINE NEGATIVE (NEGATIVE); LEUKOCYTE ESTERASE ,URINE NEGATIVE (NEGATIVE); NITRATE,URINE NEGATIVE (NEGATIVE); OCCULT BLOOD,URINE NEGATIVE (NEGATIVE); PROTEIN,URINE NEGATIVE (NEGATIVE); SPECIFIC GRAVITIY, URINE 1.009 (1.003-1.030); UROBILINOGEN,URINE <=1.0 mg/dL (<=1.0)
[2024-07-23 07:41] LABS: PHENYTOIN (DILANTIN) < 0.5 mcg/mL (10.0-20.0)
[2024-07-23 07:43] LABS: ALCOHOL, URINE DRUG SCREEN NEGATIVE (NEGATIVE); AMPHET/METH SCREEN,URINE NEGATIVE (NEGATIVE); BARBITURATE SCREEN, URINE NEGATIVE (NEGATIVE); BENZODIAZEPINES SCREEN,URINE NEGATIVE (NEGATIVE); CANNABINOID SCREEN,URINE NEGATIVE (NEGATIVE); COCAINE SCREEN,URINE NEGATIVE (NEGATIVE); METHADONE SCREEN, URINE NEGATIVE (NEGATIVE); OPIATE SCREEN,URINE NEGATIVE (NEGATIVE); PHENCYCLIDINE SCREEN,URINE NEGATIVE (NEGATIVE)
[2024-07-23] MEDS: NICOTINE 21 MG/24 HOUR PATCH TD ONE (13:09)
[2024-07-23] MEDS: LORazepam 2 MG/ML VIAL IM ONE (14:26)
[2024-07-23] MEDS: DiphenhydrAMINE HCL 50 MG/ML VIAL IM ONE (14:27)
[2024-07-23] MEDS ORDERED: MULT-1336 PO (14:29)
[2024-07-23] MEDS ORDERED: ALBU18HF12 IH (14:29)
[2024-07-23] MEDS ORDERED: PALI156D IM (14:29)
[2024-07-23] MEDS: ACETAMINOPHEN 500 MG TABLET PO ONE (19:43)
[2024-07-23 20:59] VITALS: O2SAT 98
[2024-07-24 03:11] VITALS: BP 104/65; PULSE 79; RESP 18; TEMP 97.4; O2SAT 96
[2024-07-24] MEDS: LORazepam 2 MG TABLET PO PRN (07:47)
[2024-07-24] MEDS: OLANZapine 5 MG RAPDIS TABLET PO PRN (07:47)
[2024-07-24 08:30] LABS: HEMOGLOBIN A1C 5.5 % (3.8-5.6)
[2024-07-24 08:39] LABS: CHOL/HDL RATIO 2.6 (4.2-7.3)
[2024-07-24 10:05] VITALS: BP 132/75; PULSE 64; RESP 16; TEMP 98.5; O2SAT 95
[2024-07-24] MEDS ORDERED: BACITRACIN 28 GM OINTMENT TP PRN (11:00)
[2024-07-24] MEDS ORDERED: LOPERAMIDE HCL 2 MG CAPSULE PO PRN (11:00)
[2024-07-24] MEDS ORDERED: DOCUSATE SODIUM 100 MG CAPSULE PO PRN (11:00)
[2024-07-24] MEDS ORDERED: MAGNESIUM HYDROXIDE SUSPENSION 30 ML UDCUP PO PRN (11:00)
[2024-07-24] MEDS ORDERED: PETROLATUM,WHITE 28 GM JELLY TP PRN (11:00)
[2024-07-24] MEDS ORDERED: CloNIDine HCL 0.1 MG TABLET PO PRN (11:00)
[2024-07-24] MEDS: LevETIRAcetam 500 MG TABLET PO SCH (11:51)
[2024-07-24] MEDS: QUEtiapine FUMARATE 300 MG TABLET PO SCH (21:26)
[2024-07-24 22:00] VITALS: BP 129/58; PULSE 76; RESP 16; TEMP 97.7; O2SAT 97
[2024-07-25] MEDS: LEVOTHYROXINE SODIUM 100 MCG TABLET PO SCH (06:08)
[2024-07-25 08:30] VITALS: BP 104/60; PULSE 64; RESP 19; TEMP 97.6; O2SAT 95
[2024-07-25] MEDS: ATORVASTATIN CALCIUM 40 MG TABLET PO SCH (08:33)
[2024-07-25] MEDS: TAMSULOSIN HCL 0.4 MG CAPSULE PO SCH (08:33)
[2024-07-25] MEDS: LACTULOSE 20 GM/30 ML SOLUTION UDCUP PO SCH (08:34)
[2024-07-25] MEDS: FINASTERIDE 5 MG TABLET PO SCH (08:34)
[2024-07-25] MEDS: MULTIVITAMINS, THERAPEUTIC TABLET PO SCH (08:36)
[2024-07-25] MEDS: ACETAMINOPHEN 325 MG TABLET PO PRN (12:48)
[2024-07-25 20:03] VITALS: BP 127/81; PULSE 87; RESP 17; TEMP 97.6
[2024-07-26 08:38] VITALS: RESP 18
[2024-07-26 20:09] VITALS: BP 108/75; PULSE 92; RESP 18; TEMP 97.6
[2024-07-27 08:25] VITALS: BP 110/77; PULSE 73; RESP 18; TEMP 97.5
[2024-07-27 22:11] VITALS: BP 116/72; PULSE 78; RESP 18; TEMP 97.8; O2SAT 98
[2024-07-28 08:05] VITALS: BP 125/76; PULSE 65; RESP 16; TEMP 97.3; O2SAT 98
[2024-07-28 20:00] VITALS: BP 112/82; PULSE 94; RESP 18; TEMP 97.6; O2SAT 96
[2024-07-29 08:40] VITALS: BP 104/69; PULSE 70; RESP 17; TEMP 97.2; O2SAT 97
[2024-07-29 17:11] VITALS: RESP 18
[2024-07-29 18:11] VITALS: RESP 18
[2024-07-29 20:01] VITALS: BP 117/66; PULSE 82; RESP 18; TEMP 97.9
[2024-07-30 09:05] VITALS: BP 125/78; PULSE 68; RESP 17; TEMP 97.3
[2024-07-30] MEDS ORDERED: HALOPERIDOL LACTATE 5 MG/ML VIAL ONE ×2 (15:44→16:22)
[2024-07-30] MEDS ORDERED: LORazepam 2 MG/ML VIAL ONE ×2 (15:44→16:21)
[2024-07-30] MEDS ORDERED: DiphenhydrAMINE HCL 50 MG/ML VIAL ONE (15:44)
[2024-07-30] MEDS: LORazepam 2 MG/ML VIAL IM ONE ×2 (17:52→18:08)
[2024-07-30] MEDS: HALOPERIDOL LACTATE 5 MG/ML VIAL IM ONE ×2 (17:53→18:09)
[2024-07-30] MEDS: DiphenhydrAMINE HCL 50 MG/ML VIAL IM ONE (18:08)
[2024-07-31 08:07] VITALS: RESP 16
[2024-07-31 14:32] VITALS: RESP 18
[2024-07-31] MEDS ORDERED: DiphenhydrAMINE HCL 50 MG/ML VIAL ONE (14:36)
[2024-07-31] MEDS ORDERED: HALOPERIDOL LACTATE 5 MG/ML VIAL ONE (14:36)
[2024-07-31] MEDS ORDERED: LORazepam 2 MG/ML VIAL ONE (14:36)
[2024-07-31] MEDS: HALOPERIDOL LACTATE 5 MG/ML VIAL IM ONE (14:50)
[2024-07-31] MEDS: LORazepam 2 MG/ML VIAL IM ONE (14:51)
[2024-07-31] MEDS: DiphenhydrAMINE HCL 50 MG/ML VIAL IM ONE (14:51)
[2024-07-31 15:32] VITALS: RESP 16
[2024-07-31] MEDS: ZOLPIDEM TARTRATE 10 MG TABLET PO PRN (20:04)
[2024-07-31 20:14] VITALS: BP 110/76; PULSE 75; RESP 16; TEMP 97.4; O2SAT 95
[2024-08-01 10:21] VITALS: BP 108/60; PULSE 70; RESP 16; TEMP 97.9; O2SAT 97
[2024-08-01] MEDS: NICOTINE 21 MG/24 HOUR PATCH TD PRN (21:54)
[2024-08-01 22:11] VITALS: BP 124/73; PULSE 90; RESP 18; TEMP 97.9; O2SAT 97
[2024-08-02 08:16] VITALS: BP 98/68; PULSE 98; RESP 15; TEMP 97.5; O2SAT 98
[2024-08-02] MEDS: IBUPROFEN 600 MG TABLET PO PRN (18:41)
[2024-08-02] MEDS: MAG HYDROX/ALUMINUM HYD/SIMETH ES 30 ML SUSPENSION UDCUP PO PRN (18:41)
[2024-08-02 20:00] VITALS: BP 126/88; PULSE 100; RESP 17; TEMP 97.9; O2SAT 96
[2024-08-03 08:02] VITALS: BP 124/73; PULSE 88; RESP 18; TEMP 97.6; O2SAT 96
[2024-08-03] MEDS ORDERED: DiphenhydrAMINE HCL 50 MG/ML VIAL ONE (13:20)
[2024-08-03] MEDS ORDERED: HALOPERIDOL LACTATE 5 MG/ML VIAL ONE (13:20)
[2024-08-03] MEDS ORDERED: LORazepam 2 MG/ML VIAL ONE (13:20)
[2024-08-03] MEDS: LORazepam 2 MG/ML VIAL IM ONE (13:32)
[2024-08-03] MEDS: DiphenhydrAMINE HCL 50 MG/ML VIAL IM ONE (13:32)
[2024-08-03] MEDS: HALOPERIDOL LACTATE 5 MG/ML VIAL IM ONE (13:33)
[2024-08-03 14:06] LABS: GLUCOMETER DEV NAME(LOC) BV3N.2; GLUCOSE,POINT OF CARE 196 MG/DL (70-110)
[2024-08-03 20:09] VITALS: BP 125/83; PULSE 93; RESP 17; TEMP 98.4; O2SAT 98
[2024-08-04 08:00] VITALS: BP 124/84; PULSE 108; RESP 16; TEMP 98.7; O2SAT 97
[2024-08-04 13:03] VITALS: RESP 18; O2SAT 98
[2024-08-04 14:03] VITALS: RESP 18; O2SAT 98
[2024-08-04] MEDS: ALBUTEROL SULFATE HFA 90 MCG/PUFF 8 GM INHALER IH PRN (17:46)
[2024-08-04 17:57] VITALS: BP 134/72; PULSE 102; RESP 19; TEMP 97.1; O2SAT 96
[2024-08-04 20:11] VITALS: BP 162/83; PULSE 94; RESP 19; TEMP 97.6; O2SAT 99
[2024-08-05 08:37] VITALS: RESP 18
[2024-08-05 20:20] VITALS: BP_SYST 114; BP_SYST 138; BP_DIAS 76; BP_DIAS 85; PULSE 93; RESP 16; TEMP 98.1; O2SAT 96
[2024-08-06 08:34] VITALS: BP 114/69; PULSE 73; RESP 17; TEMP 97.7; O2SAT 97
[2024-08-06 20:13] VITALS: BP 127/70; PULSE 83; RESP 16; TEMP 97.5; O2SAT 100
[2024-08-07 08:30] VITALS: BP 117/63; PULSE 83; RESP 17; TEMP 98; O2SAT 100
[2024-08-07 16:04] VITALS: RESP 18
[2024-08-07 17:04] VITALS: RESP 16
[2024-08-07] MEDS: ONDANSETRON 4 MG TABLET PO PRN (20:06)
[2024-08-07 20:13] VITALS: BP 117/86; PULSE 84; RESP 17; TEMP 98.1; O2SAT 98
[2024-08-08 08:46] VITALS: BP 102/56; PULSE 60; RESP 15; TEMP 98.2
[2024-08-08 20:03] VITALS: BP 100/62; PULSE 66; RESP 17; TEMP 98.1
[2024-08-09 08:14] VITALS: BP 102/60; PULSE 70; RESP 18; TEMP 99.1; O2SAT 96
[2024-08-09 21:35] VITALS: BP 123/84; PULSE 88; RESP 16; TEMP 97.6; O2SAT 95
[2024-08-10] MEDS: NEOMYCIN/POLYMYXIN B/HYDROCORT 10 ML OTIC SUSPENSION AU SCH (06:49)
[2024-08-10 08:34] VITALS: BP 89/63; PULSE 87; RESP 15; TEMP 98.4; O2SAT 98
[2024-08-10 18:33] VITALS: RESP 16; O2SAT 98
[2024-08-10 19:33] VITALS: RESP 16; O2SAT 98
[2024-08-10 20:19] VITALS: BP 121/79; PULSE 80; RESP 16; TEMP 98.3; O2SAT 97
[2024-08-11 08:46] VITALS: BP 118/75; PULSE 84; RESP 17; TEMP 98; O2SAT 97
[2024-08-11 20:15] VITALS: BP 124/84; PULSE 81; RESP 18; TEMP 99.7; O2SAT 97
[2024-08-11 23:22] VITALS: TEMP 97.1
[2024-08-12 08:00] VITALS: BP 110/70; PULSE 71; RESP 46; TEMP 97.6; O2SAT 100
[2024-08-12 21:00] VITALS: BP 112/71; PULSE 72; RESP 17; TEMP 99.4; O2SAT 96
[2024-08-13 08:26] VITALS: RESP 18
[2024-08-13 20:00] VITALS: BP 124/88; PULSE 84; RESP 16; TEMP 98.4; O2SAT 96
[2024-08-14 08:22] VITALS: BP 106/65; PULSE 70; RESP 18; TEMP 98.1; O2SAT 96
[2024-08-14] MEDS: TUBERCULIN, PURIFIED PROTEIN DERIVATIVE 5 TU/0.1 ML SYRINGE ID ONE (12:02)
[2024-08-14 20:50] VITALS: BP 121/72; PULSE 79; RESP 18; TEMP 97.3; O2SAT 97
[2024-08-15 09:03] VITALS: BP 106/74; PULSE 90; RESP 18; TEMP 97.5; O2SAT 97
[2024-08-15 20:12] VITALS: BP 122/77; PULSE 102; RESP 17; TEMP 98.8; O2SAT 97
[2024-08-16 08:52] VITALS: BP 103/63; PULSE 63; RESP 17; TEMP 98.4; O2SAT 91
[2024-08-16 20:25] VITALS: BP 103/60; PULSE 71; RESP 16; TEMP 98.2; O2SAT 97
[2024-08-17 08:54] VITALS: BP 106/63; PULSE 84; RESP 14; TEMP 98.6; O2SAT 96
[2024-08-17 21:14] VITALS: BP 98/70; PULSE 70; RESP 20; TEMP 96.3; O2SAT 94
[2024-08-18 08:07] VITALS: BP 108/69; PULSE 88; RESP 16; TEMP 98; O2SAT 96
[2024-08-18] MEDS ORDERED: HALOPERIDOL LACTATE 5 MG/ML VIAL ONE (16:51)
[2024-08-18 17:38] VITALS: BP 133/90; PULSE 97; RESP 16; TEMP 98.3; O2SAT 96
[2024-08-18] MEDS: LORazepam 2 MG/ML VIAL IM ONE (21:56)
[2024-08-18] MEDS: HALOPERIDOL LACTATE 5 MG/ML VIAL IM ONE (21:56)
[2024-08-18] MEDS: DiphenhydrAMINE HCL 50 MG/ML VIAL IM ONE (21:57)
[2024-08-19 00:45] VITALS: BP 127/81; PULSE 93; RESP 18; TEMP 98.1; O2SAT 97
[2024-08-19] MEDS: QUEtiapine FUMARATE 300 MG TABLET PO ONE (01:17)
[2024-08-19 08:20] VITALS: BP 107/62; PULSE 67; RESP 18; TEMP 98.7; O2SAT 97
[2024-08-20 08:44] VITALS: BP 89/59; PULSE 67; RESP 18; TEMP 98; O2SAT 98
[2024-08-20] MEDS ORDERED: LORazepam 2 MG/ML VIAL ONE (12:34)
[2024-08-20] MEDS ORDERED: HALOPERIDOL LACTATE 5 MG/ML VIAL ONE (12:34)
[2024-08-20] MEDS ORDERED: DiphenhydrAMINE HCL 50 MG/ML VIAL ONE (12:34)
[2024-08-20] MEDS: LORazepam 2 MG/ML VIAL IM ONE (13:01)
[2024-08-20] MEDS: HALOPERIDOL LACTATE 5 MG/ML VIAL IM ONE (13:01)
[2024-08-20] MEDS: DiphenhydrAMINE HCL 50 MG/ML VIAL IM ONE (13:01)
[2024-08-20 18:09] VITALS: BP 108/88; PULSE 82; RESP 18; TEMP 98.6; O2SAT 98
[2024-08-20 20:46] VITALS: RESP 18
[2024-08-21] MEDS: LevETIRAcetam 500 MG TABLET PO ONE (16:34)
[2024-08-21 16:35] VITALS: BP 123/78; PULSE 90; RESP 18; TEMP 98; O2SAT 99
[2024-08-21 17:35] VITALS: RESP 18
[2024-08-21 21:14] VITALS: BP 116/74; PULSE 101; RESP 16; TEMP 97.7; O2SAT 96
[2024-08-22] MEDS: LevETIRAcetam 500 MG TABLET PO SCH (09:05)
[2024-08-22 11:17] VITALS: BP 100/62; PULSE 66; RESP 17; TEMP 97; O2SAT 97
[2024-08-22 21:16] VITALS: BP 106/72; PULSE 66; RESP 16; TEMP 98.7; O2SAT 98
[2024-08-23 14:31] VITALS: BP 112/76; PULSE 97; RESP 17; TEMP 97.7; O2SAT 97
[2024-08-23 20:19] VITALS: BP 114/80; PULSE 64; RESP 18; TEMP 98.5; O2SAT 99
[2024-08-24 08:20] VITALS: BP 112/72; PULSE 64; RESP 16; TEMP 98; O2SAT 98
[2024-08-24] MEDS ORDERED: LORazepam 2 MG/ML VIAL ONE (16:23)
[2024-08-24] MEDS ORDERED: DiphenhydrAMINE HCL 50 MG/ML VIAL ONE (16:24)
[2024-08-24] MEDS ORDERED: HALOPERIDOL LACTATE 5 MG/ML VIAL ONE ×2 (16:24)
[2024-08-24] MEDS: LORazepam 2 MG/ML VIAL IM ONE (16:55)
[2024-08-24] MEDS: DiphenhydrAMINE HCL 50 MG/ML VIAL IM ONE (16:56)
[2024-08-24] MEDS: HALOPERIDOL LACTATE 5 MG/ML VIAL IM ONE (16:56)
[2024-08-24 20:28] VITALS: BP 135/91; PULSE 100; RESP 18; TEMP 98.5; O2SAT 98
[2024-08-25 08:48] VITALS: BP 96/67; PULSE 63; RESP 16; TEMP 97.7; O2SAT 96
[2024-08-25 20:14] VITALS: BP 108/68; PULSE 87; RESP 18; TEMP 97.3; O2SAT 96
[2024-08-26 08:19] VITALS: BP 96/60; PULSE 77; RESP 17; TEMP 98.2; O2SAT 97
[2024-08-26 23:30] VITALS: PULSE 82; TEMP 97.8
[2024-08-27] MEDS: LORazepam 2 MG/ML VIAL IM ONE (07:32)
[2024-08-27] MEDS: ChlorproMAZINE HCL 50 MG/2 ML AMP IM ONE (07:33)
[2024-08-27] MEDS: DiphenhydrAMINE HCL 50 MG/ML VIAL IM ONE (07:33)
[2024-08-27 08:46] VITALS: BP 105/73; PULSE 70; RESP 18; TEMP 98.8; O2SAT 99
[2024-08-27 20:00] VITALS: BP 121/80; PULSE 82; RESP 18; TEMP 97.6; O2SAT 100
[2024-08-28 14:15] VITALS: BP 110/82; PULSE 100; RESP 17; TEMP 97.5; O2SAT 97
[2024-08-28 20:28] VITALS: BP 124/89; PULSE 100; RESP 18; TEMP 98.1; O2SAT 98
[2024-08-29 08:13] VITALS: BP 100/67; PULSE 66; RESP 17; TEMP 97.4; O2SAT 99
[2024-08-29 20:18] VITALS: BP 114/78; PULSE 79; RESP 18; TEMP 98.1; O2SAT 99
[2024-08-30 08:44] VITALS: BP 102/74; PULSE 99; RESP 17; TEMP 97; O2SAT 96
[2024-08-30] MEDS ORDERED: ChlorproMAZINE HCL 50 MG TABLET ONE (13:59)
[2024-08-30] MEDS: ChlorproMAZINE HCL 50 MG TABLET PO PRN (14:01)
[2024-08-30] MEDS: ChlorproMAZINE HCL 50 MG/2 ML AMP IM ONE (16:09)
[2024-08-30] MEDS: DiphenhydrAMINE HCL 50 MG/ML VIAL IM ONE (16:09)
[2024-08-30 20:00] VITALS: RESP 17
[2024-08-31] MEDS ORDERED: DiphenhydrAMINE HCL 50 MG/ML VIAL ONE (12:41)
[2024-08-31] MEDS: DiphenhydrAMINE HCL 50 MG/ML VIAL IM ONE (12:57)
[2024-08-31 13:18] VITALS: BP 118/69; PULSE 95; RESP 18; TEMP 97.9; O2SAT 98
[2024-08-31 20:48] VITALS: BP 145/90; PULSE 95; RESP 18; TEMP 98; O2SAT 98
[2024-09-01] MEDS: NICOTINE 21 MG/24 HOUR PATCH TD SCH (08:10)
[2024-09-01 08:34] VITALS: BP 103/62; PULSE 60; RESP 18; TEMP 98; O2SAT 95
[2024-09-01 20:39] VITALS: BP 105/68; PULSE 87; RESP 16; TEMP 98.2; O2SAT 98
[2024-09-02 08:20] VITALS: BP 105/60; PULSE 79; RESP 16; TEMP 97.3; O2SAT 97
[2024-09-02 16:55] VITALS: BP 141/91; PULSE 78; RESP 20; TEMP 97.9; O2SAT 97
[2024-09-02 20:09] VITALS: BP 136/79; PULSE 93; RESP 16; TEMP 98.1; O2SAT 97
[2024-09-03 08:30] VITALS: RESP 18
[2024-09-03 16:57] VITALS: BP 141/78; PULSE 96; RESP 18; TEMP 97.8
[2024-09-03 20:12] VITALS: BP 134/91; PULSE 98; RESP 17; TEMP 97.7; O2SAT 99
[2024-09-04 20:35] VITALS: BP 106/66; PULSE 89; RESP 17; TEMP 97.2; O2SAT 98
[2024-09-05 08:17] VITALS: BP 100/63; PULSE 71; RESP 18; TEMP 98.2; O2SAT 96
[2024-09-05 21:00] VITALS: BP 120/67; PULSE 78; RESP 16; TEMP 98.7; O2SAT 96
[2024-09-06 08:09] VITALS: RESP 16
[2024-09-06 17:07] VITALS: RESP 17
[2024-09-06 18:07] VITALS: RESP 16
[2024-09-06 20:07] VITALS: BP 113/60; PULSE 80; RESP 16; TEMP 98; O2SAT 97
[2024-09-07 08:08] VITALS: BP 100/58; PULSE 71; RESP 18; TEMP 97.9; O2SAT 98
[2024-09-07] MEDS ORDERED: DiphenhydrAMINE HCL 50 MG/ML VIAL ONE (14:04)
[2024-09-07] MEDS ORDERED: HALOPERIDOL LACTATE 5 MG/ML VIAL ONE (14:04)
[2024-09-07] MEDS ORDERED: LORazepam 2 MG/ML VIAL ONE (14:04)
[2024-09-07] MEDS: LORazepam 2 MG/ML VIAL IM ONE (14:24)
[2024-09-07] MEDS: HALOPERIDOL LACTATE 5 MG/ML VIAL IM ONE (14:24)
[2024-09-07] MEDS: DiphenhydrAMINE HCL 50 MG/ML VIAL IM ONE (14:24)
[2024-09-08 09:11] VITALS: BP 107/69; PULSE 70; RESP 17; TEMP 97.5; O2SAT 95
[2024-09-08 18:36] VITALS: RESP 18
[2024-09-08 20:20] VITALS: BP 109/65; PULSE 75; RESP 17; TEMP 97.9; O2SAT 96
[2024-09-09 09:57] VITALS: BP 114/67; PULSE 100; RESP 16; TEMP 98; O2SAT 98
[2024-09-09 12:53] VITALS: RESP 18
[2024-09-09 13:53] VITALS: RESP 18
[2024-09-09 20:32] VITALS: BP 117/75; PULSE 104; RESP 17; TEMP 97.3; O2SAT 96
[2024-09-09 20:50] VITALS: RESP 18
[2024-09-10 09:36] VITALS: BP 111/69; PULSE 100; RESP 17; TEMP 97.7; O2SAT 97
[2024-09-10 16:17] VITALS: RESP 18
[2024-09-10 20:45] VITALS: BP 116/70; PULSE 100; RESP 18; TEMP 97.4; O2SAT 97
[2024-09-11 08:18] VITALS: BP 98/61; PULSE 63; RESP 18; TEMP 97.3; O2SAT 99
[2024-09-11 17:18] VITALS: RESP 18
[2024-09-11 18:18] VITALS: RESP 18
[2024-09-11 20:21] VITALS: BP 130/78; PULSE 95; RESP 17; TEMP 97.6; O2SAT 97
[2024-09-12] MEDS ORDERED: SUMAtriptan SUCCINATE 25 MG TABLET ONE (10:07)
[2024-09-12] MEDS: SUMAtriptan SUCCINATE 25 MG TABLET PO PRN (10:11)
[2024-09-12 12:26] VITALS: BP 112/66; PULSE 96; RESP 16; TEMP 97; O2SAT 99
[2024-09-12 14:37] VITALS: RESP 17
[2024-09-12] MEDS: BENZOCAINE/MENTHOL [CEPACOL] LOZENGE PO PRN (14:37)
[2024-09-12 15:37] VITALS: RESP 17
[2024-09-12 20:14] VITALS: BP 122/81; PULSE 82; RESP 17; TEMP 98; O2SAT 97
[2024-09-12 21:12] VITALS: RESP 18
[2024-09-12 22:12] VITALS: RESP 17
[2024-09-13 10:25] VITALS: BP 97/57; PULSE 80; RESP 18; TEMP 97; O2SAT 97
[2024-09-13 19:19] VITALS: RESP 19
[2024-09-13 20:27] VITALS: BP 100/64; PULSE 82; RESP 18; TEMP 97.5; O2SAT 98
[2024-09-13 21:05] VITALS: RESP 18
[2024-09-14 10:08] VITALS: BP 124/75; PULSE 80; RESP 16; TEMP 97.4; O2SAT 97
[2024-09-14] MEDS ORDERED: LORazepam 2 MG/ML VIAL ONE (16:41)
[2024-09-14] MEDS: LORazepam 2 MG/ML VIAL IM ONE (17:10)
[2024-09-14 20:28] VITALS: BP 116/73; PULSE 100; RESP 17; TEMP 98.3; O2SAT 96
[2024-09-15 08:47] VITALS: BP 105/67; PULSE 66; RESP 17; TEMP 97.3; O2SAT 98
[2024-09-15 21:19] VITALS: BP 132/75; PULSE 83; RESP 18; TEMP 97.8
[2024-09-16 10:11] VITALS: BP 115/85; RESP 18; TEMP 97.5; O2SAT 97
[2024-09-16 12:46] LABS: GLUCOMETER DEV NAME(LOC) POC.BV; POC SARS-COV2 AG, FIA NEGATIVE (NEGATIVE)
[2024-09-16] MEDS: LORazepam 2 MG/ML VIAL IM ONE (15:17)
[2024-09-16] MEDS: HALOPERIDOL LACTATE 5 MG/ML VIAL IM ONE (15:18)
[2024-09-16] MEDS: DiphenhydrAMINE HCL 50 MG/ML VIAL IM ONE (15:18)
[2024-09-16 16:10] LABS: GLUCOMETER DEV NAME(LOC) BV3N.2; GLUCOSE,POINT OF CARE 152 MG/DL (70-110)
[2024-09-16 20:35] VITALS: BP 120/77; PULSE 107; RESP 17; TEMP 97.7; O2SAT 97
[2024-09-16] MEDS ORDERED: HALOPERIDOL 5 MG TABLET PO PRN (23:00)
[2024-09-17] MEDS: DIVALPROEX SODIUM 500 MG DR TABLET PO SCH (08:26)
[2024-09-17] MEDS: LITHIUM CARBONATE 300 MG CAPSULE PO SCH (08:26)
[2024-09-17] MEDS: QUEtiapine FUMARATE 300 MG TABLET PO SCH (08:27)
[2024-09-17 08:40] VITALS: BP 105/62; PULSE 72; RESP 17; TEMP 97.4; O2SAT 96
[2024-09-17 14:46] VITALS: RESP 18
[2024-09-17 20:59] VITALS: BP 135/70; PULSE 95; RESP 17; TEMP 97.9; O2SAT 98
[2024-09-18] MEDS: OMEPRAZOLE 20 MG CAPSULE PO PRN (01:08)
[2024-09-18] MEDS ORDERED: DIVA-112 PO (07:57)
[2024-09-18] MEDS ORDERED: LITH300C3 PO (08:00)
[2024-09-18] MEDS ORDERED: QUET300T2 PO (08:02)
[2024-09-18] MEDS ORDERED: LACT10SO85 PO (08:11)
[2024-09-18] MEDS ORDERED: LEVE-71 PO (08:15)
[2024-09-18] MEDS ORDERED: ATOR40TA28 PO (08:16)
[2024-09-18] MEDS ORDERED: FINA-27 PO (08:17)
[2024-09-18] MEDS ORDERED: MULT-14 PO (08:26)
[2024-09-18] MEDS ORDERED: NICO-803 TD (08:30)
[2024-09-18] MEDS ORDERED: ALBU18HF12 IH (08:33)
== END 2024-09-18 15:38 | DRG 750 ==
LOC: EMS 04:07 → B3A 07-24 00:30 → B2S 08-03 20:56 → B3A 08-20 16:53
PROVIDERS: ADMIT Psychiatry & Neurology Psychiatry; ATTEND Psychiatry & Neurology Psychiatry
PROC: GZHZZZZ Group Psychotherapy (ICD-10-PCS; principal; 2024-08-23)
PROC: GZ52ZZZ Individual Psychotherapy, Cognitive (ICD-10-PCS; 2024-08-24)
DX: F20.0 Paranoid schizophrenia (principal); G40.909 Epilepsy, unspecified, not intractable, without status epilepticus; E03.9 Hypothyroidism, unspecified; F15.10 Other stimulant abuse, uncomplicated; F17.210 Nicotine dependence, cigarettes, uncomplicated; Z20.822 Contact with and (suspected) exposure to COVID-19; F10.10 Alcohol abuse, uncomplicated; F12.10 Cannabis abuse, uncomplicated; F41.0 Panic disorder [episodic paroxysmal anxiety]; Y90.9 Presence of alcohol in blood, level not specified; I25.10 Atherosclerotic heart disease of native coronary artery without angina pectoris; J44.89 Other specified chronic obstructive pulmonary disease; Z56.0 Unemployment, unspecified; Z59.819 Housing instability, housed unspecified; Z78.1 Physical restraint status; Z90.49 Acquired absence of other specified parts of digestive tract; Z87.820 Personal history of traumatic brain injury; Z88.8 Allergy status to other drugs, medicaments and biological substances; Z91.013 Allergy to seafood; Z91.040 Latex allergy status; Z88.0 Allergy status to penicillin
CPT/HCPCS: 70450; 70486; 80048; 80061; 80076; 80164; 80185; 80307; 81003; 82962; 83036; 84443; 85025; 87081; 95816; 97162; 97165; 97530; 97535; 99285; G0480; J1200; J1630; J2060; J3230; J3535; Q0162

== ENCOUNTER 2024-08-01 15:35 | Emergency (ER) | payer MEDICAID, OTHER ==
[~2024-08-01] VITALS: Ht 177.8 cm; Wt 100.0 kg
[~2024-08-01 15:35] MED LIST changes: +ALBU18HF12 IH; +ATOR40TA71 PO; +BACL10TA PO; +CLON0.5T4 PO; +DIVA-153 PO; +FINA5TAB41 PO; +LACT10SO9 PO; +LEVO100 PO; -LEVO50 PO; +LIDO700A30 TD; +MULT-1336 PO; +OLAN10TA74 PO; -OMEP-148 PO; +PALI156D IM; +PALI9TAB15 PO; -PHEN100C74 PO; -QUET300T2 PO; +TAMS0.4C94 PO; -VALP250C48 PO
[2024-08-01 18:44] VITALS: BP 140/80; PULSE 100; RESP 18; TEMP 98; O2SAT 100
[2024-08-01] MEDS: ACETAMINOPHEN 325 MG TABLET PO ONE (19:42)
== END 2024-08-01 21:33 ==
LOC: EMS 15:36
DX: S09.90XA Unspecified injury of head, initial encounter (principal); G40.909 Epilepsy, unspecified, not intractable, without status epilepticus; E03.9 Hypothyroidism, unspecified; F20.9 Schizophrenia, unspecified; I25.10 Atherosclerotic heart disease of native coronary artery without angina pectoris; J45.909 Unspecified asthma, uncomplicated; F12.90 Cannabis use, unspecified, uncomplicated; F15.90 Other stimulant use, unspecified, uncomplicated; Z79.899 Other long term (current) drug therapy; Z88.0 Allergy status to penicillin; Z88.2 Allergy status to sulfonamides; Z88.5 Allergy status to narcotic agent; Z90.49 Acquired absence of other specified parts of digestive tract; Z91.040 Latex allergy status; W22.01XA Walked into wall, initial encounter; Y93.89 Activity, other specified; Y92.89 Other specified places as the place of occurrence of the external cause; Y99.8 Other external cause status
CPT/HCPCS: 99283

== ENCOUNTER 2024-08-09 17:22 | Emergency (ER) | payer OTHER ==
[~2024-08-09] VITALS: Ht 175.3 cm; Wt 96.4 kg
[2024-08-09 17:57] VITALS: TEMP 98.4
[2024-08-09 18:52] VITALS: BP 119/64; PULSE 67; RESP 20; O2SAT 99
[2024-08-09] MEDS: HYDROGEN PEROXIDE 118 ML SOLUTION TP ONE (18:52)
[2024-08-09] MEDS: NEOMYCIN/POLYMYXIN B/HYDROCORT 10 ML OTIC SUSPENSION AU SCH (19:30)
[2024-08-10] MEDS ORDERED: NEOMYCIN/POLYMYXIN B/HYDROCORT 10 ML OTIC SUSPENSION AU ONE (14:45)
== END 2024-08-09 20:49 | disposition home or self-care (01) ==
LOC: EMS 17:22
DX: H61.23 Impacted cerumen, bilateral (principal); J45.909 Unspecified asthma, uncomplicated; E03.9 Hypothyroidism, unspecified; F12.90 Cannabis use, unspecified, uncomplicated; F20.9 Schizophrenia, unspecified; Z91.040 Latex allergy status; Z88.0 Allergy status to penicillin; Z88.2 Allergy status to sulfonamides; Z88.5 Allergy status to narcotic agent; Z90.49 Acquired absence of other specified parts of digestive tract; Z79.899 Other long term (current) drug therapy
CPT/HCPCS: 69209; 99283

== ENCOUNTER → 2024-08-18 | Emergency (ER) | payer OTHER ==
[~2024-08-18] VITALS: Ht 175.3 cm; Wt 96.0 kg
[2024-08-18] MEDS: ACETAMINOPHEN 500 MG TABLET PO ONE (20:38)
[2024-08-18 20:49] VITALS: TEMP 98.3
[2024-08-18 22:25] VITALS: BP 127/81; PULSE 86; RESP 18; O2SAT 97
== END ==
LOC: EMS 19:58
DX: S00.03XA Contusion of scalp, initial encounter (principal); F25.0 Schizoaffective disorder, bipolar type; E03.9 Hypothyroidism, unspecified; F12.90 Cannabis use, unspecified, uncomplicated; J45.909 Unspecified asthma, uncomplicated; Z88.0 Allergy status to penicillin; Z88.2 Allergy status to sulfonamides; Z88.5 Allergy status to narcotic agent; Z90.49 Acquired absence of other specified parts of digestive tract; Z91.040 Latex allergy status; Z79.899 Other long term (current) drug therapy; W22.8XXA Striking against or struck by other objects, initial encounter; Y93.89 Activity, other specified; Y92.89 Other specified places as the place of occurrence of the external cause; Y99.8 Other external cause status
CPT/HCPCS: 70450; 99284

== ENCOUNTER 2024-08-20 13:32 | Emergency (ER) | payer OTHER ==
[~2024-08-20] VITALS: Ht 175.3 cm; Wt 90.4 kg
[2024-08-20 14:19] VITALS: TEMP 98.6
[2024-08-20 14:42] LABS: BASOPHILS % (AUTO) 0.5 % (0.0-2.0); EOSINOPHILS % (AUTO) 3.2 % (1.0-6.0); HEMATOCRIT 42.4 % (41-53); HEMOGLOBIN 14.9 g/dL (13.5-17.5); LYMPHOCYTES # (AUTO) 1.4 K/uL (1.0-4.8); LYMPHOCYTES % (AUTO) 19.8 % (22.0-44.0); MEAN CORPUSCULAR HEMOGLOBIN 31.9 pg (26.0-34.0); MEAN CORPUSCULAR HGB CONC 35.2 G/dL (31.0-37.0); MEAN CORPUSCULAR VOLUME 90 fL (80-100); MONOCYTES # (AUTO) 0.5 K/uL (0.1-1.0); MONOCYTES % (AUTO) 7.3 % (2.0-9.0); NEUTROPHILS # (AUTO) 4.9 K/uL (1.8-7.7); NEUTROPHILS % (AUTO) 69.2 % (40.0-70.0); PLATELET COUNT (AUTO) 198 K/uL (150-450); RED BLOOD CELL COUNT(AUTO) 4.69 MIL/uL (4.50-5.90); RED CELL DISTRIBUTION WIDTH 13.1 % (11.5-14.5); WHITE BLOOD COUNT (AUTO) 7.1 K/uL (4.5-11.0)
[2024-08-20] MEDS: LevETIRAcetam 1,000 MG in DEXTROSE 5%-WATER 100 ML IV ONE (14:48)
[2024-08-20 14:49] LABS: ANION GAP 5 mmol/L (8-16); CARBON DIOXIDE 28 mmol/L (22-29); CHLORIDE 104 mmol/L (98-107); CREATININE 0.81 mg/dL (0.60-1.30); GLUCOSE,RANDOM 137 mg/dL (70-110); SODIUM SERUM 137 mmol/L (136-145); UREA NITROGEN, BLOOD 15 mg/dL (7-18)
[2024-08-20] MEDS: ACETAMINOPHEN 500 MG TABLET PO ONE (14:49)
[2024-08-20] MEDS: BACITRACIN 0.9 GM PACKET OINTMENT TP ONE (14:49)
[2024-08-20 14:50] LABS: CALCIUM, TOTAL 9.2 mg/dL (8.8-10.5); GLOMERULAR FILTR. RATE CALC > 60 mL/min (>60)
[2024-08-20 14:53] LABS: B-TYPE NATRIURETIC PEPTIDE 13 pg/mL (0-100)
[2024-08-20 14:57] LABS: ALBUMIN 3.4 g/dL (3.4-5.0); BILIRUBIN,DIRECT 0.1 mg/dL (0.00-0.20); BILIRUBIN,TOTAL 0.5 mg/dL (0.1-1.0); TOTAL PROTEIN, SERUM 7.3 g/dL (6.4-8.2)
[2024-08-20 15:02] LABS: CREATINE KINASE, TOTAL ONLY 253 U/L (39-308)
[2024-08-20 15:03] LABS: TROPONIN I-HIGH SENSITIVITY 4 ng/L (<76)
[2024-08-20 17:01] VITALS: BP 117/65; PULSE 80; RESP 14; O2SAT 98
== END 2024-08-20 17:03 ==
LOC: EMS 13:32
DX: S00.03XA Contusion of scalp, initial encounter (principal); J45.909 Unspecified asthma, uncomplicated; E03.9 Hypothyroidism, unspecified; F12.90 Cannabis use, unspecified, uncomplicated; F20.9 Schizophrenia, unspecified; I25.10 Atherosclerotic heart disease of native coronary artery without angina pectoris; Z79.899 Other long term (current) drug therapy; Z88.0 Allergy status to penicillin; Z88.2 Allergy status to sulfonamides; Z88.5 Allergy status to narcotic agent; Z90.49 Acquired absence of other specified parts of digestive tract; Z91.040 Latex allergy status; Z87.891 Personal history of nicotine dependence; W22.01XA Walked into wall, initial encounter; Y93.89 Activity, other specified; Y92.89 Other specified places as the place of occurrence of the external cause; Y99.8 Other external cause status
CPT/HCPCS: 99285; 96365; 70450; 71045; 80048; 80076; 82550; 82962; 83880; 84484; 85025; 36415; 93005; J0712; J7060